=== PATIENT | female | born 1980 | race Caucasian/White ===

== ENCOUNTER 2016-07-30 12:21 | Day surgery (SDC) | payer OTHER ==
[~2016-07-30] VITALS: Ht 175.3 cm; Wt 104.4 kg
[~2016-07-30 12:21] MED LIST: ALPR0.25 PO; AMX500CIP PO; BUSP15TA60 PO; CEPH500C PO; HYDR-3454 PO; LORC10TA PO; OXYC1TAB87 PO; PEDI1TAB36 PO; VENL75CA PO
[2016-07-30] MEDS ORDERED: NS IV 1000 ML 1,000 ML ONE (12:41)
[2016-07-30] MEDS ORDERED: NS IV 1000 ML 1,000 ML IV SCH (12:45)
[2016-07-30] MEDS ORDERED: LEVOFLOXACIN 500 MG/D5W 100 ML (PRE-MIX) IV ONE (12:45)
[2016-07-30] MEDS ORDERED: PANTOPRAZOLE 40 MG/10 ML (PROTONIX) VIAL IV ONE (12:45)
[2016-07-30] MEDS ORDERED: ONDANSETRON 4 MG/2 ML (SDV) Z0FRAN IVP PRN (12:45)
[2016-07-30] MEDS ORDERED: NS IV 1000 ML 1,000 ML IV STA (12:47)
[2016-07-30] MEDS ORDERED: ONDANSETRON 4 MG/2 ML (SDV) Z0FRAN ONE (12:53)
--- NOTE | 2016-07-30 12:53 | Conscious Sedation/ASA ---
Conscious Sedation Pre-Proced Time Reviewed: 12:50 ASA Class: 2 Airway Mallampati Classification: ([place] appropriate class) I. II. III, IV Lungs Heart ASA score ASA 1: a normal healthy patient ASA 2: a patient with a mild systemic disease (mid diabetes, controlled hypertension, obesity ASA 3: a patient with a severe systemic disease that limits activity (angina , COPD, prior Myocardial infarction) ASA 4: a patient with an incapacitating disease that is a constant threat to life (CHF, renal failure) ASA 5: a moribund patient not expected to survive 24 hrs. (ruptured aneurysm) ASA 6: a declared brain patient whose organs are being harvested. For emergent operations, add the letter E after the classification Grade 2 Sedation Plan: Analgesia, Amnesia, Plan communicated to team members, Discussed options with patient/fam, Discussed risks with patient/fam Note The patient is an appropriate candidate to undergo the planned procedure, sedation, and anesthesia. The patient immediately re-assessed prior to indication. NEVILLE MONSALVE MD July 30, 2016 12:53 pm
--- NOTE | 2016-07-30 12:54 | Progress Note-Pre Operative ---
Pre-Operative Progress Note H&P Reviewed The H&P was reviewed, patient examined and no changes noted. Date H&P Reviewed: July 30, 2016 Time H&P Reviewed: 12:50 Pre-Operative Diagnosis: persistent nausea/vomiting s/p gastric sleeve NEVILLE MONSALVE MD July 30, 2016 12:54 pm
[2016-07-30] MEDS ORDERED: HYDROcodone/APAP 5 MG/325 MG (LORTAB) TAB PO PRN (13:00)
[2016-07-30] MEDS ORDERED: FLUMAZENIL (ROMAZICON) 0.1 MG/ML 5 ML VIAL INJ PRN (13:00)
[2016-07-30] MEDS ORDERED: HURRICAINE EXT TUBE (BENZOCAINE) XX PRN (13:00)
[2016-07-30] MEDS ORDERED: morphine INJ 10 MG/ML 1ML (SYR OR VIAL) IV PRN (13:00)
[2016-07-30] MEDS ORDERED: ONDANSETRON 4 MG/2 ML (SDV) Z0FRAN IV PRN (13:00)
[2016-07-30] MEDS ORDERED: ACETAMINOPHEN 325 MG TABLET/CAPLET (TYLENOL) PO PRN (13:00)
[2016-07-30] MEDS ORDERED: LIDOCAINE JELLY 2% (XYLOCAINE) 5 ML TUBE MM PRN (13:00)
[2016-07-30] MEDS ORDERED: NALOXONE 0.4 MG/ML 1 ML (NARCAN) VIAL IVP PRN (13:00)
[2016-07-30 13:07] VITALS: BP 113/72
[2016-07-30] MEDS ORDERED: LIDOCAINE JELLY 2% (XYLOCAINE) 5 ML TUBE ONE (13:49)
[2016-07-30] MEDS ORDERED: MIDAZOLAM 2 MG/2 ML (VERSED) VIAL ONE ×4 (13:50→13:51)
[2016-07-30] MEDS ORDERED: HURRICAINE EXT TUBE (BENZOCAINE) ONE (13:51)
[2016-07-30] MEDS ORDERED: fentaNYL INJECTION 100 MCG/2 ML AMP ONE ×2 (13:53→14:20)
[2016-07-30] MEDS ORDERED: NS IV 500 ML 1,000 ML ONE (14:10)
[2016-07-30] MEDS: MIDAZOLAM 2 MG/2 ML (VERSED) VIAL IVP PRN ×4 (14:13→14:22)
[2016-07-30] MEDS: fentaNYL INJECTION 100 MCG/2 ML AMP IVP PRN ×4 (14:14→14:23)
--- NOTE | 2016-07-30 14:52 | Progress Note-Post Operative ---
Post-Operative Progess Note Surgeon (s)/Stained Glass Window Designer (s) Surgeon NEVILLE MONSALVE MD Stained Glass Window Designer: none Pre-Operative Diagnosis persistent nausea/vomiting s/p gastric sleeve Post-Operative Diagnosis mid-gastric stricture Procedure & Operative Findings Date of Procedure 07/30/16 Procedure Preformed/Findings EGD with dilatation. Anesthesia Type GET Estimated Blood Loss Estimated blood loss (mL): minimal Specimens/Packing Specimens Removed none Packing: none NEVILLE MONSALVE MD July 30, 2016 2:52 pm
[2016-07-30] MEDS ORDERED: METO5TAB75 PO (14:54)
[2016-07-30] MEDS ORDERED: PROC-1 PO (14:54)
[2016-07-30] MEDS ORDERED: SUCR1TAB36 PO (14:54)
--- NOTE | 2016-07-30 14:56 | Discharge Inst-Surgical ---
D/C Lap Instructions-GRICEL New, Converted, or Re-Newed RX: RX on Chart Follow Up Appt in 2 weeks Activity as tolerated liquid diet with protein supplement 1 week then advance as tolerated. Symptoms to Report: Fever over 101 degree F, Nausea/Vomiting Infection Signs and Symptoms to report: Increased redness, Foul odor of wound, Increased drainage Bathing instructions: May shower Operative Area Clean/Dry; Keep incision clean/dry If any problems/questions: Contact your physician or go to Emergency Room NEVILLE MONSALVE MD July 30, 2016 2:56 pm
[2016-07-30 15:00] VITALS: BP 114/72
[2016-07-30 15:27] VITALS: BP 113/65
[2016-07-30 15:40] VITALS: BP 113/65
--- NOTE | 2016-07-31 14:37 | OPERATIVE REPORT ---
DATE OF SERVICE: 07/30/2016 ATTENDING LAST DIPPER: Danna Torre APRN PREOPERATIVE DIAGNOSIS: Persistent nausea and vomiting. POSTOPERATIVE DIAGNOSIS: Mid gastric stricture, status post laparoscopic gastric sleeve resection. PROCEDURE: EGD with dilatation. SURGEON: Neville Monsalve MD ANESTHESIA: Conscious sedation. ESTIMATED BLOOD LOSS: Minimal. FINDINGS: Mid gastric stricture of the stomach secondary to either acid hypersecretion or the angle of the staple line. There were no marginal ulcerations identified. The endoscope was able to go through this stricture; however, we did dilate to approximately 14 mm. DISPOSITION: The patient tolerated the procedure well. INDICATIONS: The patient is a 35-year-old female with persistent nausea, vomiting and dysphagia. She reports that she is only able to take in approximately 24 fluid ounces of water daily and, after taking in either liquid or food bolus, will feel nausea and then vomiting. She does not report any hematemesis, no coffee-ground emesis. She is status post a laparoscopic gastric sleeve resection on 07/05/2016. She is otherwise having normal bowel movements. DESCRIPTION OF PROCEDURE: The patient was brought to the endoscopy suite and laid in the left lateral decubitus position. After adequate IV pain and sedative medications and conscious sedation anesthesia, the mouthpiece was applied. The endoscope was placed in the mouth, visualizing the pharynx and hypopharyngeal region. The vocal cords, epiglottis and vallecula identified, appeared to be normal. The endoscope was then gently intubated in the esophageal opening, and esophagus insufflated. The endoscope was then advanced to the 1st, 2nd and 3rd portions of the esophagus. At the level of the GE junction, a reflux esophagitis class B identified. The endoscope was then easily advanced in the stomach. A mid gastric stricture was identified. This was mild to moderate in severity. There were no marginal ulcerations. The endoscope was able to pass through this without any resistance. The distal antrum, as well as the pylorus and the 1st and 2nd portions of the duodenum, appeared normal. No distal obstructions identified. We then proceeded with dilatation of the gastric stricture. A CRE fixed guidewire balloon was placed under direct visualization into the antrum and pulled back to the area of the stricture. We then first proceeded with 3 atmospheres of pressure for approximately 12 mm with no resistance. We then proceeded to 4.5 atmospheres of pressure for approximately 13 and 14 mm in diameter with mild resistance. We then proceeded with 6 atmospheres of pressure with moderate resistance and left this into place for approximately 60 seconds. The patient did show discomfort, indicating a successful dilatation. The balloon was then desufflated and removed. The endoscope was passed through this area again with no mucosal tears, as well as no bleeding, identified. The endoscope was then slowly withdrawn, taking a second look and suctioning residual air with no additional findings. The patient tolerated the procedure well. We will continue with medical management with a clear liquid diet as tolerated and to focus on a liquid form of some protein for now. We will also have her continue with Protonix daily and, if her symptoms persist, we will have her come back in approximately 2 weeks for further dilatation of the stricture. Job ID: [id number] DocumentID: [id number] Dictated Date: 07/30/2016 14:39:46 Simplex Operator Date: 07/31/2016 14:37:10 Dictated By: NEVILLE MONSALVE MD MTDD
== END 2016-07-30 15:40 | disposition home or self-care (01) ==
LOC: ENDO 12:21
PROVIDERS: ATTEND Surgery Pediatric Surgery
DX: K31.89 Other diseases of stomach and duodenum (principal); K21.0 Gastro-esophageal reflux disease with esophagitis; Z98.84 Bariatric surgery status
CPT/HCPCS: 84703

== ENCOUNTER 2016-08-02 16:38 | Inpatient (IN) | payer OTHER ==
[~2016-08-02] VITALS: Ht 175.3 cm; Wt 121.3 kg
[~2016-08-02 16:38] MED LIST changes: +METO5TAB75 PO; +PROC-1 PO; +SUCR1TAB36 PO
[2016-08-02 16:50] VITALS: BP 134/70
[2016-08-02] MEDS ORDERED: CATHETER FLUSH 10 ML SYR IV PRN (17:45)
[2016-08-02] MEDS ORDERED: LORazepam INJ 2 MG/ML (ATIVAN) VIAL IV PRN (17:45)
[2016-08-02 17:49] LABS: BASOPHILS % (AUTO) 0 % (0-10); EOSINOPHILS # (AUTO) 0.1 10^3/uL (0.0-0.3); EOSINOPHILS % (AUTO) 2 % (0-10); LYMPHOCYTES # (AUTO) 0.8 X 10^3 (1.0-4.0); LYMPHOCYTES % (AUTO) 24 % (12-44); MEAN CORPUSCULAR HEMOGLOBIN 30 PG (25-34); MEAN CORPUSCULAR HGB CONC 35 G/DL (32-36); MEAN CORPUSCULAR VOLUME 87 FL (80-99); MEAN PLATELET VOLUME 11.8 FL (7.4-10.4); MONOCYTES # (AUTO) 0.3 X 10^3 (0.0-1.0); MONOCYTES % (AUTO) 8 % (0-12); NEUTROPHILS # (AUTO) 2.2 X 10^3 (1.8-7.8); NEUTROPHILS % (AUTO) 67 % (42-75); PLATELET COUNT 153 10^3/uL (130-400); RED BLOOD COUNT 4.63 10^6/uL (4.35-5.85); RED CELL DISTRIBUTION WIDTH 12.9 % (10.0-14.5); WHITE BLOOD COUNT 3.3 10^3/uL (4.3-11.0)
[2016-08-02] MEDS: ONDANSETRON 4 MG/2 ML (SDV) Z0FRAN IV PRN (17:56)
[2016-08-02] MEDS: LACTATED RINGERS 1,000 ML IV SCH (17:56)
[2016-08-02 18:14] LABS: ANION GAP 16 MMOL/L (5-14); BLOOD UREA NITROGEN 2 MG/DL (7-18); BUN/CREATININE RATIO 3; CALCIUM 8.4 MG/DL (8.5-10.1); CARBON DIOXIDE 19 MMOL/L (21-32); CHLORIDE 105 MMOL/L (98-107); CREATININE SERUM 0.79 MG/DL (0.60-1.30); GFR ESTIMATED > 60; GLUCOSE 73 MG/DL (70-105); POTASSIUM 3.1 MMOL/L (3.6-5.0); SODIUM 140 MMOL/L (135-145)
[2016-08-02] MEDS: PROMETHAZINE INJ 25 MG/ML (PHENERGAN) AMP IV PRN ×2 (18:20→23:45)
[2016-08-02 20:00] VITALS: BP 121/69
[2016-08-02] MEDS: PANTOPRAZOLE 40 MG/10 ML (PROTONIX) VIAL IV SCH (20:25)
[2016-08-02] MEDS: METOCLOPRAMIDE INJ 10 MG/2 ML (REGLAN) IV PRN (20:25)
[2016-08-02 23:45] VITALS: BP 129/73
[2016-08-03] MEDS: LACTATED RINGERS 1,000 ML IV SCH ×3 (00:51→07:34)
[2016-08-03 03:35] VITALS: BP 124/67
[2016-08-03] MEDS: PROMETHAZINE INJ 25 MG/ML (PHENERGAN) AMP IV PRN ×5 (06:22→23:18)
--- NOTE | 2016-08-03 06:37 | HISTORY AND PHYSICAL ---
DATE OF SERVICE: 08/02/2016 ATTENDING PRIMARY CARE PROVIDER: Danna Torre APRN HISTORY OF PRESENT ILLNESS: The patient is a 35-year-old female with persistent nausea and vomiting as well as dysphagia. She had reported only being able to take in approximately 24 fluid ounces of liquids daily and this would occur after taking liquids as well as soft foods. She did not report any hematemesis or any coffee ground emesis. She is status post laparoscopic gastric sleeve resection on 07/06/2011. On 07/30/2016 she underwent an EGD and was found to have a mid-gastric stricture. This was not severe and the endoscope was able to go through this without any difficulty and there were no distal obstructions. The stricture was dilated to approximately 14 mm in diameter. She was then discharged home however. She states that she initially did well. However the following two days she again felt significant symptoms of nausea, vomiting and was unable to take in medications as well as adequate amounts of liquids. PAST MEDICAL HISTORY: Obstructive sleep apnea, anxiety, morbid obesity. PAST SURGICAL HISTORY: Neuroma excision in 1993, laparoscopic gastric sleeve resection on 07/05/2016. ALLERGIES: No known drug allergies. MEDICATIONS: Ativan p.r.n. SOCIAL HISTORY: Negative smoker. Rare alcohol. FAMILY HISTORY: Mother with type 2 diabetes and hypertension. Father stroke in his 50s and hypertension. Maternal grandmother: Insulin dependent diabetes. Maternal grandfather: Brain tumor. Maternal aunt: Lung cancer and renal cancer. REVIEW OF SYSTEMS: This is a slightly lethargic female with no acute pain issues. She is not experiencing any shortness of breath or difficulty breathing. No chest pain, palpitations or diaphoresis. Persistent nausea and vomiting with liquids and solids and is only able to take in very small amount of liquids on a daily basis. No hematemesis, no coffee ground emesis. No diarrhea or constipation. No red blood per rectum, no dark tarry stools. No fever or chills with weight loss in the past 4 weeks. PHYSICAL EXAMINATION: VITAL SIGNS: Stable. Blood pressure 100/76. Preoperative weight 300.4 pounds. Last weight 264 pounds. Today's weight is 261.5 pounds with a body mass index of 38.7. CHEST: Good breath sounds bilaterally. HEART: Regular. EXTREMITIES: No lower extremity edema. Negative Homans sign. HEENT: No scleral icterus. NECK: No cervical lymphadenopathy. ABDOMEN: Soft. Nondistended. There is mild discomfort in the epigastric region upon deep palpation. There are no peritoneal signs. ASSESSMENT AND PLAN: The patient is a 35-year-old female with persistent nausea, vomiting and gastric stricture. We will admit her and start IV fluids, as well as IV proton pump inhibitor, acid sales assistants and salespersons on a b.i.d. as well as add Carafate. We will also proceed with IV Zofran and Phenergan p.r.n. When she is feeling better we will slowly advance her diet. Job ID: [id number] DocumentID: [id number] Dictated Date: 08/02/2016 17:45:33 Dipper And Drier Date: 08/02/2016 21:01:04 Dictated By: NEVILLE MONSALVE MD
[2016-08-03] MEDS: ONDANSETRON 4 MG/2 ML (SDV) Z0FRAN IV PRN (07:34)
[2016-08-03] MEDS: fentaNYL INJECTION 100 MCG/2 ML AMP IV PRN ×2 (07:42→23:30)
[2016-08-03 08:02] VITALS: BP 97/59
[2016-08-03] MEDS: PANTOPRAZOLE 40 MG/10 ML (PROTONIX) VIAL IV SCH ×2 (08:21→21:18)
--- NOTE | 2016-08-03 09:34 | Consultation-Hospitalist ---
HPI History of Present Illness: HPI/Chief Complaint Mrs. Correa is a 35-year-old white female who underwent gastric sleeve resection per Dr. AGARWAL on 05 July. She reports over the past several weeks she 's had increased problems with nausea and vomiting. It is gotten to the point that she cannot even swallow without gagging before food or fluid bolus even gets into the esophagus. She underwent EGD evaluation on the that did reveal some mild stricturing of the distal sleeve for which she underwent pneumatic dilatation. There was some initial mild improvement in symptoms. For the past several days she has had minimal by mouth intake and was admitted for malnutrition and she has lost 50 pounds and dehydration. She was also noted to be hypokalemic with a potassium of 3.1. She does have a previous history of anxiety for which she would take intermittent Ativan, but denied any past bouts of hyperemesis. 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 She still has an intact gallbladder. She reports no significant abdominal pain and reports no bowel movement in the past 2 weeks but is had minimal if any solids and virtually no fiber in her diet. She has no previous problems with constipation. She also denies back pain. Date Seen 08/03/16 Attending Physician Angel Agarwal MD PCP Homar Jesus MD Referring Physician Date of Admission August 02, 2016 at 17:14 Home Medications & Allergies Home Medications Reviewed patient Home Medication Reconciliation Form Allergies Allergies Coded Allergies No Known Drug Allergies (Verified06/30/07) Past Nrxrmlr-Dtvqhk-Novizb Hx Patient Social History Alcohol Use: Denies Use Recreational Drug Use: No Smoking Status: Never a Smoker Physical Abuse Screen: No Sexual Abuse: No Recent Foreign Travel: No Contact w/other who traveled: No Recent Hopitalizations: No Recent Infectious Disease Expo: No Immunizations Up To Date Tetanus Booster (TDap): Unknown Date of Influenza Vaccine: Dec 19, 2012 Seasonal Allergies Seasonal Allergies: No Surgeries HX Surgeries: Yes (GASTRIC SLEEVE) Respiratory Hx Respiratory Disorders: No Cardiovascular Hx Cardiovascular Disorders: No Reproductive System Hx Reproductive Disorders: No Genitourinary Hx Genitourinary Disorders: Yes (frequent UTI) Gastrointestinal Hx Gastrointestinal Disorders: No Musculoskeletal Hx Musculoskeletal Disorders: No Endocrine Hx Endocrine Disorders: No HEENT HX ENT Disorders: No Cancer Hx Cancer: No Blood Transfusions Hx Blood Disorders: No Family Medical History Significant Family History: No Pertinent Family Hx Family Hx: Patient reports no known family medical history. Review of Systems Constitutional: weakness Respiratory: no symptoms reported, No cough, No dyspnea on exertion, No hemoptysis, No orthopnea, No phlegm, No short of breath Cardiovascular: no symptoms reported, No chest pain, No edema, No Hx of Intervention, No palpitations, No syncope, No vascular heart diseas, No other Gastrointestinal: see HPI Physical Exam Physical Exam Vital Signs Vital Sign - Last 12Hours 08/02/16 16:50 Temp 97.4 Pulse 80 Resp 20 B/P (MAP) 134/70 Pulse Ox 96 Capillary Refill : General Appearance: Anxious, Obese HEENT: Pharynx Normal Respiratory: Chest Non Tender, Lungs Clear, Normal Breath Sounds, No Accessory Muscle Use, No Respiratory Distress Cardiovascular: Regular Rate, Rhythm, No Edema, No Gallop, No JVD, No Murmur, Normal Peripheral Pulses Gastrointestinal: Normal Bowel Sounds, No Organomegaly, No Pulsatile Mass, Soft , Other (Mild epigastric and right upper quadrant abdominal discomfort palpation without rebound or guarding) Extremity: Normal Capillary Refill, Normal Inspection, Normal Range of Motion, Non Tender, No Calf Tenderness, No Pedal Edema Results Results/Procedures Lab Laboratory Tests 08/02/16 17:33 Assessment/Plan Admission Diagnosis 1. Hyperemesis with recent history of gastric sleeve resulting in malnutrition and dehydration. Low BUN and is likely due to underlying malnutrition. The patient is likely develop some anticipatory anxiety for which we will initiate scheduled Ativan. For now IV and then switched to by mouth when she is able to swallow pills. Patient scheduled for a PICC line later today with hyperalimentation to follow which should help hyperemesis. 2. Hypokalemia secondary to number 1 we'll check a magnesium level as well and replace IV. 3. May need to consider further evaluation for cholecystitis considering recent rapid weight loss. 4. Patient has been told she will likely undergo EGD again to evaluate for recurrent gastric stricturing. Clinical Quality Measures DVT/VTE Risk/Contraindication: Risk Factor Score Per Nursin RFS Level Per Nursing on Admit: 1=Low/No VTE PPX MACO NASCIMENTO MD August 03, 2016 09:34
[2016-08-03] MEDS ORDERED: METO5TAB2 PO (09:38)
[2016-08-03] MEDS ORDERED: SCOP1PAT TD (09:38)
[2016-08-03] MEDS ORDERED: PANT40TA3 PO (09:38)
[2016-08-03] MEDS ORDERED: SUCR1TAB PO (09:38)
[2016-08-03] MEDS ORDERED: LEVO500T80 PO (09:38)
[2016-08-03] MEDS ORDERED: PROC10TA PO (09:38)
[2016-08-03] MEDS: POTASSIUM CHLORIDE INJ 20 MEQ in LACTATED RINGERS 1,000 ML IV SCH ×3 (11:16→18:45)
[2016-08-03 11:55] VITALS: BP 135/77
--- NOTE | 2016-08-03 12:29 | Diagnostic Imaging Report ---
INDICATION: PICC line placement. Frontal chest obtained at 1153 a.m. and compared with 11/17/2014. FINDINGS: Heart and mediastinal silhouette are normal in appearance. The lungs are clear. There is no pneumothorax or pleural fluid. There is a new right-sided PICC line, tip is going up the right internal jugular vein into the right side of the neck, above the imaged level. IMPRESSION: Right-sided PICC line is seen going up the right side of the neck, tip is not visualized. There is no acute infiltrate or acute process in the chest otherwise seen. Dictated by: Dictated on workstation # [id number]
--- NOTE | 2016-08-03 12:40 | Progress Note (SOAP) ---
Subjective Subjective/Events-last exam doing slightly better. able to take in some clear liquids. no epidodes vomiting today. Objective Exam Vital Signs Date Time Temp Pulse Resp B/P (MAP) Pulse Ox O2 Delivery O2 Flow Rate FiO2 08/03/16 11:55 98.3 55 20 135/77 92 08/03/16 08:02 97.7 59 16 97/59 97 08/03/16 03:35 98.8 62 20 124/67 94 08/02/16 23:45 97.1 74 18 129/73 96 08/02/16 20:00 98.5 63 20 121/69 97 08/02/16 16:50 97.4 80 20 134/70 96 I & O 08/03/16 07:00 Intake Total 1000 ml Output Total 1100 ml Balance -100 ml Capillary Refill : General Appearance: No Apparent Distress HEENT: PERRL/EOMI Neck: Full Range of Motion Respiratory: Chest Non Tender, Lungs Clear, Normal Breath Sounds Cardiovascular: Regular Rate, Rhythm Gastrointestinal: normal bowel sounds, soft Extremity: Normal Capillary Refill Neurologic/Psychiatric: Alert, Oriented x3 Skin: Normal Color Lymphatic: No Adenopathy Results Lab Laboratory Tests 08/02/16 17:33: White Blood Count 3.3L, Red Blood Count 4.63, Hemoglobin 13.9, Hematocrit 40, Mean Corpuscular Volume 87, Mean Corpuscular Hemoglobin 30, Mean Corpuscular Hemoglobin Concent 35, Red Cell Distribution Width 12.9, Platelet Count 153, Mean Platelet Volume 11.8H, Neutrophils (%) (Auto) 67, Lymphocytes (%) (Auto) 24 , Monocytes (%) (Auto) 8, Eosinophils (%) (Auto) 2, Basophils (%) (Auto) 0, Neutrophils # (Auto) 2.2, Lymphocytes # (Auto) 0.8L, Monocytes # (Auto) 0.3, Eosinophils # (Auto) 0.1, Basophils # (Auto) 0.0, Sodium Level 140, Potassium Level 3.1L, Chloride Level 105, Carbon Dioxide Level 19L, Anion Gap 16H, Blood Urea Nitrogen 2L, Creatinine 0.79, Estimat Glomerular Filtration Rate > 60, BUN/ Creatinine Ratio 3, Glucose Level 73, Calcium Level 8.4L Assessment/Plan Assessment/Plan Assess & Plan/Chief Complaint persistent nausea and vomiting s/p lap gastric sleeve resection. upper GI today. add trial decadron. continue IV fluids for now. Clinical Quality Measures DVT/VTE Risk/Contraindication: Risk Factor Score Per Nursin RFS Level Per Nursing on Admit: 1=Low/No VTE PPX NEVILLE MONSALVE MD August 03, 2016 12:40 pm
--- NOTE | 2016-08-03 12:42 | Diagnostic Imaging Report ---
INDICATION: PICC line readjustment. Comparison study: Chest from 11:53 AM. FINDINGS: Portable view of the chest demonstrates interval readjustment of the right arm PICC line. The tip is no longer in the jugular vein but is now in the contralateral innominate vein. Lungs are clear. The heart size and vascularity are normal. There are no pleural effusions. IMPRESSION: The PICC line tip is in the contralateral innominate vein. Dictated by: Dictated on workstation # [id number]
[2016-08-03] MEDS: LORazepam INJ 2 MG/ML (ATIVAN) VIAL IVP SCH ×2 (12:44→21:19)
--- NOTE | 2016-08-03 12:48 | Diagnostic Imaging Report ---
EXAMINATION: Portable upright radiograph of the chest. INDICATION: PICC line placement. Comparison same day radiograph is reviewed which demonstrated good position of the PICC line in the left brachycephalic vein. FINDINGS: The PICC line tip now is in the distal SVC level. The lungs are clear. Heart size is normal. No effusion or pneumothorax. Mediastinum and ildefonso appear unremarkable. IMPRESSION: The right PICC line tip now is at the distal SVC level. Dictated by: Dictated on workstation # [id number]
[2016-08-03] MEDS ORDERED: TPN IV SCH (13:30)
[2016-08-03] MEDS ORDERED: ONDANSETRON 4 MG/2 ML (SDV) Z0FRAN IV PRN (13:45)
[2016-08-03] MEDS: DEXAMETHASONE 4 MG/ML SDV (DECADRON) IV SCH ×2 (14:06→21:18)
[2016-08-03 14:13] LABS: MEAN PLATELET VOLUME 11.6 FL (7.4-10.4); RED BLOOD COUNT 4.25 10^6/uL (4.35-5.85); WHITE BLOOD COUNT 3.3 10^3/uL (4.3-11.0)
[2016-08-03 14:23] LABS: INR 1.2 (0.8-1.4); PROTHROMBIN TIME PATIENT 14.6 SEC (12.2-14.7)
[2016-08-03 14:36] LABS: ALANINE AMINOTRANSFERASE 19 U/L (0-55); ALBUMIN 3.4 G/DL (3.2-4.5); ANION GAP 13 MMOL/L (5-14); ASPARTATE AMINO TRANSFERASE 19 U/L (5-34); BILIRUBIN,TOTAL 1.1 MG/DL (0.1-1.0); BLOOD UREA NITROGEN < 2 MG/DL (7-18); BUN/CREATININE RATIO 3; CARBON DIOXIDE 22 MMOL/L (21-32); CHLORIDE 106 MMOL/L (98-107); CREATININE SERUM 0.71 MG/DL (0.60-1.30); GFR ESTIMATED > 60; GLUCOSE 73 MG/DL (70-105); MAGNESIUM 1.7 MG/DL (1.8-2.4); PHOSPHORUS 3.3 MG/DL (2.3-4.7); POTASSIUM 3.1 MMOL/L (3.6-5.0); SODIUM 141 MMOL/L (135-145); TOTAL PROTEIN 5.5 G/DL (6.4-8.2); TRIGLYCERIDES 91 MG/DL (<150)
[2016-08-03] MEDS ORDERED: DIATRIZOATE MEGLUM/SODIUM 37% 120 ML (GASTROGRAFIN) PO ONE (15:00)
[2016-08-03] MEDS: MAGNESIUM 1 GM/100 ML IVPB 100 ML IV SCH ×3 (15:30→18:20)
[2016-08-03] MEDS: POTASSIUM CL 10MEQ/50ML IVPB 50 ML IV SCH ×5 (15:31→23:15)
[2016-08-03 16:08] VITALS: BP 113/74
--- NOTE | 2016-08-03 16:22 | Diagnostic Imaging Report ---
EXAM: Upper GI series. INDICATION: Rapid weight loss after gastric sleeve surgery. TECHNIQUE: A total of 20 cc of Gastrografin was diluted in 2 cups of water and was administered orally. A total of 3 minutes and 15 seconds of fluoroscopy time was utilized with images taken in standing and supine positions (while the patient was swallowing the barium) of the chest and abdomen. FINDINGS: Outpatient Clerk images demonstrate the surgical clips and sutures in the upper left abdomen. There is an intrauterine contraceptive device seen in the pelvis. The esophagus demonstrates normal caliber and contour. There is mild esophageal spasms and gastroesophageal reflux seen during this exam. Postsurgical changes are seen in the stomach with no evidence of obstruction, suspicious filling defect, or contrast extravasation. There is passage of contrast seen into the duodenum which appears unremarkable. There is no hiatal hernia. IMPRESSION: Mild distal esophageal spasm and gastroesophageal reflux is noted during this exam. Dictated by: Dictated on workstation # [id number]
[2016-08-03] MEDS: METOCLOPRAMIDE INJ 10 MG/2 ML (REGLAN) IV PRN (19:37)
[2016-08-03 20:00] VITALS: BP 147/75
[2016-08-04] VITALS: BP 119/78
[2016-08-04] MEDS: POTASSIUM CHLORIDE INJ 20 MEQ in LACTATED RINGERS 1,000 ML IV SCH ×2 (02:07→11:09)
[2016-08-04 03:20] VITALS: BP 123/68
[2016-08-04] MEDS: DEXAMETHASONE 4 MG/ML SDV (DECADRON) IV SCH ×3 (05:01→21:44)
[2016-08-04] MEDS: fentaNYL INJECTION 100 MCG/2 ML AMP IV PRN ×2 (06:30→20:29)
[2016-08-04 06:53] LABS: ANION GAP 11 MMOL/L (5-14); BLOOD UREA NITROGEN < 2 MG/DL (7-18); BUN/CREATININE RATIO 3; CALCIUM 8.1 MG/DL (8.5-10.1); CARBON DIOXIDE 19 MMOL/L (21-32); CHLORIDE 107 MMOL/L (98-107); CREATININE SERUM 0.73 MG/DL (0.60-1.30); GFR ESTIMATED > 60; GLUCOSE 159 MG/DL (70-105); POTASSIUM 4.2 MMOL/L (3.6-5.0); SODIUM 137 MMOL/L (135-145)
[2016-08-04] MEDS: PROMETHAZINE INJ 25 MG/ML (PHENERGAN) AMP IV PRN ×2 (07:49→13:55)
[2016-08-04 08:00] VITALS: BP 114/78
--- NOTE | 2016-08-04 08:07 | Progress Note-Hospitalist ---
Subjective HPI/CC On Admission Mrs. Correa is a 35-year-old white female who underwent gastric sleeve resection per Dr. MONSALVE on 05 July. She reports over the past several weeks she 's had increased problems with nausea and vomiting. It is gotten to the point that she cannot even swallow without gagging before food or fluid bolus even gets into the esophagus. She underwent EGD evaluation on the that did reveal some mild stricturing of the distal sleeve for which she underwent pneumatic dilatation. There was some initial mild improvement in symptoms. For the past several days she has had minimal by mouth intake and was admitted for malnutrition and she has lost 50 pounds and dehydration. She was also noted to be hypokalemic with a potassium of 3.1. She does have a previous history of anxiety for which she would take intermittent Ativan, but denied any past bouts of hyperemesis. 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 She still has an intact gallbladder. She reports no significant abdominal pain and reports no bowel movement in the past 2 weeks but is had minimal if any solids and virtually no fiber in her diet. She has no previous problems with constipation. She also denies back pain. Date Seen 08/04/16 Subjective/Events-last exam Mrs. Correa was eating a Popsicle on my arrival without difficulty. She tolerated liquids last night's without nausea or dysphasia. She reports feeling significantly better, although still weak. With by mouth intake she's had 2 loose stools over the last 12 hours without abdominal cramping, pain or evidence for melena or bright red blood per rectum. Objective Exam Vital Signs Vital Sign - Last 12Hours 08/02/16 16:50 Temp 97.4 Pulse 80 Resp 20 B/P (MAP) 134/70 Pulse Ox 96 Capillary Refill : General Appearance: No Apparent Distress Respiratory: Chest Non Tender, Lungs Clear, Normal Breath Sounds, No Accessory Muscle Use, No Respiratory Distress Cardiovascular: Regular Rate, Rhythm, No Edema, No Gallop, No JVD, No Murmur Gastrointestinal: Normal Bowel Sounds, No Organomegaly, No Pulsatile Mass, Non Tender, Soft Neurologic/Psychiatric: Alert, Oriented x3 Skin: Pallor Results/Procedures Lab Laboratory Tests 08/03/16 14:02 08/04/16 06:25 Assessment/Plan Assessment and Plan Assess & Plan/Chief Complaint 1. Hyperemesis status post gastric sleeve resection with secondary malnutrition improving especially after the initiation of Decadron will continued scheduled lorazepam and Phenergan. Upper GI did reveal some esophageal spasm during swallowing but no evidence for obstruction. I suspect that this is major culprit in her difficulty with by mouth intake. Continue proton pump inhibitor therapy. Dietary progression per Dr. MONSALVE. Patient was encouraged to get alcohol and ambulate as she reports no difficulty getting to the bathroom and back. 2. Patient was concerned about loose stools. She was reassured at this point that it is likely just a prominent gastrocolic reflex with the reinitiation of by mouth intake. She's on no other medications that should contribute to diarrhea when scaling back on medications would consider stopping Reglan first in this regard. 3. Hypokalemia and hypomagnesemia resolved status post IV replacement. MACO NASCIMENTO MD August 04, 2016 08:07
[2016-08-04] MEDS: LORazepam INJ 2 MG/ML (ATIVAN) VIAL IVP SCH ×3 (10:19→20:32)
[2016-08-04] MEDS: PANTOPRAZOLE 40 MG/10 ML (PROTONIX) VIAL IV SCH ×2 (10:19→20:35)
--- NOTE | 2016-08-04 11:32 | Progress Note (SOAP) ---
Subjective Subjective/Events-last exam doing slightly better. tolerating some clears. pain controlled. good urine output. Objective Exam Vital Signs Date Time Temp Pulse Resp B/P (MAP) Pulse Ox O2 Delivery O2 Flow Rate FiO2 08/04/16 08:00 98.4 93 20 114/78 97 08/04/16 03:20 98.5 66 16 123/68 94 08/04/16 00:00 98.6 59 16 119/78 94 08/03/16 20:00 97.3 50 20 147/75 98 08/03/16 16:08 97.7 76 20 113/74 96 08/03/16 11:55 98.3 55 20 135/77 92 I & O 08/04/16 07:00 Intake Total 2380 ml Output Total 3000 ml Balance -620 ml Capillary Refill : General Appearance: No Apparent Distress HEENT: PERRL/EOMI Neck: Full Range of Motion Respiratory: Chest Non Tender, Lungs Clear, Normal Breath Sounds Cardiovascular: Regular Rate, Rhythm Gastrointestinal: normal bowel sounds, non tender, soft Extremity: Normal Capillary Refill Neurologic/Psychiatric: Alert, Oriented x3 Skin: Normal Color Lymphatic: No Adenopathy Results Lab Laboratory Tests 08/03/16 13:46: Glucometer 70 08/03/16 14:02: White Blood Count 3.3L, Red Blood Count 4.25L, Hemoglobin 12.8, Hematocrit 37, Mean Corpuscular Volume 88, Mean Corpuscular Hemoglobin 30, Mean Corpuscular Hemoglobin Concent 34, Red Cell Distribution Width 13.0, Platelet Count 140, Mean Platelet Volume 11.6H, Prothrombin Time 14.6, INR Comment 1.2, Sodium Level 141, Potassium Level 3.1L, Chloride Level 106, Carbon Dioxide Level 22, Anion Gap 13, Blood Urea Nitrogen < 2L, Creatinine 0.71, Estimat Glomerular Filtration Rate > 60, BUN/Creatinine Ratio 3, Glucose Level 73, Calcium Level 8.0L, Phosphorus Level 3.3, Magnesium Level 1.7L, Total Bilirubin 1.1H, Aspartate Amino Transf (AST/SGOT) 19, Alanine Aminotransferase (ALT/SGPT) 19, Alkaline Phosphatase 47, Total Protein 5.5L, Albumin 3.4, Prealbumin 14.6L, Triglycerides Level 91 08/04/16 06:25: Sodium Level 137, Potassium Level 4.2, Chloride Level 107, Carbon Dioxide Level 19L, Anion Gap 11, Blood Urea Nitrogen < 2L, Creatinine 0.73, Estimat Glomerular Filtration Rate > 60, BUN/Creatinine Ratio 3, Glucose Level 159H, Calcium Level 8.1L, Magnesium Level 2.0 Assessment/Plan Assessment/Plan Assess & Plan/Chief Complaint persistent nausea and vomiting s/p lap gastric sleeve resection. add trial decadron. continue IV fluids for now. TPN with supplemental thiamine to prevent dry beri beri. Clinical Quality Measures DVT/VTE Risk/Contraindication: Risk Factor Score Per Nursin RFS Level Per Nursing on Admit: 1=Low/No VTE PPX NEVILLE MONSALVE MD August 04, 2016 11:32 am
[2016-08-04 12:00] VITALS: BP 118/70
[2016-08-04 16:00] VITALS: BP 120/62
[2016-08-04] MEDS: LACTATED RINGERS 1,000 ML IV SCH (16:40)
[2016-08-04] MEDS ORDERED: SODIUM CHLORIDE IV SCH ×11 (17:00)
[2016-08-04] MEDS ORDERED: [UNRECOGNIZED DRUG - OTHER] IV SCH ×11 (17:00)
[2016-08-04] MEDS ORDERED: SODIUM ACETATE IV SCH ×11 (17:00)
[2016-08-04 20:00] VITALS: BP 118/55
[2016-08-04] MEDS: METOCLOPRAMIDE INJ 10 MG/2 ML (REGLAN) IV PRN (20:28)
[2016-08-05] VITALS: BP 99/53
[2016-08-05] MEDS: PROMETHAZINE INJ 25 MG/ML (PHENERGAN) AMP IV PRN ×3 (01:43→15:23)
[2016-08-05 03:35] VITALS: BP 114/58
[2016-08-05] MEDS: DEXAMETHASONE 4 MG/ML SDV (DECADRON) IV SCH ×2 (05:03→13:33)
[2016-08-05] MEDS: METOCLOPRAMIDE INJ 10 MG/2 ML (REGLAN) IV PRN ×2 (06:29→12:30)
[2016-08-05 07:48] VITALS: BP 112/60
[2016-08-05] MEDS: PANTOPRAZOLE 40 MG/10 ML (PROTONIX) VIAL IV SCH (08:04)
[2016-08-05] MEDS: LACTATED RINGERS 1,000 ML IV SCH (08:05)
[2016-08-05] MEDS: LORazepam INJ 2 MG/ML (ATIVAN) VIAL IVP SCH ×2 (08:05→12:30)
[2016-08-05] MEDS: fentaNYL INJECTION 100 MCG/2 ML AMP IV PRN (08:05)
--- NOTE | 2016-08-05 11:23 | Progress Note-Hospitalist ---
Progress Note HPI/CC on Admission Mrs. Correa is a 35-year-old white female who underwent gastric sleeve resection per Dr. MONSALVE on 05 July. She reports over the past several weeks she 's had increased problems with nausea and vomiting. It is gotten to the point that she cannot even swallow without gagging before food or fluid bolus even gets into the esophagus. She underwent EGD evaluation on the that did reveal some mild stricturing of the distal sleeve for which she underwent pneumatic dilatation. There was some initial mild improvement in symptoms. For the past several days she has had minimal by mouth intake and was admitted for malnutrition and she has lost 50 pounds and dehydration. She was also noted to be hypokalemic with a potassium of 3.1. She does have a previous history of anxiety for which she would take intermittent Ativan, but denied any past bouts of hyperemesis. 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 She still has an intact gallbladder. She reports no significant abdominal pain and reports no bowel movement in the past 2 weeks but is had minimal if any solids and virtually no fiber in her diet. She has no previous problems with constipation. She also denies back pain. Progress Notes/Assess & Plan Date Seen 08/05/16 Diagonsis/Assessment & Plan Patient feels much better and is able to take oral intake and nutrition well Bowels are moving No pain Has a mild headache It appears she has poor motivation but we will encourage her and support her in order to get on the mend and be able to be discharged No fever, vital signs stable, pleasant, improved, flat affect Regular rate and rhythm, clear to all sedation bilaterally Nontender abdomen Assessment: Hyperemesis following gastric sleeve procedure Hypokalemia Hyperglycemia Leukocytosis Plan: Discharge home when Dr. Monsalve approves OLEGARIO URIBE DO August 05, 2016 11:23
[2016-08-05 12:42] VITALS: BP 106/59
[2016-08-05] MEDS ORDERED: THIA100T12 PO (16:15)
[2016-08-05] MEDS ORDERED: PROM25TA14 PO (16:15)
[2016-08-05] MEDS ORDERED: DEXA4TAB PO (16:15)
--- NOTE | 2016-08-05 16:56 | Progress Note (SOAP) ---
Subjective Subjective/Events-last exam doing better today. tolerating fluids well and feels hungry. no nausea/vomiting. Objective Exam Vital Signs Date Time Temp Pulse Resp B/P (MAP) Pulse Ox O2 Delivery O2 Flow Rate FiO2 08/05/16 16:38 08/05/16 12:42 96.6 66 20 106/59 95 08/05/16 07:48 97.1 54 16 112/60 96 08/05/16 03:35 97.9 54 16 114/58 95 08/05/16 00:00 96.4 82 18 99/53 92 08/04/16 20:00 97.3 69 20 118/55 93 I & O 08/05/16 07:00 Intake Total 2229 ml Output Total 2650 ml Balance -421 ml Capillary Refill : General Appearance: No Apparent Distress HEENT: PERRL/EOMI Neck: Full Range of Motion Respiratory: Chest Non Tender, Lungs Clear, Normal Breath Sounds Cardiovascular: Regular Rate, Rhythm Gastrointestinal: normal bowel sounds, non tender, soft Extremity: Normal Capillary Refill Neurologic/Psychiatric: Alert, Oriented x3 Skin: Normal Color Lymphatic: No Adenopathy Results Lab Laboratory Tests 08/04/16 17:58: Glucometer 198H 08/04/16 23:49: Glucometer 167H 08/05/16 05:16: Glucometer 156H 08/05/16 11:37: Glucometer 128H Assessment/Plan Assessment/Plan Assess & Plan/Chief Complaint persistent nausea and vomiting s/p lap gastric sleeve resection. doing better now and tolerating adequate fluids. home with tapering decadron, phenergan and thiamine. keep PICC for now. f/u 1 week. Clinical Quality Measures DVT/VTE Risk/Contraindication: Risk Factor Score Per Nursin RFS Level Per Nursing on Admit: 1=Low/No VTE PPX NEVILLE MONSALVE MD August 05, 2016 4:56 pm
--- NOTE | 2016-08-06 12:31 | DISCHARGE SUMMARY ---
DATE OF SERVICE: 08/05/2016 ATTENDING PRIMARY CARE PHYSICIAN: Delmis Torre APRN ADMISSION DIAGNOSIS: Persistent nausea and vomiting. DISCHARGE DIAGNOSIS: Persistent nausea and vomiting. ADDITIONAL DIAGNOSES: Obstructive sleep apnea, anxiety, morbid obesity. PROCEDURES: No procedures. COMPLICATIONS: No complications. DISPOSITION: Home in stable condition. HISTORY OF PRESENT ILLNESS: The patient is a 35-year-old female with persistent nausea and vomiting as well as dysphagia. She had reported only being able to take in approximately 24 full ounces of liquids daily and this would occur after taking in liquids as well as soft foods. She did not report any episodes of hematemesis, no coffee ground emesis. She is status post laparoscopic gastric sleeve resection on 07/05/2016. She underwent an EGD on 07/30/2016 was found to have a mild mid gastric stricture, which the endoscope was able to go through and there were also no distal obstructions. The stricture was dilated to 14 mm in diameter and she was discharged to home; however, she felt recurrent symptoms of nausea and vomiting and unable to take in adequate amounts of liquids and was dehydrated. PAST MEDICAL HISTORY: Obstructive sleep apnea, anxiety, morbid obesity. PAST SURGERIES: Neuroma excision foot in 1993, laparoscopic gastric sleeve resection 06/2016. ALLERGIES: No known drug allergies. MEDICATIONS: Ativan p.r.n., Protonix 40 mg daily. SOCIAL HISTORY: Negative smoke, rare alcohol. FAMILY HISTORY: Mother had diabetes, hypertension. Father had stroke in his 50s, hypertension. Maternal grandmother, insulin-dependent diabetes. Maternal grandfather, brain tumor. Maternal aunt, lung cancer and renal cancer. The patient was admitted to the general surgical floor. She was started on IV fluids as well as IV antinausea medication with Zofran, Phenergan as well as Reglan. On hospital day #1, she continued to have some mild nausea; however, was able to take in small amounts of liquids. She was then started on Decadron 4 mg daily and states that this helped the most. Over the next 2 days, she was able to take in adequate amounts of fluid and she was able to take in approximately 2500 mL of fluid in the past 24 hours. She also stated that she felt slightly hungrier as well. She also was placed on TPN on this admission. Due to improving status, we will discharge her home; however, have her continue to take in adequate amounts of liquids and that should be her focus for right now and she should have at least 64 fluid ounces of water daily. She also needs to take Protonix 40 mg daily as well as thiamine supplement. We will also keep the PICC line in for now; however, we will have her follow up in the office in approximately 1 week and if she continues to improve, we will remove the catheter. Job ID: [id number] DocumentID: [id number] Dictated Date: 08/05/2016 17:00:12 Ad Writer Date: 08/06/2016 11:01:54 Dictated By: NEVILLE MONSALVE MD
== END 2016-08-05 16:35 | disposition home or self-care (01) | DRG 641 ==
LOC: 4TH 17:14
PROVIDERS: ADMIT Surgery Pediatric Surgery; ATTEND Surgery Pediatric Surgery
DX: E86.0 Dehydration (principal); E46 Unspecified protein-calorie malnutrition; K91.0 Vomiting following gastrointestinal surgery; K22.4 Dyskinesia of esophagus; E87.6 Hypokalemia; E83.42 Hypomagnesemia; F41.9 Anxiety disorder, unspecified; G47.33 Obstructive sleep apnea (adult) (pediatric); E66.01 Morbid (severe) obesity due to excess calories; Z68.39 Body mass index [BMI] 39.0-39.9, adult
CPT/HCPCS: 36415; 36569; 71010; 74241; 76937; 80048; 80053; 82962; 83735; 84100; 84134; 84478; 85025; 85027; 85610

== ENCOUNTER 2016-12-23 12:21 | Emergency (ER) | payer OTHER ==
[~2016-12-23] VITALS: Ht 175.3 cm; Wt 92.1 kg
[~2016-12-23 12:21] MED LIST changes: +DEXA4TAB PO; +LEVO500T80 PO; +METO5TAB2 PO; +PANT40TA3 PO; +PROC10TA PO; +PROM25TA14 PO; +SCOP1PAT TD; +SUCR1TAB PO; +THIA100T12 PO
--- NOTE | 2016-12-23 12:27 | ED General ---
General Stated Complaint: POSSIBLE BLOOD CLOT IN ARM/NUMB AND SWOLLEN/PURPLI Source of Information: Patient Exam Limitations: No Limitations History of Present Illness Time Seen by Provider: 12:26 Initial Comments Patient is a 36-year-old female who presents with concerns about a possible blood clot in her arm. Timing/Duration: 4-6 Hours Severity: Mild, Moderate Associated Systoms: Weakness (numbness and tingling) Allergies and Home Medications Allergies Coded Allergies: No Known Drug Allergies (Verified , 06/30/07) Home Medications Apixaban 5 Mg Tablet, 5 MG PO BID, #75 Prescribed by: JOSIE HOGUE on 12/23/16 1529 Dexamethasone 4 Mg Tablet, 4 MG PO UD, #49 1 tab three times a day for 7 days 1 tab twice a day for 7 days 1 tab daily for 7 days 1/2 tab daily for 7 days Prescribed by: EUGENIA GUALLPA on 08/05/16 1615 Levofloxacin 500 Mg Tablet, 500 MG PO DAILY, (Reported) 5 DAY SUPPLY FILLED 07-30-16 Metoclopramide HCl 5 Mg Tablet, 5 MG PO QID, (Reported) Pantoprazole Sodium 40 Mg Tablet.dr, 40 MG PO DAILY, (Reported) Prochlorperazine Maleate 10 Mg Tablet, 10 MG PO TID PRN for NAUSEA/VOMITING-4TH LINE, (Reported) Promethazine HCl 25 Mg Tablet, 12.5 MG PO QID PRN for NAUSEA/VOMITING-3RD LINE, #120 Ref 2 Prescribed by: EUGENIA GUALLPA on 08/05/16 1615 Scopolamine 1 Each Patch.td72, 1 PATCH TD Q72H, (Reported) Sucralfate 1 Gm Tablet, 1 GM PO BID, (Reported) Thiamine HCl 100 Mg Tablet, 100 MG PO DAILY, #90 Ref 3 Prescribed by: EUGENIA GUALLPA on 08/05/16 1615 Constitutional: see HPI EENTM: no symptoms reported Respiratory: no symptoms reported Cardiovascular: no symptoms reported Gastrointestinal: no symptoms reported Genitourinary: no symptoms reported Musculoskeletal: see HPI Skin: no symptoms reported Psychiatric/Neurological: No Symptoms Reported Past Qzakbsb-Btztpv-Olrxvs Hx Patient Social History Recent Foreign Travel: No Contact w/Someone Who Travel: No Recent Hopitalizations: No Immunizations Up To Date Tetanus Booster (TDap): Unknown Date of Influenza Vaccine: Dec 19, 2012 Seasonal Allergies Seasonal Allergies: No Surgeries History of Surgeries: Yes (GASTRIC SLEEVE) Respiratory History of Respiratory Disorde: No Cardiovascular History of Cardiac Disorders: No Reproductive System Hx Reproductive Disorders: No Gastrointestinal History of Gastrointestinal Di: No Musculoskeletal History of Musculoskeletal Dis: No Endocrine History of Endocrine Disorders: No Cancer History of Cancer: No Blood Transfusions History of Blood Disorders: No Family Medical History Significant Family History: No Pertinent Family Hx Family Medial History: Patient reports no known family medical history. Physical Exam Vital Signs Vital Sign - Last 12Hours 12/23/16 12:39 Temp 97.4 Pulse 103 Resp 16 B/P (MAP) 135/89 Pulse Ox 98 O2 Delivery Room Air Capillary Refill : General Appearance: No Apparent Distress, WD/WN Eyes: Bilateral Eye Normal Inspection HEENT: Normal ENT Inspection Neck: Full Range of Motion, Normal Inspection, Non Tender, Supple, Carotid Bruit Respiratory: Chest Non Tender, Lungs Clear, Normal Breath Sounds, No Accessory Muscle Use, No Respiratory Distress Comments The right arm is firm and swollen as compared to the left. She is to TANNED but it appears to be somewhat redder than the left. [employer] Sales[employer] is one plus on the right and 2+ on the left. Triceps and biceps appear to be normal and equal bilaterally. There is a palpable radial pulse. The area between the trapezius and the clavicle appears to be 4 on the right than on the left. There are no palpable masses or nodes in that area or in the right axilla. Progress/Results/Core Measures Results/Orders Lab Results Laboratory Tests Test 12/23/16 12:44 Range/Units White Blood Count 6.8 4.3-11.0 10^3/uL Red Blood Count 4.93 4.35-5.85 10^6/uL Hemoglobin 14.8 11.5-16.0 G/DL Hematocrit 42 35-52 % Mean Corpuscular Volume 85 80-99 FL Mean Corpuscular Hemoglobin 30 25-34 PG Mean Corpuscular Hemoglobin Concent 35 32-36 G/DL Red Cell Distribution Width 12.4 10.0-14.5 % Platelet Count 237 130-400 10^3/uL Mean Platelet Volume 10.8 H 7.4-10.4 FL Neutrophils (%) (Auto) 70 42-75 % Lymphocytes (%) (Auto) 22 12-44 % Monocytes (%) (Auto) 6 0-12 % Eosinophils (%) (Auto) 2 0-10 % Basophils (%) (Auto) 0 0-10 % Neutrophils # (Auto) 4.8 1.8-7.8 X 10^3 Lymphocytes # (Auto) 1.5 1.0-4.0 X 10^3 Monocytes # (Auto) 0.4 0.0-1.0 X 10^3 Eosinophils # (Auto) 0.1 0.0-0.3 10^3/uL Basophils # (Auto) 0.0 0.0-0.1 10^3/uL D-Dimer 0.75 H 0.00-0.49 UG/ML Sodium Level 140 135-145 MMOL/L Potassium Level 2.7 L 3.6-5.0 MMOL/L Chloride Level 102 98-107 MMOL/L Carbon Dioxide Level 28 21-32 MMOL/L Anion Gap 10 5-14 MMOL/L Blood Urea Nitrogen 7 7-18 MG/DL Creatinine 0.71 0.60-1.30 MG/DL Estimat Glomerular Filtration Rate > 60 BUN/Creatinine Ratio 10 Glucose Level 112 H 70-105 MG/DL Calcium Level 9.4 8.5-10.1 MG/DL Total Bilirubin 0.8 0.1-1.0 MG/DL Aspartate Amino Transf (AST/SGOT) 22 5-34 U/L Alanine Aminotransferase (ALT/SGPT) 19 0-55 U/L Alkaline Phosphatase 65 40-136 U/L Total Protein 7.7 6.4-8.2 GM/DL Albumin 4.4 3.2-4.5 GM/DL My Orders Orders - JOSIE HOGUE MD Cbc With Automated Diff (12/23/16 12:25) Comprehensive Metabolic Panel (12/23/16 12:25) Fibrin Degradation Products (12/23/16 12:25) Us Venous Upper Ext Rt (12/23/16 13:00) Ct Angio Chest W (12/23/16 13:52) Apixaban Tablet (Eliquis Tablet) (12/23/16 14:30) Iohexol Injection (Omnipaque 350 Mg/Ml 1 (12/23/16 14:30) Ns (Ivpb) (Sodium Chloride 0.9% Ivpb Bag (12/23/16 14:30) Pharmacy Communication (Pharmacy Communi (12/23/16 14:22) Medications Given in ED Current Medications Medications Dose Ordered Sig/Elvin Route Start Time Stop Time Status Last Admin Dose Admin Apixaban 10 mg ONCE ONCE PO 12/23/16 14:30 12/23/16 14:31 DC 12/23/16 14:52 10 MG Iohexol 150 ml ONCE ONCE IV 12/23/16 14:30 12/23/16 14:31 DC 12/23/16 14:28 125 ML Sodium Chloride 100 ml ONCE ONCE IV 12/23/16 14:30 12/23/16 14:31 DC 12/23/16 14:28 80 ML Vital Signs/I&O Vital Sign - Last 12Hours 12/23/16 12:39 Temp 97.4 Pulse 103 Resp 16 B/P (MAP) 135/89 Pulse Ox 98 O2 Delivery Room Air Departure Communication (Admissions) Progress Notes Ultrasound of the right upper extremity showed venous thrombosis in the right upper arm to the shoulder. This was then discussed with Dr. Maguire in radiology and the patient will have a CT angiogram with a late phase to help to define the extent of clot if any in the right subclavian vein. The patient when informed of this reported that she was interested if there could be any relationship in etiology to a PICC line that she had in her right upper arm in July following difficulties with a bariatric surgery with gastric banding. The PICC line was removed about August 19 as she recalls that. [address] Maguire. He reports one small apparent embolus in the right lower lobe distribution. Impression Impression: Primary Impression: venous thrombosis right upper extremity Disposition: 01 HOME, SELF-CARE Condition: Stable/Unchanged Departure-Patient Inst. Decision time for Depature: 15:15 Referrals: LEESA GARIBAY MD (PCP) Primary Care Physician HELEN CARRENO APRN (Family) Primary Care Physician Add. Discharge Instructions: Take 2 Eliquis twice daily for 1 week then one Eliquis twice daily. You will need to see your provider in 7-14 days to plan the course of therapy. Scripts Apixaban (Eliquis) 5 Mg Tablet 5 MG PO BID, #75 TAB Prov: JOSIE HOGUE MD 12/23/16 JOSIE HOGUE MD Dec 23, 2016 12:27
[2016-12-23 12:54] LABS: BASOPHILS % (AUTO) 0 % (0-10); EOSINOPHILS # (AUTO) 0.1 10^3/uL (0.0-0.3); EOSINOPHILS % (AUTO) 2 % (0-10); LYMPHOCYTES # (AUTO) 1.5 X 10^3 (1.0-4.0); LYMPHOCYTES % (AUTO) 22 % (12-44); MEAN CORPUSCULAR HEMOGLOBIN 30 PG (25-34); MEAN CORPUSCULAR HGB CONC 35 G/DL (32-36); MEAN CORPUSCULAR VOLUME 85 FL (80-99); MEAN PLATELET VOLUME 10.8 FL (7.4-10.4); MONOCYTES # (AUTO) 0.4 X 10^3 (0.0-1.0); MONOCYTES % (AUTO) 6 % (0-12); NEUTROPHILS # (AUTO) 4.8 X 10^3 (1.8-7.8); NEUTROPHILS % (AUTO) 70 % (42-75); PLATELET COUNT 237 10^3/uL (130-400); RED BLOOD COUNT 4.93 10^6/uL (4.35-5.85); RED CELL DISTRIBUTION WIDTH 12.4 % (10.0-14.5); WHITE BLOOD COUNT 6.8 10^3/uL (4.3-11.0)
[2016-12-23 13:11] LABS: ALANINE AMINOTRANSFERASE 19 U/L (0-55); ALBUMIN 4.4 GM/DL (3.2-4.5); ANION GAP 10 MMOL/L (5-14); ASPARTATE AMINO TRANSFERASE 22 U/L (5-34); BILIRUBIN,TOTAL 0.8 MG/DL (0.1-1.0); BLOOD UREA NITROGEN 7 MG/DL (7-18); BUN/CREATININE RATIO 10; CALCIUM 9.4 MG/DL (8.5-10.1); CARBON DIOXIDE 28 MMOL/L (21-32); CHLORIDE 102 MMOL/L (98-107); CREATININE SERUM 0.71 MG/DL (0.60-1.30); GFR ESTIMATED > 60; GLUCOSE 112 MG/DL (70-105); POTASSIUM 2.7 MMOL/L (3.6-5.0); SODIUM 140 MMOL/L (135-145); TOTAL PROTEIN 7.7 GM/DL (6.4-8.2)
--- NOTE | 2016-12-23 14:02 | Diagnostic Imaging Report ---
Right upper extremity venous duplex ultrasound. INDICATION: Right arm pain, tightness, swelling. FINDINGS: There is deep venous thrombosis occlusive within the right subclavian vein and extending into the axillary vein involving about 10 cm segment with noncompressibility and lack of color flow demonstrated. There is patency of the right internal jugular vein and the medial aspect of the subclavian vein. The brachial, basilic, radial, ulnar, and cephalic veins are patent. IMPRESSION: There is occlusive DVT segment of about 10 cm in length around the junction of the right subclavian and axillary veins. The findings were discussed with Dr. Gill at time of dictation. Dictated by: Dictated on workstation # [id number]
[2016-12-23] MEDS ORDERED: NS 100 ML (IVPB) BAG IV ONE (14:30)
[2016-12-23] MEDS ORDERED: IOHEXOL 350 MG/ML 150 ML (OMNIPAQUE 350) VIAL IV ONE (14:30)
[2016-12-23] MEDS ORDERED: APIXABAN 5 MG (ELIQUIS) TABLET PO ONE (14:30)
[2016-12-23] MEDS ORDERED: APIX5TAB PO (15:29)
--- NOTE | 2016-12-23 15:46 | Diagnostic Imaging Report ---
PROCEDURE: CT angiography of the chest with contrast. TECHNIQUE: Multiple contiguous axial images were obtained through the chest after uneventful bolus administration of intravenous contrast. Reconstructed CTA MIP acquisitions were also performed. INDICATION: Numbness and swelling. 125 mL of Omnipaque-350 is administered intravenously. FINDINGS: There is satisfactory opacification of the pulmonary arteries with a filling defect seen at a branch point within the posterior segmental branch of the right lower lobe pulmonary artery compatible with pulmonary embolism. This is relatively low burden of pulmonary embolism as no other definite PE is identified. Questionable filling defect in a branch of the right upper lobe pulmonary artery is adjacent to artifacts from the dense contrast within the SVC and is not definitive. There is otherwise no significant pulmonary embolism in the central pulmonary arteries and within the left pulmonary arteries. The DVT within the right subclavian vein is not well demonstrated on this exam. The SVC is patent. The visualized portions of the right IJ and the azygos vein are patent. Thoracic aorta is normal in caliber. The heart size is normal. The lungs demonstrate no significant consolidation, mass or suspicious nodule. No pericardial or pleural effusion. Sections in the upper abdomen demonstrate surgical clips in the upper abdomen and a suture line along the stomach suggestive of prior partial gastrectomy. The osseous structures appear grossly unremarkable. IMPRESSION: There is a small burden of pulmonary embolism involving the posterior segment branch of the right lower pulmonary artery and questionable filling defect in subsegmental branch of the right upper pulmonary artery. The findings were called to Dr. Gill at time of dictation. Dictated by: Dictated on workstation # [id number]
[2016-12-23 16:00] VITALS: BP 132/84
== END 2016-12-23 16:00 | disposition home or self-care (01) ==
LOC: EDUNIT# 12:21 → ER 12:24
DX: I82.601 Acute embolism and thrombosis of unspecified veins of right upper extremity (principal); Z79.01 Long term (current) use of anticoagulants; Z98.84 Bariatric surgery status
CPT/HCPCS: 36415; 71275; 80053; 85025; 85379; 99283

== ENCOUNTER → 2017-01-03 | Outpatient (CLI) | payer OTHER ==
[~2017-01-03] MED LIST changes: +APIX5TAB PO
== END ==
LOC: RAD 07:47
PROVIDERS: ATTEND Nurse Practitioner Family
DX: M79.661 Pain in right lower leg (principal); Z79.01 Long term (current) use of anticoagulants

== ENCOUNTER 2017-01-16 18:43 | Emergency (ER) | payer OTHER ==
[~2017-01-16] VITALS: Ht 175.3 cm; Wt 86.2 kg
[2017-01-16] MEDS ORDERED: NS IV 1000 ML 1,000 ML IV ONE (19:17)
--- NOTE | 2017-01-16 19:33 | ED Neurological Problem ---
General Chief Complaint: Neurological Problems Stated Complaint: BLURRY VISION SINCE LAST NIGHT Nursing Triage Note: PT TO ED 6 W/ S.O. FOR C/O BLURRED VISION ONSET LAST NOC. PT REPORTS RECENT DX OF BLOOD CLOT TO RT ARM ET HAS BEEN ON BLOOD THINNERS SINCE. DENIES C/O TY OR CP. DOES REPORT DIZZINESS ET NAUSEA Nursing Sepsis Screen: No Definite Risk Source: patient, spouse Exam Limitations: no limitations History of Present Illness Time seen by provider: 19:13 Initial Comments Patient present to ER with spouse with a chief complaint that last night began to experience blurring vision one I worse than the other but she's not sure if it was left or right. In May of this year she had a sleeve gastrectomy by Dr. Agarwal and since that time has experienced a lot of nausea and dizziness which she describes as near syncope. About 3 weeks ago she was hospitalized for malnourishment and dehydration given some fluids and has been started on vitamins parenterally. At that time she had a PICC line placed for fluids and developed a clot in her right arm where the PICC line was placed. She was put on L acquits and when she started the L acquits she says she started noticing a lot worsening of her nausea. She has a scopolamine patch on. Her nausea is under okay control this time. The blurry vision is constant and she says she also experiences waves of nausea that are described as spots in her vision that take up both her visual uriarte and cause her to have to stop and leaning against a wall to catch her balance. She does not feel pulled to one direction or the other. She has not had any imaging of her head. She did however see her doctor and have lab work done a few weeks ago and was told that her B12 was high so they backed off on half frequently her getting her parenteral B12. She does not think she is on any kind of a folate tablet however she does take thiamine orally. She says the rest of her blood work done at that time was normal. She does not have any dysuria, chest pain, shortness of breath, diarrhea , fever, rash, recent travel or drinking from unsafe water sources. Allergies and Home Medications Allergies Coded Allergies: No Known Drug Allergies (Verified , 06/30/07) Home Medications Apixaban 5 Mg Tablet, 5 MG PO BID, #75 Prescribed by: JOSIE HOGUE on 12/23/16 1529 Dexamethasone 4 Mg Tablet, 4 MG PO UD, #49 1 tab three times a day for 7 days 1 tab twice a day for 7 days 1 tab daily for 7 days 1/2 tab daily for 7 days Prescribed by: EUGENIA GUALLPA on 08/05/16 161 Metoclopramide HCl 5 Mg Tablet, 5 MG PO QID, (Reported) Pantoprazole Sodium 40 Mg Tablet.dr, 40 MG PO DAILY, (Reported) Prochlorperazine Maleate 10 Mg Tablet, 10 MG PO TID PRN for NAUSEA/VOMITING-4TH LINE, (Reported) Promethazine HCl 25 Mg Tablet, 12.5 MG PO QID PRN for NAUSEA/VOMITING-3RD LINE, #120 Ref 2 Prescribed by: EUGENIA GUALLPA on 08/05/161614 Scopolamine 1 Each Patch.td72, 1 PATCH TD Q72H, (Reported) Sucralfate 1 Gm Tablet, 1 GM PO BID, (Reported) Thiamine HCl 100 Mg Tablet, 100 MG PO DAILY, #90 Ref 3 Prescribed by: EUGENIA GUALLPA on 08/05/161614 Constitutional: No chills, dizziness, No fever, No malaise, weight loss Eyes: See HPI, Denies Blindness, Blurred Vision, Denies Drainage, Denies Foreign Body Sensation, Denies Inflammation, Denies Pain, Glasses (occasional use) Ears, Nose, Mouth, Throat: denies ear pain, denies ear discharge Respiratory: No cough, No short of breath Cardiovascular: No chest pain, No palpitations Gastrointestinal: No abdominal pain, No constipation, No diarrhea, nausea, No vomiting Genitourinary: No discharge, No dysuria : No (Mirena) Skin: No pruritus, No rash Psychiatric/Neurological: Denies Headache, Denies Numbness, Denies Pet[place] Seizures, Denies Tingling Past Bacwjef-Irwqsg-Yappgx Hx Patient Social History Alcohol Use: Denies Use Recreational Drug Use: No Smoking Status: Never a Smoker Recent Foreign Travel: No Contact w/Someone Who Travel: No Recent Infectious Disease Expo: No Recent Hopitalizations: No Physical Abuse: No Sexual Abuse: No Mistreated: No Fear: No Immunizations Up To Date Tetanus Booster (TDap): Unknown Date of Influenza Vaccine: Dec 19, 2012 Seasonal Allergies Seasonal Allergies: No Surgeries History of Surgeries: Yes (GASTRIC SLEEVE) Respiratory History of Respiratory Disorde: No Cardiovascular History of Cardiac Disorders: No Reproductive System Hx Reproductive Disorders: No Gastrointestinal History of Gastrointestinal Di: No Musculoskeletal History of Musculoskeletal Dis: No Endocrine History of Endocrine Disorders: No Cancer History of Cancer: No Psychosocial Suicide Risk Score: 0 Blood Transfusions History of Blood Disorders: No Family Medical History Significant Family History: No Pertinent Family Hx Family Medial History: Patient reports no known family medical history. Physical Exam Vital Signs Vital Sign - Last 12Hours 01/16/17 19:01 Temp 98.1 Pulse 92 Resp 20 B/P (MAP) 118/82 Pulse Ox 99 O2 Delivery Room Air Capillary Refill : Less Than 3 Seconds General Appearance: WD/WN, no apparent distress HEENT: PERRL/EOMI, normal ENT inspection, TMs normal, pharynx normal (mildly dry mucosa), other (funduscopic exam within normal limits without nicking, constant patches or other pathology acutely noted.) Neck: non-tender, supple Respiratory: chest non-tender, lungs clear, normal breath sounds Cardiovascular: normal peripheral pulses, regular rate, rhythm, no edema Peripheral Pulses: 2+ Dorsalis Pedis (R), 2+ Left Dors-Pedis (L) Gastrointestinal: non tender, soft Extremities: no pedal edema, no calf tenderness, normal capillary refill Neurologic/Psychiatric: alert, oriented x 3 Crainal Nerves: normal hearing, normal speech, PERRL Coordination/Gait: normal gait Motor/Sensory: no motor deficit, no sensory deficit Skin: normal color, warm/dry Progress/Results/Core Measures Results/Orders Lab Results Laboratory Tests Test 01/16/17 19:37 01/16/17 19:44 Range/Units Urine Color LUCINDA H Urine Clarity VERY CLOUDY H Urine pH 5 5-9 Urine Specific [place] 1.025 H 1.016-1.022 Urine Protein 2+ H NEGATIVE Urine Glucose (UA) NEGATIVE NEGATIVE Urine Ketones 1+ H NEGATIVE Urine Nitrite NEGATIVE NEGATIVE Urine Bilirubin 1+ H NEGATIVE Urine Urobilinogen 1 NORMAL MG/DL Urine Leukocyte Esterase 3+ H NEGATIVE Urine RBC (Auto) 1+ H NEGATIVE Urine RBC 0-2 /HPF Urine WBC 5-10 H /HPF Urine Squamous Epithelial Cells 2-5 /HPF Urine Crystals NONE /LPF Urine Bacteria MODERATE H /HPF Urine Casts NONE /LPF Urine Mucus SMALL H /LPF Urine Culture Indicated YES Urine Opiates Screen NEGATIVE NEGATIVE Urine Oxycodone Screen NEGATIVE NEGATIVE Urine Methadone Screen NEGATIVE NEGATIVE Urine Propoxyphene Screen NEGATIVE NEGATIVE Urine Barbiturates Screen NEGATIVE NEGATIVE Ur Tricyclic Antidepressants Screen NEGATIVE NEGATIVE Urine Phencyclidine Screen NEGATIVE NEGATIVE Urine Amphetamines Screen NEGATIVE NEGATIVE Urine Methamphetamines Screen NEGATIVE NEGATIVE Urine Benzodiazepines Screen POSITIVE H NEGATIVE Urine Cocaine Screen NEGATIVE NEGATIVE Urine Cannabinoids Screen NEGATIVE NEGATIVE White Blood Count 5.2 4.3-11.0 10^3/uL Red Blood Count 4.69 4.35-5.85 10^6/uL Hemoglobin 13.9 11.5-16.0 G/DL Hematocrit 40 35-52 % Mean Corpuscular Volume 85 80-99 FL Mean Corpuscular Hemoglobin 30 25-34 PG Mean Corpuscular Hemoglobin Concent 35 32-36 G/DL Red Cell Distribution Width 12.8 10.0-14.5 % Platelet Count 248 130-400 10^3/uL Mean Platelet Volume 10.8 H 7.4-10.4 FL Neutrophils (%) (Auto) 58 42-75 % Lymphocytes (%) (Auto) 31 12-44 % Monocytes (%) (Auto) 7 0-12 % Eosinophils (%) (Auto) 4 0-10 % Basophils (%) (Auto) 0 0-10 % Neutrophils # (Auto) 3.0 1.8-7.8 X 10^3 Lymphocytes # (Auto) 1.6 1.0-4.0 X 10^3 Monocytes # (Auto) 0.4 0.0-1.0 X 10^3 Eosinophils # (Auto) 0.2 0.0-0.3 10^3/uL Basophils # (Auto) 0.0 0.0-0.1 10^3/uL Prothrombin Time 15.4 H 12.2-14.7 SEC INR Comment 1.2 0.8-1.4 Activated Partial Thromboplast Time 36 H 24-35 SEC Sodium Level 138 135-145 MMOL/L Potassium Level 2.8 L 3.6-5.0 MMOL/L Chloride Level 100 98-107 MMOL/L Carbon Dioxide Level 26 21-32 MMOL/L Anion Gap 12 5-14 MMOL/L Blood Urea Nitrogen 6 L 7-18 MG/DL Creatinine 0.79 0.60-1.30 MG/DL Estimat Glomerular Filtration Rate > 60 BUN/Creatinine Ratio 8 Glucose Level 114 H 70-105 MG/DL Calcium Level 9.0 8.5-10.1 MG/DL Magnesium Level 2.0 1.8-2.4 MG/DL Total Bilirubin 1.0 0.1-1.0 MG/DL Aspartate Amino Transf (AST/SGOT) 24 5-34 U/L Alanine Aminotransferase (ALT/SGPT) 20 0-55 U/L Alkaline Phosphatase 60 40-136 U/L Total Protein 7.1 6.4-8.2 GM/DL Albumin 4.2 3.2-4.5 GM/DL My Orders Orders - AMRIK BELLA Saline Lock/Iv-Start (01/16/17 19:17) Cbc With Automated Diff (01/16/17 19:17) Comprehensive Metabolic Panel (01/16/17 19:17) Drug Screen Stat (Urine) (01/16/17 19:17) Magnesium (01/16/17 19:17) Protime With Inr (01/16/17 19:17) Partial Thromboplastin Time (01/16/17 19:17) Ua Culture If Indicated (01/16/17 19:17) Ns Iv 1000 Ml (Sodium Chloride 0.9%) (01/16/17 19:17) Orthostatic Vital Signs (01/16/17 19:17) Ct Head W Wo (01/16/17 19:17) Iohexol Injection (Omnipaque 350 Mg/Ml 1 (01/16/17 19:45) Ns (Ivpb) (Sodium Chloride 0.9% Ivpb Bag (01/16/17 19:45) Urine Culture (01/16/17 19:37) Potassium Chloride (Tablet) (K Dur Table (01/16/17 20:45) Ekg Tracing (01/16/17 20:38) Potassium Chloride Powder (Klor Con 20 M (01/16/17 20:45) Ceftriaxone Injection (Rocephin Injectio (01/16/17 21:00) Medications Given in ED Current Medications Medications Dose Ordered Sig/Elvin Route Start Time Stop Time Status Last Admin Dose Admin Ceftriaxone Sodium 1000 mg/ Sodium Chloride 50 ml @ 100 mls/hr ONCE ONCE IV 01/16/17 21:00 01/16/17 21:29 DC 01/16/17 21:00 100 MLS/HR Iohexol 100 ml ONCE ONCE IV 01/16/17 19:45 01/16/17 20:28 DC 01/16/17 20:17 80 ML Potassium Chloride 20 meq ONCE ONCE PO 01/16/17 20:45 01/16/17 20:47 DC 01/16/17 21:00 20 MEQ Sodium Chloride 100 ml ONCE ONCE IV 01/16/17 19:45 01/16/17 20:28 DC 01/16/17 20:17 80 ML Sodium Chloride 1,000 ml @ 0 mls/hr Q0M ONCE IV 01/16/17 19:17 01/16/17 19:23 DC 01/16/17 19:45 1,000 MLS/HR Vital Signs/I&O Vital Sign - Last 12Hours 01/16/17 19:01 Temp 98.1 Pulse 92 Resp 20 B/P (MAP) 118/82 Pulse Ox 99 O2 Delivery Room Air Intake and Output 01/17/17 00:00 Intake Total 50 ml Balance 50 ml Blood Pressure Mean: 94 Progress Note #1: Time: 19:36 Progress Note We'll repeat some blood work looking for anemia has as well as urine and get a CT of the head with and without contrast with thin slices through the orbits. This will help rule out any kind of tumor or mass effect. Progress Note #2: Time: 20:46 Progress Note Patient has low potassium 2.8 as well as what looks to be a UTI. She has a history of long-standing nausea so we will attempt the potassium powder by mouth and if she can tolerate this and has no significant EKG changes then we' ll let her go home and follow up in the clinic and 24-48 hours with her PCP. However she is unable tolerate the pills then we will plan to put her in observation status and give it parenterally. We will start with IV Rocephin and then try Keflex if she can go outpatient. Progress Note #3: Time: 21:40 Progress Note Patient feels marginally better is no longer nauseated and her stomach as tolerated the potassium for over 15-20 minutes. She is ready to go home and attempt outpatient congregational of her potassium as well as Keflex for her UTI. She will follow up in 1-2 days with her primary care physician to have a potassium rechecked. ECG Initial ECG Impression Date: Jan 16, 2017 Initial ECG Impression Time: 20:43 Initial ECG Rate: 71 Initial ECG Rhythm: Normal Sinus Initial ECG Intervals: QT (496) Initial ECG Impression: Normal, Nonspecific Changes Initial ECG Comparisson: Unchanged Comment Modest QTC prolongation. May be due to her use of Zofran. No T-wave elevation or depression. No tented T waves. T waves are not blunted. Compared to a 2015 EKG they are 1 block high and similar in appearance to 2 years ago. Diagnostic Imaging Diagonstic Imaging: CT Plain Films/CT/US/NM/MRI: head Comments [facility] [place], [place] NAME: MAI PAREDES [facility] REC#: [id number] PT STATUS: REG ER : 1980 PHYSICIAN: AMRIK BELLA MD ADMIT DATE: 01/16/17/ER Draft Date of Exam:01/16/17 CT HEAD W WO PROCEDURE: CT head with and without contrast. TECHNIQUE: Multiple contiguous axial images were obtained through the brain before and after the administration of intravenous contrast. INDICATION: Blurred vision and nausea. FINDINGS: Noncontrasted images show no evidence of intracranial hemorrhage. The ventricles and cortical gyral pattern are normal. Basal cisterns are normal. No evidence of pituitary mass. Orbital contents are symmetrical and appear normal. Optic nerves are symmetrical in size. Following IV contrast enhancement, there is normal enhancement of the intracranial arteries. No evidence of occlusive disease. No findings to indicate an aneurysm. There are no enhancing masses. There is no shift of the midline. Mastoid air cells and paranasal sinuses are well aerated and clear. IMPRESSION: Normal CT scan of the head with and without contrast. No intracranial masses are demonstrated. The orbital contents appear symmetrical and normal. Dictated on workstation # [id number] Dict: 01/16/172025 Trans: 01/16/172031 [facility] [id number] Interpreted by: SURAJ SOSA MD Electronically signed by: Reviewed: Reviewed by Me Departure Impression Impression: Primary Impression: Hypokalemia, gastrointestinal losses Additional Impressions: Urinary tract infection Qualified Codes: N30.00 - Acute cystitis without hematuria Blurry vision Pre-syncope Disposition: 01 HOME, SELF-CARE Condition: Improved Departure-Patient Inst. Decision time for Depature: 21:42 Referrals: LEESA GARIBAY MD (PCP) Primary Care Physician HELEN CARRENO APRN (Family) Primary Care Physician Patient Instructions: Urinary Tract Infection, Adult (DC) Add. Discharge Instructions: Eat multiple small meals especially when taking the potassium or Keflex twice a day. Plan on following up with your primary care physician in the next 24-48 hours to have your potassium rechecked. Please return to the ER if you're having intractable nausea and vomiting, chest pain, shortness of breath or fever. All discharge instructions reviewed with patient and/or family. Voiced understanding. Scripts Potassium Chloride (Potassium Chloride) 20 Meq Packet 20 MEQ PO BID for 7 Days, #14 PACKET 0 Refills Prov: AMRIK BELLA 01/16/17 Cephalexin (Keflex) 500 Mg Capsule 500 MG PO BID for 5 Days, #10 CAP 0 Refills Prov: AMRIK BELLA 01/16/17 Copy Copies To 1: LEESA GARIBAY MD, TITUS J Jan 16, 2017 19:33
[2017-01-16] MEDS ORDERED: IOHEXOL 350 MG/ML 100 ML (OMNIPAQUE 350) VIAL IV ONE (19:45)
[2017-01-16] MEDS ORDERED: NS 100 ML (IVPB) BAG IV ONE (19:45)
[2017-01-16 19:47] LABS: KETONES,URINE 1+ (NEGATIVE); LEUKOCYTE ESTERASE ,URINE 3+ (NEGATIVE); NITRITE,URINE NEGATIVE (NEGATIVE); PH,URINE 5 (5-9); PROTEIN,URINE 2+ (NEGATIVE); UROBILINOGEN,URINE 1 MG/DL (NORMAL)
[2017-01-16 19:51] LABS: BASOPHILS % (AUTO) 0 % (0-10); EOSINOPHILS # (AUTO) 0.2 10^3/uL (0.0-0.3); EOSINOPHILS % (AUTO) 4 % (0-10); LYMPHOCYTES # (AUTO) 1.6 X 10^3 (1.0-4.0); LYMPHOCYTES % (AUTO) 31 % (12-44); MEAN CORPUSCULAR HEMOGLOBIN 30 PG (25-34); MEAN CORPUSCULAR HGB CONC 35 G/DL (32-36); MEAN CORPUSCULAR VOLUME 85 FL (80-99); MEAN PLATELET VOLUME 10.8 FL (7.4-10.4); MONOCYTES # (AUTO) 0.4 X 10^3 (0.0-1.0); MONOCYTES % (AUTO) 7 % (0-12); NEUTROPHILS % (AUTO) 58 % (42-75); PLATELET COUNT 248 10^3/uL (130-400); RED BLOOD COUNT 4.69 10^6/uL (4.35-5.85); RED CELL DISTRIBUTION WIDTH 12.8 % (10.0-14.5); WHITE BLOOD COUNT 5.2 10^3/uL (4.3-11.0)
[2017-01-16 20:02] LABS: INR 1.2 (0.8-1.4); PROTHROMBIN TIME PATIENT 15.4 SEC (12.2-14.7)
[2017-01-16 20:09] LABS: BILIRUBIN,URINE 1+ (NEGATIVE)
[2017-01-16 20:13] LABS: ALANINE AMINOTRANSFERASE 20 U/L (0-55); ALBUMIN 4.2 GM/DL (3.2-4.5); ANION GAP 12 MMOL/L (5-14); ASPARTATE AMINO TRANSFERASE 24 U/L (5-34); BLOOD UREA NITROGEN 6 MG/DL (7-18); BUN/CREATININE RATIO 8; CARBON DIOXIDE 26 MMOL/L (21-32); CHLORIDE 100 MMOL/L (98-107); CREATININE SERUM 0.79 MG/DL (0.60-1.30); GFR ESTIMATED > 60; GLUCOSE 114 MG/DL (70-105); POTASSIUM 2.8 MMOL/L (3.6-5.0); SODIUM 138 MMOL/L (135-145); TOTAL PROTEIN 7.1 GM/DL (6.4-8.2)
--- NOTE | 2017-01-16 20:32 | Diagnostic Imaging Report ---
PROCEDURE: CT head with and without contrast. TECHNIQUE: Multiple contiguous axial images were obtained through the brain before and after the administration of intravenous contrast. INDICATION: Blurred vision and nausea. FINDINGS: Noncontrasted images show no evidence of intracranial hemorrhage. The ventricles and cortical gyral pattern are normal. Basal cisterns are normal. No evidence of pituitary mass. Orbital contents are symmetrical and appear normal. Optic nerves are symmetrical in size. Following IV contrast enhancement, there is normal enhancement of the intracranial arteries. No evidence of occlusive disease. No findings to indicate an aneurysm. There are no enhancing masses. There is no shift of the midline. Mastoid air cells and paranasal sinuses are well aerated and clear. IMPRESSION: Normal CT scan of the head with and without contrast. No intracranial masses are demonstrated. The orbital contents appear symmetrical and normal. Dictated by: Dictated on workstation # [id number]
[2017-01-16] MEDS ORDERED: KCL 20 MEQ TAB (K-DUR) PO ONE (20:45)
[2017-01-16] MEDS ORDERED: KCL 20 MEQ POWDER FOR ORAL SOLUTION PO ONE (20:45)
[2017-01-16] MEDS ORDERED: cefTRIAXone INJECTION 1,000 MG in NS (IVPB) 50 ML IV ONE (21:00)
[2017-01-16] MEDS ORDERED: POTA20PA28 PO (21:45)
[2017-01-16] MEDS ORDERED: CEPH-507 PO (21:45)
[2017-01-16 21:56] VITALS: BP 102/65
== END 2017-01-16 21:56 | disposition home or self-care (01) ==
LOC: EDUNIT# 18:43 → ER 18:44
DX: H53.8 Other visual disturbances (principal); N39.0 Urinary tract infection, site not specified; E87.6 Hypokalemia; Z79.01 Long term (current) use of anticoagulants; Z98.84 Bariatric surgery status
CPT/HCPCS: 36415; 70470; 80053; 80306; 81000; 83735; 85025; 85610; 85730; 87088; 93005

== ENCOUNTER → 2017-10-04 | Outpatient (CLI) | payer OTHER ==
[~2017-10-04] MED LIST changes: +CEPH-507 PO; +POTA20PA28 PO; -PROC10TA PO; +PROC10TA10 PO; -SCOP1PAT TD; +SCOP1PAT11 TD
--- NOTE | 2017-10-04 13:00 | Diagnostic Imaging Report ---
INDICATION: Shortness of breath and chest pain. TIME OF EXAM: 12:21 PM Correlation is made with prior study 08/03/2016. FINDINGS: The heart size is normal. The pulmonary vascularity is unremarkable. The lungs are clear. No infiltrate, effusion or pneumothorax is detected. IMPRESSION: No acute cardiopulmonary process is detected. Dictated by: Dictated on workstation # [id number]
--- NOTE | 2017-10-04 14:56 | Diagnostic Imaging Report ---
INDICATION: Right upper extremity DVT. Please give technique for upper opportunity venous Doppler. The right internal jugular vein as well as right subclavian and axillary veins are patent. No thrombus is seen. The brachial, basilic and cephalic veins are patent. Radial and ulnar veins are patent. No thrombus is identified. No fluid collection or mass is seen. IMPRESSION: No evidence of right upper extremity DVT. Dictated by: Dictated on workstation # [id number]
== END ==
LOC: CARD 11:45
PROVIDERS: ATTEND Physician Assistant
DX: I82.621 Acute embolism and thrombosis of deep veins of right upper extremity (principal); R00.0 Tachycardia, unspecified; R55 Syncope and collapse
CPT/HCPCS: 71046; 93005; 93306

== ENCOUNTER 2017-11-03 08:17 | Outpatient (RCR) | payer OTHER ==
[2017-12-04] MEDS ORDERED: METO-387 PO (13:43)
[2017-12-04] MEDS ORDERED: ESCI10TA PO (13:44)
[2017-12-04] MEDS ORDERED: POTA-51 PO (13:45)
[2017-12-04] MEDS ORDERED: ONDA4TAB11 PO ×2 (13:46)
[2017-12-04] MEDS ORDERED: ZOLP10TA PO ×2 (13:47)
[2017-12-04] MEDS ORDERED: PROC10TA10 PO ×2 (13:53)
[2017-12-05] MEDS ORDERED: CLON1TAB13 PO ×2 (08:54)
[2017-12-09] MEDS ORDERED: SUCR1TAB PO (12:00)
[2017-12-09] MEDS ORDERED: ACHD5005 PO (12:00)
[2017-12-09] MEDS ORDERED: CHOL4PAC3 PO ×2 (12:00)
[2017-12-09] MEDS ORDERED: CEPH-507 PO (12:00)
[2018-01-04] MEDS ORDERED: APIX5TAB PO ×2 (12:46)
[2018-01-04] MEDS ORDERED: HYDR-3816 PO ×2 (12:46)
[2018-01-04] MEDS ORDERED: POTA-51 PO ×2 (12:46)
[2018-01-04] MEDS ORDERED: BUSP15TA60 PO ×2 (12:46)
[2018-01-04] MEDS ORDERED: ESCI20TA45 PO ×2 (12:46)
[2018-01-05] MEDS ORDERED: HYDR-3816 PO ×2 (09:22)
== END 2018-01-08 | disposition home or self-care (01) ==
LOC: CARD 08:17
PROVIDERS: ATTEND Internal Medicine Interventional Cardiology
DX: R06.02 Shortness of breath (principal); R53.83 Other fatigue; R55 Syncope and collapse; R00.2 Palpitations; R00.0 Tachycardia, unspecified
CPT/HCPCS: 93270

== ENCOUNTER → 2017-11-18 | Outpatient (CLI) | payer OTHER ==
[~2017-11-18] MED LIST changes: +ACHD5005 PO; +CHOL4PAC3 PO; +CLON1TAB13 PO; +ESCI10TA PO; +METO-387 PO; +ONDA4TAB11 PO; +POTA-51 PO; +ZOLP10TA PO
[2017-11-18 10:57] LABS: BASOPHILS % (AUTO) 0 % (0-10); EOSINOPHILS # (AUTO) 0.1 10^3/uL (0.0-0.3); EOSINOPHILS % (AUTO) 2 % (0-10); HEMATOCRIT 43 % (35-52); LYMPHOCYTES # (AUTO) 1.3 X 10^3 (1.0-4.0); LYMPHOCYTES % (AUTO) 23 % (12-44); MEAN CORPUSCULAR HEMOGLOBIN 30 PG (25-34); MEAN CORPUSCULAR HGB CONC 35 G/DL (32-36); MEAN CORPUSCULAR VOLUME 85 FL (80-99); MEAN PLATELET VOLUME 9.3 FL (7.4-10.4); MONOCYTES # (AUTO) 0.2 X 10^3 (0.0-1.0); MONOCYTES % (AUTO) 4 % (0-12); NEUTROPHILS # (AUTO) 4.1 X 10^3 (1.8-7.8); NEUTROPHILS % (AUTO) 71 % (42-75); PLATELET COUNT 312 10^3/uL (130-400); RED BLOOD COUNT 5.01 10^6/uL (4.35-5.85); RED CELL DISTRIBUTION WIDTH 12.8 % (10.0-14.5); WHITE BLOOD COUNT 5.7 10^3/uL (4.3-11.0)
[2017-11-18 11:15] LABS: ALANINE AMINOTRANSFERASE 36 U/L (0-55); ALBUMIN 4.7 GM/DL (3.2-4.5); ALKALINE PHOSPHATASE 61 U/L (40-136); BILIRUBIN,TOTAL 0.8 MG/DL (0.1-1.0); BUN/CREATININE RATIO 14; CALCIUM 9.5 MG/DL (8.5-10.1); CARBON DIOXIDE 25 MMOL/L (21-32); CHLORIDE 102 MMOL/L (98-107); CREATININE SERUM 0.98 MG/DL (0.60-1.30); GFR ESTIMATED > 60; GLUCOSE 108 MG/DL (70-105); POTASSIUM 3.2 MMOL/L (3.6-5.0); SODIUM 136 MMOL/L (135-145)
== END ==
LOC: LAB 10:47
PROVIDERS: ATTEND Internal Medicine Interventional Cardiology
DX: I47.1 Supraventricular tachycardia (principal); I49.3 Ventricular premature depolarization; R00.2 Palpitations; R00.0 Tachycardia, unspecified; I82.B11 Acute embolism and thrombosis of right subclavian vein
CPT/HCPCS: 36415; 80053; 84443; 85025

== ENCOUNTER 2017-12-02 22:11 | Inpatient (IN) | payer OTHER ==
[~2017-12-02] VITALS: Ht 177.8 cm; Wt 83.0 kg
[~2017-12-02 22:11] MED LIST changes: -ACHD5005 PO; -CHOL4PAC3 PO; -CLON1TAB13 PO; -ESCI10TA PO; -METO-387 PO; -ONDA4TAB11 PO; -POTA-51 PO; -ZOLP10TA PO
[2017-12-02 22:15] VITALS: BP 107/65
[2017-12-02] MEDS ORDERED: LACTATED RINGERS 1,000 ML IV ONE (22:30)
[2017-12-02] MEDS ORDERED: ONDANSETRON 4 MG/2 ML (SDV) Z0FRAN IV PRN (22:30)
[2017-12-02] MEDS ORDERED: PIPERACILLIN SODIUM/TAZOBACTAM 4.5 GM in NS (IVPB) 100 ML IV ONE (22:30)
--- NOTE | 2017-12-02 22:39 | ED General ---
General Chief Complaint: General Problems/Pain Stated Complaint: FEVER Source of Information: Patient Exam Limitations: No Limitations History of Present Illness Date Seen by Provider: Dec 02, 2017 Time Seen by Provider: 22:23 Initial Comments Patient presents to the ER by private conveyance with chief complaint she's had a fever today not feeling well for the past 5 days. She's been eating and drinking less. She has a history of [address] Agarwal did a sleeve gastrectomy and since that time she's lost from over 300 pounds down to 140 pounds. She's not felt well and had tachycardia dysrhythmia such as SVT. She was checked out by Dr. Leos and released. She says she's had her vitamins checked routinely and labs checked routinely and most recently she was told her potassium was a little low like 3.1 and a increased her potassium supplement. She's felt some ear pain and pressure and a headache. She's not had problems with headaches from 2 years. She took Tylenol an hour prior to coming to ER. Earlier today she said she had a fever of 101F then she laid down covered up and when she woke up from her nap it was 105 Fahrenheit. This was approximately one hour prior to arrival to the ER. Today she been having some tenderness to light touch all over her abdomen. No dysuria or discharge. She's had loose stools but she thinks it might be because she is only been eating protein shakes and this tend to go to her rather fast. Normally she eats more vegetables and fruit and avoids protein but she hasn't felt like any much of anything the last couple days Allergies and Home Medications Allergies Coded Allergies: No Known Drug Allergies (Verified , 06/30/07) Home Medications Apixaban 5 Mg Tablet, 5 MG PO BID Prescribed by: JOSIE HOGUE on 12/23/16 1529 Cephalexin 500 Mg Capsule, 500 MG PO BID Prescribed by: AMRIK BELLA on 01/16/17 2145 Dexamethasone 4 Mg Tablet, 4 MG PO UD 1 tab three times a day for 7 days 1 tab twice a day for 7 days 1 tab daily for 7 days 1/2 tab daily for 7 days Prescribed by: EUGENIA GUALLPA on 08/05/16 1615 Metoclopramide HCl 5 Mg Tablet, 5 MG PO QID, (Reported) Pantoprazole Sodium 40 Mg Tablet.dr, 40 MG PO DAILY, (Reported) Potassium Chloride 20 Meq Packet, 20 MEQ PO BID Prescribed by: AMRIK BELLA on 01/16/172144 Prochlorperazine Maleate 10 Mg Tablet, 10 MG PO TID PRN for NAUSEA/VOMITING-4TH LINE, (Reported) Promethazine HCl 25 Mg Tablet, 12.5 MG PO QID PRN for NAUSEA/VOMITING-3RD LINE Prescribed by: EUGENIA GUALLPA on 08/05/161614 Scopolamine 1 Each Patch.td72, 1 PATCH TD Q72H, (Reported) Sucralfate 1 Gm Tablet, 1 GM PO BID, (Reported) Thiamine HCl 100 Mg Tablet, 100 MG PO DAILY Prescribed by: EUGENIA GUALLPA on 08/05/161614 Patient Home Medication List Home Medication List Reviewed: Yes Review of Systems Review of Systems Constitutional: No chills, No diaphoresis EENTM: No hearing loss, No ear pain Respiratory: No cough, No short of breath Cardiovascular: No chest pain, No edema; palpitations; No syncope, No vascular heart diseas Gastrointestinal: abdominal pain; No constipation; diarrhea, nausea; No vomiting Genitourinary: No discharge, No dysuria : No Musculoskeletal: No back pain, No joint pain Psychiatric/Neurological: Headache; Denies Numbness, Denies Paresthesia Past Jmlbubf-[id number]-Yblrot Hx Patient Social History Alcohol Use: Denies Use Recreational Drug Use: No Smoking Status: Never a Smoker Recent Foreign Travel: No Contact w/Someone Who Travel: No Recent Hopitalizations: No Physical Abuse: No Sexual Abuse: No Immunizations Up To Date Tetanus Booster (TDap): Unknown Date of Influenza Vaccine: Dec 19, 2012 Seasonal Allergies Seasonal Allergies: No Past Medical History Surgeries: Yes (GASTRIC SLEEVE) Respiratory: No Cardiac: No Reproductive Disorders: No Gastrointestinal: No Musculoskeletal: No Endocrine: No Cancer: No Blood Disorders: No Family Medical History Patient reports no known family medical history. No Pertinent Family Hx Physical Exam-Suspected Sepsis Physical Exam Vital Signs Vital Signs - First Documented 12/02/17 22:15 Temp 100.1 Pulse 103 Resp 12 B/P (MAP) 107/65 (79) Pulse Ox 98 Capillary Refill : Height, Weight, BMI Height: 5'9.00" Weight: 190lbs. 7.0oz. 86.999870qw; 35.0 BMI Method:Stated General Appearance: Mild Distress, Thin Eyes: Bilateral Eye Normal Inspection, Bilateral Eye PERRL, Bilateral Eye EOMI HEENT: PERRL/EOMI, TMs Normal, Normal ENT Inspection; No Pharynx Normal, No Moist Mucous Membranes, No Pharyngeal Erythema, No Tonsillar Exudate, No Tonsillar Enlargement Neck: Full Range of Motion, Normal Inspection, Non Tender Respiratory: Lungs Clear, Normal Breath Sounds, No Accessory Muscle Use, No Respiratory Distress Cardiovascular: Regular Rate, Rhythm, No Edema, Normal Peripheral Pulses Gastrointestinal: Normal Bowel Sounds, Soft, Tenderness Extremity: Normal Capillary Refill, Normal Inspection, No Pedal Edema Neurologic/Psychiatric: Alert, Oriented x3 Skin: normal color, warm/dry Focused Exam Lactate Level 12/02/17 22:40: Lactic Acid Level 2.21*H Lactic Acid Level Laboratory Tests Test 12/02/17 22:40 Lactic Acid Level 2.21 MMOL/L (0.50-2.00) *H Progress/Results/Core Measures Suspected Sepsis SIRS Temperature: Pulse: Respiratory Rate: Laboratory Tests 12/02/17 22:40: White Blood Count 12.5H Blood Pressure / Mean: 12/02/17 22:40: Lactic Acid Level 2.21*H Laboratory Tests 12/02/17 22:40: Creatinine 1.03, INR Comment 1.1, Platelet Count 231, Total Bilirubin 1.6H Results/Orders Lab Results Laboratory Tests Test 12/02/17 22:32 12/02/17 22:40 Range/Units Urine Color LUCINDA H Urine Clarity SLIGHTLY CLOUDY Urine pH 5 5-9 Urine Specific [place] 1.020 1.016-1.022 Urine Protein 2+ H NEGATIVE Urine Glucose (UA) NEGATIVE NEGATIVE Urine Ketones 2+ H NEGATIVE Urine Nitrite POSITIVE H NEGATIVE Urine Bilirubin 1+ H NEGATIVE Urine Urobilinogen NORMAL NORMAL MG/DL Urine Leukocyte Esterase 2+ H NEGATIVE Urine RBC (Auto) 1+ H NEGATIVE Urine RBC RARE /HPF Urine WBC 10-25 H /HPF Urine Crystals NONE /LPF Urine Bacteria MODERATE H /HPF Urine Casts PRESENT /LPF Urine Hyaline Casts RARE /LPF Urine Granular Casts 10-25 H /LPF Urine Coarse Granular Casts 2-5 H /LPF Urine White Blood Cell Casts RARE H /LPF Urine Mucus LARGE H /LPF Urine Culture Indicated NO White Blood Count 12.5 H 4.3-11.0 10^3/uL Red Blood Count 4.57 4.35-5.85 10^6/uL Hemoglobin 14.2 11.5-16.0 G/DL Hematocrit 39 35-52 % Mean Corpuscular Volume 85 80-99 FL Mean Corpuscular Hemoglobin 31 25-34 PG Mean Corpuscular Hemoglobin Concent 37 H 32-36 G/DL Red Cell Distribution Width 12.3 10.0-14.5 % Platelet Count 231 130-400 10^3/uL Mean Platelet Volume 10.1 7.4-10.4 FL Neutrophils (%) (Auto) 92 H 42-75 % Lymphocytes (%) (Auto) 3 L 12-44 % Monocytes (%) (Auto) 4 0-12 % Eosinophils (%) (Auto) 0 0-10 % Basophils (%) (Auto) 0 0-10 % Neutrophils # (Auto) 11.5 H 1.8-7.8 X 10^3 Lymphocytes # (Auto) 0.4 L 1.0-4.0 X 10^3 Monocytes # (Auto) 0.5 0.0-1.0 X 10^3 Eosinophils # (Auto) 0.0 0.0-0.3 10^3/uL Basophils # (Auto) 0.0 0.0-0.1 10^3/uL Neutrophils % (Manual) 85 % Lymphocytes % (Manual) 5 % Monocytes % (Manual) 2 % Eosinophils % (Manual) 0 % Basophils % (Manual) 0 % Band Neutrophils 8 % Blood Morphology Comment NORMAL Prothrombin Time 14.1 12.2-14.7 SEC INR Comment 1.1 0.8-1.4 Activated Partial Thromboplast Time 30 24-35 SEC Sodium Level 131 L 135-145 MMOL/L Potassium Level 3.7 3.6-5.0 MMOL/L Chloride Level 101 98-107 MMOL/L Carbon Dioxide Level 17 L 21-32 MMOL/L Anion Gap 13 5-14 MMOL/L Blood Urea Nitrogen 14 7-18 MG/DL Creatinine 1.03 0.60-1.30 MG/DL Estimat Glomerular Filtration Rate > 60 BUN/Creatinine Ratio 14 Glucose Level 113 H 70-105 MG/DL Lactic Acid Level 2.21 *H 0.50-2.00 MMOL/L Calcium Level 9.0 8.5-10.1 MG/DL Corrected Calcium 8.8 8.5-10.1 MG/DL Phosphorus Level 3.9 2.3-4.7 MG/DL Magnesium Level 2.1 1.8-2.4 MG/DL Total Bilirubin 1.6 H 0.1-1.0 MG/DL Aspartate Amino Transf (AST/SGOT) 19 5-34 U/L Alanine Aminotransferase (ALT/SGPT) 26 0-55 U/L Alkaline Phosphatase 60 40-136 U/L Troponin I < 0.30 <0.30 NG/ML Total Protein 6.7 6.4-8.2 GM/DL Albumin 4.2 3.2-4.5 GM/DL My Orders Orders - AMRIK BELLA Cbc With Automated Diff (12/02/17 22:30) Comprehensive Metabolic Panel (12/02/17 22:30) Blood Culture (12/02/17 22:30) Sputum Culture (12/02/17:30) Urinalysis (12/02/17:) Urine Culture (12/02/17:30) Protime With Inr (12/02/17:30) Partial Thromboplastin Time (12/02/17:30) Chest 1 View, Ap/Pa Only (12/02/17:30) Saline Lock/Iv-Start (12/02/17 22:30) Saline Lock/Iv-Start (12/02/17 22:30) Ekg Tracing (12/02/17:30) Troponin I (12/02/17 22:30) Vital Signs Adult Sepsis Patie Q15M (12/02/17 22:30) Ondansetron Injection (Zofran Injectio (12/02/17 22:30) O2 (12/02/17 22:30) Remove Rings In Anticipation O (12/02/17:30) Lactic Acid Analyzer (12/02/17:30) Lactated Ringers (Lr 1000 Ml Iv Solution (12/02/17 22:30) Piperacillin Sodium/Tazobactam (Zosyn Vi (12/02/17 22:30) Magnesium (12/02/17 22:30) Phosphorus (12/02/17 22:30) Ct Abdomen/Pelvis W (12/02/17 22:32) Manual Differential (12/02/17 22:40) Iohexol Injection (Omnipaque 350 Mg/Ml 1 (12/02/17 23:15) Ns (Ivpb) (Sodium Chloride 0.9%) (12/02/17 23:15) Ketorolac Injection (Toradol Injection) (12/02/17 23:45) Medications Given in ED Current Medications Medications Dose Ordered Sig/Elvin Route Start Time Stop Time Status Last Admin Dose Admin Iohexol 100 ml ONCE ONCE IV 12/02/17 23:15 12/02/17 23:17 DC 12/02/17 23:20 100 ML Ketorolac Tromethamine 10 mg ONCE ONCE IVP 12/02/17 23:45 12/02/17 23:46 DC 12/02/17 23:38 10 MG Lactated Ringer's 1,000 ml @ 0 mls/hr Q0M ONCE IV 12/02/17 22:30 12/02/17 22:33 DC 12/02/17 22:53 1,000 MLS/HR Ondansetron HCl 4 mg PRN PRN IV 12/02/17 22:30 12/02/17 22:53 DC 12/02/17 22:52 4 MG Piperacillin Sod/ Tazobactam Sod 4.5 gm/Sodium Chloride 100 ml @ 200 mls/hr ONCE ONCE IV 12/02/17 22:30 12/02/17 22:59 DC 12/02/17 22:53 200 MLS/HR Sodium Chloride 250 ml ONCE ONCE IV 12/02/17 23:15 12/02/17 23:17 DC 12/02/17 23:20 80 ML Vital Signs/I&O 12/02/17 12/02/17 12/02/17 22:15 23:04 23:31 Temp 100.1 100.1 100.2 Pulse 103 103 89 Resp 12 12 15 B/P (MAP) 107/65 (79) 107/65 (79) 108/56 Pulse Ox 98 98 99 12/03/17 00:00 Intake Total 100 ml Balance 100 ml Capillary Refill : Progress Note : Time: 22:39 Progress Note GE vs Colitis versus other intraabd process. Sepsis workup. UA, Lab, CT abd/ pelvis with and a liter and a half of fluids to start. 1300 would be 20 ml/kg. we'll start Zosyn for coverage. She is a little tachycardic so we'll get an EKG. Zofran for nausea and Toradol for headache and fever. Her blood pressures on the low side around 98-100 systolic on presentation. ECG Initial ECG Impression Date: Dec 02, 2017 Initial ECG Impression Time: 22:33 Initial ECG Rate: 96 Initial ECG Rhythm: Normal Sinus Initial ECG Intervals: QT (476) Initial ECG Impression: Normal, Nonspecific Changes Comment No ST elevation or depression. Diagnostic Imaging Diagonstic Imaging: Xray Plain Films/CT/US/NM/MRI: chest (1v) Comments No acute cardiopulmonary processes noted. Reviewed: Reviewed by Me Diagonstic Imaging: CT (With contrast) Plain Films/CT/US/NM/MRI: abdomen, pelvis Comments No evidence of bowel obstruction or focal intra-abdominal inflammatory process. Post-gastric surgery. IUD placement. Appendix is normal and no diverticulitis. IUD in the lower uterine segment. No free fluid or evidence of infection or inflammation. Reviewed: Reviewed by Me Departure Communication (Admissions) Time/Spoke to Admitting Phy: 00:13 Discussed case lab imaging findings and dehydration intractable nausea with Dr. Gan and she agrees to observe the patient, Rocephin and IV fluids. Impression Primary Impression: Sepsis Qualified Codes: A41.9 - Sepsis, unspecified organism Additional Impressions: UTI (urinary tract infection) Qualified Codes: N30.01 - Acute cystitis with hematuria Intractable nausea and vomiting Qualified Codes: R11.2 - Nausea with vomiting, unspecified Acute dehydration Headache Qualified Codes: G44.201 - Tension-type headache, unspecified, intractable History of sleeve gastrectomy Disposition: ADMITTED INPATIENT Condition: Stable Admissions Decision to Admit Reason: Admit from ER (General) Decision to Admit/Date: Dec 03, 2017 Time/Decision to Admit Time: 00:13 Departure-Patient Inst. Referrals: KEIKO HOLLIS MD (PCP/Family) Primary Care Physician Copy Copies To 1: NEVILLE AGARWAL MD; KEIKO HOLLIS MD, TITUS J Dec 02, 2017 22:39
[2017-12-02 22:53] LABS: BASOPHILS % (AUTO) 0 % (0-10); EOSINOPHILS % (AUTO) 0 % (0-10); HEMATOCRIT 39 % (35-52); HEMOGLOBIN 14.2 G/DL (11.5-16.0); LYMPHOCYTES # (AUTO) 0.4 X 10^3 (1.0-4.0); LYMPHOCYTES % (AUTO) 3 % (12-44); MEAN CORPUSCULAR HEMOGLOBIN 31 PG (25-34); MEAN CORPUSCULAR HGB CONC 37 G/DL (32-36); MEAN CORPUSCULAR VOLUME 85 FL (80-99); MEAN PLATELET VOLUME 10.1 FL (7.4-10.4); MONOCYTES # (AUTO) 0.5 X 10^3 (0.0-1.0); MONOCYTES % (AUTO) 4 % (0-12); NEUTROPHILS # (AUTO) 11.5 X 10^3 (1.8-7.8); NEUTROPHILS % (AUTO) 92 % (42-75); PLATELET COUNT 231 10^3/uL (130-400); RED BLOOD COUNT 4.57 10^6/uL (4.35-5.85); RED CELL DISTRIBUTION WIDTH 12.3 % (10.0-14.5); WHITE BLOOD COUNT 12.5 10^3/uL (4.3-11.0)
[2017-12-02 22:57] LABS: CLARITY,URINE SLIGHTLY CLOUDY; COLOR,URINE AMBER; GLUCOSE, URINE (UA) NEGATIVE (NEGATIVE); KETONES,URINE 2+ (NEGATIVE); LEUKOCYTE ESTERASE ,URINE 2+ (NEGATIVE); NITRITE,URINE POSITIVE (NEGATIVE); PH,URINE 5 (5-9); PROTEIN,URINE 2+ (NEGATIVE); UROBILINOGEN,URINE NORMAL (NORMAL)
[2017-12-02 23:11] LABS: INR 1.1 (0.8-1.4); PROTHROMBIN TIME PATIENT 14.1 SEC (12.2-14.7)
[2017-12-02] MEDS ORDERED: NS 250 ML (IVPB) BAG IV ONE (23:15)
[2017-12-02] MEDS ORDERED: IOHEXOL 350 MG/ML 100 ML (OMNIPAQUE 350) VIAL IV ONE (23:15)
[2017-12-02 23:18] LABS: ALANINE AMINOTRANSFERASE 26 U/L (0-55); ALBUMIN 4.2 GM/DL (3.2-4.5); ALKALINE PHOSPHATASE 60 U/L (40-136); BILIRUBIN,TOTAL 1.6 MG/DL (0.1-1.0); BUN/CREATININE RATIO 14; CARBON DIOXIDE 17 MMOL/L (21-32); CHLORIDE 101 MMOL/L (98-107); CREATININE SERUM 1.03 MG/DL (0.60-1.30); GFR ESTIMATED > 60; GLUCOSE 113 MG/DL (70-105); MAGNESIUM 2.1 MG/DL (1.8-2.4); PHOSPHORUS 3.9 MG/DL (2.3-4.7); POTASSIUM 3.7 MMOL/L (3.6-5.0); SODIUM 131 MMOL/L (135-145); TOTAL PROTEIN 6.7 GM/DL (6.4-8.2)
[2017-12-02 23:18] LABS: BACTERIA,URINE MODERATE /HPF; BILIRUBIN,URINE 1+ (NEGATIVE); RBC,URINE RARE /HPF
[2017-12-02 23:19] LABS: HYALINE CASTS, URINE RARE /LPF; WHITE BLOOD CELL CASTS, URINE RARE /LPF
[2017-12-02 23:25] LABS: BAND NEUTROPHILS 8 %; BASOPHILS % (MANUAL) 0 %; EOSINOPHILS % (MANUAL) 0 %; LYMPHOCYTES % (MANUAL) 5 %; MONOCYTES % (MANUAL) 2 %; NEUTROPHILS % (MANUAL) 85 %; RBC MORPH NORMAL
[2017-12-02] MEDS ORDERED: KETOROLAC 30 MG/ML VIAL IVP ONE (23:45)
[2017-12-03] VITALS (25 sets, daily range): BP systolic 74–112; BP diastolic 46–75
[2017-12-03] MEDS ORDERED: fentaNYL INJECTION 100 MCG/2 ML AMP ONE (01:03)
[2017-12-03] MEDS ORDERED: fentaNYL INJECTION 100 MCG/2 ML AMP IVP ONE (01:15)
[2017-12-03] MEDS ORDERED: cefTRIAXone 1 GM/NS 50 ML IVPB IV SCH ×2 (01:45)
[2017-12-03] MEDS ORDERED: CATHETER FLUSH 10 ML SYR IV PRN (01:45)
[2017-12-03] MEDS ORDERED: PROMETHAZINE INJ 25 MG/ML (PHENERGAN) AMP IV PRN (01:45)
[2017-12-03] MEDS: NS W/KCL 20 MEQ/L 1,000 ML IV SCH ×2 (02:00→09:22)
[2017-12-03] MEDS ORDERED: NS IV 1000 ML 1,000 ML ONE (02:42)
[2017-12-03] MEDS ORDERED: NS IV 1000 ML 1,000 ML IV SCH ×3 (02:45→05:45)
[2017-12-03] MEDS: ONDANSETRON 4 MG/2 ML (SDV) Z0FRAN IV PRN ×3 (04:36→20:39)
[2017-12-03] MEDS: ACETAMINOPHEN 500 MG TAB (TYLENOL) PO PRN (04:38)
[2017-12-03] MEDS ORDERED: NS (IVPB) 250 ML ONE (04:45)
[2017-12-03] MEDS ORDERED: NOREPINEPHRINE 4 MG/4 ML (LEVOPHED) AMP IV ONE (04:45)
[2017-12-03] MEDS: NOREPINEPHRINE 4 MG in NS (IVPB) 250 ML IV SCH (04:50)
--- NOTE | 2017-12-03 05:20 | Pulmonary Consultation ---
History of Present Illness History of Present Illness Date of Consultation 12/03/17 05:15 Time Seen by Provider: 05:15 Date of Admission History of Present Illness 37yo with hx of recent gastric sleeve by Dr. Agarwal presented secondary to persistent fever, decreased appetite over the last 5days. She has lost over 300lbs since surgery and is down to 140lbs. SHe has also recently seen Dr. Leos for SVT. She does complain of abdominal pain worse with palpation. PT does have IUD placed. No tampons currently in. Allergies and Home Medications Allergies Coded Allergies: No Known Drug Allergies (Verified , 06/30/07) Home Medications Apixaban 5 Mg Tablet, 5 MG PO BID Prescribed by: JOSIE HOGUE on 12/23/16 1529 Cephalexin 500 Mg Capsule, 500 MG PO BID Prescribed by: AMRIK BELLA on 01/16/172144 Dexamethasone 4 Mg Tablet, 4 MG PO UD 1 tab three times a day for 7 days 1 tab twice a day for 7 days 1 tab daily for 7 days 1/2 tab daily for 7 days Prescribed by: EUGENIA GUALLPA on 08/05/161614 Metoclopramide HCl 5 Mg Tablet, 5 MG PO QID, (Reported) Pantoprazole Sodium 40 Mg Tablet.dr, 40 MG PO DAILY, (Reported) Potassium Chloride 20 Meq Packet, 20 MEQ PO BID Prescribed by: AMRIK BELLA on 01/16/172144 Prochlorperazine Maleate 10 Mg Tablet, 10 MG PO TID PRN for NAUSEA/VOMITING-4TH LINE, (Reported) Promethazine HCl 25 Mg Tablet, 12.5 MG PO QID PRN for NAUSEA/VOMITING-3RD LINE Prescribed by: EUGENIA GUALLPA on 08/05/161614 Scopolamine 1 Each Patch.td72, 1 PATCH TD Q72H, (Reported) Sucralfate 1 Gm Tablet, 1 GM PO BID, (Reported) Thiamine HCl 100 Mg Tablet, 100 MG PO DAILY Prescribed by: EUGENIA GUALLPA on 08/05/161614 Past Lwrfdsn-Fxuusr-Zlmnyn Hx Patient Social History Alcohol Use: Denies Use Recreational Drug Use: No Smoking Status: Never a Smoker Recent Foreign Travel: No Contact w/Someone Who Travel: No Recent Infectious Disease Expo: No Recent Hopitalizations: No Physical Abuse: No Sexual Abuse: No Immunizations Up To Date Tetanus Booster (TDap): Unknown PED Vaccines UTD: Yes Date of Influenza Vaccine: Dec 19, 2012 Seasonal Allergies Seasonal Allergies: No Past Medical History Surgeries: Yes (GASTRIC SLEEVE, CYST REMOVED FROM FOOT) Respiratory: No Currently Using CPAP: No Currently Using BIPAP: No Cardiac: Yes (SVT, PVC'S) Irregular Heartbeat Neurological: Yes Reproductive Disorders: No Female Reproductive Disorders: Denies Sexually Transmitted Disease: No HIV/AIDS: No Genitourinary: No Gastrointestinal: No Musculoskeletal: Yes Arthritis Endocrine: No HEENT: No (PT WEARS GLASSES) Loss of Vision: Bilateral Hearing Impairment: Denies Cancer: No Psychosocial: No Anxiety, Depression Integumentary: No Blood Disorders: No Adverse Reaction/Blood Tranf: No Family Medical History Cardiovascular disease 19 MOTHER G8 SISTER Completed stroke 19 FATHER Diabetes mellitus 19 MOTHER Hypertension 19 MOTHER No Pertinent Family Hx Review of Systems Time Seen by Provider: 06:01 Constitutional: Fever, Weakness Eyes: No: Pain, Vision change, Conjunctivae inflammation, Eyelid inflammation, Other, Redness ENT: No: Ear pain, Ear discharge, Nose pain, Nose discharge, Nose congestion, Mouth pain, Mouth swelling, Throat pain, Throat swelling, Other Respiratory: No: Cough, Dry, Shortness of breath, SOB with excertion, Wheezing , Hemoptysis, Pleuritic Pain, Sputum, Wheezing, Other Cardiovascular: No: Chest Pain, Palpitations, Orthopnea, Paroxysmal Noc. Dyspnea, Edema, Lt Headedness, Other Gastrointestinal: Nausea, Diarrhea; No: Vomiting, Hematochezia Genitourinary: No Dysuria, No Frequency, No Incontinence Neurological: Weakness Sepsis Event Evaluation Height, Weight, BMI Height: 5'10.00" Weight: 145lbs. 0.0oz. 65.127627yw; 20.8 BMI Method:Stated Exam Exam Vital Signs Date Time Temp Pulse Resp B/P (MAP) Pulse Ox O2 Delivery O2 Flow Rate FiO2 12/03/17 01:25 99.1 83 20 90/58 (69) 98 Room Air 12/03/17 01:25 98 Room Air 12/03/17 01:04 100.2 88 12 108/56 98 12/02/17 23:31 100.2 89 15 108/56 99 12/02/17 23:04 100.1 103 12 107/65 (79) 98 12/02/17 22:15 100.1 103 12 107/65 (79) 98 I & O 12/03/17 07:00 Intake Total 1100 ml Balance 1100 ml Height & Weight Height: 5'10.00" Weight: 145lbs. 0.0oz. 65.948404xg; 20.8 BMI Method:Stated General Appearance: Mild Distress, Thin HEENT: PERRL/EOMI, TMs Normal, Normal ENT Inspection; No Pharynx Normal, No Moist Mucous Membranes, No Pharyngeal Erythema, No Tonsillar Exudate, No Tonsillar Enlargement Neck: Full Range of Motion, Normal Inspection, Non Tender Respiratory: Lungs Clear, Normal Breath Sounds, No Accessory Muscle Use, No Respiratory Distress Cardiovascular: Regular Rate, Rhythm, No Edema, Normal Peripheral Pulses Capillary Refill: Less Than 3 Seconds Extremity: Normal Capillary Refill, Normal Inspection, No Pedal Edema Neurologic/Psychiatric: Alert, Oriented x3 Skin: Normal Color, Warm/Dry Lymphatic: No Adenopathy Results Lab Laboratory Tests 12/02/17 22:40 Assessment/Plan Assessment/Plan Severe Sepsis with septic shock -[facility] [place] urine -Solucortef after checking random serum cortisol level -Check CVP monitoring -Labs for this AM pending -Continue Rocephin, add flagyl UTI -Continue Abx Abdominal pain - generalized with elevated bili -CT results pending -Check amylase, lipase -Check RUQ US Diarrhea -Check CDiff toxin Malnutrition -Ensure TID with meals -Consult dietary Hx of gastric sleeve by Dr. Agarwal -Consult Dr. Agarwal Hx of SVT -Follows with Dr. Leos HYponatremia -Monitor metabolic lactic acidosis -IVF -Monitor , repeat TEODORA ESTRELLA DO Dec 03, 2017 05:20
--- NOTE | 2017-12-03 05:33 | ED Addendum ---
Addendum Physician Addendum Progress 05:27 General Chief Complaint: General Problems/Pain Stated Complaint: UTI,SEPSIS,INTRACTABLE N/V,DEHYDRATION Nursing Triage Note: NOT EATING AND NAUSEA X5 DAYS. TODAY FEVER AND STOMACH PAIN WITH HEADACHE Nursing Sepsis Screen: No Definite Risk History of Present Illness Date Seen by Provider: Dec 03, 2017 Time Seen by Provider: 04:30 Initial Comments Called the room for central line placement in the ICU room #6. Physical Exam Vital Signs Vital Signs - First Documented 12/02/17 22:15 Temp 100.1 Pulse 103 Resp 12 B/P (MAP) 107/65 (79) Pulse Ox 98 Capillary Refill : Less Than 3 Seconds Height, Weight, BMI Height: 5'10.00" Weight: 145lbs. 0.0oz. 65.940322ha; 20.8 BMI Method:Stated General Appearance: WD/WN, Mild Distress Eyes: Bilateral Eye Normal Inspection, Bilateral Eye PERRL, Bilateral Eye EOMI Neck: Full Range of Motion, Normal Inspection, Non Tender, Supple Respiratory: No Accessory Muscle Use, No Respiratory Distress Gastrointestinal: Non Tender, Soft Neurologic/Psychiatric: Alert, Oriented x3 Review of Systems Constitutional: No chills, No diaphoresis EENTM: No ear pain, No eye pain Respiratory: No cough, No short of breath Cardiovascular: No chest pain, No edema Gastrointestinal: abdominal pain; No constipation, No diarrhea Progress/Results/Core Measures Results/Orders Lab Results Laboratory Tests Test 12/02/17 01:00 12/02/17 22:32 12/02/17 22:40 Range/Units Lactic Acid Level 1.18 2.21 *H 0.50-2.00 MMOL/L Urine Color LUCINDA H Urine Clarity SLIGHTLY CLOUDY Urine pH 5 5-9 Urine Specific Delta 1.020 1.016-1.022 Urine Protein 2+ H NEGATIVE Urine Glucose (UA) NEGATIVE NEGATIVE Urine Ketones 2+ H NEGATIVE Urine Nitrite POSITIVE H NEGATIVE Urine Bilirubin 1+ H NEGATIVE Urine Urobilinogen NORMAL NORMAL MG/DL Urine Leukocyte Esterase 2+ H NEGATIVE Urine RBC (Auto) 1+ H NEGATIVE Urine RBC RARE /HPF Urine WBC 10-25 H /HPF Urine Crystals NONE /LPF Urine Bacteria MODERATE H /HPF Urine Casts PRESENT /LPF Urine Hyaline Casts RARE /LPF Urine Granular Casts 10-25 H /LPF Urine Coarse Granular Casts 2-5 H /LPF Urine White Blood Cell Casts RARE H /LPF Urine Mucus LARGE H /LPF Urine Culture Indicated NO White Blood Count 12.5 H 4.3-11.0 10^3/uL Red Blood Count 4.57 4.35-5.85 10^6/uL Hemoglobin 14.2 11.5-16.0 G/DL Hematocrit 39 35-52 % Mean Corpuscular Volume 85 80-99 FL Mean Corpuscular Hemoglobin 31 25-34 PG Mean Corpuscular Hemoglobin Concent 37 H 32-36 G/DL Red Cell Distribution Width 12.3 10.0-14.5 % Platelet Count 231 130-400 10^3/uL Mean Platelet Volume 10.1 7.4-10.4 FL Neutrophils (%) (Auto) 92 H 42-75 % Lymphocytes (%) (Auto) 3 L 12-44 % Monocytes (%) (Auto) 4 0-12 % Eosinophils (%) (Auto) 0 0-10 % Basophils (%) (Auto) 0 0-10 % Neutrophils # (Auto) 11.5 H 1.8-7.8 X 10^3 Lymphocytes # (Auto) 0.4 L 1.0-4.0 X 10^3 Monocytes # (Auto) 0.5 0.0-1.0 X 10^3 Eosinophils # (Auto) 0.0 0.0-0.3 10^3/uL Basophils # (Auto) 0.0 0.0-0.1 10^3/uL Neutrophils % (Manual) 85 % Lymphocytes % (Manual) 5 % Monocytes % (Manual) 2 % Eosinophils % (Manual) 0 % Basophils % (Manual) 0 % Band Neutrophils 8 % Blood Morphology Comment NORMAL Prothrombin Time 14.1 12.2-14.7 SEC INR Comment 1.1 0.8-1.4 Activated Partial Thromboplast Time 30 24-35 SEC Sodium Level 131 L 135-145 MMOL/L Potassium Level 3.7 3.6-5.0 MMOL/L Chloride Level 101 98-107 MMOL/L Carbon Dioxide Level 17 L 21-32 MMOL/L Anion Gap 13 5-14 MMOL/L Blood Urea Nitrogen 14 7-18 MG/DL Creatinine 1.03 0.60-1.30 MG/DL Estimat Glomerular Filtration Rate > 60 BUN/Creatinine Ratio 14 Glucose Level 113 H 70-105 MG/DL Calcium Level 9.0 8.5-10.1 MG/DL Corrected Calcium 8.8 8.5-10.1 MG/DL Phosphorus Level 3.9 2.3-4.7 MG/DL Magnesium Level 2.1 1.8-2.4 MG/DL Total Bilirubin 1.6 H 0.1-1.0 MG/DL Aspartate Amino Transf (AST/SGOT) 19 5-34 U/L Alanine Aminotransferase (ALT/SGPT) 26 0-55 U/L Alkaline Phosphatase 60 40-136 U/L Troponin I < 0.30 <0.30 NG/ML Total Protein 6.7 6.4-8.2 GM/DL Albumin 4.2 3.2-4.5 GM/DL My Orders Orders - AMRIK BELLA Cbc With Automated Diff (12/02/17 22:30) Comprehensive Metabolic Panel (12/02/17 22:30) Blood Culture (12/02/17 22:30) Sputum Culture (12/02/17 22:30) Urinalysis (12/02/17:30) Urine Culture (12/02/17 22:30) Protime With Inr (12/02/17:30) Partial Thromboplastin Time (12/02/17:30) Chest 1 View, Ap/Pa Only (12/02/17:30) Saline Lock/Iv-Start (12/02/17 22:30) Saline Lock/Iv-Start (12/02/17 22:30) Ekg Tracing (12/02/17:30) Troponin I (12/02/17 22:30) Vital Signs Adult Sepsis Patie Q15M (12/02/17 22:30) Ondansetron Injection (Zofran Injectio (12/02/17 22:30) O2 (12/02/17 22:30) Remove Rings In Anticipation O (12/02/17:30) Lactic Acid Analyzer (12/02/17:30) Lactated Ringers (Lr 1000 Ml Iv Solution (12/02/17 22:30) Piperacillin Sodium/Tazobactam (Zosyn Vi (12/02/17 22:30) Magnesium (12/02/17 22:30) Phosphorus (12/02/17 22:30) Ct Abdomen/Pelvis W (12/02/17 22:32) Manual Differential (12/02/17 22:40) Iohexol Injection (Omnipaque 350 Mg/Ml 1 (12/02/17 23:15) Ns (Ivpb) (Sodium Chloride 0.9%) (12/02/17 23:15) Ketorolac Injection (Toradol Injection) (12/02/17 23:45) Medications Given in ED Current Medications Medications Dose Ordered Sig/Elvin Route Start Time Stop Time Status Last Admin Dose Admin Iohexol 100 ml ONCE ONCE IV 12/02/17 23:15 12/02/17 23:17 DC 12/02/17 23:20 100 ML Ketorolac Tromethamine 10 mg ONCE ONCE IVP 12/02/17 23:45 12/02/17 23:46 DC 12/02/17 23:38 10 MG Lactated Ringer's 1,000 ml @ 0 mls/hr Q0M ONCE IV 12/02/17 22:30 12/02/17 22:33 DC 12/02/17 22:53 1,000 MLS/HR Ondansetron HCl 4 mg PRN PRN IV 12/02/17 22:30 12/02/17 22:53 DC 12/02/17 22:52 4 MG Piperacillin Sod/ Tazobactam Sod 4.5 gm/Sodium Chloride 100 ml @ 200 mls/hr ONCE ONCE IV 12/02/17 22:30 12/02/17 22:59 DC 12/02/17 22:53 200 MLS/HR Sodium Chloride 250 ml ONCE ONCE IV 12/02/17 23:15 12/02/17 23:17 DC 12/02/17 23:20 80 ML Vital Signs/I&O 12/02/17 12/02/17 12/02/17 22:15 23:04 23:31 Temp 100.1 100.1 100.2 Pulse 103 103 89 Resp 12 12 15 B/P (MAP) 107/65 (79) 107/65 (79) 108/56 Pulse Ox 98 98 99 12/03/17 00:00 Intake Total 100 ml Balance 100 ml Blood Pressure Mean: 69 Progress Progress Note : Time: 04:30 Progress Note Received a call from health ovens supervisor that the patient's blood pressure was dropping and she received a second liter fluid putting her above 30 mL/kg and her map was still around 60-65 and they were requesting a central line. Arrived at the floor 0430 patient's map was 55 so we initiated Levophed by peripheral. We discussed risks, benefits, alternatives to doing a central line and the patient consented. Consent was signed. We put the ultrasound on her right neck and demonstrated good anatomy with a good lateral internal jugular vein easily compressible but plump and consistent with being fluid up. Patient was positioned appropriately and we dawned sterile gown, gloves, mask. Everyone in the room also wore a mask. Using sterile technique when the cleaned her neck using chlorhexidine prep. We draped her out in the usual fashion and flushed triple lumen 20 cm 16 [place] catheter with sterile saline. We infiltrated 2 cc of 1% lidocaine without epinephrine above the site of the right IJ. We then used ultrasound-guided sterile technique to put the introducer needle into the right IJ and got good blood return. A guidewire was introduced and easily passed without any ectopy. A small ayden was made in the skin using an 11 blade scalpel. The needle was withdrawn from the skin. A dilator was passed over the guidewire and into the neck. It was removed and then the triple lumen was passed over the guidewire and held in position around 14. The guidewire was removed without incident and the tip is still intact. The central line was then tacked in place at 4 different points using the provided silk suture. Patient was then dressed using sterile technique and a sterile dressing after placing a Biopatch on. Patient tolerated the procedure well. Chest x-ray was obtained. The tip of the catheter rests just above the right atria in the superior vena cava in good position. Diagnostic Imaging Diagonstic Imaging: Xray Plain Films/CT/US/NM/MRI: chest Comments Distal tip of the catheter is on the right side of the chest in good position in the superior vena cava just above the right atrium. The lung parenchyma is fully inflated with no pneumothorax. No other soft tissue injury signs noted. Reviewed: Reviewed by Me Critical Care Note Critical Care Start Time: 04:30 Stop Time: 05:10 Total Time (minutes) 40 Departure Impression Impression: Primary Impression: Sepsis Qualified Codes: A41.9 - Sepsis, unspecified organism Additional Impressions: Acute dehydration Intractable nausea and vomiting Qualified Codes: R11.2 - Nausea with vomiting, unspecified Headache Qualified Codes: G44.201 - Tension-type headache, unspecified, intractable History of sleeve gastrectomy UTI (urinary tract infection) Qualified Codes: N30.01 - Acute cystitis with hematuria Decision to Admit/Discharge Decision to Admit/Dismiss Date: Dec 03, 2017 Disposition/Decision to Admit: 05:38 Departure Disposition: 09 ADMITTED INPATIENT Condition: Stable Referrals: KEIKO HOLLIS MD (PCP/Family) Primary Care Physician AMRIK BELLA Dec 03, 2017 05:33
--- NOTE | 2017-12-03 05:52 | Diagnostic Imaging Report ---
INDICATION: Central line placement. COMPARISON: 12/02/2017. FINDINGS: Right IJ central venous catheter has tip in the upper SVC. No pneumothorax. No pleural effusion. The heart is normal in size. Lungs are clear. IMPRESSION: 1. No pneumothorax status post central venous line placement. Dictated by: Dictated on workstation # [id number]
[2017-12-03 06:36] LABS: BASOPHILS % (AUTO) 0 % (0-10); EOSINOPHILS % (AUTO) 0 % (0-10); HEMATOCRIT 32 % (35-52); HEMOGLOBIN 11.4 G/DL (11.5-16.0); LYMPHOCYTES # (AUTO) 0.9 X 10^3 (1.0-4.0); LYMPHOCYTES % (AUTO) 8 % (12-44); MEAN CORPUSCULAR HEMOGLOBIN 30 PG (25-34); MEAN CORPUSCULAR HGB CONC 35 G/DL (32-36); MEAN CORPUSCULAR VOLUME 86 FL (80-99); MEAN PLATELET VOLUME 10.1 FL (7.4-10.4); MONOCYTES # (AUTO) 0.5 X 10^3 (0.0-1.0); MONOCYTES % (AUTO) 5 % (0-12); NEUTROPHILS # (AUTO) 9.2 X 10^3 (1.8-7.8); NEUTROPHILS % (AUTO) 87 % (42-75); PLATELET COUNT 236 10^3/uL (130-400); RED BLOOD COUNT 3.76 10^6/uL (4.35-5.85); RED CELL DISTRIBUTION WIDTH 12.4 % (10.0-14.5); WHITE BLOOD COUNT 10.6 10^3/uL (4.3-11.0)
[2017-12-03 06:56] LABS: ALANINE AMINOTRANSFERASE 20 U/L (0-55); ALBUMIN 3.2 GM/DL (3.2-4.5); ALKALINE PHOSPHATASE 47 U/L (40-136); AMYLASE 45 U/L (25-125); BILIRUBIN,TOTAL 1.4 MG/DL (0.1-1.0); BUN/CREATININE RATIO 13; CALCIUM 7.6 MG/DL (8.5-10.1); CARBON DIOXIDE 14 MMOL/L (21-32); CHLORIDE 107 MMOL/L (98-107); CREATININE SERUM 0.83 MG/DL (0.60-1.30); GFR ESTIMATED > 60; GLUCOSE 123 MG/DL (70-105); LIPASE 17 U/L (8-78); MAGNESIUM 1.6 MG/DL (1.8-2.4); PHOSPHORUS 3.4 MG/DL (2.3-4.7); POTASSIUM 3.6 MMOL/L (3.6-5.0); SODIUM 132 MMOL/L (135-145); TOTAL PROTEIN 5.2 GM/DL (6.4-8.2)
[2017-12-03] MEDS: HYDROcodone/APAP 5 MG/325 MG (LORTAB) TAB PO PRN ×2 (07:02→15:07)
[2017-12-03] MEDS: HYDROCORTISONE 100 MG/2 ML (Solu-CORTEF) VIAL IV SCH ×3 (07:03→22:13)
[2017-12-03] MEDS: ENOXAPARIN 40 MG/0.4 ML (LOVENOX) SYR SC SCH (07:04)
[2017-12-03] MEDS: CATHETER FLUSH 10 ML SYR IV SCH ×3 (07:05→20:40)
[2017-12-03] MEDS: metroNIDAZOLE 500MG/100ML IVPB 100 ML IV SCH ×3 (07:05→22:13)
[2017-12-03] MEDS ORDERED: APIXABAN 5 MG (ELIQUIS) TABLET PO SCH (09:00)
--- NOTE | 2017-12-03 09:06 | Diagnostic Imaging Report ---
CHEST 1 VIEW, AP/PA ONLY INDICATION: Fever. COMPARISON: 10/04/2017. FINDINGS: No focal airspace disease in the visualized lungs. Please note that the posterior lower lobes are poorly evaluated by portable radiography. No pleural effusion or pneumothorax. Normal cardiomediastinal silhouette. Bilateral nipple piercings. Surgical changes in the upper abdomen are secondary to patient's gastric bypass. IMPRESSION: No acute cardiopulmonary process by portable radiography. Dictated by: Dictated on workstation # [id number]
[2017-12-03] MEDS: cefTRIAXone 1 GM/NS 50 ML IVPB IV SCH ×2 (09:21)
[2017-12-03] MEDS: PANTOPRAZOLE 40 MG (PROTONIX) VIAL IV SCH ×2 (09:22→20:39)
[2017-12-03] MEDS ORDERED: MAGNESIUM 1 GM/100 ML IVPB 200 ML IV ONE (09:27)
[2017-12-03] MEDS: MAGNESIUM 1 GM/100 ML IVPB 100 ML IV SCH (09:41)
--- NOTE | 2017-12-03 09:41 | Diagnostic Imaging Report ---
PROCEDURE: CT abdomen and pelvis with contrast. TECHNIQUE: Multiple contiguous axial images were obtained through the abdomen and pelvis after administration of intravenous contrast. INDICATION: Nausea and vomiting. COMPARISON: None available. FINDINGS: Lower chest: The lung bases are clear. No pericardial or pleural effusion. Peritoneum: No free intraperitoneal air or fluid. Liver and biliary system: The liver is normal. The gallbladder is normal. No biliary duct dilation. Spleen and Pancreas: Spleen is normal. The pancreas enhances normally without mass lesion or peripancreatic inflammatory changes. Adrenals: Normal. tract: The kidneys enhance normally without suspicious mass or obstruction. Urinary bladder is distended without wall thickening. An IUD is positioned within the uterus. However, the IUD is at the level of the cervix and does not have the limbs within the expected position of the cornua. GI tract: Status post gastric reduction with surgical stapling. No bowel obstruction. No pericolonic inflammatory changes. The appendix is not dilated. Vasculature and Lymph nodes: Normal caliber aorta. No abdominal or pelvic lymphadenopathy. Musculoskeletal: No concerning osseous lesion. IMPRESSION: 1. No acute inflammatory or obstructive process. Status post gastric reduction surgery without bowel obstruction. 2. IUD is in place but appears low lying within the cervix and lower uterine body. Replacement and/or repositioning may be warranted. 3. Findings are in agreement with the preliminary report. Dictated by: Dictated on workstation # [id number]
--- NOTE | 2017-12-03 10:01 | History & Physical-Hospitalist ---
History of Present Illness HPI/Chief Complaint This is a 37-year-old white female with a history of a sleeve gastrectomy approximately a year and a half ago. The patient has lost about 180 pounds since that procedure.'s been complicated by persistent nausea vomiting and inability to eat much. She started feeling worse about the last 5 days. Yesterday she was at a restaurant began to have a severe headache then chills and a fever and presented to the emergency room with similar complaints. Chest x-ray and CT abdomen pelvis were unrevealing. Blood cultures are pending. The patient has received 30 mL's per kilogram of aggressive fluid hydration. Her MA P has been low necessitating transfer to the ICU overnight with institution of Levophed. Patient notes that her normal systolic pressure is in the 100s however. Patient complains of diffuse abdominal pain right right side both in the upper and the lower quadrant. She has good bowel sounds. Source: patient Exam Limitations: no limitations Date Seen 12/03/17 Time Seen by Provider: 09:30 Attending Physician Rosa Gan MD PCP Keiko Hollis MD Referring Physician Date of Admission Dec 03, 2017 at 00:20 Home Medications & Allergies Home Medications Reviewed patient Home Medication Reconciliation performed by pharmacy medication reconciliations electrostatic powder coating technician and/or nursing. Patients Allergies have been reviewed. Allergies Allergies Coded Allergies No Known Drug Allergies (Verified06/30/07) Past Hiwovim-Oreiuf-Veppmd Hx Past Med/Social Hx: Reviewed Nursing Past Med/Soc Hx Patient Social History Marrital Status: Employed/Student: unemployed Alcohol Use: Denies Use Recreational Drug Use: No Smoking Status: Never a Smoker Physical Abuse Screen: No Sexual Abuse: No Recent Foreign Travel: No Contact w/other who traveled: No Recent Hopitalizations: No Recent Infectious Disease Expo: No Immunizations Up To Date Tetanus Booster (TDap): Unknown Pediatric: Yes Date of Influenza Vaccine: Dec 19, 2012 Seasonal Allergies Seasonal Allergies: No Past Medical History Surgeries: Abdominal (Sleeve gastrectomy June 2016) Currently Using CPAP: No Currently Using BIPAP: No Cardiac: Irregular Heartbeat Reproductive: No Sexually Transmitted Disease: No HIV/AIDS: No Female Reproductive Disorders: Denies IUD Musculoskeletal: Arthritis Loss of Vision: Bilateral Hearing Impairment: Denies Psychosocial: Anxiety, Depression History of Blood Disorders: No Adverse Reaction to Blood Simon: No Family History Cardiovascular disease 19 MOTHER G8 SISTER Completed stroke 19 FATHER Diabetes mellitus 19 MOTHER Hypertension 19 MOTHER No Pertinent Family Hx Review of Systems Constitutional: see HPI EENTM: no symptoms reported Respiratory: no symptoms reported Cardiovascular: other (History of SVT) Gastrointestinal: abdominal pain, loss of appetite, nausea, vomiting Genitourinary: dysuria Musculoskeletal: no symptoms reported Skin: no symptoms reported Psychiatric/Neurological: No Symptoms Reported Physical Exam Physical Exam Vital Signs Vital Signs - First Documented 12/02/17 22:15 Temp 100.1 Pulse 103 Resp 12 B/P (MAP) 107/65 (79) Pulse Ox 98 Capillary Refill : Less Than 3 Seconds Height, Weight, BMI Height: 5'10.00" Weight: 145lbs. 0.0oz. 65.564465ns; 20.8 BMI Method:Stated General Appearance: No Apparent Distress, WD/WN Eyes: Bilateral Eye Normal Inspection HEENT: Normal ENT Inspection, Pharynx Normal Neck: Normal Inspection, Limited Range of Motion (Secondary to EJ line) Respiratory: Chest Non Tender, Lungs Clear, Normal Breath Sounds, No Accessory Muscle Use, No Respiratory Distress Cardiovascular: Regular Rate, Rhythm, No Edema, No Gallop, No JVD, No Murmur, Normal Peripheral Pulses Gastrointestinal: Normal Bowel Sounds, No Organomegaly, Soft, Tenderness ( Diffusely) Rectal: Deferred Back: Normal Inspection, No CVA Tenderness, No Vertebral Tenderness Extremity: Normal Capillary Refill, Normal Inspection, Normal Range of Motion, Non Tender, No Calf Tenderness Neurologic/Psychiatric: Alert, Oriented x3, No Motor/Sensory Deficits, Normal Mood/Affect Skin: Normal Color, Warm/Dry Lymphatic: No Adenopathy Results Results/Procedures Labs Laboratory Tests 12/02/17 22:40 12/03/17 06:22 Patient resulted labs reviewed. Imaging: Reviewed Imaging Films, Reviewed Imaging Report Assessment/Plan Admission Diagnosis Severe sepsis with hypotension-day number 2 Rocephin and Flagyl Urinary tract infection Abdominal pain-at risk for gallbladder disease will get a abdominal sonogram History of SVT followed by Status post sleeve gastrectomy consult Dr. Agarwal Malpositioning of the IUD as evidenced on CT Metabolic acidosis History of subclavian vein thrombosis and pulmonary emboli; off Eliquis Hypomagnesemia Admission Status: Inpatient Order (span 2 midnights) Reason for Inpatient Admission: Severe sepsis with hypotension necessitating pressor support in a patient with abdominal pain etiology to be determined Critical Care Critically Ill Patient Critical Care Start Date: Dec 03, 2017 Critical Care Start Time: 09:30 Stop date: Dec 03, 2017 Stop Time: 10:30 Diagnosis/Problems Diagnosis/Problems (1) UTI, SEPSIS, INTRACTABLE N/V, DEHYDRATION Status: Acute (2) History of sleeve gastrectomy Status: Chronic Clinical Quality Measures DVT/VTE Risk/Contraindication: Risk Factor Score Per Nursin RFS Level Per Nursing on Admit: 3=High Copy Copies To 1: KEIKO HOLLIS MD, KATHLEEN M MD Dec 03, 2017 10:01
[2017-12-03] MEDS: NS IV 1000 ML 1,000 ML IV SCH ×4 (10:07→23:56)
--- NOTE | 2017-12-03 13:12 | Consultation-Cardiology ---
HPI-Cardiology Cardiology Consultation: Date of Consultation 12/03/17 Date of Admission Attending Physician Rosa Gan MD Admitting Physician Allan Severino MD Consulting Physician Martita LEOS MD HPI: Time Seen by Provider: 12:15 Chief Complaint: UTI sepsis This is a 37-year-old lady who presents with UTI sepsis. Previous history of right subclavian DVT. she has history of obesity and underwent gastric sleeve surgery in May 2016. Postoperatively she had a complicated course with significant malnutrition and other complications in June. PICC line was placed in June. Eventually she was discharged home. Between June and December of this year she had occasional right arm discomfort but no swelling or shortness of breath. On 12/22/2016 she complained of right upper extremity tingling and numbness. However there was no swelling. On 2016 she had significantly swollen right upper extremity and occasional back pain. She had no chest pain or shortness of breath. Her right upper extremity was also discolored with purplish hue. She presented to our ER and venous ultrasound done on 12/23/2016 showed an occlusive DVT segment of about 10 cm in length around the junction of the right subclavian and axillary vein. CT angiography of the chest was also performed which showed small burden of pulmonary embolism involving the posterior segment branch of the right lower pulmonary artery and questionable filling defect in the subsegmental branch of the right upper pulmonary artery. She was started on Eliquis therapy. The patient denies any history of clotting abnormality in the family including pulmonary embolism and DVT. She also denies any other medical issues. She is a nonsmoker. She took Eliquis for 6 months and discontinued in May 2017. Repeat upper extremity ultrasound showed no evidence of DVT in the right upper extremity. She was lost to follow-up because she lost her health insurance. She really presents with complain of shortness of breath, significant fatigue, syncopal episodes and palpitations. A Holter monitor was done on 08/29/2017 in [place]. An echocardiogram was also done recently. Echocardiogram done 09/2017 showed normal LV and RV size and function. No significant valvular heart disease. Brief run of PSVT was noted on a Holter monitor. Review of Systems-Cardiology Review of Systems Constitutional: As described under HPI; No As described under HPI, No no symptoms reported, No chills, No fever, No lightheadedness Eyes: No As described under HPI, No no symptoms reported, No blindness, No blurred vision, No contact lenses, No drainage, No decreased acuity, No foreign body sensation, No pain, No vision change Ears/Nose/Throat: No As described under HPI, No no symptoms reported, No chronic hearing loss, No ear discharge, No ear pain, No nasal drainage, No ulcerations Respiratory: No no symptoms reported; As described under HPI; No As described under HPI, No cough, No orthopnea, No shortness of breath, No SOB with excertion Cardiovascular: No no symptoms reported; As described under HPI; No As described under HPI, No chest pain, No edema, No irregular heart rate, No lightheadedness, No palpitations Gastrointestinal: No no symptoms reported, No As described under HPI, No abdomen distended, No abdominal pain, No blood streaked bowels, No constipation , No diarrhea, No nausea, No vomiting; nausea/vomiting/diarrhea; No stool coloration changes Genitourinary: As described under HPI; No burning, No dysuria, No discharge, No frequency, No flank pain, No hematuria, No urgency : No Skin: No rash, No skin related problems, No ulcerations Psychiatric/Neurological: No anxiety, No depression, No seizure, No focal weakness, No syncope Hematologic: No bleeding abnormalities [id number] Hx Patient Social History Marrital Status: Employed/Student: unemployed Alcohol Use: Denies Use Recreational Drug Use: No Smoking Status: Never a Smoker Recent Foreign Travel: No Recent Infectious Disease Expo: No Physical Abuse Screen: No Sexual Abuse: No Immunizations Up To Date Tetanus Booster (TDap): Unknown Date of Influenza Vaccine: Dec 19, 2012 Past Medical History PMH As described under Assessment. Family Medical History Family History: Cardiovascular disease 19 MOTHER G8 SISTER Completed stroke 19 FATHER Diabetes mellitus 19 MOTHER Hypertension 19 MOTHER Allergies and Home Medications Allergies Coded Allergies: No Known Drug Allergies (Verified , 06/30/07) Home Medications Apixaban 5 Mg Tablet, 5 MG PO BID Prescribed by: JOSIE HOGUE on 12/23/16 1529 Cephalexin 500 Mg Capsule, 500 MG PO BID Prescribed by: AMRIK BELLA on 01/16/17 Dexamethasone 4 Mg Tablet, 4 MG PO UD 1 tab three times a day for 7 days 1 tab twice a day for 7 days 1 tab daily for 7 days 03/22 tab daily for 7 days Prescribed by: EUGENIA GUALLPA on 08/05/16 1615 Metoclopramide HCl 5 Mg Tablet, 5 MG PO QID, (Reported) Pantoprazole Sodium 40 Mg Tablet.dr, 40 MG PO DAILY, (Reported) Potassium Chloride 20 Meq Packet, 20 MEQ PO BID Prescribed by: AMRIK BELLA on 01/16/17 2148 Prochlorperazine Maleate 10 Mg Tablet, 10 MG PO TID PRN for NAUSEA/VOMITING-4TH LINE, (Reported) Promethazine HCl 25 Mg Tablet, 12.5 MG PO QID PRN for NAUSEA/VOMITING-3RD LINE Prescribed by: EUGENIA GUALLPA on 08/05/16 1615 Scopolamine 1 Each Patch.td72, 1 PATCH TD Q72H, (Reported) Sucralfate 1 Gm Tablet, 1 GM PO BID, (Reported) Thiamine HCl 100 Mg Tablet, 100 MG PO DAILY Prescribed by: EUGENIA GUALLPA on 08/05/161614 Patient Home Medication List Home Medication List Reviewed: Yes Physical Exam-Cardiology Physical Exam Vital Signs/I&O 12/03/17 12/03/17 12/03/17 12/03/17 04:20 04:26 04:30 04:40 Temp 98.3 Pulse 81 86 77 Resp 16 11 B/P (MAP) 80/52 (61) 79/52 (61) Pulse Ox 99 100 O2 Delivery Room Air Room Air Room Air 12/03/17 12/03/17 12/03/17 12/03/17 05:00 05:15 05:30 05:45 Pulse 81 81 70 75 Resp 9 11 8 8 B/P (MAP) 79/50 (60) 83/46 (58) 100/69 (79) 90/65 (73) Pulse Ox 95 99 99 97 O2 Delivery Room Air Room Air Room Air Room Air 12/03/17 12/03/17 12/03/17 12/03/17 06:00 07:00 07:00 07:00 Temp 97.2 Pulse 59 80 80 Resp 7 8 B/P (MAP) 99/72 (81) 95/59 (71) Pulse Ox 97 99 O2 Delivery Room Air Room Air 12/03/17 12/03/17 12/03/17 12/03/17 08:00 08:00 08:15 09:00 Pulse 61 82 59 Resp 19 8 20 B/P (MAP) 91/57 (68) 97/61 (73) 104/68 (80) Pulse Ox 97 99 96 97 O2 Delivery Room Air Room Air Room Air Room Air 12/03/17 12/03/17 12/03/17 12/03/17 10:00 11:00 12:00 12:00 Temp 98.1 Pulse 63 74 47 Resp 17 10 24 B/P (MAP) 101/65 (77) 100/57 (71) 101/69 (80) Pulse Ox 96 98 O2 Delivery Room Air Room Air Room Air 12/03/17 12/03/17 12/03/17 12/03/17 12:00 13:00 13:00 14:00 Pulse 50 50 59 Resp 12 17 B/P (MAP) 95/60 (72) Pulse Ox 98 98 97 O2 Delivery Room Air Room Air Room Air 12/03/17 00:00 Intake Total 100 ml Balance 100 ml Capillary Refill : Less Than 3 Seconds Constitutional: appears stated age; No apparent distress; well-developed, well- nourished HEENT: PERRL; No normal ENT inspection, No TMs normal, No pharynx normal, No scleral icterus (R), No scleral icterus (L), No pale conjunctivae (R), No pale conjunctivae (L), No photophobia, No TM abnormal (R), No TM abnormal (L), No pharyngeal erythema, No tonsillar exudate, No other, No discharge, No EOMI; hearing is well preserved; No hard of hearing; oral hygience is good; No ulceration, No xanthelasmas are seen Neck: No non-tender, No full range of motion, No supple, No normal inspection, No carotid bruit, No limited range of motion, No lymphadenopathy (R), No lymphadenopathy (L), No tender lateral, No tender midline, No thyromegaly, No other; carotid pulses are 2 + bilaterally; No with good upstrokes Respiratory: No accessory muscle use, No respiratory distress, No chest tender , No chest expansion is symmetric; chest is bilaterally symmetric; No lungs clear to percussion; lungs clear to auscultation; No crackles, No rhonchi, No rales, No stridor, No wheezing, No pleural rub, No other Cardiovascular: regular rate-rhythm; No irregularly irregular, No extra beats, No parasternal heave is noted, No JVD, No edema, No bradycardia, No tachycardia , No point of maximal impulse, No cardiac thrills are palpable; S1 and S2; No gallop/S3, No gallop/S4, No diastolic murmur, No systolic murmur, No friction rub, No click, No other Gastrointestinal: No tender, No soft, No round, No distended, No pulsatile mass , No organomegaly, No guarding, No rebound, No tenderness, No hernia, No mass, No audible bowel sounds, No abnormal bowel sounds, No abdominal bruits, No spleenomegaly, No other Rectal: deferred Extremities: No normal range of motion, No non-tender, No normal inspection, No pedal edema, No calf tenderness, No normal capillary refill, No pelvis stable , No calf tenderness, No inflammation, No pedal edema, No slow capillary refill , No swelling, No other, No abrasion, No clubbing, No cyanosis, No ecchymosis, No laceration, No no lower extremity edema bilateral, No significant edema, No tenderness, No wound Neurologic/Psychiatric: no motor/sensory deficits, alert, normal mood/affect, oriented x 3, power is 5/5 both on sides Skin: normal color, warm/dry Data Review Labs Laboratory Tests 12/02/17 22:32: Urine Color AMBERH, Urine Clarity SLIGHTLY CLOUDY, Urine pH 5, Urine Specific [place] 1.020, Urine Protein 2+H, Urine Glucose (UA) NEGATIVE, Urine Ketones 2+H , Urine Nitrite POSITIVEH, Urine Bilirubin 1+H, Urine Urobilinogen NORMAL, Urine Leukocyte Esterase 2+H, Urine RBC (Auto) 1+H, Urine RBC RARE, Urine WBC 10 -25H, Urine Crystals NONE, Urine Bacteria MODERATEH, Urine Casts PRESENT, Urine Hyaline Casts RARE, Urine Granular Casts 10-25H, Urine Coarse Granular Casts 2- 5H, Urine White Blood Cell Casts RAREH, Urine Mucus LARGEH, Urine Culture Indicated NO 12/02/17 22:40: White Blood Count 12.5H, Red Blood Count 4.57, Hemoglobin 14.2, Hematocrit 39, Mean Corpuscular Volume 85, Mean Corpuscular Hemoglobin 31, Mean Corpuscular Hemoglobin Concent 37H, Red Cell Distribution Width 12.3, Platelet Count 231, Mean Platelet Volume 10.1, Neutrophils (%) (Auto) 92H, Lymphocytes (%) (Auto) 3L , Monocytes (%) (Auto) 4, Eosinophils (%) (Auto) 0, Basophils (%) (Auto) 0, Neutrophils # (Auto) 11.5H, Lymphocytes # (Auto) 0.4L, Monocytes # (Auto) 0.5, Eosinophils # (Auto) 0.0, Basophils # (Auto) 0.0, Neutrophils % (Manual) 85, Lymphocytes % (Manual) 5, Monocytes % (Manual) 2, Eosinophils % (Manual) 0, Basophils % (Manual) 0, Band Neutrophils 8, Blood Morphology Comment NORMAL, Prothrombin Time 14.1, INR Comment 1.1, Activated Partial Thromboplast Time 30, Sodium Level 131L, Potassium Level 3.7, Chloride Level 101, Carbon Dioxide Level 17L, Anion Gap 13, Blood Urea Nitrogen 14, Creatinine 1.03, Estimat Glomerular Filtration Rate > 60, BUN/Creatinine Ratio 14, Glucose Level 113H, Lactic Acid Level 2.21*H, Calcium Level 9.0, Corrected Calcium 8.8, Phosphorus Level 3.9, Magnesium Level 2.1, Total Bilirubin 1.6H, Aspartate Amino Transf ( AST/SGOT) 19, Alanine Aminotransferase (ALT/SGPT) 26, Alkaline Phosphatase 60, Troponin I < 0.30, Total Protein 6.7, Albumin 4.2 12/03/17 06:22: White Blood Count 10.6, Red Blood Count 3.76L, Hemoglobin 11.4L, Hematocrit 32L , Mean Corpuscular Volume 86, Mean Corpuscular Hemoglobin 30, Mean Corpuscular Hemoglobin Concent 35, Red Cell Distribution Width 12.4, Platelet Count 236, Mean Platelet Volume 10.1, Neutrophils (%) (Auto) 87H, Lymphocytes (%) (Auto) 8L , Monocytes (%) (Auto) 5, Eosinophils (%) (Auto) 0, Basophils (%) (Auto) 0, Neutrophils # (Auto) 9.2H, Lymphocytes # (Auto) 0.9L, Monocytes # (Auto) 0.5, Eosinophils # (Auto) 0.0, Basophils # (Auto) 0.0, Sodium Level 132L, Potassium Level 3.6, Chloride Level 107, Carbon Dioxide Level 14L, Anion Gap 11, Blood Urea Nitrogen 11, Creatinine 0.83, Estimat Glomerular Filtration Rate > 60, BUN/ Creatinine Ratio 13, Glucose Level 123H, Lactic Acid Level 1.22, Calcium Level 7.6L, Corrected Calcium 8.2L, Phosphorus Level 3.4, Magnesium Level 1.6L, Total Bilirubin 1.4H, Aspartate Amino Transf (AST/SGOT) 15, Alanine Aminotransferase ( ALT/SGPT) 20, Alkaline Phosphatase 47, Total Protein 5.2L, Albumin 3.2, Amylase Level 45, Lipase 17 12/03/17 06:40: Urine Test NEGATIVE ECG Impression ECG Initial ECG Rhythm: Normal Sinus A/P-Cardiology Assessment/Admission Diagnosis UTI, sepsis. History of right subclavian DVT, History of pulmonary embolism, PVCs, brief episode of PSVT, normal LV function. Plan UTI, sepsis. On IV antibiotics and fluid resuscitation. History of right subclavian DVT, completed 6 months of Eliquis. History of pulmonary embolism, PVCs, brief episode of PSVT, on beta blockers. normal LV function on echocardiogram done 09/2017. Previous right subclavian DVT. she has history of obesity and underwent gastric sleeve surgery in May 2016. Postoperatively she had a complicated course with significant malnutrition and other complications in June. PICC line was placed in June. Eventually she was discharged home. Between June and December of this year she had occasional right arm discomfort but no swelling or shortness of breath. On 12/22/2016 she complained of right upper extremity tingling and numbness. However there was no swelling. On 12/23/2016 she had significantly swollen right upper extremity and occasional back pain. She had no chest pain or shortness of breath. Her right upper extremity was also discolored with purplish hue. She presented to our ER and venous ultrasound done on 12/23/2016 showed an occlusive DVT segment of about 10 cm in length around the junction of the right subclavian and axillary vein. CT angiography of the chest was also performed which showed small burden of pulmonary embolism involving the posterior segment branch of the right lower pulmonary artery and questionable filling defect in the subsegmental branch of the right upper pulmonary artery. She was started on Eliquis therapy. The patient denies any history of clotting abnormality in the family including pulmonary embolism and DVT. She also denies any other medical issues. She is a nonsmoker. She took Eliquis for 6 months and discontinued in May 2017. Repeat upper extremity ultrasound on 10/04/2017 showed no evidence of DVT in the right upper extremity. She was lost to follow-up because she lost her health insurance. She presents with complain of shortness of breath, significant fatigue, syncopal episodes and palpitations. A Holter monitor was done on 2017 in [place]. An echocardiogram was also done recently. Holter monitor done on 08/29/2017 showed normal sinus rhythm with rare isolated PACs with 2 atrial couplets and one 3 beat run of PSVT. There were rare isolated PVCs with 26 bigeminy noted. There were total of 99 PVCs. There was no sustained SVT or VT noted. The patient's symptoms correlated with sinus tachycardia with rates ranging from [id number] bpm. Highest heart rate for sinus tachycardia was 136 bpm. Echocardiogram done 09/2017 shows normal LV function and normal RV function with borderline elevated PA pressure. No significant valvular heart disease. I spoken at length to the patient and it seems that the patient's symptoms are correlated with sinus tachycardia. We need to rule out appropriate physiological causes of sinus tachycardia which includes hyperthyroidism, anemia , electrolyte imbalance. She denies any pain, anxiety or fever which are other causes of appropriate sinus tachycardia. If all of the above are ruled out then she will be labeled with inappropriate sinus tachycardia and treatment is usually with beta blockers. The other differential diagnosis could be orthostatic hypotension. I have recommended good hydration and not to be in a situation where she can hurt herself. A very brief run of PSVT was noted on Holter monitor for 3 beats. The patient has a fitness watch and according to her, her heart rate can go to 200 bpm. event monitor was done on 10/10/2017 which shows sinus rhythm with episodes of sinus tachycardia. Frequent PVCs. Occasionally in bigeminy pattern. Monomorphic PVCs. Once she had 44 PVCs in a minute. No other arrhythmias. She had episodes of dizziness and near-syncope during the event monitor. She was started on Toprol-XL 25 mg 4 PVCs and sinus tachycardia. Thank you for your consultation. Please call me if you have any questions. Suhas Leos MD, FACP, FACC, FSCAI, FHRS, CCDS Interventional Cardiology Cardiac Electrophysiology Vascular Medicine and Endovascular Interventions Clinical Quality Measures DVT/VTE Risk/Contraindication: Risk Factor Score Per Nursin RFS Level Per Nursing on Admit: 1=Low/No VTE PPX Martita LEOS MD Dec 03, 2017 13:12
--- NOTE | 2017-12-03 14:13 | Diagnostic Imaging Report ---
PROCEDURE: US Abdomen, limited. TECHNIQUE: Multiple realtime grayscale images were obtained over the abdomen in various projections. INDICATION: Abdominal pain. Elevated bilirubin. COMPARISON: CT abdomen and pelvis with IV contrast 12/02/2017. FINDINGS: Normal echogenicity of liver with no focal mass or fluid collection. No intrahepatic biliary ductal dilatation. Normal hepatopetal flow in the main portal vein. Normal gallbladder wall thickness. No cholelithiasis. No pericholecystic fluid. The pancreas and common bile duct are not well seen. Negative sonographic Ortiz sign. The right kidney measures 11.1 cm. No right renal mass, cyst, shadowing stone or hydronephrosis. No free fluid in the visualized abdomen. IMPRESSION: The common bile duct and pancreas is not well seen due to overlying bowel gas. Remainder unremarkable. Dictated by: Dictated on workstation # [id number]
--- NOTE | 2017-12-03 15:36 | Consultation ---
History of Present Illness History of Present Illness Patient Consulted On(rebecca/time) 12/03/17 15:35 Date Seen by Provider: Dec 03, 2017 Time Seen by Provider: 14:34 History of Present Illness Consult requested by Dr. Gan for nausea and vomiting history of sleep gastrectomy. Patient is a 37-year-old female who approximately a year and a half ago underwent a sleeve gastrectomy. Patient has lost about 180 pounds since having surgical intervention. Patient since it ever since she's had the surgery though she's having a lot of issues with nausea and vomiting. Patient states that certain foods are worse than others. But she's had continued symptoms of nausea and vomiting. Patient states that she over the last 5 days is felt worse in terms of overall health. Patient has had fevers and chills nausea and vomiting and diarrhea. Patient has CT scan that was unremarkable. She has abdominal pain that she states is more on the right side but is having it all over. Nothing really makes him better. Nothing making it worse that she knows of. Patient diagnosed with urinary tract infection. Allergies and Home Medications Allergies Coded Allergies: No Known Drug Allergies (Verified , 06/30/07) Home Medications Cephalexin 500 Mg Capsule, 500 MG PO TID Prescribed by: SUNNY GO on 12/09/17 1200 Cholestyramine/Aspartame 4 Gm Powd.pack, 4 GM PO ACHS Prescribed by: SUNNY GO on 12/09/17 1200 Clonazepam 1 Mg Tablet, 1 MG PO TID, (Reported) Escitalopram Oxalate 10 Mg Tablet, 10 MG PO DAILY, (Reported) Hydrocodone Bit/Acetaminophen 1 Tab Tab, 1 TAB PO Q8H PRN for PAIN-MODERATE 8-10 /10 Prescribed by: SUNNY GO on 12/09/17 1200 Ondansetron 4 Mg Tab.rapdis, 4 MG PO Q4H PRN for NAUSEA/VOMITING-1ST LINE, ( Reported) Pantoprazole Sodium 40 Mg Tablet.dr, 40 MG PO DAILY, (Reported) Prochlorperazine Maleate 10 Mg Tablet, 10 MG PO TID PRN for NAUSEA/VOMITING-2ND LINE, (Reported) Scopolamine 1 Each Patch.td72, 1 PATCH TD Q72H, (Reported) Sucralfate 1 Gm Tablet, 1 GM PO BID Prescribed by: SUNNY GO on 12/09/17 1200 Zolpidem Tartrate 10 Mg Tablet, 10 MG PO HS PRN for SLEEP, (Reported) Patient Home Medication List Home Medication List Reviewed: Yes Past Hslouix-Ttsfyv-Jtgtcy Hx Patient Social History Alcohol Use: Denies Use Recreational Drug Use: No Smoking Status: Never a Smoker Recent Foreign Travel: No Contact w/Someone Who Travel: No Recent Infectious Disease Expo: No Recent Hopitalizations: No Physical Abuse Screen: No Sexual Abuse: No Immunizations Up To Date Tetanus Booster (TDap): Unknown PED Vaccines UTD: Yes Date of Influenza Vaccine: Dec 19, 2012 Seasonal Allergies Seasonal Allergies: No Surgeries History of Surgeries: Yes (GASTRIC SLEEVE, CYST REMOVED FROM FOOT) Surgeries: Abdominal (Sleeve gastrectomy June 2016) Respiratory History of Respiratory Disorde: No Cardiovascular History of Cardiac Disorders: Yes (SVT, PVC'S) Cardiac Disorders: Irregular Heartbeat Neurological History of Neurological Disord: Yes Reproductive System Hx Reproductive Disorders: No Sexually Transmitted Disease: No HIV/AIDS: No Female 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 Genitourinary History of Genitourinary Disor: No Gastrointestinal History of Gastrointestinal Di: No Musculoskeletal History of Musculoskeletal Dis: Yes Musculoskeletal Disorders: Arthritis Endocrine History of Endocrine Disorders: No HEENT History of HEENT Disorders: No (PT WEARS GLASSES) Loss of Vision: Bilateral Hearing Impairment: Denies Cancer History of Cancer: No Psychosocial History of Psychiatric Problem: No Behavioral Health Disorders: Anxiety, Depression Integumentary History of Skin or Integumenta: No Blood Transfusions History of Blood Disorders: No Adverse Reaction to a Blood Tr: No Family Medical History Significant Family History: No Pertinent Family Hx Family Medial History: Cardiovascular disease 19 MOTHER G8 SISTER Completed stroke 19 FATHER Diabetes mellitus 19 MOTHER Hypertension 19 MOTHER Review of Systems-General Constitutional: see HPI EENTM: no symptoms reported Respiratory: no symptoms reported Gastrointestinal: see HPI Genitourinary: no symptoms reported Musculoskeletal: no symptoms reported Skin: no symptoms reported Psychiatric/Neurological: No Symptoms Reported Physical Exam-General Problems Physical Exam Vital Signs Vital Signs - First Documented 12/02/17 22:15 Temp 100.1 Pulse 103 Resp 12 B/P (MAP) 107/65 (79) Pulse Ox 98 Capillary Refill : Less Than 3 Seconds General Appearance: no apparent distress (Laying in bed) HEENT: PERRL/EOMI, normal ENT inspection Neck: supple Respiratory: no respiratory distress, no accessory muscle use Cardiovascular: regular rate, rhythm Gastrointestinal: soft (Tenderness diffusely. 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, no motor/sensory deficits, alert, normal mood/affect, oriented x 3 Skin: normal color Lymphatic: no adenopathy Data Review Labs Laboratory Tests 12/02/17 22:32: Urine Color AMBERH, Urine Clarity SLIGHTLY CLOUDY, Urine pH 5, Urine Specific [place] 1.020, Urine Protein 2+H, Urine Glucose (UA) NEGATIVE, Urine Ketones 2+H , Urine Nitrite POSITIVEH, Urine Bilirubin 1+H, Urine Urobilinogen NORMAL, Urine Leukocyte Esterase 2+H, Urine RBC (Auto) 1+H, Urine RBC RARE, Urine WBC 10 -25H, Urine Crystals NONE, Urine Bacteria MODERATEH, Urine Casts PRESENT, Urine Hyaline Casts RARE, Urine Granular Casts 10-25H, Urine Coarse Granular Casts 2- 5H, Urine White Blood Cell Casts RAREH, Urine Mucus LARGEH, Urine Culture Indicated NO 12/02/17 22:40: White Blood Count 12.5H, Red Blood Count 4.57, Hemoglobin 14.2, Hematocrit 39, Mean Corpuscular Volume 85, Mean Corpuscular Hemoglobin 31, Mean Corpuscular Hemoglobin Concent 37H, Red Cell Distribution Width 12.3, Platelet Count 231, Mean Platelet Volume 10.1, Neutrophils (%) (Auto) 92H, Lymphocytes (%) (Auto) 3L , Monocytes (%) (Auto) 4, Eosinophils (%) (Auto) 0, Basophils (%) (Auto) 0, Neutrophils # (Auto) 11.5H, Lymphocytes # (Auto) 0.4L, Monocytes # (Auto) 0.5, Eosinophils # (Auto) 0.0, Basophils # (Auto) 0.0, Neutrophils % (Manual) 85, Lymphocytes % (Manual) 5, Monocytes % (Manual) 2, Eosinophils % (Manual) 0, Basophils % (Manual) 0, Band Neutrophils 8, Blood Morphology Comment NORMAL, Prothrombin Time 14.1, INR Comment 1.1, Activated Partial Thromboplast Time 30, Sodium Level 131L, Potassium Level 3.7, Chloride Level 101, Carbon Dioxide Level 17L, Anion Gap 13, Blood Urea Nitrogen 14, Creatinine 1.03, Estimat Glomerular Filtration Rate > 60, BUN/Creatinine Ratio 14, Glucose Level 113H, Lactic Acid Level 2.21*H, Calcium Level 9.0, Corrected Calcium 8.8, Phosphorus Level 3.9, Magnesium Level 2.1, Total Bilirubin 1.6H, Aspartate Amino Transf ( AST/SGOT) 19, Alanine Aminotransferase (ALT/SGPT) 26, Alkaline Phosphatase 60, Troponin I < 0.30, Total Protein 6.7, Albumin 4.2 12/03/17 06:22: White Blood Count 10.6, Red Blood Count 3.76L, Hemoglobin 11.4L, Hematocrit 32L , Mean Corpuscular Volume 86, Mean Corpuscular Hemoglobin 30, Mean Corpuscular Hemoglobin Concent 35, Red Cell Distribution Width 12.4, Platelet Count 236, Mean Platelet Volume 10.1, Neutrophils (%) (Auto) 87H, Lymphocytes (%) (Auto) 8L , Monocytes (%) (Auto) 5, Eosinophils (%) (Auto) 0, Basophils (%) (Auto) 0, Neutrophils # (Auto) 9.2H, Lymphocytes # (Auto) 0.9L, Monocytes # (Auto) 0.5, Eosinophils # (Auto) 0.0, Basophils # (Auto) 0.0, Sodium Level 132L, Potassium Level 3.6, Chloride Level 107, Carbon Dioxide Level 14L, Anion Gap 11, Blood Urea Nitrogen 11, Creatinine 0.83, Estimat Glomerular Filtration Rate > 60, BUN/ Creatinine Ratio 13, Glucose Level 123H, Lactic Acid Level 1.22, Calcium Level 7.6L, Corrected Calcium 8.2L, Phosphorus Level 3.4, Magnesium Level 1.6L, Total Bilirubin 1.4H, Aspartate Amino Transf (AST/SGOT) 15, Alanine Aminotransferase ( ALT/SGPT) 20, Alkaline Phosphatase 47, Total Protein 5.2L, Albumin 3.2, Amylase Level 45, Lipase 17 12/03/17 06:40: Urine Test NEGATIVE Assessment/Plan Assessment/Plan Assessment/Plan abdominal pain - diffuse nausea UTI Sepsis has central line already continue abx ct and /s reviewed and no acute process will follow no surgical intervention at this time. Clinical Quality Measures DVT/VTE Risk/Contraindication: Risk Factor Score Per Nursin RFS Level Per Nursing on Admit: 1=Low/No VTE PPX SPIKE GLEZ DO Dec 03, 2017 15:35
[2017-12-03] MEDS: KETOROLAC 30 MG/ML VIAL IM PRN (17:42)
[2017-12-03] MEDS: SUCRALFATE 1 GM (CARAFATE) TAB PO SCH (20:39)
[2017-12-04] VITALS (51 sets, daily range): BP systolic 88–115; BP diastolic 43–83
[2017-12-04] MEDS: ONDANSETRON 4 MG/2 ML (SDV) Z0FRAN IV PRN ×2 (00:33→19:52)
[2017-12-04] MEDS: HYDROcodone/APAP 5 MG/325 MG (LORTAB) TAB PO PRN ×3 (00:34→21:03)
[2017-12-04 03:27] LABS: BASOPHILS % (AUTO) 0 % (0-10); EOSINOPHILS % (AUTO) 0 % (0-10); HEMATOCRIT 29 % (35-52); HEMOGLOBIN 10.4 G/DL (11.5-16.0); LYMPHOCYTES # (AUTO) 0.5 X 10^3 (1.0-4.0); LYMPHOCYTES % (AUTO) 8 % (12-44); MEAN CORPUSCULAR HEMOGLOBIN 31 PG (25-34); MEAN CORPUSCULAR HGB CONC 37 G/DL (32-36); MEAN CORPUSCULAR VOLUME 86 FL (80-99); MEAN PLATELET VOLUME 10.3 FL (7.4-10.4); MONOCYTES # (AUTO) 0.1 X 10^3 (0.0-1.0); MONOCYTES % (AUTO) 1 % (0-12); NEUTROPHILS # (AUTO) 6.1 X 10^3 (1.8-7.8); NEUTROPHILS % (AUTO) 91 % (42-75); PLATELET COUNT 193 10^3/uL (130-400); RED BLOOD COUNT 3.31 10^6/uL (4.35-5.85); RED CELL DISTRIBUTION WIDTH 12.3 % (10.0-14.5); WHITE BLOOD COUNT 6.6 10^3/uL (4.3-11.0)
--- NOTE | 2017-12-04 03:39 | Progress Note ---
Subjective Date Seen by Provider: Dec 04, 2017 Time Seen by Provider: 03:33 Subjective/Events-last exam Abdomen feeling a little better, not having as much pain. Still with nausea. Still requiring Levophed. Denies emesis, fever sweats, chills shortness of breath or chest pain at this time. Focused Exam Lactate Level 12/02/17 01:00: Lactic Acid Level 1.18 12/02/17 22:40: Lactic Acid Level 2.21*H 12/03/17 06:22: Lactic Acid Level 1.22 Objective Exam Vital Signs Date Time Temp Pulse Resp B/P (MAP) Pulse Ox O2 Delivery O2 Flow Rate FiO2 12/04/17 03:25 97.0 12/04/17 03:00 44 15 94/61 (72) 96 Room Air 12/04/17 02:00 73 17 99/62 (74) 97 Room Air 12/04/17 01:00 42 17 99/63 (75) 98 Room Air 12/04/17 01:00 42 12/04/17 00:00 45 11 103/68 (80) 97 Room Air 12/03/17 23:41 97.4 12/03/17 23:00 42 19 112/75 (87) 98 Room Air 12/03/17 22:00 43 30 94/65 (75) 99 Room Air 12/03/17 21:00 56 10 97/63 (74) 98 Room Air 12/03/17 20:00 97.6 56 14 99/61 (74) 99 Room Air 12/03/17 19:00 45 93/62 (72) 98 Room Air 12/03/17 19:00 45 12/03/17 18:00 41 11 93/66 (75) 99 Room Air 12/03/17 17:00 48 34 97/58 (71) 96 Room Air 12/03/17 16:00 98 Room Air 12/03/17 16:00 52 7 92/56 (68) 98 Room Air 12/03/17 15:00 52 9 98/64 (75) 96 Room Air 12/03/17 14:00 59 17 95/60 (72) 97 Room Air 12/03/17 13:00 50 12 98 Room Air 12/03/17 13:00 50 12/03/17 12:00 98 Room Air 12/03/17 12:00 47 24 101/69 (80) 98 Room Air 12/03/17 12:00 98.1 12/03/17 11:00 74 10 100/57 (71) Room Air 12/03/17 10:00 63 17 101/65 (77) 96 Room Air 12/03/17 09:00 59 20 104/68 (80) 97 Room Air 12/03/17 08:15 82 8 97/61 (73) 96 Room Air 12/03/17 08:00 99 Room Air 12/03/17 08:00 61 19 91/57 (68) 97 Room Air 12/03/17 07:00 97.2 12/03/17 07:00 80 12/03/17 07:00 80 8 95/59 (71) 99 Room Air 12/03/17 06:00 59 7 99/72 (81) 97 Room Air 12/03/17 05:45 75 8 90/65 (73) 97 Room Air 12/03/17 05:30 70 8 100/69 (79) 99 Room Air 12/03/17 05:15 81 11 83/46 (58) 99 Room Air 12/03/17 05:00 81 9 79/50 (60) 95 Room Air 12/03/17 04:40 77 11 79/52 (61) Room Air 12/03/17 04:30 98.3 86 16 80/52 (61) 100 Room Air 12/03/17 04:26 81 12/03/17 04:20 99 Room Air I & O 12/04/17 07:00 Intake Total 4800 ml Output Total 950 ml Balance 3850 ml Capillary Refill : Less Than 3 Seconds General Appearance: No Apparent Distress, WD/WN HEENT: Normal ENT Inspection, Pharynx Normal Neck: Normal Inspection (right IJ central line) Respiratory: No Accessory Muscle Use, No Respiratory Distress Cardiovascular: Regular Rate, Rhythm, Normal Peripheral Pulses Gastrointestinal: soft (minimal discomfort on palpation diffusely) Extremity: Normal Inspection, Non Tender Neurologic/Psychiatric: Alert, Oriented x3, No Motor/Sensory Deficits, Normal Mood/Affect Skin: Normal Color, Warm/Dry Lymphatic: No Adenopathy Results Lab Laboratory Tests 12/03/17 06:22: White Blood Count 10.6, Red Blood Count 3.76L, Hemoglobin 11.4L, Hematocrit 32L , Mean Corpuscular Volume 86, Mean Corpuscular Hemoglobin 30, Mean Corpuscular Hemoglobin Concent 35, Red Cell Distribution Width 12.4, Platelet Count 236, Mean Platelet Volume 10.1, Neutrophils (%) (Auto) 87H, Lymphocytes (%) (Auto) 8L , Monocytes (%) (Auto) 5, Eosinophils (%) (Auto) 0, Basophils (%) (Auto) 0, Neutrophils # (Auto) 9.2H, Lymphocytes # (Auto) 0.9L, Monocytes # (Auto) 0.5, Eosinophils # (Auto) 0.0, Basophils # (Auto) 0.0, Sodium Level 132L, Potassium Level 3.6, Chloride Level 107, Carbon Dioxide Level 14L, Anion Gap 11, Blood Urea Nitrogen 11, Creatinine 0.83, Estimat Glomerular Filtration Rate > 60, BUN/ Creatinine Ratio 13, Glucose Level 123H, Lactic Acid Level 1.22, Calcium Level 7.6L, Corrected Calcium 8.2L, Phosphorus Level 3.4, Magnesium Level 1.6L, Total Bilirubin 1.4H, Aspartate Amino Transf (AST/SGOT) 15, Alanine Aminotransferase ( ALT/SGPT) 20, Alkaline Phosphatase 47, Total Protein 5.2L, Albumin 3.2, Amylase Level 45, Lipase 17 12/03/17 06:40: Urine Test NEGATIVE 12/04/17 03:12: White Blood Count 6.6, Red Blood Count 3.31L, Hemoglobin 10.4L, Hematocrit 29L, Mean Corpuscular Volume 86, Mean Corpuscular Hemoglobin 31, Mean Corpuscular Hemoglobin Concent 37H, Red Cell Distribution Width 12.3, Platelet Count 193, Mean Platelet Volume 10.3, Neutrophils (%) (Auto) 91H, Lymphocytes (%) (Auto) 8L , Monocytes (%) (Auto) 1, Eosinophils (%) (Auto) 0, Basophils (%) (Auto) 0, Neutrophils # (Auto) 6.1, Lymphocytes # (Auto) 0.5L, Monocytes # (Auto) 0.1, Eosinophils # (Auto) 0.0, Basophils # (Auto) 0.0 Microbiology 12/02/17 Blood Culture - Preliminary, Resulted No growth 12/02/17 Urine Culture - Preliminary, Resulted Culture In Progress Assessment/Plan Assessment/Plan Assessment/Plan abdominal pain - diffuse- improving nausea UTI Sepsis Levophed continue abx has central line already ct and u/s reviewed and no acute process labs pending for today Clinical Quality Measures DVT/VTE Risk/Contraindication: Risk Factor Score Per Nursin RFS Level Per Nursing on Admit: 1=Low/No VTE PPX SPIKE GLEZ DO Dec 04, 2017 03:39
[2017-12-04 03:40] LABS: BUN/CREATININE RATIO 9; CALCIUM 7.7 MG/DL (8.5-10.1); CARBON DIOXIDE 16 MMOL/L (21-32); CHLORIDE 113 MMOL/L (98-107); CREATININE SERUM 0.68 MG/DL (0.60-1.30); GFR ESTIMATED > 60; GLUCOSE 165 MG/DL (70-105); PHOSPHORUS 2.4 MG/DL (2.3-4.7); POTASSIUM 3.8 MMOL/L (3.6-5.0); SODIUM 135 MMOL/L (135-145)
[2017-12-04] MEDS: NS IV 1000 ML 1,000 ML IV SCH (04:06)
--- NOTE | 2017-12-04 05:09 | Pulmonary Progress Note ---
Subjective Time Seen by Provider: 05:09 Subjective/Events-last exam PT is still on levophed gtt. Sepsis Event Evaluation Height, Weight, BMI Height: 5'10.00" Weight: 145lbs. 0.0oz. 65.688813gb; 20.8 BMI Method:Stated Focused Exam Lactate Level 12/02/17 01:00: Lactic Acid Level 1.18 12/02/17 22:40: Lactic Acid Level 2.21*H 12/03/17 06:22: Lactic Acid Level 1.22 Exam Exam Vital Signs Date Time Temp Pulse Resp B/P (MAP) Pulse Ox O2 Delivery O2 Flow Rate FiO2 12/04/17 04:00 98 Room Air 12/04/17 04:00 46 15 93/60 (71) 96 Room Air 12/04/17 03:25 97.0 12/04/17 03:00 44 15 94/61 (72) 96 Room Air 12/04/17 02:00 73 17 99/62 (74) 97 Room Air 12/04/17 01:00 42 17 99/63 (75) 98 Room Air 12/04/17 01:00 42 12/04/17 00:00 98 Room Air 12/04/17 00:00 45 11 103/68 (80) 97 Room Air 12/03/17 23:41 97.4 12/03/17 23:00 42 19 112/75 (87) 98 Room Air 12/03/17 22:00 43 30 94/65 (75) 99 Room Air 12/03/17 21:00 56 10 97/63 (74) 98 Room Air 12/03/17 20:00 98 Room Air 12/03/17 20:00 97.6 56 14 99/61 (74) 99 Room Air 12/03/17 19:00 45 93/62 (72) 98 Room Air 12/03/17 19:00 45 12/03/17 18:00 41 11 93/66 (75) 99 Room Air 12/03/17 17:00 48 34 97/58 (71) 96 Room Air 12/03/17 16:00 98 Room Air 12/03/17 16:00 52 7 92/56 (68) 98 Room Air 12/03/17 15:00 52 9 98/64 (75) 96 Room Air 12/03/17 14:00 59 17 95/60 (72) 97 Room Air 12/03/17 13:00 50 12 98 Room Air 12/03/17 13:00 50 12/03/17 12:00 98 Room Air 12/03/17 12:00 47 24 101/69 (80) 98 Room Air 12/03/17 12:00 98.1 12/03/17 11:00 74 10 100/57 (71) Room Air 12/03/17 10:00 63 17 101/65 (77) 96 Room Air 12/03/17 09:00 59 20 104/68 (80) 97 Room Air 12/03/17 08:15 82 8 97/61 (73) 96 Room Air 12/03/17 08:00 99 Room Air 12/03/17 08:00 61 19 91/57 (68) 97 Room Air 12/03/17 07:00 97.2 12/03/17 07:00 80 12/03/17 07:00 80 8 95/59 (71) 99 Room Air 12/03/17 06:00 59 7 99/72 (81) 97 Room Air 12/03/17 05:45 75 8 90/65 (73) 97 Room Air 12/03/17 05:30 70 8 100/69 (79) 99 Room Air 12/03/17 05:15 81 11 83/46 (58) 99 Room Air I & O 12/04/17 07:00 Intake Total 5400 ml Output Total 1500 ml Balance 3900 ml Height & Weight Height: 5'10.00" Weight: 145lbs. 0.0oz. 65.815982ho; 20.8 BMI Method:Stated General Appearance: No Apparent Distress, WD/WN HEENT: Normal ENT Inspection, Pharynx Normal Neck: Normal Inspection (right IJ central line) Respiratory: No Accessory Muscle Use, No Respiratory Distress Cardiovascular: Regular Rate, Rhythm, Normal Peripheral Pulses Capillary Refill: Less Than 3 Seconds Gastrointestinal: soft (minimal discomfort on palpation diffusely) Extremity: Normal Inspection, Non Tender Neurologic/Psychiatric: Alert, Oriented x3, No Motor/Sensory Deficits, Normal Mood/Affect Skin: Normal Color, Warm/Dry Lymphatic: No Adenopathy Results Lab Laboratory Tests 12/02/17 22:40 12/03/17 06:22 12/04/17 03:12 Assessment/Plan Assessment/Plan Severe Sepsis with septic shock -Levophed is currently going at 1mcg -Repeat Liter bolus of LR -Solucortef -CVP monitoring - Rocephin, add flagyl UTI -Continue Abx Abdominal pain - generalized with elevated bili -improved Diarrhea - CDiff toxin pending - Malnutrition -Ensure TID with meals -Consult dietary Hx of gastric sleeve by Dr. Agarwal -Consult Dr. Agarwal Hx of SVT -Follows with Dr. Leos HYponatremia -Monitor metabolic lactic acidosis -IVF -- change IVF to LR at 150 -1 amp of bicarb -Monitor TEODORA GAONA DO Dec 04, 2017 05:09
[2017-12-04] MEDS ORDERED: SODIUM BICARB 8.4% 50 MEQ/50 ML (ABBOTT) SYR IV ONE (05:15)
[2017-12-04] MEDS: KCL 20 MEQ TAB (K-DUR) PO SCH (06:03)
[2017-12-04] MEDS: POTASSIUM CL 10MEQ/50ML IVPB 50 ML IV SCH (06:03)
[2017-12-04] MEDS: MAGNESIUM 1 GM/100 ML IVPB 100 ML IV SCH (06:03)
[2017-12-04] MEDS: CATHETER FLUSH 10 ML SYR IV SCH ×3 (06:03→21:59)
[2017-12-04] MEDS: metroNIDAZOLE 500MG/100ML IVPB 100 ML IV SCH ×3 (06:17→21:59)
[2017-12-04] MEDS: ENOXAPARIN 40 MG/0.4 ML (LOVENOX) SYR SC SCH (06:18)
[2017-12-04] MEDS: HYDROCORTISONE 100 MG/2 ML (Solu-CORTEF) VIAL IV SCH ×3 (06:18→21:59)
[2017-12-04] MEDS: KETOROLAC 30 MG/ML VIAL IM PRN ×2 (06:25→19:52)
[2017-12-04] MEDS: LACTATED RINGERS 1,000 ML IV SCH ×3 (07:57→19:53)
[2017-12-04] MEDS: PANTOPRAZOLE 40 MG (PROTONIX) VIAL IV SCH ×2 (07:57→21:03)
[2017-12-04] MEDS: cefTRIAXone 1 GM/NS 50 ML IVPB IV SCH ×2 (07:58)
[2017-12-04] MEDS: PANTOPRAZOLE 40 MG (PROTONIX) TAB PO SCH (07:59)
[2017-12-04] MEDS: SUCRALFATE 1 GM (CARAFATE) TAB PO SCH ×2 (07:59→21:03)
--- NOTE | 2017-12-04 09:00 | Diagnostic Imaging Report ---
EXAM: Portable erect AP chest at 2:05 p.m. INDICATION: Sepsis FINDINGS: The heart size is within normal limits and stable when compared to 12/03/2017. The lungs remain generally clear. There is still no sign of failure, pneumonia or of pleural effusion. The mediastinum is not widened. The osseous structures are intact. The central venous catheter on the right seen previously is unchanged in position. IMPRESSION: Stable chest. There has been no adverse change since the prior exam. Dictated by: Dictated on workstation # [id number]
--- NOTE | 2017-12-04 09:48 | Progress Note-Hospitalist ---
Subjective HPI/CC On Admission Date Seen by Provider: Dec 04, 2017 Time Seen by Provider: 08:15 This is a 37-year-old white female with a history of a sleeve gastrectomy approximately a year and a half ago. The patient has lost about 180 pounds since that procedure.'s been complicated by persistent nausea vomiting and inability to eat much. She started feeling worse about the last 5 days. Yesterday she was at a restaurant began to have a severe headache then chills and a fever and presented to the emergency room with similar complaints. Chest x-ray and CT abdomen pelvis were unrevealing. Blood cultures are pending. The patient has received 30 mL's per kilogram of aggressive fluid hydration. Her MA P has been low necessitating transfer to the ICU overnight with institution of Levophed. Patient notes that her normal systolic pressure is in the 100s however. Patient complains of diffuse abdominal pain right right side both in the upper and the lower quadrant. She has good bowel sounds. Subjective/Events-last exam Patient continues to complain of the worst headache ever. Blood pressure and pulse remained labile with her pulse ranging from the 7080s down to the 40s. She now relates a history of getting sick and nauseous and unable to get out of bed when her apple watch reflects a pulse in the 40s. She has not had migraines since she had her gastric sleeve and now in the last 4 days she's had the worst headache ever and actually that is her reason for presentation to the emergency room. CT head as not been done yet. Urine culture shows lactobacillus. Abdominal sonograms unrevealing. She remains on Levophed gtt. Review of Systems HEENT: Head Aches Gastrointestinal: Nausea, Diarrhea Musculoskeletal: neck pain (From the EJ) Neurological: Weakness Focused Exam Lactate Level 12/02/17 01:00: Lactic Acid Level 1.18 12/02/17 22:40: Lactic Acid Level 2.21*H 12/03/17 06:22: Lactic Acid Level 1.22 Objective Exam Vital Signs Vital Signs Date Time Temp Pulse Resp B/P (MAP) Pulse Ox O2 Delivery O2 Flow Rate FiO2 12/04/17 09:30 52 10 88/51 (63) 98 Room Air 12/04/17 03:25 97.0 Capillary Refill : Less Than 3 Seconds General Appearance: Mild Distress HEENT: Normal ENT Inspection Neck: Normal Inspection, Supple, Limited Range of Motion Respiratory: Chest Non Tender, Lungs Clear, Normal Breath Sounds, No Accessory Muscle Use, No Respiratory Distress Cardiovascular: Regular Rate, Rhythm, No Edema, No Gallop, No JVD, No Murmur, Normal Peripheral Pulses Gastrointestinal: Normal Bowel Sounds, No Organomegaly, No Pulsatile Mass, Non Tender, Soft Rectal: Deferred Back: Normal Inspection, No CVA Tenderness, No Vertebral Tenderness Extremity: Normal Capillary Refill, Normal Inspection, Normal Range of Motion, Non Tender, No Pedal Edema Neurologic/Psychiatric: Alert, Oriented x3, No Motor/Sensory Deficits, Normal 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 Imaging: Reviewed Imaging Films, Reviewed Imaging Report Assessment/Plan Assessment and Plan Assess & Plan/Chief Complaint Severe sepsis with hypotension-day number 3 Rocephin and Flagyl Urinary tract infection-with lactobacillus most likely contaminant Abdominal pain-CT and abdominal sonogram unrevealing History of SVT followed by -now with bradycardia sinus in nature down in the 40s-may require pacemaker, will check echocardiogram Status post sleeve gastrectomy consult Dr. Agarwal Malpositioning of the IUD as evidenced on CT Metabolic acidosis-given an amp of bicarbonate by Dr. Hester History of subclavian vein thrombosis and pulmonary emboli; off Eliquis-on Lovenox for DVT prophylaxis Hypomagnesemia-replace Worst headache ever we'll obtain a CT head Persistent hypotension with a replenished CVP and metabolic acidosis concerning for Isaac's-cortisol level is pending patient is on Solu-Medrol Diarrhea with negative C. difficile we'll obtain cultures as this could also be contributing to her volume status and metabolic acidosis Admission Status: Inpatient Order (span 2 midnights) Reason for Inpatient Admission: Severe sepsis with hypotension necessitating pressor support in a patient with abdominal pain etiology to be determined Critical Care Critical Care Critical Care: Critically Ill Patient Diagnosis/Problems Diagnosis/Problems (1) UTI, SEPSIS, INTRACTABLE N/V, DEHYDRATION Status: Acute (2) History of sleeve gastrectomy Status: Chronic Clinical Quality Measures DVT/VTE Risk/Contraindication: Risk Factor Score Per Nursin RFS Level Per Nursing on Admit: 1=Low/No VTE PPX SANDNESS,YASMANI M MD Dec 04, 2017 09:48
[2017-12-04] MEDS ORDERED: NS 250 ML (IVPB) BAG IV ONE (10:15)
[2017-12-04] MEDS ORDERED: CATHETER FLUSH 10 ML SYR IV PRN (10:15)
[2017-12-04] MEDS ORDERED: IOHEXOL 350 MG/ML 100 ML (OMNIPAQUE 350) VIAL IV ONE (10:15)
[2017-12-04] MEDS ORDERED: RECEIVED CONTRAST (Hold Metformin) IV SCH (10:30)
--- NOTE | 2017-12-04 10:30 | Cardiology Progress Note ---
Cardiology SOAP Progress Note Subjective: Events of overnight noted. Objective: I&O/Vital Signs 12/03/17 12/03/17 12/04/17 12/04/17 23:00 23:41 00:00 00:00 Temp 97.4 Pulse 42 45 Resp 19 11 B/P (MAP) 112/75 (87) 103/68 (80) Pulse Ox 98 97 98 O2 Delivery Room Air Room Air Room Air 12/04/17 12/04/17 12/04/17 12/04/17 01:00 01:00 02:00 03:00 Pulse 42 42 73 44 Resp 17 17 15 B/P (MAP) 99/63 (75) 99/62 (74) 94/61 (72) Pulse Ox 98 97 96 O2 Delivery Room Air Room Air Room Air 12/04/17 12/04/17 12/04/17 12/04/17 03:25 04:00 04:00 05:00 Temp 97.0 Pulse 46 40 Resp 15 15 B/P (MAP) 93/60 (71) 94/62 (73) Pulse Ox 96 98 97 O2 Delivery Room Air Room Air Room Air 12/04/17 12/04/17 12/04/17 12/04/17 06:00 07:00 07:00 08:00 Pulse 41 44 44 41 Resp 16 16 11 B/P (MAP) 90/65 (73) 91/60 (70) 98/64 (75) Pulse Ox 97 99 97 O2 Delivery Room Air Room Air Room Air 12/04/17 12/04/17 12/04/17 12/04/17 08:00 09:00 09:30 10:00 Pulse 66 52 49 Resp 20 10 21 B/P (MAP) 90/61 (71) 88/51 (63) 98/63 (75) Pulse Ox 98 100 98 98 O2 Delivery Room Air Room Air Room Air Room Air 12/04/17 00:00 Intake Total 3000 ml Output Total 1400 ml Balance 1600 ml Weight (Pounds): 160 Weight (Ounces): 6.0 Weight (Calculated Kilograms): 72.134284 Constitutional: appears stated age; No apparent distress; well-developed, well- nourished Respiratory: No accessory muscle use, No respiratory distress, No chest tender , No chest expansion is symmetric; chest is bilaterally symmetric; No lungs clear to percussion; lungs clear to auscultation; No crackles, No rhonchi, No rales, No stridor, No wheezing, No pleural rub, No other Cardiovascular: regular rate-rhythm; No irregularly irregular, No extra beats, No parasternal heave is noted, No JVD, No edema; bradycardia; No tachycardia, No point of maximal impulse, No cardiac thrills are palpable; S1 and S2; No gallop/S3, No gallop/S4, No diastolic murmur, No systolic murmur, No friction rub, No click, No other Gastrointestional: No tender, No soft, No round, No distended, No pulsatile mass, No organomegaly, No guarding, No rebound, No tenderness, No hernia, No mass, No audible bowel sounds, No abnormal bowel sounds, No abdominal bruits, No spleenomegaly, No other Extremities: No normal range of motion, No non-tender, No normal inspection, No pedal edema, No calf tenderness, No normal capillary refill, No pelvis stable , No calf tenderness, No inflammation, No pedal edema, No slow capillary refill , No swelling, No other, No abrasion, No clubbing, No cyanosis, No ecchymosis, No laceration, No no lower extremity edema bilateral, No significant edema, No tenderness, No wound Neurologic/Psychiatric: no motor/sensory deficits, alert, normal mood/affect, oriented x 3, power is 5/5 both on sides Skin: normal color, warm/dry Results/Procedures: Labs Laboratory Tests 12/04/17 03:12: White Blood Count 6.6, Red Blood Count 3.31L, Hemoglobin 10.4L, Hematocrit 29L, Mean Corpuscular Volume 86, Mean Corpuscular Hemoglobin 31, Mean Corpuscular Hemoglobin Concent 37H, Red Cell Distribution Width 12.3, Platelet Count 193, Mean Platelet Volume 10.3, Neutrophils (%) (Auto) 91H, Lymphocytes (%) (Auto) 8L , Monocytes (%) (Auto) 1, Eosinophils (%) (Auto) 0, Basophils (%) (Auto) 0, Neutrophils # (Auto) 6.1, Lymphocytes # (Auto) 0.5L, Monocytes # (Auto) 0.1, Eosinophils # (Auto) 0.0, Basophils # (Auto) 0.0, Sodium Level 135, Potassium Level 3.8, Chloride Level 113H, Carbon Dioxide Level 16L, Anion Gap 6, Blood Urea Nitrogen 6L, Creatinine 0.68, Estimat Glomerular Filtration Rate > 60, BUN/ Creatinine Ratio 9, Glucose Level 165H, Calcium Level 7.7L, Phosphorus Level 2.4 , Magnesium Level 2.0 Microbiology 12/02/17 Blood Culture - Preliminary, Resulted No growth 12/02/17 Urine Culture - Final, Complete Lactobacillus species See Comments A/P: Assessment/Dx: UTI, sepsis. Sinus bradycardia, History of right subclavian DVT, History of pulmonary embolism, PVCs, brief episode of PSVT, normal LV function. Plan: UTI, sepsis, borderline blood pressure. On IV antibiotics, levophed and fluid resuscitation. Sinus bradycardia, lowest heart rate in the upper 30s. When I saw her she was sinus bradycardic at 43 BPM. She has been lying supine without any symptoms. We will continue to monitor. Likely sinus node dysfunction. She is not on any beta blockers. The visceral beta blockers were given because of inappropriate sinus tachycardia. History of right subclavian DVT, completed 6 months of Eliquis. History of pulmonary embolism, PVCs, brief episode of PSVT, on beta blockers which were held. normal LV function on echocardiogram done 09/2017. Previous right subclavian DVT. she has history of obesity and underwent gastric sleeve surgery in May 2016. Postoperatively she had a complicated course with significant malnutrition and other complications in June. PICC line was placed in June. Eventually she was discharged home. Between June and December of this year she had occasional right arm discomfort but no swelling or shortness of breath. On 12/22/2016 she complained of right upper extremity tingling and numbness. However there was no swelling. On 12/23/2016 she had significantly swollen right upper extremity and occasional back pain. She had no chest pain or shortness of breath. Her right upper extremity was also discolored with purplish hue. She presented to our ER and venous ultrasound done on 12/23/2016 showed an occlusive DVT segment of about 10 cm in length around the junction of the right subclavian and axillary vein. CT angiography of the chest was also performed which showed small burden of pulmonary embolism involving the posterior segment branch of the right lower pulmonary artery and questionable filling defect in the subsegmental branch of the right upper pulmonary artery. She was started on Eliquis therapy. The patient denies any history of clotting abnormality in the family including pulmonary embolism and DVT. She also denies any other medical issues. She is a nonsmoker. She took Eliquis for 6 months and discontinued in May 2017. Repeat upper extremity ultrasound on 10/04/2017 showed no evidence of DVT in the right upper extremity. She was lost to follow-up because she lost her health insurance. She presents with complain of shortness of breath, significant fatigue, syncopal episodes and palpitations. A Holter monitor was done on 2017 in [place]. An echocardiogram was also done recently. Holter monitor done on 08/29/2017 showed normal sinus rhythm with rare isolated PACs with 2 atrial couplets and one 3 beat run of PSVT. There were rare isolated PVCs with 26 bigeminy noted. There were total of 99 PVCs. There was no sustained SVT or VT noted. The patient's symptoms correlated with sinus tachycardia with rates ranging from 891019 bpm. Highest heart rate for sinus tachycardia was 136 bpm. Echocardiogram done 09/2017 shows normal LV function and normal RV function with borderline elevated PA pressure. No significant valvular heart disease. I spoken at length to the patient and it seems that the patient's symptoms are correlated with sinus tachycardia. We need to rule out appropriate physiological causes of sinus tachycardia which includes hyperthyroidism, anemia , electrolyte imbalance. She denies any pain, anxiety or fever which are other causes of appropriate sinus tachycardia. If all of the above are ruled out then she will be labeled with inappropriate sinus tachycardia and treatment is usually with beta blockers. The other differential diagnosis could be orthostatic hypotension. I have recommended good hydration and not to be in a situation where she can hurt herself. A very brief run of PSVT was noted on Holter monitor for 3 beats. The patient has a fitness watch and according to her, her heart rate can go to 200 bpm. event monitor was done on 10/10/2017 which shows sinus rhythm with episodes of sinus tachycardia. Frequent PVCs. Occasionally in bigeminy pattern. Monomorphic PVCs. Once she had 44 PVCs in a minute. No other arrhythmias. She had episodes of dizziness and near-syncope during the event monitor. She was started on Toprol-XL 25 mg 4 PVCs and sinus tachycardia. Thank you for your consultation. Please call me if you have any questions. Suhas Leos MD, FACP, FACC, FSCAI, FHRS, CCDS Interventional Cardiology Cardiac Electrophysiology Vascular Medicine and Endovascular Interventions Focused Exam Lactate Level 12/02/17 01:00: Lactic Acid Level 1.18 12/02/17 22:40: Lactic Acid Level 2.21*H 12/03/17 06:22: Lactic Acid Level 1.22 Martita LEOS MD Dec 04, 2017 10:29 am
[2017-12-04] MEDS: CHOLESTYRAMINE 4 GM (QUESTRAN LITE, PREVALITE) PKT PO SCH ×2 (12:26→21:58)
[2017-12-04] MEDS ORDERED: METO-387 PO (13:43)
[2017-12-04] MEDS ORDERED: ESCI10TA PO (13:44)
[2017-12-04] MEDS ORDERED: POTA-51 PO (13:45)
[2017-12-04] MEDS ORDERED: ONDA4TAB11 PO (13:46)
[2017-12-04] MEDS ORDERED: ZOLP10TA PO (13:47)
[2017-12-04] MEDS ORDERED: PROC10TA10 PO (13:53)
[2017-12-04] MEDS ORDERED: PROPOFOL DRIP (ICU) 0 ML IV ONE (14:13)
[2017-12-04] MEDS: NOREPINEPHRINE 4 MG in NS (IVPB) 250 ML IV SCH (18:12)
[2017-12-05] VITALS (25 sets, daily range): BP systolic 86–111; BP diastolic 53–88
[2017-12-05] MEDS: ACETAMINOPHEN 500 MG TAB (TYLENOL) PO PRN (01:34)
[2017-12-05 03:37] LABS: BASOPHILS % (AUTO) 0 % (0-10); EOSINOPHILS % (AUTO) 0 % (0-10); HEMATOCRIT 31 % (35-52); HEMOGLOBIN 10.6 G/DL (11.5-16.0); LYMPHOCYTES # (AUTO) 0.9 X 10^3 (1.0-4.0); LYMPHOCYTES % (AUTO) 9 % (12-44); MEAN CORPUSCULAR HEMOGLOBIN 30 PG (25-34); MEAN CORPUSCULAR HGB CONC 35 G/DL (32-36); MEAN CORPUSCULAR VOLUME 88 FL (80-99); MEAN PLATELET VOLUME 10.8 FL (7.4-10.4); MONOCYTES # (AUTO) 0.2 X 10^3 (0.0-1.0); MONOCYTES % (AUTO) 2 % (0-12); NEUTROPHILS # (AUTO) 8.5 X 10^3 (1.8-7.8); NEUTROPHILS % (AUTO) 89 % (42-75); PLATELET COUNT 227 10^3/uL (130-400); RED CELL DISTRIBUTION WIDTH 13.3 % (10.0-14.5); WHITE BLOOD COUNT 9.6 10^3/uL (4.3-11.0)
[2017-12-05] MEDS: LACTATED RINGERS 1,000 ML IV SCH ×4 (03:38→19:32)
[2017-12-05] MEDS: KETOROLAC 30 MG/ML VIAL IM PRN ×2 (03:39→17:14)
[2017-12-05 03:55] LABS: BUN/CREATININE RATIO 9; CALCIUM 8.3 MG/DL (8.5-10.1); CARBON DIOXIDE 18 MMOL/L (21-32); CHLORIDE 113 MMOL/L (98-107); CREATININE SERUM 0.75 MG/DL (0.60-1.30); GFR ESTIMATED > 60; GLUCOSE 132 MG/DL (70-105); PHOSPHORUS 2.8 MG/DL (2.3-4.7); POTASSIUM 4.1 MMOL/L (3.6-5.0); SODIUM 138 MMOL/L (135-145)
[2017-12-05] MEDS: POTASSIUM CL 10MEQ/50ML IVPB 50 ML IV SCH (04:22)
[2017-12-05] MEDS: KCL 20 MEQ TAB (K-DUR) PO SCH (04:22)
[2017-12-05] MEDS: MAGNESIUM 1 GM/100 ML IVPB 100 ML IV SCH (04:22)
[2017-12-05] MEDS: ENOXAPARIN 40 MG/0.4 ML (LOVENOX) SYR SC SCH (05:19)
[2017-12-05] MEDS: metroNIDAZOLE 500MG/100ML IVPB 100 ML IV SCH ×3 (05:19→21:12)
[2017-12-05] MEDS: HYDROCORTISONE 100 MG/2 ML (Solu-CORTEF) VIAL IV SCH ×3 (05:19→21:12)
[2017-12-05] MEDS: CATHETER FLUSH 10 ML SYR IV SCH ×3 (05:21→21:12)
[2017-12-05] MEDS: HYDROcodone/APAP 5 MG/325 MG (LORTAB) TAB PO PRN ×3 (05:25→23:49)
--- NOTE | 2017-12-05 06:42 | Pulmonary Progress Note ---
Subjective Time Seen by Provider: 06:39 Subjective/Events-last exam Pt is still requiring 2 mcg of LEvophed. Pressure decreases into 70's when titrated off. Sepsis Event Evaluation Height, Weight, BMI Height: 5'10.00" Weight: 168lbs. 2.0oz. 76.960327eq; 20.8 BMI Method:Stated Focused Exam Lactate Level 12/02/17 22:40: Lactic Acid Level 2.21*H 12/03/17 06:22: Lactic Acid Level 1.22 Exam Exam Vital Signs Date Time Temp Pulse Resp B/P (MAP) Pulse Ox O2 Delivery O2 Flow Rate FiO2 12/05/17 06:00 43 12 104/61 (75) 98 Room Air 12/05/17 05:00 35 13 105/75 (85) 98 Room Air 12/05/17 04:00 36 17 111/69 (83) 98 Room Air 12/05/17 03:20 96 Room Air 12/05/17 03:15 97.4 12/05/17 03:00 34 17 108/71 (83) 98 Room Air 12/05/17 02:00 35 18 102/66 (78) 97 Room Air 12/05/17 01:00 43 12/05/17 01:00 43 12 108/77 (87) 98 Room Air 12/05/17 00:12 39 18 97/65 (76) 97 Room Air 12/05/17 00:05 97.8 12/05/17 00:00 97 Room Air 12/04/17 23:00 39 25 90/57 (68) 96 Room Air 12/04/17 22:00 39 6 92/64 (73) 100 Room Air 12/04/17 21:09 12/04/17 21:00 41 29 115/78 (90) 98 Room Air 12/04/17 20:00 40 17 108/65 (79) 100 Room Air 12/04/17 19:53 40 12/04/17 19:52 97.4 12/04/17 19:45 99 Room Air 12/04/17 19:45 97.4 Room Air 12/04/17 19:00 46 17 107/47 (67) 100 Room Air 12/04/17 18:45 38 10 95/65 (75) 99 Room Air 12/04/17 18:30 46 19 100/68 (79) 100 Room Air 12/04/17 18:15 48 12 98/61 (73) 98 Room Air 12/04/17 18:00 58 26 100/43 (62) 99 Room Air 12/04/17 17:45 48 14 98/56 (70) 100 Room Air 18 17:30 39 19 107/72 (84) 98 Room Air 12/04/17 17:15 39 13 107/83 (91) 99 Room Air 12/04/17 17:00 42 13 94/70 (78) 99 Room Air 12/04/17 16:45 40 13 98/69 (79) 99 Room Air 12/04/17 16:30 44 19 96/70 (79) 99 Room Air 12/04/17 16:15 56 10 101/70 (80) 99 Room Air 12/04/17 16:00 98 Room Air 12/04/17 16:00 58 9 97/60 (72) 99 Room Air 12/04/17 15:45 51 9 96/58 (71) 99 Room Air 12/04/17 15:30 44 9 108/56 (73) 99 Room Air 12/04/17 15:15 40 13 101/71 (81) 100 Room Air 12/04/17 15:00 39 19 96/69 (78) 100 Room Air 12/04/17 14:45 46 12 99/71 (80) 100 Room Air 12/04/17 14:30 51 19 95/66 (76) 99 Room Air 12/04/17 14:15 40 21 102/74 (83) 100 Room Air 12/04/17 14:00 39 14 106/74 (85) 99 Room Air 12/04/17 13:45 40 9 95/72 (80) 98 Room Air 12/04/17 13:30 39 15 102/73 (83) 100 Room Air 12/04/17 13:15 44 13 104/71 (82) 100 Room Air 12/04/17 13:00 40 12/04/17 13:00 40 13 95/78 (84) 99 Room Air 12/04/17 12:45 44 14 100/72 (81) 100 Room Air 12/04/17 12:15 53 10 105/73 (84) 100 Room Air 12/04/17 12:00 98.2 12/04/17 12:00 98 Room Air 12/04/17 10:45 51 8 97/60 (72) 98 Room Air 12/04/17 10:30 42 7 98/73 (81) 93 Room Air 12/04/17 10:15 43 15 103/64 (77) 99 Room Air 12/04/17 10:00 49 21 98/63 (75) 98 Room Air 12/04/17 09:45 42 18 90/58 (69) 98 Room Air 12/04/17 09:30 52 10 88/51 (63) 98 Room Air 12/04/17 09:15 64 32 93/61 (72) 99 Room Air 12/04/17 09:00 66 20 90/61 (71) 100 Room Air 12/04/17 08:45 83 19 91/54 (66) 100 Room Air 12/04/17 08:30 73 22 91/60 (70) 100 Room Air 12/04/17 08:15 67 22 91/59 (70) 100 Room Air 12/04/17 08:00 98 Room Air 12/04/17 08:00 41 11 98/64 (75) 97 Room Air 12/04/17 07:30 99.1 12/04/17 07:00 44 16 91/60 (70) 99 Room Air 12/04/17 07:00 44 12/04/17 07:00 44 I & O 12/05/17 07:00 Intake Total 3100 ml Output Total 1100 ml Balance 2000 ml Height & Weight Height: 5'10.00" Weight: 168lbs. 2.0oz. 76.449266du; 20.8 BMI Method:Stated General Appearance: Mild Distress HEENT: Normal ENT Inspection Neck: Normal Inspection, Supple, Limited Range of Motion Respiratory: Chest Non Tender, Lungs Clear, Normal Breath Sounds, No Accessory Muscle Use, No Respiratory Distress Cardiovascular: Regular Rate, Rhythm, No Edema, No Gallop, No JVD, No Murmur, Normal Peripheral Pulses Capillary Refill: Less Than 3 Seconds Gastrointestinal: soft (minimal discomfort on palpation diffusely) Extremity: Normal Capillary Refill, Normal Inspection, Normal Range of Motion, Non Tender, No Pedal Edema Neurologic/Psychiatric: Alert, Oriented x3, No Motor/Sensory Deficits, Normal Mood/Affect, legal word processor II-XII Norm as Tested Skin: Warm/Dry, Other (Mcintyre) Lymphatic: No Adenopathy Results Lab Laboratory Tests 12/04/17 03:12 12/05/17 03:20 Assessment/Plan Assessment/Plan Severe Sepsis with septic shock -Levophed is currently going at 2mcg -Repeat Liter bolus of LR -Solucortef -CVP monitoring - is 2-3. -repeat NS bolus 1 liter - Rocephin, add flagyl -CHeck TSH, free T4 -PT is requesting cardiac opinion regarding pacemaker. I've talked with Dr. Leos, and Dr. Barfield. Dr. Barfield will see pt today for second opinion. Anxiety/Depression -Start Xanax 0.5mg PO TID PRN -Restart Lexapro home dose UTI -Continue Abx Abdominal pain - generalized with elevated bili -improved Diarrhea - CDiff toxin pending - Malnutrition -Ensure TID with meals -Consult dietary Hx of gastric sleeve by Dr. Agarwal -Consult Dr. Agarwal Hx of SVT -Follows with Dr. Leos HYponatremia -Monitor metabolic lactic acidosis -IVF -- change IVF to LR at 150 -2 amp of bicarb -Monitor 30min spent with patient medical team and discussing with inweaver. Critical Care: Critically Ill Patient Time spent with patient (mins): 60 TEODORA GAONA DO Dec 05, 2017 06:42
[2017-12-05] MEDS ORDERED: SODIUM BICARB 8.4% 50 MEQ/50 ML (ABBOTT) SYR IV ONE (06:45)
[2017-12-05] MEDS ORDERED: LACTATED RINGERS 1,000 ML IV SCH (07:00)
[2017-12-05 07:17] LABS: FREE T4 (FREE THYROXINE) 0.85 NG/DL (0.70-1.48)
[2017-12-05] MEDS: ALPRAZolam 0.5 MG (XANAX) TAB PO PRN ×2 (07:51→17:12)
[2017-12-05] MEDS ORDERED: CLON1TAB13 PO (08:54)
--- NOTE | 2017-12-05 08:54 | Consultation-Cardiology ---
HPI-Cardiology Cardiology Consultation Date of Consultation 12/05/17 Date of Admission Time Seen by Provider: 08:49 Indication: Bradycardia HPI Mrs Correa is 37 years old lady with history of gastric sleeve surgery, had multiple complications postoperatively. Was complaining of nausea and vomiting. Had history of DVT in her right upper extremity. Recently she has been having increasing fatigue and loss of energy. Had an event recorder placed which showed episode of inappropriate sinus tachycardia, few episodes of bradycardia, frequent premature ventricular contractions. Ventricular bigeminy. She was started on low-dose beta blockers and felt slightly worse. Admitted to the hospital with increasing nausea and vomiting and severe headache. She was diagnosed with urinary tract infection and sepsis. Received IV fluid and Levaquin for that which has improved her blood pressure slightly to the baseline around 100 systolic. She denied any syncope but she has been having episode of fatigue and loss of energy. Reporting that occasionally her heart rate goes down to the 40s and she feels much worse. During the hospital stay her heart rate was ranging between the upper 30s and the lower 40s while she is laying down in bed with some improvement to the 50s. She reported occasional episodes of atypical chest pain which is right upper side, Not radiating. She has been seen and followed by Dr. Leos, I was called for a second opinion Home Medications & Allergies Allergies: Coded Allergies: No Known Drug Allergies (Verified , 06/30/07) Home Medication List Reviewed: Yes NGC-Llghyi-[id number] Hx Patient Social History Marital Status: Employed/Student: unemployed Alcohol Use: Denies Use Recreational Drug Use: No Smoking Status: Never a Smoker Recent Foreign Travel: No Recent Infectious Disease Expo: No Recent Hopitalizations: No Physical Abuse Screen: No Sexual Abuse: No Immunizations Up To Date Tetanus Booster (TDap): Unknown Date of Influenza Vaccine: Dec 19, 2012 Family Medical History Significant Family History: No Pertinent Family Hx Family History: Cardiovascular disease 19 MOTHER G8 SISTER Completed stroke 19 FATHER Diabetes mellitus 19 MOTHER Hypertension 19 MOTHER Review of Systems Constitutional: see HPI, dizziness, malaise, weakness EENTM: see HPI Respiratory: see HPI, dyspnea on exertion, short of breath Cardiovascular: see HPI, chest pain Gastrointestinal: see HPI, nausea, vomiting Genitourinary: no symptoms reported, see HPI Musculoskeletal: no symptoms reported, see HPI Skin: no symptoms reported, see HPI Psychiatric/Neurological: No Symptoms Reported, See HPI Reviewed Test Results Reviewed Test Results Lab Laboratory Tests Test 12/04/17 18:05 12/05/17 03:20 12/05/17 07:05 Range/Units White Blood Count 9.6 4.3-11.0 10^3/uL Red Blood Count 3.50 L 4.35-5.85 10^6/uL Hemoglobin 10.6 L 11.5-16.0 G/DL Hematocrit 31 L 35-52 % Mean Corpuscular Volume 88 80-99 FL Mean Corpuscular Hemoglobin 30 25-34 PG Mean Corpuscular Hemoglobin Concent 35 32-36 G/DL Red Cell Distribution Width 13.3 10.0-14.5 % Platelet Count 227 130-400 10^3/uL Mean Platelet Volume 10.8 H 7.4-10.4 FL Neutrophils (%) (Auto) 89 H 42-75 % Lymphocytes (%) (Auto) 9 L 12-44 % Monocytes (%) (Auto) 2 0-12 % Eosinophils (%) (Auto) 0 0-10 % Basophils (%) (Auto) 0 0-10 % Neutrophils # (Auto) 8.5 H 1.8-7.8 X 10^3 Lymphocytes # (Auto) 0.9 L 1.0-4.0 X 10^3 Monocytes # (Auto) 0.2 0.0-1.0 X 10^3 Eosinophils # (Auto) 0.0 0.0-0.3 10^3/uL Basophils # (Auto) 0.0 0.0-0.1 10^3/uL Sodium Level 138 135-145 MMOL/L Potassium Level 4.1 3.6-5.0 MMOL/L Chloride Level 113 H 98-107 MMOL/L Carbon Dioxide Level 18 L 21-32 MMOL/L Anion Gap 7 5-14 MMOL/L Blood Urea Nitrogen 7 7-18 MG/DL Creatinine 0.75 0.60-1.30 MG/DL Estimat Glomerular Filtration Rate > 60 BUN/Creatinine Ratio 9 Glucose Level 132 H 70-105 MG/DL Calcium Level 8.3 L 8.5-10.1 MG/DL Phosphorus Level 2.8 2.3-4.7 MG/DL Magnesium Level 2.0 1.8-2.4 MG/DL Thyroid Stimulating Hormone (TSH) 0.16 L 0.35-4.94 UIU/ML Free Thyroxine 0.85 0.70-1.48 NG/DL Physical Exam Vital Signs Vital Signs - First Documented 12/02/17 22:15 Temp 100.1 Pulse 103 Resp 12 B/P (MAP) 107/65 (79) Pulse Ox 98 Capillary Refill : Less Than 3 Seconds Height, Weight, BMI Height: 5'10.00" Weight: 168lbs. 2.0oz. 76.560628zw; 20.8 BMI Method:Stated General Appearance: WD/WN, Mild Distress Eyes: Bilateral Eye Normal Inspection, Bilateral Eye PERRL, Bilateral Eye EOMI HEENT: PERRL/EOMI, TMs Normal, Normal ENT Inspection, Pharynx Normal Neck: Full Range of Motion, Normal Inspection, Non Tender, Supple Respiratory: Chest Non Tender, Lungs Clear, Normal Breath Sounds, No Accessory Muscle Use, No Respiratory Distress Cardiovascular: No Edema, No Gallop, No JVD, No Murmur, Normal Peripheral Pulses, Bradycardia Gastrointestinal: Normal Bowel Sounds, No Organomegaly, No Pulsatile Mass, Non Tender, Soft Back: Normal Inspection, No CVA Tenderness, No Vertebral Tenderness Extremity: Normal Capillary Refill, Normal Inspection, Normal Range of Motion, Non Tender, No Calf Tenderness, No Pedal Edema Neurologic/Psychiatric: Alert, Oriented x3, No Motor/Sensory Deficits, Normal Mood/Affect Skin: Normal Color, Warm/Dry Lymphatic: No Adenopathy A/P-Cardiology Admission Diagnosis Sinus node dysfunction Inappropriate sinus tachycardia Nausea and vomiting Hypotension Assessment/Plan Sinus bradycardia, sinus node dysfunction exacerbated by her underlying condition with sepsis, still having mild metabolic acidosis. Has been complaining of episodes of bradycardia in the past 4-5 months, had an event recorder which showed inappropriate sinus tachycardia with frequent PVCs and ventricular bigeminy. She was started previously on low-dose beta blockers and was unable to tolerate it well. We discussed the management plan and I agree with Dr. Leos on monitoring her at this time. Considering a stress test when clinically stable and evaluate her heart rate response to exercise. At this point permanent pacemaker is not indicated, discussed treatment option in length with the patient and I visited with Dr. Leos about the management plan. Frequent premature ventricular contractions, ventricular bigeminy, probably related to electrolyte disturbance. Better at this time, continue to monitor UTI, sepsis, improving, receiving IV fluid, off pressors at this time. Continue to monitor Status post gastric sleeve surgery complicated by severe weight loss and nausea and vomiting. History of deep venous thrombosis after a PICC line, PE, treated with 6 months with Eliquis, currently off anticoagulation. Electrolyte imbalance, improving. Clinical Quality Measures DVT/VTE Risk/Contraindication: Risk Factor Score Per Nursin RFS Level Per Nursing on Admit: 1=Low/No VTE PPX CAREY FRAUSTO MD Dec 05, 2017 08:54
--- NOTE | 2017-12-05 08:55 | Diagnostic Imaging Report ---
INDICATION: Sepsis and dehydration. TIME OF EXAM: 3:10 AM Correlation is made with prior study from one day earlier. FINDINGS: Right IJ line has tip overlying the SVC. Lungs are clear. Pulmonary vascularity is normal. No effusion or pneumothorax is identified. IMPRESSION: Stable chest. No acute feature is detected. Dictated by: Dictated on workstation # [id number]
--- NOTE | 2017-12-05 09:22 | Progress Note-Hospitalist ---
Subjective HPI/CC On Admission Date Seen by Provider: Dec 05, 2017 Time Seen by Provider: 09:17 This is a 37-year-old white female with a history of a sleeve gastrectomy approximately a year and a half ago. The patient has lost about 180 pounds since that procedure.'s been complicated by persistent nausea vomiting and inability to eat much. She started feeling worse about the last 5 days. Yesterday she was at a restaurant began to have a severe headache then chills and a fever and presented to the emergency room with similar complaints. Chest x-ray and CT abdomen pelvis were unrevealing. Blood cultures are pending. The patient has received 30 mL's per kilogram of aggressive fluid hydration. Her MA P has been low necessitating transfer to the ICU overnight with institution of Levophed. Patient notes that her normal systolic pressure is in the 100s however. Patient complains of diffuse abdominal pain right right side both in the upper and the lower quadrant. She has good bowel sounds. Subjective/Events-last exam Pt reports feeling better today but still very weak and unable to get out of bed (baseline for her due to fatigue). She has no other complaints or concerns at this time for me. Dr Barfield in room discussing potential pacemaker evaluation as well. Focused Exam Lactate Level Objective Exam Vital Signs Vital Signs Date Time Temp Pulse Resp B/P (MAP) Pulse Ox O2 Delivery O2 Flow Rate FiO2 12/07/17 13:44 40 12/07/17 12:16 98.2 12/07/17 12:00 100 Room Air 12/07/17 12:00 12 98/69 (79) 12/07/17 04:00 0.00 Capillary Refill : Less Than 3 Seconds General Appearance: No Apparent Distress, WD/WN Respiratory: Lungs Clear, No Respiratory Distress Cardiovascular: Regular Rate, Rhythm, No Murmur Gastrointestinal: Normal Bowel Sounds, Soft Neurologic/Psychiatric: Alert, Oriented x3 Results/Procedures Lab Laboratory Tests 12/07/17 03:50 Patient resulted labs reviewed. Imaging: Reviewed Imaging Films, Reviewed Imaging Report Assessment/Plan Assessment and Plan Assess & Plan/Chief Complaint Septic shock- off pressors, continue on Rocephin and Flagyl Urinary tract infection-with lactobacillus most likely contaminant History of SVT followed by -now with bradycardia sinus in nature down in the 30s-may require pacemaker, Dr Barfield consulted for second opinion Status post sleeve gastrectomy per Dr. Agarwal Malpositioning of the IUD as evidenced on CT History of subclavian vein thrombosis and pulmonary emboli; off Eliquis after completing 6 months duration-on Lovenox for DVT prophylaxis Hypomagnesemia-replace Diarrhea with negative C. difficile, stool cultures pending Critical Care Critical Care: Critically Ill Patient Clinical Quality Measures DVT/VTE Risk/Contraindication: Risk Factor Score Per Nursin RFS Level Per Nursing on Admit: 1=Low/No VTE PPX SUNNY GO MD Dec 05, 2017 09:22
[2017-12-05] MEDS: cefTRIAXone 1 GM/NS 50 ML IVPB IV SCH ×2 (09:44)
[2017-12-05] MEDS: CHOLESTYRAMINE 4 GM (QUESTRAN LITE, PREVALITE) PKT PO SCH ×2 (09:45→21:12)
[2017-12-05] MEDS: SUCRALFATE 1 GM (CARAFATE) TAB PO SCH ×2 (09:45→21:12)
[2017-12-05] MEDS: PANTOPRAZOLE 40 MG (PROTONIX) TAB PO SCH (09:45)
[2017-12-05] MEDS: PANTOPRAZOLE 40 MG (PROTONIX) VIAL IV SCH ×2 (09:47→21:12)
[2017-12-05] MEDS ORDERED: NON-FORMULARY MEDICATION 1 EA EA (Clonazepam 1 MG) PO SCH (13:00)
--- NOTE | 2017-12-05 13:05 | Diagnostic Imaging Report ---
PROCEDURE: CT head with and without contrast. TECHNIQUE: Multiple contiguous axial images were obtained through the brain before and after the administration of intravenous contrast. INDICATION: Headache. COMPARISON: 01/16/2017. FINDINGS: There is no parenchymal hemorrhage, midline shift, or mass effect. Arizmendi-white matter differentiation is preserved, without evidence of acute infarct. The ventricles, cisterns, and sulci are normal. No epidural or subdural collections. No enhancing lesion demonstrated on postcontrast images. No calvarial lesion or fracture is identified. The extracranial soft tissues are unremarkable. The visualized orbits, globes, paranasal sinuses, and mastoid air cells are clear. IMPRESSION: No acute intracranial pathology. No significant change from prior. Dictated by: Dictated on workstation # [id number]
--- NOTE | 2017-12-05 13:47 | Conscious Sedation/ASA ---
Conscious Sedation Pre-Proced Time Reviewed: 13:00 ASA Class: 2 Airway Mallampati Classification: (buckland appropriate class) I. II. III, IV Lungs Heart ASA score ASA 1: a normal healthy patient ASA 2: a patient with a mild systemic disease (mid diabetes, controlled hypertension, obesity ASA 3: a patient with a severe systemic disease that limits activity (angina , COPD, prior Myocardial infarction) ASA 4: a patient with an incapacitating disease that is a constant threat to life (CHF, renal failure) ASA 5: a moribund patient not expected to survive 24 hrs. (ruptured aneurysm) ASA 6: a declared brain patient whose organs are being harvested. For emergent operations, add the letter E after the classification Grade 2 Sedation Plan: Analgesia, Amnesia, Plan communicated to team members, Discussed options with patient/fam, Discussed risks with patient/fam Note The patient is an appropriate candidate to undergo the planned procedure, sedation, and anesthesia. The patient immediately re-assessed prior to indication. NEVILLE MONSALVE MD Dec 05, 2017 13:46
--- NOTE | 2017-12-05 13:47 | Progress Note-Pre Operative ---
Pre-Operative Progress Note H&P Reviewed The H&P was reviewed, patient examined and no changes noted. Date Seen by Provider: Dec 05, 2017 Time Seen by Provider: 13:00 Date H&P Reviewed: Dec 05, 2017 Time H&P Reviewed: 13:00 Pre-Operative Diagnosis: dysphagia, nausea, vomiting NEVILLE MONSALVE MD Dec 05, 2017 13:47
--- NOTE | 2017-12-05 14:24 | CONSULTATION REPORT ---
DATE OF SERVICE: 12/05/2017 ADMITTING PHYSICIAN: Rosa Gan MD PRIMARY CARE PHYSICIAN: Dr. Severino. HISTORY OF PRESENT ILLNESS: The patient is a 37-year-old female known to us. She is status post laparoscopic gastric sleeve resection in 05/2016. Her initial weight was about 300 and she states that she has lost about 180 pounds and has done well. She reports that in the past week, she has developed persistent nausea and vomiting and this has progressed to dysphagia as well. She reports that her dysphagia has been around slightly longer and states that some foods would stick and either come up or eventually go down. She does not report any hematemesis or coffee ground emesis. She also states that during the same timeframe, she had developed diarrhea. She reports that for the past 5 to 7 days she has had diarrhea. She does not report any red blood per rectum nor any dark tarry stools. She does not report any recent travel, drinking unfiltered water as well as eating different foods from different locations. She does report that before admission, she did feel fevers and chills as well as body aches, which may indicate some possibility of a gastrointestinal influenza virus. Stool was negative for Clostridium difficile. She also had an ultrasound performed, which did not visualize the biliary tree or gallbladder well; however, no significant abnormalities detected. PAST MEDICAL HISTORY: SVT, degenerative joint disease, history of morbid obesity. PAST SURGICAL HISTORY: Laparoscopic gastric sleeve resection. ALLERGIES: No known drug allergies. MEDICATIONS: Clonazepam 1 mg t.i.d., escitalopram 10 mg daily, metoprolol 25 mg daily, Zofran 4 mg p.r.n., Protonix 40 mg daily, potassium 20 mEq b.i.d., Compazine 10 mg p.r.n. scopolamine patch p.r.n. and zolpidem 10 mg at bedtime. SOCIAL HISTORY: Negative smoke, negative alcohol. FAMILY HISTORY: Father stroke. Mother diabetes, hypertension and heart disease. VITAL SIGNS: Temperature 97.6, blood pressure 96/71, pulse 40, respirations 14, pulse ox 96% on room air. REVIEW OF SYSTEMS: Well-nourished female currently in no acute distress. She is not experiencing any shortness of breath or difficulty breathing. No chest pain, palpitations, diaphoresis. Intermittent episodes of nausea and vomiting with crampy lower abdominal pain as well as diarrhea. No red blood per rectum, no dark tarry stools. Fever and chills upon admission are none since being admitted and placed on fluids and IV antibiotics. No recent inadvertent weight loss. All other review of systems negative. PHYSICAL EXAMINATION: CHEST: Clear. Good breath sounds bilaterally. HEART: Regular, no murmurs. Bradycardic. EXTREMITIES: No lower extremity edema, negative Homans sign. HEENT: No scleral icterus. NECK: No cervical lymphadenopathy. ABDOMEN: Soft, nondistended. There is mild pain in the right upper abdominal quadrant as well as the lower abdominal quadrants upon deep palpation. There are no peritoneal signs. No palpable masses or hernias. SKIN: Warm, dry. ASSESSMENT AND PLAN: A 37-year-old female with nausea, vomiting, dysphagia and persistent diarrhea. Her upper gastrointestinal symptoms are most likely related to gastritis as well as a possible reflux esophagitis. We can also not rule out the possibility of stricture along the previous gastric sleeve staple line. There is also a possibility of severe gastritis and H. pylori infection. We will proceed with an EGD as well as biopsies and possible balloon dilatation. She also does have diarrhea which may be multifactorial and may include bacterial overgrowth versus an influenza mediated. She may also have biliary dyskinesia causing alkaline enteritis and diarrhea. We will proceed with a HIDA scan on this admission as well. For now, we will also continue with medical management with a PPI acid shipping and receiving associate IV fluids and bowel rest. Job ID: [id number] DocumentID: [id number] Dictated Date: 12/05/2017 13:58:15 Technical Programs Manager Date: 12/05/2017 14:23:42 Dictated By: NEVILLE MONSALVE MD
--- NOTE | 2017-12-05 14:29 | Cardiology Progress Note ---
Cardiology SOAP Progress Note Subjective: No cardiac complaints. Objective: I&O/Vital Signs 12/05/17 12/05/17 12/05/17 12/05/17 03:00 03:15 03:20 04:00 Temp 97.4 Pulse 34 36 Resp 17 17 B/P (MAP) 108/71 (83) 111/69 (83) Pulse Ox 98 96 98 O2 Delivery Room Air Room Air Room Air 12/05/17 12/05/17 12/05/17 12/05/17 05:00 06:00 07:00 07:00 Pulse 35 43 40 42 Resp 13 12 6 B/P (MAP) 105/75 (85) 104/61 (75) 107/73 (84) Pulse Ox 98 98 98 O2 Delivery Room Air Room Air Room Air 12/05/17 12/05/17 12/05/17 12/05/17 08:00 08:00 08:00 09:00 Temp 97.0 Pulse 35 40 Resp 7 21 B/P (MAP) 90/63 (72) 89/57 (68) Pulse Ox 96 99 95 O2 Delivery Room Air Room Air Room Air 12/05/17 12/05/17 12/05/17 12/05/17 10:00 11:00 12:00 12:00 Temp 97.6 Pulse 38 36 Resp 13 14 B/P (MAP) 100/71 (81) 96/71 (79) Pulse Ox 98 99 96 O2 Delivery Room Air Room Air Room Air 12/05/17 13:00 Pulse 38 12/05/17 00:00 Intake Total 1650 ml Output Total 600 ml Balance 1050 ml Weight (Pounds): 168 Weight (Ounces): 2.0 Weight (Calculated Kilograms): 76.150231 Constitutional: appears stated age, well-developed, well-nourished Respiratory: chest is bilaterally symmetric, lungs clear to auscultation Cardiovascular: regular rate-rhythm, bradycardia, S1 and S2 Gastrointestional: No tender, No soft, No round, No distended, No pulsatile mass, No organomegaly, No guarding, No rebound, No tenderness, No hernia, No mass, No audible bowel sounds, No abnormal bowel sounds, No abdominal bruits, No spleenomegaly, No other Extremities: No normal range of motion, No non-tender, No normal inspection, No pedal edema, No calf tenderness, No normal capillary refill, No pelvis stable , No calf tenderness, No inflammation, No pedal edema, No slow capillary refill , No swelling, No other, No abrasion, No clubbing, No cyanosis, No ecchymosis, No laceration, No no lower extremity edema bilateral, No significant edema, No tenderness, No wound Neurologic/Psychiatric: no motor/sensory deficits, alert, normal mood/affect, oriented x 3, power is 5/5 both on sides Skin: normal color, warm/dry Results/Procedures: Labs Laboratory Tests 12/04/17 18:05: 12/05/17 03:20: White Blood Count 9.6, Red Blood Count 3.50L, Hemoglobin 10.6L, Hematocrit 31L, Mean Corpuscular Volume 88, Mean Corpuscular Hemoglobin 30, Mean Corpuscular Hemoglobin Concent 35, Red Cell Distribution Width 13.3, Platelet Count 227, Mean Platelet Volume 10.8H, Neutrophils (%) (Auto) 89H, Lymphocytes (%) (Auto) 9L, Monocytes (%) (Auto) 2, Eosinophils (%) (Auto) 0, Basophils (%) (Auto) 0, Neutrophils # (Auto) 8.5H, Lymphocytes # (Auto) 0.9L, Monocytes # (Auto) 0.2, Eosinophils # (Auto) 0.0, Basophils # (Auto) 0.0, Sodium Level 138, Potassium Level 4.1, Chloride Level 113H, Carbon Dioxide Level 18L, Anion Gap 7, Blood Urea Nitrogen 7, Creatinine 0.75, Estimat Glomerular Filtration Rate > 60, BUN/ Creatinine Ratio 9, Glucose Level 132H, Calcium Level 8.3L, Phosphorus Level 2.8 , Magnesium Level 2.0, Thyroid Stimulating Hormone (TSH) 0.16L, Free Thyroxine 0.85 12/05/17 07:05: Microbiology 12/02/17 Blood Culture - Preliminary, Resulted No growth 12/02/17 Urine Culture - Final, Complete Lactobacillus species See Comments A/P: Assessment/Dx: UTI, sepsis. Sinus bradycardia, History of right subclavian DVT, History of pulmonary embolism, PVCs, brief episode of PSVT, normal LV function. Plan: UTI, sepsis, borderline blood pressure. On IV antibiotics, levophed and fluid resuscitation. Sinus bradycardia, lowest heart rate in the upper 30s. When I saw her she was sinus bradycardic at 43 BPM. She has been lying supine without any symptoms. We will continue to monitor. Likely sinus node dysfunction. She is not on any beta blockers. The beta blockers were given because of inappropriate sinus tachycardia. If she has symptomatic sinus node dysfunction she could be a candidate for dual-chamber permanent pacemaker implantation. However permanent pacemaker is contraindicated at this point in time due to UTI sepsis. Chronotropic incompetence can't be ruled out with a stress test. History of orthostatic hypotension: May benefit from Florinef or midodrine. History of right subclavian DVT, completed 6 months of Eliquis. History of pulmonary embolism, PVCs, brief episode of PSVT, on beta blockers which were held. normal LV function on echocardiogram done 09/2017. I discussed with Dr. Barfield. An if the patient request I will transfer her cardiology care to Dr. Barfield. Previous right subclavian DVT. she has history of obesity and underwent gastric sleeve surgery in May 2016. Postoperatively she had a complicated course with significant malnutrition and other complications in June. PICC line was placed in June. Eventually she was discharged home. Between June and December of this year she had occasional right arm discomfort but no swelling or shortness of breath. On 12/22/2016 she complained of right upper extremity tingling and numbness. However there was no swelling. On 12/23/2016 she had significantly swollen right upper extremity and occasional back pain. She had no chest pain or shortness of breath. Her right upper extremity was also discolored with purplish hue. She presented to our ER and venous ultrasound done on 12/23/2016 showed an occlusive DVT segment of about 10 cm in length around the junction of the right subclavian and axillary vein. CT angiography of the chest was also performed which showed small burden of pulmonary embolism involving the posterior segment branch of the right lower pulmonary artery and questionable filling defect in the subsegmental branch of the right upper pulmonary artery. She was started on Eliquis therapy. The patient denies any history of clotting abnormality in the family including pulmonary embolism and DVT. She also denies any other medical issues. She is a nonsmoker. She took Eliquis for 6 months and discontinued in May 2017. Repeat upper extremity ultrasound on 10/04/2017 showed no evidence of DVT in the right upper extremity. She was lost to follow-up because she lost her health insurance. She presents with complain of shortness of breath, significant fatigue, syncopal episodes and palpitations. A Holter monitor was done on 2017 in [place]. An echocardiogram was also done recently. Holter monitor done on 08/29/2017 showed normal sinus rhythm with rare isolated PACs with 2 atrial couplets and one 3 beat run of PSVT. There were rare isolated PVCs with 26 bigeminy noted. There were total of 99 PVCs. There was no sustained SVT or VT noted. The patient's symptoms correlated with sinus tachycardia with rates ranging from [id number] bpm. Highest heart rate for sinus tachycardia was 136 bpm. Echocardiogram done 09/2017 shows normal LV function and normal RV function with borderline elevated PA pressure. No significant valvular heart disease. I spoken at length to the patient and it seems that the patient's symptoms are correlated with sinus tachycardia. We need to rule out appropriate physiological causes of sinus tachycardia which includes hyperthyroidism, anemia , electrolyte imbalance. She denies any pain, anxiety or fever which are other causes of appropriate sinus tachycardia. If all of the above are ruled out then she will be labeled with inappropriate sinus tachycardia and treatment is usually with beta blockers. The other differential diagnosis could be orthostatic hypotension. I have recommended good hydration and not to be in a situation where she can hurt herself. A very brief run of PSVT was noted on Holter monitor for 3 beats. The patient has a fitness watch and according to her, her heart rate can go to 200 bpm. event monitor was done on 10/10/2017 which shows sinus rhythm with episodes of sinus tachycardia. Frequent PVCs. Occasionally in bigeminy pattern. Monomorphic PVCs. Once she had 44 PVCs in a minute. No other arrhythmias. She had episodes of dizziness and near-syncope during the event monitor. She was started on Toprol-XL 25 mg 4 PVCs and sinus tachycardia. Thank you for your consultation. Please call me if you have any questions. Suhas Leos MD, FACP, FACC, FSCAI, FHRS, CCDS Interventional Cardiology Cardiac Electrophysiology Vascular Medicine and Endovascular Interventions Focused Exam Lactate Level 12/02/17 22:40: Lactic Acid Level 2.21*H 12/03/17 01:00: Lactic Acid Level 1.18 12/03/17 06:22: Lactic Acid Level 1.22 Martita LEOS MD Dec 05, 2017 2:29 pm
[2017-12-05] MEDS: MIDAZOLAM 2 MG/2 ML (VERSED) VIAL ONE ×2 (18:04→18:12)
[2017-12-05] MEDS ORDERED: MIDAZOLAM 2 MG/2 ML (VERSED) VIAL ONE (18:05)
[2017-12-05] MEDS ORDERED: MIDAZOLAM 5 MG/5 ML (VERSED) VIAL IVP ONE (18:15)
--- NOTE | 2017-12-05 22:22 | OPERATIVE REPORT ---
DATE OF SERVICE: 12/05/2017 ATTENDING PRIMARY CARE PHYSICIAN: Dr. Severino. ADMITTING PHYSICIAN: Dr. Gan. PREOPERATIVE DIAGNOSES: Nausea, vomiting, dysphagia, diarrhea. POSTOPERATIVE DIAGNOSES: Reflux esophagitis stage II with no ulcers or strictures. There was a moderate severity gastritis with a mild stricture at the level of the antrum over the beginning of the staple line from her gastric sleeve resection. No distal obstructions. PROCEDURE: EGD with biopsy and balloon dilatation. SURGEON: Neville Monsalve MD ANESTHESIA: Conscious sedation. ESTIMATED BLOOD LOSS: Minimal. FINDINGS: Reflux esophagitis stage II. There was a moderate severity gastritis, which was diffuse throughout the stomach. There was a mild stricture identified at the antrum at the beginning of the gastric staple line. Pylorus and duodenum appeared normal with no distal obstructions. DISPOSITION: The patient tolerated the procedure well. INDICATIONS: The patient is a 37-year-old female known to us. She is status post laparoscopic gastric sleeve resection . Her initial weight was about 300 pounds and she states that she has lost 180 pounds and has done well. She reports that in the past several months that she did develop fatigue and was found to have a cardiac arrhythmia consistent with SVT. She also reports in the past week she did develop nausea and vomiting and would also have substernal pressure sensation after food bolus that would rather come up or eventually go down. She does not report any hematemesis, no coffee ground emesis. During this timeframe, she also has had diarrhea. She does not report any recent travel, drinking unfiltered water or eating any different fruits from different locations. She also does not report taking antibiotics for any other reason. Before admission that she did feel fevers and chills as well as body aches, which may also indicate a potential gastrointestinal influenza virus. Stool was negative for Clostridium difficile and she does not report taking antibiotics recently for any other reason. DESCRIPTION OF PROCEDURE: The patient remained in the ICU under monitor. After adequate IV pain and sedating medications and conscious sedation anesthesia, the mouthpiece was applied. The endoscope was placed in the mouth, visualizing the pharynx and hypopharyngeal region. Vocal cords, epiglottis and vallecula identified and appeared to be normal. The endoscope was then gently intubated at the esophageal opening and esophagus was insufflated. The endoscope was then advanced through the first, second and third portions of the esophagus to the level of the GE junction, a reflux esophagitis stage II was identified. There were no ulcers or strictures identified in this region. A biopsy was taken with forceps with visualization of good hemostasis. The endoscope was then easily advanced in the stomach visualizing the stomach. The gastric sleeve resection was intact. There was a moderate severity gastritis, which was diffuse throughout the stomach. There were no marginal ulcerations as well as no foreign bodies as well as no active bleeding. At the beginning of the staple line at the level of the antrum, there was a mild stricture identified. The endoscope was easily passed through this region. Biopsy was taken of the stomach antrum with forceps for H. pylori with visualization of good hemostasis. The endoscope was then advanced to the pylorus and the first and second portion of the duodenum, which appeared normal with no distal obstructions. We then decided to proceed with dilatation of the mild distal gastric stricture. A dilatation balloon was placed into the antrum and pulled back to the area of the stricture. The balloon was then dilated to 2 atmospheres of pressure or 18 mm with no resistance. We then proceeded to 4 atmospheres of pressure or 19 mm with no resistance. We then proceeded to 6 atmospheres of pressure or 20 mm in luminal diameter with a mild to moderate resistance and left this in place for approximately 60 seconds. The balloon was then desufflated and removed with no mucosal tears or any active bleeding identified. Endoscope was then withdrawn while taking a second look and suctioning of residual air with no additional findings. The patient tolerated the procedure well. We will have her continue with medical management with continued antibiotics as well as IV hydration. We will also await her vitamin B1 levels. We will advance her diet to DYS3 diet to see how she does with the diet. We will also continue with Protonix and Carafate for now as well. On this admission, we will also proceed with a HIDA scan due to the potential for biliary dyskinesia with her symptoms as well as with her symptomatology as well as the recent significant weight loss. Job ID: [id number] DocumentID: [id number] Dictated Date: 12/05/2017 18:57:03 Clinical Writer Date: 12/05/2017 22:21:35 Dictated By: NEVILLE MONSALVE MD [facility]
[2017-12-06] VITALS (17 sets, daily range): BP systolic 81–110; BP diastolic 53–82
[2017-12-06] MEDS: KETOROLAC 30 MG/ML VIAL IM PRN ×2 (00:36→18:12)
[2017-12-06] MEDS: LACTATED RINGERS 1,000 ML IV SCH ×2 (03:11→11:10)
[2017-12-06 03:41] LABS: BASOPHILS % (AUTO) 0 % (0-10); EOSINOPHILS % (AUTO) 0 % (0-10); HEMATOCRIT 30 % (35-52); HEMOGLOBIN 10.5 G/DL (11.5-16.0); LYMPHOCYTES # (AUTO) 1.1 X 10^3 (1.0-4.0); LYMPHOCYTES % (AUTO) 15 % (12-44); MEAN CORPUSCULAR HEMOGLOBIN 31 PG (25-34); MEAN CORPUSCULAR HGB CONC 35 G/DL (32-36); MEAN CORPUSCULAR VOLUME 89 FL (80-99); MEAN PLATELET VOLUME 10.8 FL (7.4-10.4); MONOCYTES # (AUTO) 0.2 X 10^3 (0.0-1.0); MONOCYTES % (AUTO) 3 % (0-12); NEUTROPHILS # (AUTO) 5.8 X 10^3 (1.8-7.8); NEUTROPHILS % (AUTO) 82 % (42-75); PLATELET COUNT 206 10^3/uL (130-400); RED BLOOD COUNT 3.39 10^6/uL (4.35-5.85); RED CELL DISTRIBUTION WIDTH 13.5 % (10.0-14.5); WHITE BLOOD COUNT 7.1 10^3/uL (4.3-11.0)
[2017-12-06 03:58] LABS: BUN/CREATININE RATIO 15; CALCIUM 8.1 MG/DL (8.5-10.1); CARBON DIOXIDE 21 MMOL/L (21-32); CHLORIDE 113 MMOL/L (98-107); CREATININE SERUM 0.84 MG/DL (0.60-1.30); GFR ESTIMATED > 60; GLUCOSE 109 MG/DL (70-105); MAGNESIUM 2.2 MG/DL (1.8-2.4); PHOSPHORUS 3.7 MG/DL (2.3-4.7); POTASSIUM 4.4 MMOL/L (3.6-5.0); SODIUM 140 MMOL/L (135-145)
[2017-12-06] MEDS: POTASSIUM CL 10MEQ/50ML IVPB 50 ML IV SCH (05:25)
[2017-12-06] MEDS: KCL 20 MEQ TAB (K-DUR) PO SCH (05:26)
[2017-12-06] MEDS: MAGNESIUM 1 GM/100 ML IVPB 100 ML IV SCH (05:26)
--- NOTE | 2017-12-06 06:30 | Pulmonary Progress Note ---
Subjective Time Seen by Provider: 06:28 Subjective/Events-last exam Pt is now off Levophed gtt. Sepsis Event Evaluation Height, Weight, BMI Height: 5'10.00" Weight: 168lbs. 2.0oz. 76.408670od; 20.8 BMI Method:Stated Exam Exam Vital Signs Date Time Temp Pulse Resp B/P (MAP) Pulse Ox O2 Delivery O2 Flow Rate FiO2 12/06/17 05:00 35 15 90/62 (71) 97 Room Air 12/06/17 04:00 34 15 104/70 (81) 96 Room Air 12/06/17 04:00 97 Room Air 12/06/17 04:00 97.2 12/06/17 03:00 35 15 99/67 (78) 96 Room Air 12/06/17 02:00 37 17 102/65 (77) 93 Room Air 12/06/17 01:00 37 12/06/17 01:00 37 19 102/68 (79) 94 Room Air 12/06/17 00:00 98 Room Air 12/06/17 00:00 97.5 38 18 106/75 (85) 98 Room Air 12/05/17 23:05 37 18 101/70 (80) 96 Room Air 12/05/17 23:00 40 19 86/53 (64) 94 Room Air 12/05/17 22:00 39 15 87/53 (64) 96 Room Air 12/05/17 21:00 38 12 92/56 (68) 98 Room Air 12/05/17 20:00 53 20 90/54 (66) 100 Room Air 12/05/17 20:00 97.7 12/05/17 20:00 98 Room Air 12/05/17 19:00 40 12 101/68 (79) 100 Room Air 12/05/17 19:00 40 12/05/17 18:00 47 21 109/78 (88) 99 Room Air 12/05/17 17:00 34 11 97/66 (76) 99 Room Air 12/05/17 16:00 97.5 12/05/17 16:00 60 14 101/88 (92) 99 Room Air 12/05/17 16:00 98 Room Air 12/05/17 15:00 37 11 100/71 (81) 99 Room Air 12/05/17 14:00 41 31 103/64 (77) 99 Room Air 12/05/17 13:00 38 12/05/17 13:00 36 13 100/67 (78) 99 Room Air 12/05/17 12:00 96 Room Air 12/05/17 12:00 97.6 12/05/17 12:00 36 22 100/74 (83) 99 Room Air 12/05/17 11:00 36 14 96/71 (79) 99 Room Air 12/05/17 10:00 38 13 100/71 (81) 98 Room Air 12/05/17 09:00 40 21 89/57 (68) 95 Room Air 12/05/17 08:00 35 7 90/63 (72) 99 Room Air 12/05/17 08:00 96 Room Air 12/05/17 08:00 97.0 12/05/17 07:00 42 12/05/17 07:00 40 6 107/73 (84) 98 Room Air I & O 12/06/17 07:00 Intake Total 2330 ml Balance 2330 ml Height & Weight Height: 5'10.00" Weight: 168lbs. 2.0oz. 76.303133nn; 20.8 BMI Method:Stated General Appearance: No Apparent Distress, WD/WN HEENT: PERRL/EOMI, TMs Normal, Normal ENT Inspection, Pharynx Normal Neck: Full Range of Motion, Normal Inspection, Non Tender, Supple Respiratory: Lungs Clear, No Respiratory Distress Cardiovascular: Regular Rate, Rhythm, No Murmur Capillary Refill: Less Than 3 Seconds Gastrointestinal: soft (minimal discomfort on palpation diffusely) Extremity: Normal Capillary Refill, Normal Inspection, Normal Range of Motion, Non Tender, No Calf Tenderness, No Pedal Edema Neurologic/Psychiatric: Alert, Oriented x3 Skin: Normal Color, Warm/Dry Lymphatic: No Adenopathy Results Lab Laboratory Tests 12/05/17 03:20 12/06/17 03:30 Assessment/Plan Assessment/Plan Severe Sepsis with septic shock -Levophed is off -Solucortef -LR currently at 150 - decrease 75cc/hr - Rocephin, add flagyl Bradycardia -Dr. Leos/Carolyne following -Plan is to continue to monitor for now. No pacemaker at this time per cardiology. -Telemetry Anxiety/Depression -Start Xanax 0.5mg PO TID PRN -Restart Lexapro home dose UTI -Continue Abx Abdominal pain - generalized with elevated bili -improved Diarrhea - CDiff toxin pending - Malnutrition -Ensure TID with meals -Consult dietary Hx of gastric sleeve by Dr. Agarwal -Consult Dr. Agarwal Hx of SVT -Follows with Dr. Leos Will transfer to 4th floor with TELE if Ok with cardiology. TEODORA GAONA DO Dec 06, 2017 06:29
[2017-12-06] MEDS: HYDROCORTISONE 100 MG/2 ML (Solu-CORTEF) VIAL IV SCH (06:44)
[2017-12-06] MEDS: metroNIDAZOLE 500MG/100ML IVPB 100 ML IV SCH ×3 (06:44→22:28)
[2017-12-06] MEDS: ENOXAPARIN 40 MG/0.4 ML (LOVENOX) SYR SC SCH (06:45)
[2017-12-06] MEDS: CATHETER FLUSH 10 ML SYR IV SCH ×3 (06:48→22:28)
--- NOTE | 2017-12-06 07:40 | Progress Note-Hospitalist ---
Subjective HPI/CC On Admission Date Seen by Provider: Dec 06, 2017 Time Seen by Provider: 07:33 This is a 37-year-old white female with a history of a sleeve gastrectomy approximately a year and a half ago. The patient has lost about 180 pounds since that procedure.'s been complicated by persistent nausea vomiting and inability to eat much. She started feeling worse about the last 5 days. Yesterday she was at a restaurant began to have a severe headache then chills and a fever and presented to the emergency room with similar complaints. Chest x-ray and CT abdomen pelvis were unrevealing. Blood cultures are pending. The patient has received 30 mL's per kilogram of aggressive fluid hydration. Her MA P has been low necessitating transfer to the ICU overnight with institution of Levophed. Patient notes that her normal systolic pressure is in the 100s however. Patient complains of diffuse abdominal pain right right side both in the upper and the lower quadrant. She has good bowel sounds. Subjective/Events-last exam Pt reports feeling better today. Underwent EGD yesterday with balloon dilatation of stricture and felt she ate better last night. Other complaint is anxiety today regarding her HIDA scan. Objective Exam Vital Signs Vital Signs Date Time Temp Pulse Resp B/P (MAP) Pulse Ox O2 Delivery O2 Flow Rate FiO2 12/06/17 06:00 34 18 95/73 (80) 96 Room Air 12/06/17 04:00 97.2 Capillary Refill : Less Than 3 Seconds General Appearance: No Apparent Distress, WD/WN Respiratory: Lungs Clear, No Respiratory Distress Cardiovascular: No Murmur, Normal Peripheral Pulses, Bradycardia Gastrointestinal: Normal Bowel Sounds, Non Tender, Soft Extremity: Pedal Edema (trace) Neurologic/Psychiatric: Alert, Oriented x3, Normal Mood/Affect Results/Procedures Lab Laboratory Tests 12/06/17 03:30 Patient resulted labs reviewed. Imaging: Reviewed Imaging Films, Reviewed Imaging Report Assessment/Plan Assessment and Plan Assess & Plan/Chief Complaint Septic Shock Critical Care Critical Care: Critically Ill Patient Diagnosis/Problems Diagnosis/Problems (1) Septic shock Status: Acute Assessment & Plan: Now off pressors BP normal Urine only growing lactobacillus Blood cultures are negative Continue Rocephin and Flagyl (2) UTI (urinary tract infection) Status: Acute Assessment & Plan: UA consistent with UTI Culture only growing lactobacillus Continue current antibiotics Qualifiers: Urinary tract infection type: acute cystitis Hematuria presence: with hematuria Qualified Codes: N30.01 - Acute cystitis with hematuria (3) Bradycardia Assessment & Plan: Bracycardia in the 30s Symptomatic with activity Cardiology consulted, appreciate recs May ultimately need pacemaker (4) Gastritis Assessment & Plan: Underwent EGD yesterday Continue PPI and carafate Surgery consulted, appreciate recs Qualifiers: Gastritis type: unspecified gastritis Chronicity: chronic Gastritis bleeding: without bleeding Qualified Codes: K29.50 - Unspecified chronic gastritis without bleeding (5) Anxiety Assessment & Plan: Continue Lexapro and Xanax Clinical Quality Measures DVT/VTE Risk/Contraindication: Risk Factor Score Per Nursin RFS Level Per Nursing on Admit: 4+=Very High SUNNY GO MD Dec 06, 2017 7:40 am
--- NOTE | 2017-12-06 07:52 | Cardiology Progress Note ---
Subjective Date Seen by Provider: Dec 06, 2017 Time Seen by Provider: 07:50 Subjective/Events-last exam Patient is laying down in bed, still complaining of fatigue and loss of energy, still bradycardic. Review of Systems General: No Chills, No Night Sweats; Fatigue, Malaise; No Appetite, No Other HEENT: No Head Aches, No Visual Changes, No Eye Pain, No Ear Pain, No Dysphasia , No Sinus Congestion, No Post Nasal Drip, No Sore Throat, No Other Pulmonary: No Dyspnea, No Cough, No Pleuritic Chest Pain, No Other Cardiovascular: No: Chest Pain, Palpitations, Orthopnea, Paroxysmal Noc. Dyspnea, Edema, Lt Headedness, Other Objective-Cardiology Exam Last Set of Vital Signs Vital Signs 12/06/17 12/06/17 04:00 06:00 Temp 97.2 Pulse 34 Resp 18 B/P (MAP) 95/73 (80) Pulse Ox 96 O2 Delivery Room Air Capillary Refill : Less Than 3 Seconds I&O Intake and Output 12/06/17 00:00 Intake Total 3600 ml Output Total 400 ml Balance 3200 ml Intake Oral 500 ml IV Total 3100 ml Output Urine Total 400 ml # Voids 1 # Bowel Movements 2 General: Alert, Oriented X3, Cooperative HEENT: Atraumatic, PERRLA Neck: Supple, No JVD, No Thyromegaly Lungs: Clear to Auscultation, Normal Air Movement Heart: Normal S1, Normal S2, No Murmurs, Other (Bradycardia) Abdomen: Normal Bowel Sounds, Soft, No Tenderness, No Hepatosplenomegaly, No Masses Extremities: No Clubbing, No Cyanosis, No Edema, Normal Pulses, No Tenderness/ Swelling Skin: No Rashes, No Breakdown, No Significant Lesion Neuro: Normal Gait, Normal Speech, Strength at 5/5 X4 Ext, Normal Tone, Sensation Intact Psych/Mental Status: Mental Status NL, Mood NL Results Lab Laboratory Tests 12/06/17 03:30 A/P-Cardiology Admission Diagnosis Sinus node dysfunction Inappropriate sinus tachycardia Nausea and vomiting Hypotension Assessment/Plan Sinus bradycardia, sinus node dysfunction, symptomatic with fatigue and loss of energy, her UTI has improved, I recommend repeating urinalysis and considering a pacemaker implantation if her underlying infection has resolved. Hypotension, associated with bradycardia, received IV fluid. Malnutrition. Continue on IV fluid for now Frequent premature ventricular contractions, ventricular bigeminy, currently no PVCs were noted. Continue to monitor UTI, sepsis, improving, repeat urine analysis and evaluate response Status post EGD showing gastritis and stricture. Followed by Dr. Agarwal Status post gastric sleeve surgery complicated by severe weight loss and nausea and vomiting. History of deep venous thrombosis after a PICC line, PE, treated with 6 months with Eliquis, currently off anticoagulation. I visited with the patient and Dr. Hester and Dr. Leos. Agree with the current plan. I will signoff, reconsult if needed Clinical Quality Measures DVT/VTE Risk/Contraindication: Risk Factor Score Per Nursin RFS Level Per Nursing on Admit: 4+=Very High CAREY FRAUSTO MD Dec 06, 2017 07:52
--- NOTE | 2017-12-06 08:10 | Diagnostic Imaging Report ---
PATIENT HISTORY: Sepsis, UTI, nausea and vomiting, dehydration. TECHNIQUE: Single frontal view of the chest COMPARISON: 12/05/2017 FINDINGS: The tip of the right central line projects over the upper SVC. There are mild bibasilar opacities, left greater than right. The cardiac silhouette is normal in size. No pleural effusion or pneumothorax is seen. IMPRESSION: Mild bibasilar opacities, left greater than right, most likely atelectasis. Dictated by: Dictated on workstation # [id number]
[2017-12-06] MEDS ORDERED: NON-FORMULARY MEDICATION 1 EA EA (Escitalopram Oxalate (Lexapro) 10 MG) PO SCH (09:00)
--- NOTE | 2017-12-06 10:17 | Cardiology Progress Note ---
Cardiology SOAP Progress Note Subjective: Continues to feel weak. Objective: I&O/Vital Signs 12/06/17 12/06/17 12/06/17 12/07/17 21:00 22:00 23:00 00:00 Pulse 42 38 34 Resp 17 17 14 B/P (MAP) 90/65 (73) 89/65 (73) 81/53 (62) Pulse Ox 98 95 97 100 O2 Delivery Room Air Room Air Room Air Room Air O2 Flow Rate 0.00 12/07/17 12/07/17 12/07/17 12/07/17 00:00 00:00 01:00 01:00 Temp 98.2 Pulse 35 37 37 Resp 17 15 B/P (MAP) 85/56 (66) 93/64 (74) Pulse Ox 97 96 O2 Delivery Room Air Room Air 12/07/17 12/07/17 12/07/17 12/07/17 02:00 03:00 04:00 04:00 Temp 97.9 Pulse 39 37 Resp 17 18 B/P (MAP) 86/59 (68) 84/53 (63) Pulse Ox 95 95 100 O2 Delivery Room Air Room Air Room Air O2 Flow Rate 0.00 12/07/17 12/07/17 12/07/17 12/07/17 04:00 05:00 06:00 07:26 Pulse 37 36 37 40 Resp 14 21 17 B/P (MAP) 89/69 (76) 96/71 (79) 91/64 (73) Pulse Ox 93 97 95 O2 Delivery Room Air Room Air Room Air 12/07/17 00:00 Intake Total 800 ml Output Total 0 ml Balance 800 ml Weight (Pounds): 180 Weight (Ounces): 2.0 Weight (Calculated Kilograms): 81.097822 Constitutional: appears stated age, well-developed, well-nourished Respiratory: chest is bilaterally symmetric, lungs clear to auscultation Cardiovascular: regular rate-rhythm, bradycardia, S1 and S2 Gastrointestional: No tender, No soft, No round, No distended, No pulsatile mass, No organomegaly, No guarding, No rebound, No tenderness, No hernia, No mass, No audible bowel sounds, No abnormal bowel sounds, No abdominal bruits, No spleenomegaly, No other Extremities: No normal range of motion, No non-tender, No normal inspection, No pedal edema, No calf tenderness, No normal capillary refill, No pelvis stable , No calf tenderness, No inflammation, No pedal edema, No slow capillary refill , No swelling, No other, No abrasion, No clubbing, No cyanosis, No ecchymosis, No laceration, No no lower extremity edema bilateral, No significant edema, No tenderness, No wound Neurologic/Psychiatric: no motor/sensory deficits, alert, normal mood/affect, oriented x 3, power is 5/5 both on sides Skin: normal color, warm/dry Results/Procedures: Labs Laboratory Tests 12/06/17 11:15: Urine Color BROWNH, Urine Clarity SLIGHTLY CLOUDY, Urine pH 6, Urine Specific [place] 1.020, Urine Protein 3+H, Urine Glucose (UA) NEGATIVE, Urine Ketones 1+H , Urine Nitrite POSITIVEH, Urine Bilirubin 1+H, Urine Urobilinogen 4H, Urine Leukocyte Esterase 3+H, Urine RBC (Auto) 5+H, Urine RBC 10-25H, Urine WBC 5-10H , Urine Squamous Epithelial Cells 10-25H, Urine Crystals NONE, Urine Bacteria FEWH, Urine Casts NONE, Urine Mucus MODERATEH, Urine Culture Indicated YES 12/06/17 12:50: Erythrocyte Sedimentation Rate 3, C-Reactive Protein High Sensitivity 1.63H 12/07/17 03:50: White Blood Count 5.0, Red Blood Count 3.28L, Hemoglobin 10.0L, Hematocrit 30L, Mean Corpuscular Volume 91, Mean Corpuscular Hemoglobin 30, Mean Corpuscular Hemoglobin Concent 34, Red Cell Distribution Width 13.4, Platelet Count 203, Mean Platelet Volume 11.1H, Neutrophils (%) (Auto) 50, Lymphocytes (%) (Auto) 42 , Monocytes (%) (Auto) 8, Eosinophils (%) (Auto) 0, Basophils (%) (Auto) 0, Neutrophils # (Auto) 2.5, Lymphocytes # (Auto) 2.1, Monocytes # (Auto) 0.4, Eosinophils # (Auto) 0.0, Basophils # (Auto) 0.0, Sodium Level 137, Potassium Level 4.0, Chloride Level 112H, Carbon Dioxide Level 22, Anion Gap 3L, Blood Urea Nitrogen 18, Creatinine 0.79, Estimat Glomerular Filtration Rate > 60, BUN/ Creatinine Ratio 23, Glucose Level 73, Calcium Level 7.7L, Phosphorus Level 2.3 , Magnesium Level 2.1 Microbiology 12/02/17 Blood Culture - Preliminary, Resulted No growth 12/05/17 Stool Culture - Preliminary, Resulted See Report 12/06/17 Urine Culture - Preliminary, Resulted Sent To [facility] A/P: Assessment/Dx: UTI, sepsis. Sinus bradycardia, Symptomatic severe sinus node dysfunction History of right subclavian DVT, History of pulmonary embolism, PVCs, PSVT , normal LV function. Plan: UTI, sepsis, borderline blood pressure. On IV antibiotics, Rocephin and Flagyl. Sinus bradycardia, lowest heart rate in the upper 30s. When I saw her she was sinus bradycardic at 43 BPM. Continues to have severe symptomatic sinus node dysfunction. Dual-chamber permanent pacemaker is recommended when UTI/sepsis is resolved. I spoke at length with the patient and with Dr. Godinez and Dr. Barfield. The emphasis was on the fact that we have to make sure that there is no active infection before we consider dual-chamber permanent pacemaker. History of orthostatic hypotension: May benefit from Florinef or midodrine. History of right subclavian DVT, completed 6 months of Eliquis. History of pulmonary embolism, PVCs, brief episode of PSVT, on beta blockers which were held. normal LV function on echocardiogram done 09/2017. Previous right subclavian DVT. she has history of obesity and underwent gastric sleeve surgery in May 2016. Postoperatively she had a complicated course with significant malnutrition and other complications in June. PICC line was placed in June. Eventually she was discharged home. Between June and December of this year she had occasional right arm discomfort but no swelling or shortness of breath. On 12/22/2016 she complained of right upper extremity tingling and numbness. However there was no swelling. On 12/23/2016 she had significantly swollen right upper extremity and occasional back pain. She had no chest pain or shortness of breath. Her right upper extremity was also discolored with purplish hue. She presented to our ER and venous ultrasound done on 12/23/2016 showed an occlusive DVT segment of about 10 cm in length around the junction of the right subclavian and axillary vein. CT angiography of the chest was also performed which showed small burden of pulmonary embolism involving the posterior segment branch of the right lower pulmonary artery and questionable filling defect in the subsegmental branch of the right upper pulmonary artery. She was started on Eliquis therapy. The patient denies any history of clotting abnormality in the family including pulmonary embolism and DVT. She also denies any other medical issues. She is a nonsmoker. She took Eliquis for 6 months and discontinued in May 2017. Repeat upper extremity ultrasound on 10/04/2017 showed no evidence of DVT in the right upper extremity. She was lost to follow-up because she lost her health insurance. She presents with complain of shortness of breath, significant fatigue, syncopal episodes and palpitations. A Holter monitor was done on 2017 in [place]. An echocardiogram was also done recently. Holter monitor done on 08/29/2017 showed normal sinus rhythm with rare isolated PACs with 2 atrial couplets and one 3 beat run of PSVT. There were rare isolated PVCs with 26 bigeminy noted. There were total of 99 PVCs. There was no sustained SVT or VT noted. The patient's symptoms correlated with sinus tachycardia with rates ranging from [id number] bpm. Highest heart rate for sinus tachycardia was 136 bpm. Echocardiogram done 09/2017 shows normal LV function and normal RV function with borderline elevated PA pressure. No significant valvular heart disease. I spoken at length to the patient and it seems that the patient's symptoms are correlated with sinus tachycardia. We need to rule out appropriate physiological causes of sinus tachycardia which includes hyperthyroidism, anemia , electrolyte imbalance. She denies any pain, anxiety or fever which are other causes of appropriate sinus tachycardia. If all of the above are ruled out then she will be labeled with inappropriate sinus tachycardia and treatment is usually with beta blockers. The other differential diagnosis could be orthostatic hypotension. I have recommended good hydration and not to be in a situation where she can hurt herself. A very brief run of PSVT was noted on Holter monitor for 3 beats. The patient has a fitness watch and according to her, her heart rate can go to 200 bpm. event monitor was done on 10/10/2017 which shows sinus rhythm with episodes of sinus tachycardia. Frequent PVCs. Occasionally in bigeminy pattern. Monomorphic PVCs. Once she had 44 PVCs in a minute. No other arrhythmias. She had episodes of dizziness and near-syncope during the event monitor. She was started on Toprol-XL 25 mg 4 PVCs and sinus tachycardia. Thank you for your consultation. Please call me if you have any questions. Suhas Leos MD, FACP, FACC, FSCAI, FHRS, CCDS Interventional Cardiology Cardiac Electrophysiology Vascular Medicine and Endovascular Interventions Martita LEOS MD Dec 06, 2017 10:17 am
[2017-12-06] MEDS: PANTOPRAZOLE 40 MG (PROTONIX) VIAL IV SCH ×2 (10:52→21:35)
[2017-12-06] MEDS: PANTOPRAZOLE 40 MG (PROTONIX) TAB PO SCH (10:53)
[2017-12-06] MEDS: cefTRIAXone 1 GM/NS 50 ML IVPB IV SCH ×2 (10:53)
[2017-12-06] MEDS: SUCRALFATE 1 GM (CARAFATE) TAB PO SCH ×2 (10:53→20:36)
[2017-12-06] MEDS: CHOLESTYRAMINE 4 GM (QUESTRAN LITE, PREVALITE) PKT PO SCH ×3 (10:54→20:36)
[2017-12-06] MEDS: ALPRAZolam 0.5 MG (XANAX) TAB PO PRN ×2 (11:04→20:38)
[2017-12-06 11:28] LABS: CLARITY,URINE SLIGHTLY CLOUDY; COLOR,URINE BROWN; GLUCOSE, URINE (UA) NEGATIVE (NEGATIVE); KETONES,URINE 1+ (NEGATIVE); LEUKOCYTE ESTERASE ,URINE 3+ (NEGATIVE); NITRITE,URINE POSITIVE (NEGATIVE); PH,URINE 6 (5-9); PROTEIN,URINE 3+ (NEGATIVE); UROBILINOGEN,URINE 4 MG/DL (NORMAL)
--- NOTE | 2017-12-06 11:41 | Diagnostic Imaging Report ---
INDICATION: Abdominal pain. TECHNIQUE: The patient was administered 4.9 mCi technetium 99m Choletec intravenously and imaging over the abdomen was performed. At 60 minutes, patient ingested one can of Ensure and a gallbladder ejection fraction was calculated. FINDINGS: There is homogeneous uptake of activity by the liver with prompt excretion of activity into the common duct and gallbladder. Normal passage of activity into the small bowel is seen. The gallbladder ejection fraction is 89%. IMPRESSION: 1. No evidence of cystic duct or common bile duct obstruction. 2. Gallbladder ejection fraction of 89%, which may indicate a hyperfunctioning gallbladder. Dictated by: Dictated on workstation # [id number]
[2017-12-06 11:52] LABS: BACTERIA,URINE FEW /HPF; BILIRUBIN,URINE 1+ (NEGATIVE)
[2017-12-06] MEDS ORDERED: NS IV 500 ML 500 ML ONE (12:14)
[2017-12-06] MEDS: HYDROcodone/APAP 5 MG/325 MG (LORTAB) TAB PO PRN ×2 (13:01→18:11)
[2017-12-06] MEDS: ONDANSETRON 4 MG/2 ML (SDV) Z0FRAN IV PRN (14:18)
--- NOTE | 2017-12-06 18:39 | Progress Note (SOAP) ---
Subjective Date Seen by a Provider: Dec 06, 2017 Time Seen by a Provider: 12:00 Subjective/Events-last exam doing better today. tolerating soft diet. less loose BM's. no abdominal pain. Objective Exam Vital Signs Date Time Temp Pulse Resp B/P (MAP) Pulse Ox O2 Delivery O2 Flow Rate FiO2 12/06/17 17:48 98.4 48 12 101/82 (88) 99 Room Air 12/06/17 17:00 35 12 101/77 (85) 100 Room Air 12/06/17 16:00 37 17 97 Room Air 12/06/17 15:52 100 Room Air 0.00 12/06/17 15:00 37 12 103/75 (84) 98 Room Air 12/06/17 14:00 36 15 99 Room Air 12/06/17 13:00 37 14 98 Room Air 12/06/17 13:00 40 12/06/17 12:00 42 15 103/75 (84) 98 Room Air 12/06/17 12:00 98.2 12/06/17 11:16 100 Room Air 0.00 12/06/17 11:13 56 12 108/74 (85) Room Air 12/06/17 08:22 100 Room Air 0.00 12/06/17 07:00 33 12/06/17 06:00 34 18 95/73 (80) 96 Room Air 12/06/17 05:00 35 15 90/62 (71) 97 Room Air 12/06/17 04:00 34 15 104/70 (81) 96 Room Air 12/06/17 04:00 97 Room Air 12/06/17 04:00 97.2 12/06/17 03:00 35 15 99/67 (78) 96 Room Air 12/06/17 02:00 37 17 102/65 (77) 93 Room Air 12/06/17 01:00 37 12/06/17 01:00 37 19 102/68 (79) 94 Room Air 12/06/17 00:00 98 Room Air 12/06/17 00:00 97.5 38 18 106/75 (85) 98 Room Air 12/05/17 23:05 37 18 101/70 (80) 96 Room Air 12/05/17 23:00 40 19 86/53 (64) 94 Room Air 12/05/17 22:00 39 15 87/53 (64) 96 Room Air 12/05/17 21:00 38 12 92/56 (68) 98 Room Air 12/05/17 20:00 53 20 90/54 (66) 100 Room Air 12/05/17 20:00 97.7 12/05/17 20:00 98 Room Air 12/05/17 19:00 40 12 101/68 (79) 100 Room Air 12/05/17 19:00 40 I & O 12/06/17 07:00 Intake Total 5580 ml Output Total 350 ml Balance 5230 ml Capillary Refill : Less Than 3 SecondsLess Than 3 Seconds General Appearance: No Apparent Distress HEENT: PERRL/EOMI Neck: Full Range of Motion Respiratory: Chest Non Tender, Lungs Clear, Normal Breath Sounds Cardiovascular: Regular Rate, Rhythm Gastrointestinal: normal bowel sounds, non tender, soft Extremity: Normal Capillary Refill Neurologic/Psychiatric: Alert, Oriented x3 Skin: Normal Color Lymphatic: No Adenopathy Results Lab Laboratory Tests 12/06/17 03:30: White Blood Count 7.1, Red Blood Count 3.39L, Hemoglobin 10.5L, Hematocrit 30L, Mean Corpuscular Volume 89, Mean Corpuscular Hemoglobin 31, Mean Corpuscular Hemoglobin Concent 35, Red Cell Distribution Width 13.5, Platelet Count 206, Mean Platelet Volume 10.8H, Neutrophils (%) (Auto) 82H, Lymphocytes (%) (Auto) 15, Monocytes (%) (Auto) 3, Eosinophils (%) (Auto) 0, Basophils (%) (Auto) 0, Neutrophils # (Auto) 5.8, Lymphocytes # (Auto) 1.1, Monocytes # (Auto) 0.2, Eosinophils # (Auto) 0.0, Basophils # (Auto) 0.0, Sodium Level 140, Potassium Level 4.4, Chloride Level 113H, Carbon Dioxide Level 21, Anion Gap 6, Blood Urea Nitrogen 13, Creatinine 0.84, Estimat Glomerular Filtration Rate > 60, BUN/ Creatinine Ratio 15, Glucose Level 109H, Calcium Level 8.1L, Phosphorus Level 3.7, Magnesium Level 2.2 12/06/17 11:15: Urine Color BROWNH, Urine Clarity SLIGHTLY CLOUDY, Urine pH 6, Urine Specific [place] 1.020, Urine Protein 3+H, Urine Glucose (UA) NEGATIVE, Urine Ketones 1+H , Urine Nitrite POSITIVEH, Urine Bilirubin 1+H, Urine Urobilinogen 4H, Urine Leukocyte Esterase 3+H, Urine RBC (Auto) 5+H, Urine RBC 10-25H, Urine WBC 5-10H , Urine Squamous Epithelial Cells 10-25H, Urine Crystals NONE, Urine Bacteria FEWH, Urine Casts NONE, Urine Mucus MODERATEH, Urine Culture Indicated YES 12/06/17 12:50: Erythrocyte Sedimentation Rate 3, C-Reactive Protein High Sensitivity 1.63H Microbiology 12/02/17 Blood Culture - Preliminary, Resulted No growth 12/05/17 Stool Culture - Preliminary, Resulted See Report 12/06/17 Urine Culture - Preliminary, Resulted Sent To [facility] Assessment/Plan Assessment/Plan Assess & Plan/Chief Complaint nausea and intermittent abdominal pain with associated diarrhea. symptomatic SVT and bradycardia. scheduled for pacemaker implantation per cardiology. low fat diet as tolerated. abx for UTI/sepsis from lactobacillus overgrowth however improving. 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 if she continues to be symptomatic despite medical therapy with cholestyramine as an outpatient, she may benefit from a cholecystectomy. Clinical Quality Measures DVT/VTE Risk/Contraindication: Risk Factor Score Per Nursin RFS Level Per Nursing on Admit: 4+=Very High NEVILLE MONSALVE MD Dec 06, 2017 18:39
[2017-12-07] VITALS (24 sets, daily range): BP systolic 84–109; BP diastolic 53–78
[2017-12-07] MEDS: LACTATED RINGERS 1,000 ML IV SCH ×2 (00:46→16:22)
[2017-12-07 03:57] LABS: BASOPHILS % (AUTO) 0 % (0-10); EOSINOPHILS % (AUTO) 0 % (0-10); HEMATOCRIT 30 % (35-52); LYMPHOCYTES # (AUTO) 2.1 X 10^3 (1.0-4.0); LYMPHOCYTES % (AUTO) 42 % (12-44); MEAN CORPUSCULAR HGB CONC 34 G/DL (32-36); MEAN CORPUSCULAR VOLUME 91 FL (80-99); MEAN PLATELET VOLUME 11.1 FL (7.4-10.4); MONOCYTES # (AUTO) 0.4 X 10^3 (0.0-1.0); MONOCYTES % (AUTO) 8 % (0-12); NEUTROPHILS # (AUTO) 2.5 X 10^3 (1.8-7.8); NEUTROPHILS % (AUTO) 50 % (42-75); PLATELET COUNT 203 10^3/uL (130-400); RED BLOOD COUNT 3.28 10^6/uL (4.35-5.85); RED CELL DISTRIBUTION WIDTH 13.4 % (10.0-14.5)
[2017-12-07 04:02] LABS: MEAN CORPUSCULAR HEMOGLOBIN 30 PG (25-34)
[2017-12-07 04:34] LABS: BUN/CREATININE RATIO 23; CALCIUM 7.7 MG/DL (8.5-10.1); CARBON DIOXIDE 22 MMOL/L (21-32); CHLORIDE 112 MMOL/L (98-107); CREATININE SERUM 0.79 MG/DL (0.60-1.30); GFR ESTIMATED > 60; GLUCOSE 73 MG/DL (70-105); MAGNESIUM 2.1 MG/DL (1.8-2.4); PHOSPHORUS 2.3 MG/DL (2.3-4.7); SODIUM 137 MMOL/L (135-145)
--- NOTE | 2017-12-07 05:48 | Pulmonary Progress Note ---
Subjective Time Seen by a Provider: 05:52 Subjective/Events-last exam Possible pacemaker today. Sepsis Event Evaluation Height, Weight, BMI Height: 5'10.00" Weight: 180lbs. 2.0oz. 81.962580jw; 20.8 BMI Method:Stated Exam Exam Vital Signs Date Time Temp Pulse Resp B/P (MAP) Pulse Ox O2 Delivery O2 Flow Rate FiO2 12/07/17 02:00 39 17 86/59 (68) 95 Room Air 12/07/17 01:00 37 12/07/17 01:00 37 15 93/64 (74) 96 Room Air 12/07/17 00:00 35 17 85/56 (66) 97 Room Air 12/07/17 00:00 98.2 12/07/17 00:00 100 Room Air 0.00 12/06/17 23:00 34 14 81/53 (62) 97 Room Air 12/06/17 22:00 38 17 89/65 (73) 95 Room Air 12/06/17 21:00 42 17 90/65 (73) 98 Room Air 12/06/17 20:00 97.8 12/06/17 20:00 100 Room Air 0.00 12/06/17 20:00 38 15 110/78 (89) 97 Room Air 12/06/17 19:00 38 12/06/17 19:00 38 10 96/71 (79) 99 Room Air 12/06/17 17:48 98.4 48 12 101/82 (88) 99 Room Air 12/06/17 17:00 35 12 101/77 (85) 100 Room Air 12/06/17 16:00 37 17 97 Room Air 12/06/17 15:52 100 Room Air 0.00 12/06/17 15:00 37 12 103/75 (84) 98 Room Air 12/06/17 14:00 36 15 99 Room Air 12/06/17 13:00 37 14 98 Room Air 12/06/17 13:00 40 12/06/17 12:00 42 15 103/75 (84) 98 Room Air 12/06/17 12:00 98.2 12/06/17 11:16 100 Room Air 0.00 12/06/17 11:13 56 12 108/74 (85) Room Air 12/06/17 08:22 100 Room Air 0.00 12/06/17 07:00 33 12/06/17 06:00 34 18 95/73 (80) 96 Room Air I & O 12/07/17 07:00 Intake Total 1850 ml Output Total 75 ml Balance 1775 ml Height & Weight Height: 5'10.00" Weight: 180lbs. 2.0oz. 81.164339wo; 20.8 BMI Method:Stated General Appearance: No Apparent Distress HEENT: PERRL/EOMI Neck: Full Range of Motion Respiratory: Chest Non Tender, Lungs Clear, Normal Breath Sounds Cardiovascular: Regular Rate, Rhythm Capillary Refill: Less Than 3 Seconds Gastrointestinal: normal bowel sounds, non tender, soft Extremity: Normal Capillary Refill Neurologic/Psychiatric: Alert, Oriented x3 Skin: Normal Color Lymphatic: No Adenopathy Results Lab Laboratory Tests 12/06/17 03:30 12/07/17 03:50 Assessment/Plan Assessment/Plan Severe Sepsis -- now resolved -No fever or leukocytosis currently - Rocephin, add flagyl Hypotension - improved -Pt has been in the 80's through the night while asleep. -Solucortef D/C'd yesterday. IVF also decreased yesterday to 75cc/hr. Will Give patient a 1 liter bolus of LR and she if her BP improves with activity Bradycardia -Dr. Leos/Carolyne following -Plan for possible pacemaker. -Telemetry Anxiety/Depression -Xanax 0.5mg PO TID PRN -Lexapro UTI -Continue Abx Abdominal pain - generalized with elevated bili -improved Diarrhea - CDiff toxin pending - Malnutrition -Ensure TID with meals -Consult dietary Hx of gastric sleeve by Dr. Agarwal -Dr. Agarwal Hx of SVT -Follows with TEODORA Mason DO Dec 07, 2017 05:48
[2017-12-07] MEDS: ENOXAPARIN 40 MG/0.4 ML (LOVENOX) SYR SC SCH (06:05)
[2017-12-07] MEDS: CATHETER FLUSH 10 ML SYR IV SCH ×3 (06:05→22:00)
[2017-12-07] MEDS: metroNIDAZOLE 500MG/100ML IVPB 100 ML IV SCH ×3 (06:05→22:00)
[2017-12-07] MEDS: CHOLESTYRAMINE 4 GM (QUESTRAN LITE, PREVALITE) PKT PO SCH ×4 (06:05→21:00)
--- NOTE | 2017-12-07 07:47 | Progress Note-Hospitalist ---
Subjective HPI/CC On Admission Date Seen by Provider: Dec 07, 2017 Time Seen by Provider: 07:42 This is a 37-year-old white female with a history of a sleeve gastrectomy approximately a year and a half ago. The patient has lost about 180 pounds since that procedure.'s been complicated by persistent nausea vomiting and inability to eat much. She started feeling worse about the last 5 days. Yesterday she was at a restaurant began to have a severe headache then chills and a fever and presented to the emergency room with similar complaints. Chest x-ray and CT abdomen pelvis were unrevealing. Blood cultures are pending. The patient has received 30 mL's per kilogram of aggressive fluid hydration. Her MA P has been low necessitating transfer to the ICU overnight with institution of Levophed. Patient notes that her normal systolic pressure is in the 100s however. Patient complains of diffuse abdominal pain right right side both in the upper and the lower quadrant. She has good bowel sounds. Subjective/Events-last exam Pt reports feeling bloated and swollen. Heart rate remains in 30s. Objective Exam Vital Signs Vital Signs Date Time Temp Pulse Resp B/P (MAP) Pulse Ox O2 Delivery O2 Flow Rate FiO2 12/07/17 06:00 37 17 91/64 (73) 95 Room Air 12/07/17 04:00 97.9 12/07/17 04:00 0.00 Capillary Refill : Less Than 3 SecondsLess Than 3 Seconds General Appearance: No Apparent Distress, WD/WN Respiratory: Lungs Clear, No Accessory Muscle Use, No Respiratory Distress Cardiovascular: No Murmur, Bradycardia Gastrointestinal: Normal Bowel Sounds, Non Tender, Soft Neurologic/Psychiatric: Alert, Oriented x3 Results/Procedures Lab Laboratory Tests 12/07/17 03:50 Patient resulted labs reviewed. Imaging: Reviewed Imaging Films, Reviewed Imaging Report Assessment/Plan Assessment and Plan Assess & Plan/Chief Complaint Septic Shock Critical Care Critical Care: Critically Ill Patient Diagnosis/Problems Diagnosis/Problems (1) Septic shock Status: Acute Assessment & Plan: Now off pressors BP low side of normal Urine only growing lactobacillus Repeat UA looks contaminated, culture pending (discussed with micro and hsould be back today, they will call RML if not received) Consider straight cathing to obtain more accurate specimen prior to pacemaker implantation Blood cultures are negative Stool cultures negative Continue Rocephin and Flagyl (2) UTI (urinary tract infection) Status: Acute Assessment & Plan: UA consistent with UTI Original culture only growing lactobacillus Continue current antibiotics Qualifiers: Urinary tract infection type: acute cystitis Hematuria presence: with hematuria Qualified Codes: N30.01 - Acute cystitis with hematuria (3) Bradycardia Assessment & Plan: Bracycardia in the 30s Symptomatic with activity Cardiology consulted, appreciate recs Plan for pacemaker for persistent bradycardia when infection cleared (4) Gastritis Assessment & Plan: Underwent EGD yesterday Continue PPI and carafate Surgery consulted, appreciate recs Qualifiers: Gastritis type: unspecified gastritis Chronicity: chronic Gastritis bleeding: without bleeding Qualified Codes: K29.50 - Unspecified chronic gastritis without bleeding (5) Anxiety Assessment & Plan: Continue Lexapro and Xanax Clinical Quality Measures DVT/VTE Risk/Contraindication: Risk Factor Score Per Nursin RFS Level Per Nursing on Admit: 4+=Very High SUNNY GO MD Dec 07, 2017 7:47 am
--- NOTE | 2017-12-07 08:35 | Cardiology Progress Note ---
Cardiology SOAP Progress Note Subjective: Tiredness and fatigue. Objective: I&O/Vital Signs 12/06/17 12/07/17 12/07/17 12/07/17 23:00 00:00 00:00 00:00 Temp 98.2 Pulse 34 35 Resp 14 17 B/P (MAP) 81/53 (62) 85/56 (66) Pulse Ox 97 100 97 O2 Delivery Room Air Room Air Room Air O2 Flow Rate 0.00 12/07/17 12/07/17 12/07/17 12/07/17 01:00 01:00 02:00 03:00 Pulse 37 37 39 37 Resp 15 17 18 B/P (MAP) 93/64 (74) 86/59 (68) 84/53 (63) Pulse Ox 96 95 95 O2 Delivery Room Air Room Air Room Air 12/07/17 12/07/17 12/07/17 12/07/17 04:00 04:00 04:00 05:00 Temp 97.9 Pulse 37 36 Resp 14 21 B/P (MAP) 89/69 (76) 96/71 (79) Pulse Ox 100 93 97 O2 Delivery Room Air Room Air Room Air O2 Flow Rate 0.00 12/07/17 12/07/17 12/07/17 12/07/17 06:00 07:00 07:26 08:00 Pulse 37 39 40 35 Resp 17 17 9 B/P (MAP) 91/64 (73) 104/70 (81) 97/72 (80) Pulse Ox 95 99 97 O2 Delivery Room Air Room Air Room Air 12/07/17 12/07/17 12/07/17 08:00 08:30 09:00 Temp 98.4 Pulse 40 Resp 19 B/P (MAP) 90/60 (70) Pulse Ox 100 95 O2 Delivery Room Air Room Air 12/07/17 00:00 Intake Total 800 ml Output Total 0 ml Balance 800 ml Weight (Pounds): 182 Weight (Ounces): 2.0 Weight (Calculated Kilograms): 82.099736 Constitutional: appears stated age, well-developed, well-nourished Respiratory: chest is bilaterally symmetric, lungs clear to auscultation Cardiovascular: regular rate-rhythm, bradycardia, S1 and S2 Gastrointestional: No tender, No soft, No round, No distended, No pulsatile mass, No organomegaly, No guarding, No rebound, No tenderness, No hernia, No mass, No audible bowel sounds, No abnormal bowel sounds, No abdominal bruits, No spleenomegaly, No other Extremities: No normal range of motion, No non-tender, No normal inspection, No pedal edema, No calf tenderness, No normal capillary refill, No pelvis stable , No calf tenderness, No inflammation, No pedal edema, No slow capillary refill , No swelling, No other, No abrasion, No clubbing, No cyanosis, No ecchymosis, No laceration, No no lower extremity edema bilateral, No significant edema, No tenderness, No wound Neurologic/Psychiatric: no motor/sensory deficits, alert, normal mood/affect, oriented x 3, power is 5/5 both on sides Skin: normal color, warm/dry Results/Procedures: Labs Laboratory Tests 12/06/17 11:15: Urine Color BROWNH, Urine Clarity SLIGHTLY CLOUDY, Urine pH 6, Urine Specific [place] 1.020, Urine Protein 3+H, Urine Glucose (UA) NEGATIVE, Urine Ketones 1+H , Urine Nitrite POSITIVEH, Urine Bilirubin 1+H, Urine Urobilinogen 4H, Urine Leukocyte Esterase 3+H, Urine RBC (Auto) 5+H, Urine RBC 10-25H, Urine WBC 5-10H , Urine Squamous Epithelial Cells 10-25H, Urine Crystals NONE, Urine Bacteria FEWH, Urine Casts NONE, Urine Mucus MODERATEH, Urine Culture Indicated YES 12/06/17 12:50: Erythrocyte Sedimentation Rate 3, C-Reactive Protein High Sensitivity 1.63H 12/07/17 03:50: White Blood Count 5.0, Red Blood Count 3.28L, Hemoglobin 10.0L, Hematocrit 30L, Mean Corpuscular Volume 91, Mean Corpuscular Hemoglobin 30, Mean Corpuscular Hemoglobin Concent 34, Red Cell Distribution Width 13.4, Platelet Count 203, Mean Platelet Volume 11.1H, Neutrophils (%) (Auto) 50, Lymphocytes (%) (Auto) 42 , Monocytes (%) (Auto) 8, Eosinophils (%) (Auto) 0, Basophils (%) (Auto) 0, Neutrophils # (Auto) 2.5, Lymphocytes # (Auto) 2.1, Monocytes # (Auto) 0.4, Eosinophils # (Auto) 0.0, Basophils # (Auto) 0.0, Sodium Level 137, Potassium Level 4.0, Chloride Level 112H, Carbon Dioxide Level 22, Anion Gap 3L, Blood Urea Nitrogen 18, Creatinine 0.79, Estimat Glomerular Filtration Rate > 60, BUN/ Creatinine Ratio 23, Glucose Level 73, Calcium Level 7.7L, Phosphorus Level 2.3 , Magnesium Level 2.1 Microbiology 12/02/17 Blood Culture - Preliminary, Resulted No growth 12/05/17 Stool Culture - Preliminary, Resulted Yeast species See Report 12/06/17 Urine Culture - Final, Complete Yeast species A/P: Assessment/Dx: UTI, sepsis. Sinus bradycardia, Symptomatic severe sinus node dysfunction History of right subclavian DVT, History of pulmonary embolism, PVCs, PSVT , normal LV function. Plan: UTI, sepsis, borderline blood pressure. On IV antibiotics, Rocephin and Flagyl. Sinus bradycardia, lowest heart rate in the upper 30s. When I saw her she was sinus bradycardic at 39 BPM. Continues to have severe symptomatic sinus node dysfunction with. Dual-chamber permanent pacemaker is recommended when UTI/ sepsis is resolved. I spoke at length with the patient and with Dr. Godinez and Dr. Barfield. The emphasis was on the fact that we have to make sure that there is no active infection before we consider dual-chamber permanent pacemaker. I will recommend repeat blood cultures x2 today. If we have two blood cultures 24 hours apart that are negative, we can safely rule out active bacteremia. I will discuss more with Dr Godinez. Tentatively I we'll plan for a dual-chamber permanent pacemaker tomorrow. History of orthostatic hypotension: May benefit from Florinef or midodrine. History of right subclavian DVT, completed 6 months of Eliquis. History of pulmonary embolism, PVCs, brief episode of PSVT, on beta blockers which were held. normal LV function on echocardiogram done 09/2017. Previous right subclavian DVT. she has history of obesity and underwent gastric sleeve surgery in May 2016. Postoperatively she had a complicated course with significant malnutrition and other complications in June. PICC line was placed in June. Eventually she was discharged home. Between June and December of this year she had occasional right arm discomfort but no swelling or shortness of breath. On 12/22/2016 she complained of right upper extremity tingling and numbness. However there was no swelling. On 12/23/2016 she had significantly swollen right upper extremity and occasional back pain. She had no chest pain or shortness of breath. Her right upper extremity was also discolored with purplish hue. She presented to our ER and venous ultrasound done on 12/23/2016 showed an occlusive DVT segment of about 10 cm in length around the junction of the right subclavian and axillary vein. CT angiography of the chest was also performed which showed small burden of pulmonary embolism involving the posterior segment branch of the right lower pulmonary artery and questionable filling defect in the subsegmental branch of the right upper pulmonary artery. She was started on Eliquis therapy. The patient denies any history of clotting abnormality in the family including pulmonary embolism and DVT. She also denies any other medical issues. She is a nonsmoker. She took Eliquis for 6 months and discontinued in May 2017. Repeat upper extremity ultrasound on 10/04/2017 showed no evidence of DVT in the right upper extremity. She was lost to follow-up because she lost her health insurance. She presents with complain of shortness of breath, significant fatigue, syncopal episodes and palpitations. A Holter monitor was done on 2017 in [place]. An echocardiogram was also done recently. Holter monitor done on 08/29/2017 showed normal sinus rhythm with rare isolated PACs with 2 atrial couplets and one 3 beat run of PSVT. There were rare isolated PVCs with 26 bigeminy noted. There were total of 99 PVCs. There was no sustained SVT or VT noted. The patient's symptoms correlated with sinus tachycardia with rates ranging from [id number] bpm. Highest heart rate for sinus tachycardia was 136 bpm. Echocardiogram done 09/2017 shows normal LV function and normal RV function with borderline elevated PA pressure. No significant valvular heart disease. I spoken at length to the patient and it seems that the patient's symptoms are correlated with sinus tachycardia. We need to rule out appropriate physiological causes of sinus tachycardia which includes hyperthyroidism, anemia , electrolyte imbalance. She denies any pain, anxiety or fever which are other causes of appropriate sinus tachycardia. If all of the above are ruled out then she will be labeled with inappropriate sinus tachycardia and treatment is usually with beta blockers. The other differential diagnosis could be orthostatic hypotension. I have recommended good hydration and not to be in a situation where she can hurt herself. A very brief run of PSVT was noted on Holter monitor for 3 beats. The patient has a fitness watch and according to her, her heart rate can go to 200 bpm. event monitor was done on 10/10/2017 which shows sinus rhythm with episodes of sinus tachycardia. Frequent PVCs. Occasionally in bigeminy pattern. Monomorphic PVCs. Once she had 44 PVCs in a minute. No other arrhythmias. She had episodes of dizziness and near-syncope during the event monitor. She was started on Toprol-XL 25 mg 4 PVCs and sinus tachycardia. Thank you for your consultation. Please call me if you have any questions. Suhas Leos MD, FACP, FACC, FSCAI, FHRS, CCDS Interventional Cardiology Cardiac Electrophysiology Vascular Medicine and Endovascular Interventions Martita LEOS MD Dec 07, 2017 8:35 am
[2017-12-07] MEDS: PANTOPRAZOLE 40 MG (PROTONIX) VIAL IV SCH (09:19)
[2017-12-07] MEDS: PANTOPRAZOLE 40 MG (PROTONIX) TAB PO SCH (09:19)
[2017-12-07] MEDS: SUCRALFATE 1 GM (CARAFATE) TAB PO SCH ×2 (09:19→20:10)
[2017-12-07] MEDS: cefTRIAXone 1 GM/NS 50 ML IVPB IV SCH ×2 (09:19)
[2017-12-07] MEDS: ALPRAZolam 0.5 MG (XANAX) TAB PO PRN ×2 (09:26→16:55)
[2017-12-07 14:56] LABS: BILIRUBIN,URINE NEGATIVE (NEGATIVE); CLARITY,URINE CLEAR; COLOR,URINE YELLOW; GLUCOSE, URINE (UA) NEGATIVE (NEGATIVE); KETONES,URINE NEGATIVE (NEGATIVE); LEUKOCYTE ESTERASE ,URINE 2+ (NEGATIVE); NITRITE,URINE NEGATIVE (NEGATIVE); PH,URINE 5 (5-9); PROTEIN,URINE 1+ (NEGATIVE); UROBILINOGEN,URINE NORMAL (NORMAL)
[2017-12-07 15:12] LABS: BACTERIA,URINE TRACE /HPF; HYALINE CASTS, URINE 25-50 /LPF; SQUAMOUS EPITHELIAL CELL,UR RARE /HPF
[2017-12-07] MEDS ORDERED: FLUCONAZOLE 200 MG/100 ML 100 ML IV NR (15:15)
--- NOTE | 2017-12-07 15:26 | Progress Note (SOAP) ---
Subjective Date Seen by a Provider: Dec 07, 2017 Time Seen by a Provider: 15:00 Subjective/Events-last exam doing well. able to eat but now NPO for possible pacemaker implantation today. diarrhea improving. Objective Exam Vital Signs Date Time Temp Pulse Resp B/P (MAP) Pulse Ox O2 Delivery O2 Flow Rate FiO2 12/07/17 13:44 40 12/07/17 12:16 98.2 12/07/17 12:00 100 Room Air 12/07/17 12:00 39 12 98/69 (79) 98 Room Air 12/07/17 11:00 35 9 103/78 (86) 97 Room Air 12/07/17 10:00 38 21 93/70 (78) 95 Room Air 12/07/17 09:00 40 19 90/60 (70) 95 Room Air 12/07/17 08:30 98.4 12/07/17 08:00 100 Room Air 12/07/17 08:00 35 9 97/72 (80) 97 Room Air 12/07/17 07:26 40 12/07/17 07:00 39 17 104/70 (81) 99 Room Air 12/07/17 06:00 37 17 91/64 (73) 95 Room Air 12/07/17 05:00 36 21 96/71 (79) 97 Room Air 12/07/17 04:00 37 14 89/69 (76) 93 Room Air 12/07/17 04:00 97.9 12/07/17 04:00 100 Room Air 0.00 12/07/17 03:00 37 18 84/53 (63) 95 Room Air 12/07/17 02:00 39 17 86/59 (68) 95 Room Air 12/07/17 01:00 37 12/07/17 01:00 37 15 93/64 (74) 96 Room Air 12/07/17 00:00 35 17 85/56 (66) 97 Room Air 12/07/17 00:00 98.2 12/07/17 00:00 100 Room Air 0.00 12/06/17 23:00 34 14 81/53 (62) 97 Room Air 12/06/17 22:00 38 17 89/65 (73) 95 Room Air 12/06/17 21:00 42 17 90/65 (73) 98 Room Air 12/06/17 20:00 97.8 12/06/17 20:00 100 Room Air 0.00 12/06/17 20:00 38 15 110/78 (89) 97 Room Air 12/06/17 19:00 38 12/06/17 19:00 38 10 96/71 (79) 99 Room Air 12/06/17 17:48 98.4 48 12 101/82 (88) 99 Room Air 12/06/17 17:00 35 12 101/77 (85) 100 Room Air 12/06/17 16:00 37 17 97 Room Air 12/06/17 15:52 100 Room Air 0.00 I & O 12/07/17 07:00 Intake Total 1850 ml Output Total 75 ml Balance 1775 ml Capillary Refill : Less Than 3 SecondsLess Than 3 Seconds General Appearance: No Apparent Distress HEENT: PERRL/EOMI Neck: Full Range of Motion Respiratory: Chest Non Tender, Lungs Clear, Normal Breath Sounds Cardiovascular: Regular Rate, Rhythm Gastrointestinal: normal bowel sounds, non tender, soft Extremity: Normal Capillary Refill Neurologic/Psychiatric: Alert, Oriented x3 Skin: Normal Color Lymphatic: No Adenopathy Results Lab Laboratory Tests 12/07/17 03:50: White Blood Count 5.0, Red Blood Count 3.28L, Hemoglobin 10.0L, Hematocrit 30L, Mean Corpuscular Volume 91, Mean Corpuscular Hemoglobin 30, Mean Corpuscular Hemoglobin Concent 34, Red Cell Distribution Width 13.4, Platelet Count 203, Mean Platelet Volume 11.1H, Neutrophils (%) (Auto) 50, Lymphocytes (%) (Auto) 42 , Monocytes (%) (Auto) 8, Eosinophils (%) (Auto) 0, Basophils (%) (Auto) 0, Neutrophils # (Auto) 2.5, Lymphocytes # (Auto) 2.1, Monocytes # (Auto) 0.4, Eosinophils # (Auto) 0.0, Basophils # (Auto) 0.0, Sodium Level 137, Potassium Level 4.0, Chloride Level 112H, Carbon Dioxide Level 22, Anion Gap 3L, Blood Urea Nitrogen 18, Creatinine 0.79, Estimat Glomerular Filtration Rate > 60, BUN/ Creatinine Ratio 23, Glucose Level 73, Calcium Level 7.7L, Phosphorus Level 2.3 , Magnesium Level 2.1 12/07/17 14:45: Urine Color YELLOW, Urine Clarity CLEAR, Urine pH 5, Urine Specific [place] 1.025H, Urine Protein 1+H, Urine Glucose (UA) NEGATIVE, Urine Ketones NEGATIVE, Urine Nitrite NEGATIVE, Urine Bilirubin NEGATIVE, Urine Urobilinogen NORMAL, Urine Leukocyte Esterase 2+H, Urine RBC (Auto) NEGATIVE, Urine RBC NONE, Urine WBC 2-5, Urine Squamous Epithelial Cells RARE, Urine Crystals NONE, Urine Bacteria TRACE, Urine Casts PRESENT, Urine Hyaline Casts 25-50H, Urine Mucus NEGATIVE, Urine Culture Indicated NO Microbiology 12/02/17 Blood Culture - Preliminary, Resulted No growth 12/05/17 Stool Culture - Preliminary, Resulted Yeast species See Report 12/06/17 Urine Culture - Final, Complete Yeast species Assessment/Plan Assessment/Plan Assess & Plan/Chief Complaint nausea and intermittent abdominal pain with associated diarrhea. symptomatic SVT and bradycardia. scheduled for pacemaker implantation per cardiology. low fat diet as tolerated. abx for UTI/sepsis from lactobacillus and fungal overgrowth however improving. 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 if she continues to be symptomatic despite medical therapy with cholestyramine as an outpatient, she may benefit from a cholecystectomy. diet as tolerated after pacemaker placed. Clinical Quality Measures DVT/VTE Risk/Contraindication: Risk Factor Score Per Nursin RFS Level Per Nursing on Admit: 4+=Very High NEVILLE MONSALVE MD Dec 07, 2017 3:26 pm
[2017-12-07] MEDS: KETOROLAC 30 MG/ML VIAL IM PRN (20:10)
[2017-12-07] MEDS: HYDROcodone/APAP 5 MG/325 MG (LORTAB) TAB PO PRN (20:10)
[2017-12-08] VITALS (22 sets, daily range): BP systolic 57–116; BP diastolic 35–92
[2017-12-08] MEDS: ALPRAZolam 0.5 MG (XANAX) TAB PO PRN (01:09)
[2017-12-08 04:25] LABS: BASOPHILS % (AUTO) 0 % (0-10); EOSINOPHILS # (AUTO) 0.1 10^3/uL (0.0-0.3); EOSINOPHILS % (AUTO) 1 % (0-10); HEMATOCRIT 30 % (35-52); HEMOGLOBIN 10.5 G/DL (11.5-16.0); LYMPHOCYTES # (AUTO) 2.8 X 10^3 (1.0-4.0); LYMPHOCYTES % (AUTO) 46 % (12-44); MEAN CORPUSCULAR HEMOGLOBIN 31 PG (25-34); MEAN CORPUSCULAR HGB CONC 35 G/DL (32-36); MEAN CORPUSCULAR VOLUME 90 FL (80-99); MEAN PLATELET VOLUME 11.2 FL (7.4-10.4); MONOCYTES # (AUTO) 0.3 X 10^3 (0.0-1.0); MONOCYTES % (AUTO) 5 % (0-12); NEUTROPHILS % (AUTO) 48 % (42-75); PLATELET COUNT 180 10^3/uL (130-400); RED BLOOD COUNT 3.34 10^6/uL (4.35-5.85); RED CELL DISTRIBUTION WIDTH 12.8 % (10.0-14.5); WHITE BLOOD COUNT 6.2 10^3/uL (4.3-11.0)
[2017-12-08 04:48] LABS: BUN/CREATININE RATIO 18; CALCIUM 7.5 MG/DL (8.5-10.1); CARBON DIOXIDE 22 MMOL/L (21-32); CHLORIDE 112 MMOL/L (98-107); CREATININE SERUM 0.74 MG/DL (0.60-1.30); GFR ESTIMATED > 60; GLUCOSE 65 MG/DL (70-105); MAGNESIUM 1.9 MG/DL (1.8-2.4); PHOSPHORUS 2.6 MG/DL (2.3-4.7); POTASSIUM 3.9 MMOL/L (3.6-5.0); SODIUM 139 MMOL/L (135-145)
--- NOTE | 2017-12-08 06:11 | Pulmonary Progress Note ---
Sepsis Event Evaluation Height, Weight, BMI Height: 5'10.00" Weight: 182lbs. 2.0oz. 82.572636jj; 20.8 BMI Method:Stated Exam Exam Vital Signs Date Time Temp Pulse Resp B/P (MAP) Pulse Ox O2 Delivery O2 Flow Rate FiO2 12/08/17 05:00 40 16 94/64 (74) 95 Room Air 12/08/17 04:00 45 19 103/75 (84) 96 Room Air 12/08/17 04:00 97 Room Air 12/08/17 03:00 39 12 90/71 (77) 95 Room Air 12/08/17 02:00 43 19 92/58 (69) 94 Room Air 12/08/17 01:00 40 17 94/67 (76) 95 Room Air 12/08/17 01:00 40 12/08/17 00:00 99 Room Air 12/08/17 00:00 44 16 92/70 (77) 96 Room Air 12/07/17 23:00 46 10 102/70 (81) 94 Room Air 12/07/17 22:00 78 14 90/60 (70) 96 Room Air 12/07/17 21:00 44 10 106/75 (85) 97 Room Air 12/07/17 20:00 42 13 109/76 (87) 97 Room Air 12/07/17 20:00 99 Room Air 12/07/17 19:00 42 12/07/17 19:00 40 19 90/62 (71) 94 Room Air 12/07/17 18:00 41 19 95/64 (74) 95 Room Air 12/07/17 17:00 45 16 103/76 (85) 100 Room Air 12/07/17 16:24 98.3 12/07/17 16:00 39 17 91/64 (73) 97 Room Air 12/07/17 16:00 100 Room Air 12/07/17 15:00 40 12 105/74 (84) 98 Room Air 12/07/17 14:00 41 17 88/66 (73) 94 Room Air 12/07/17 13:44 40 12/07/17 13:00 39 18 93/62 (72) 96 Room Air 12/07/17 12:16 98.2 12/07/17 12:00 100 Room Air 12/07/17 12:00 39 12 98/69 (79) 98 Room Air 12/07/17 11:00 35 9 103/78 (86) 97 Room Air 12/07/17 10:00 38 21 93/70 (78) 95 Room Air 12/07/17 09:00 40 19 90/60 (70) 95 Room Air 12/07/17 08:30 98.4 12/07/17 08:00 100 Room Air 12/07/17 08:00 35 9 97/72 (80) 97 Room Air 12/07/17 07:26 40 12/07/17 07:00 39 17 104/70 (81) 99 Room Air I & O 12/08/17 07:00 Intake Total 1380 ml Output Total 550 ml Balance 830 ml Height & Weight Height: 5'10.00" Weight: 182lbs. 2.0oz. 82.410985ke; 20.8 BMI Method:Stated General Appearance: No Apparent Distress, WD/WN HEENT: PERRL/EOMI Neck: Full Range of Motion Respiratory: Lungs Clear, No Respiratory Distress Cardiovascular: Regular Rate, Rhythm, No Murmur Capillary Refill: Less Than 3 Seconds Gastrointestinal: normal bowel sounds, non tender, soft Extremity: Normal Capillary Refill Neurologic/Psychiatric: Alert, Oriented x3 Skin: Normal Color Lymphatic: No Adenopathy Results Lab Laboratory Tests 12/07/17 03:50 12/08/17 03:55 Assessment/Plan Assessment/Plan Severe Sepsis -- now resolved -No fever or leukocytosis currently - Rocephin, add flagyl Hypotension - improved -Will give another liter bolus of LR and increase IVF to 150 since pt is going to surgery Bradycardia -Dr. Leos/Carolyne following -Plan for possible pacemaker todya -Telemetry Anxiety/Depression -Xanax 0.5mg PO TID PRN -Lexapro UTI -Continue Abx Abdominal pain - generalized with elevated bili -improved Diarrhea - CDiff toxin pending - Malnutrition -Ensure TID with meals -Consult dietary Hx of gastric sleeve by Dr. Agarwal -Dr. Agarwal Hx of SVT -Follows with TEODORA Mason DO Dec 08, 2017 06:11
[2017-12-08] MEDS ORDERED: LACTATED RINGERS 1,000 ML IV ONE (06:30)
[2017-12-08] MEDS: CHOLESTYRAMINE 4 GM (QUESTRAN LITE, PREVALITE) PKT PO SCH ×4 (06:42→21:00)
[2017-12-08] MEDS: PANTOPRAZOLE 40 MG (PROTONIX) TAB PO SCH (06:42)
[2017-12-08] MEDS: metroNIDAZOLE 500MG/100ML IVPB 100 ML IV SCH (06:42)
[2017-12-08] MEDS: CATHETER FLUSH 10 ML SYR IV SCH ×3 (06:42→22:00)
[2017-12-08] MEDS: ENOXAPARIN 40 MG/0.4 ML (LOVENOX) SYR SC SCH (06:43)
[2017-12-08] MEDS: LACTATED RINGERS 1,000 ML IV SCH ×2 (06:45→13:00)
[2017-12-08] MEDS ORDERED: NS IV 1000 ML 1,000 ML ONE (06:51)
[2017-12-08] MEDS ORDERED: HEParin (CATH LAB) 1,000 ML IV ONE (06:51)
[2017-12-08] MEDS ORDERED: LIDOCAINE 1% INJ 20 ML 20 ML VIAL ONE (06:51)
[2017-12-08] MEDS ORDERED: ceFAZolin 1,000 MG/10 ML (ANCEF) VIAL IV ONE (07:00)
[2017-12-08] MEDS ORDERED: BACITRACIN INJECTION 50,000 UNIT, SODIUM CHLORIDE 0.9% IRRIGATIO 500 ML IR ONE ×2 (07:00)
--- NOTE | 2017-12-08 08:31 | Progress Note-Hospitalist ---
Subjective HPI/CC On Admission Date Seen by Provider: Dec 08, 2017 Time Seen by Provider: 08:29 This is a 37-year-old white female with a history of a sleeve gastrectomy approximately a year and a half ago. The patient has lost about 180 pounds since that procedure.'s been complicated by persistent nausea vomiting and inability to eat much. She started feeling worse about the last 5 days. Yesterday she was at a restaurant began to have a severe headache then chills and a fever and presented to the emergency room with similar complaints. Chest x-ray and CT abdomen pelvis were unrevealing. Blood cultures are pending. The patient has received 30 mL's per kilogram of aggressive fluid hydration. Her MA P has been low necessitating transfer to the ICU overnight with institution of Levophed. Patient notes that her normal systolic pressure is in the 100s however. Patient complains of diffuse abdominal pain right right side both in the upper and the lower quadrant. She has good bowel sounds. Subjective/Events-last exam Pt reports feeling well. No complaints. Plan for pacemaker at 1130 today. Objective Exam Vital Signs Vital Signs Date Time Temp Pulse Resp B/P (MAP) Pulse Ox O2 Delivery O2 Flow Rate FiO2 12/08/17 06:00 39 14 109/74 (86) 95 Room Air 12/08/17 04:00 97.9 12/07/17 04:00 0.00 Capillary Refill : Less Than 3 SecondsLess Than 3 Seconds General Appearance: No Apparent Distress, WD/WN Respiratory: Lungs Clear, No Respiratory Distress Cardiovascular: Regular Rate, Rhythm, No Murmur Gastrointestinal: Normal Bowel Sounds, Non Tender, Soft Neurologic/Psychiatric: Alert, Oriented x3, Normal Mood/Affect Results/Procedures Lab Laboratory Tests 12/08/17 03:55 Patient resulted labs reviewed. Imaging: Reviewed Imaging Films, Reviewed Imaging Report Assessment/Plan Assessment and Plan Assess & Plan/Chief Complaint Septic shock Critical Care Critical Care: Critically Ill Patient Diagnosis/Problems Diagnosis/Problems (1) Septic shock Status: Acute Assessment & Plan: BP stable but low/normotensive Repeat urine negative from straight cath Blood cultures are negative x2 Stool cultures negative Continue Rocephin and Flagyl (2) Bradycardia Assessment & Plan: Bracycardia in the 30s Symptomatic with activity Cardiology consulted, appreciate recs Plan for pacemaker today (3) UTI (urinary tract infection) Status: Acute Assessment & Plan: UA from straight cath show no signs of infection Original culture only growing lactobacillus Continue current antibiotics Qualifiers: Urinary tract infection type: acute cystitis Hematuria presence: with hematuria Qualified Codes: N30.01 - Acute cystitis with hematuria (4) Gastritis Assessment & Plan: Underwent EGD 12/06 with balloon dilatation Continue PPI and carafate Surgery consulted, appreciate recs Qualifiers: Gastritis type: unspecified gastritis Chronicity: chronic Gastritis bleeding: without bleeding Qualified Codes: K29.50 - Unspecified chronic gastritis without bleeding (5) Anxiety Assessment & Plan: Continue Lexapro and Xanax Clinical Quality Measures DVT/VTE Risk/Contraindication: Risk Factor Score Per Nursin RFS Level Per Nursing on Admit: 4+=Very High SUNNY GO MD Dec 08, 2017 8:31 am
[2017-12-08] MEDS: SUCRALFATE 1 GM (CARAFATE) TAB PO SCH ×2 (08:33→21:43)
[2017-12-08] MEDS: cefTRIAXone 1 GM/NS 50 ML IVPB IV SCH ×2 (08:50)
--- NOTE | 2017-12-08 11:10 | Physical Therapy Evaluation ---
PT Evaluation-General Medical Diagnosis Admission Date Dec 03, 2017 at 00:20 Medical Diagnosis: UTI/sepsis/N&V Onset Date: Dec 02, 2017 Therapy Diagnosis Therapy Diagnosis: debility/weakness Height/Weight Height (Feet): 5 Height (Inches): 10.00 Weight (Pounds): 182 Weight (Ounces): 2.0 Precautions Precautions/Isolations: Fall Prevention, Standard Precautions Weight Bear Status Right Lower Extremity: Right Weight Bearing/Tolerated Left Lower Extremity: Left Weight Bearing/Tolerated Referral Physician: Gretchen Reason for Referral: Evaluation/Treatment Medical History Additional Medical History gastric sleeve ~ 2 yrs ago with a 180# wt. loss Current History ED secondary to fever and N&V Reviewed History: Yes Social History Home: Single Level Current Living Status: Spouse Prior/Core FIM Prior Level of Function Functional [place] Measure 0=Not Assessed/NA 4=Minimal Assistance 1=Total Assistance 5=Supervision or Setup 2=Maximal Assistance 6=Modified [place] 3=Moderate Assistance 7=Complete [place] Bed Mobility: 7 Transfers (B,C,W/C) (FIM): 7 Gait: 7 PT Evaluation-Current Subjective Patient agrees to PT. She reports she is having pacemaker placement on this date. Pain Numeric Pain Scale: 0-No Pain Location: No Pain Reported Objective Patient Orientation: Normal For Age Problem Solving: Good Comprehension: 7 Expression: 7 Social Interaction: 7 Problem Solvin Memory: 7 Attachments: IV ROM/Strength ROM Lower Extremities bilateral LE WFL Strength Lower Extremities 5/5 grossly bilaterally Integumentary/Posture Integumentary refer to nursing notes Bowel Incontinence: No Bladder Incontinence: No Posture erect Neuromuscular (Tone, Coordination, Reflexes) grossly intact Sensory Vision: Functional Hearing: Functional Sensation Right Lower Extremit: Intact Sensation Left Lower Extremity: Intact Transfers Functional [place] Measure 0=Not Assessed/NA 4=Minimal Assistance 1=Total Assistance 5=Supervision or Setup 2=Maximal Assistance 6=Modified [place] 3=Moderate Assistance 7=Complete [place] Transfers (B, C, W/C) (FIM): 7 Scootin Rollin Supine to/from Sit: 7 Sit to/from Stand: 7 Gait Mode of Locomotion: Walk Anticipated Mode of Locomotion: Walk Comments/Gait Description NT secondary to attachments and patient to have procedure on this date. Balance Sitting Static: Normal Sitting Dynamic: Normal Standing Static: Normal Standing Dynamic: Normal Assessment/Needs 37 y.o. female, will be seen short term by skilled PT to ensure safe mobility to return to home. Patient to have pacemaker placement on this date. Rehab Potential: Good PT Short Term Goals Short Term Goals Time Frame: Dec 10, 2017 Transfers (B,C,W/C) (FIM): 7 Gait (FIM): 7 Distance (FIM): 3=150 ft Gait Level of Assist: 7 Gait Assistive Device: None PT Plan Treatment/Plan Treatment Plan: Continue Plan of Care Treatment Plan: Education, Functional Activity Pina, Functional Strength, Gait , Therapeutic Exercise Treatment Duration: Dec 10, 2017 Frequency: 3 times per week Estimated Hrs Per Day: .25 hour per day Patient and/or Family Agrees t: Yes Discharge Recommendations Therapy D/C Recommendations: Home Independently Time/GCodes Time In: 1035 Time Out: 1050 Total Billed Treatment Time: 15 Total Billed Treatment 1 visit EVLowC 15 min G Codes Necessary: MG Almodovar PT Dec 08, 2017 11:09
[2017-12-08] MEDS ORDERED: DEXTROSE 50% 50 ML (IMS) SYR IV ONE ×2 (11:15→13:30)
--- NOTE | 2017-12-08 13:21 | Occ Therapy Progress Note ---
Therapy Progress Note OT order received. Chart reviewed. Pt. having pacemaker placed today per documentation. PT reports pt. is independent with transfers and mobility. Will evaluate this pt. tomorrow due to having procedure this date, for any possible ADL needs. 1320 SYLVIA STUBBS OT Dec 08, 2017 13:20
[2017-12-08] MEDS ORDERED: MIDAZOLAM 5 MG/5 ML (VERSED) VIAL ONE ×2 (13:33→14:24)
[2017-12-08] MEDS ORDERED: fentaNYL INJECTION 100 MCG/2 ML AMP ONE ×2 (13:33→14:24)
[2017-12-08] MEDS ORDERED: NS (IVPB) 100 ML ONE (13:39)
[2017-12-08] MEDS ORDERED: ceFAZolin 1,000 MG/10 ML (ANCEF) VIAL ONE (13:39)
--- NOTE | 2017-12-08 14:11 | Cardiology Progress Note ---
Cardiology SOAP Progress Note Subjective: fatigue and tiredness. Objective: I&O/Vital Signs 12/08/17 12/08/17 12/08/17 12/08/17 03:00 04:00 04:00 04:00 Temp 97.9 Pulse 39 45 Resp 12 19 B/P (MAP) 90/71 (77) 103/75 (84) Pulse Ox 95 97 96 O2 Delivery Room Air Room Air Room Air 12/08/17 12/08/17 12/08/17 12/08/17 05:00 06:00 06:00 06:00 Pulse 40 39 72 39 Resp 16 16 14 B/P (MAP) 94/64 (74) 91/67 (75) 109/74 (86) Pulse Ox 95 95 95 O2 Delivery Room Air Room Air Room Air 12/08/17 12/08/17 12/08/17 12/08/17 08:00 08:00 09:00 10:00 Temp 98.2 Pulse 43 43 45 Resp 10 6 18 B/P (MAP) 111/83 (92) 116/80 (92) 113/78 (90) Pulse Ox 97 97 98 O2 Delivery Room Air Room Air Room Air Room Air 12/08/17 12/08/17 12/08/17 12/08/17 11:00 11:25 11:32 12:00 Temp 99.0 Pulse 52 50 Resp 15 12 B/P (MAP) 110/92 (98) 115/80 (92) Pulse Ox 99 98 O2 Delivery Room Air Room Air Room Air 12/08/17 13:33 Temp 98.9 12/08/17 00:00 Intake Total 1320 ml Output Total 550 ml Balance 770 ml Weight (Pounds): 182 Weight (Ounces): 2.0 Weight (Calculated Kilograms): 82.229577 Constitutional: appears stated age, well-developed, well-nourished Respiratory: chest is bilaterally symmetric, lungs clear to auscultation Cardiovascular: regular rate-rhythm, bradycardia, S1 and S2 Gastrointestional: No tender, No soft, No round, No distended, No pulsatile mass, No organomegaly, No guarding, No rebound, No tenderness, No hernia, No mass, No audible bowel sounds, No abnormal bowel sounds, No abdominal bruits, No spleenomegaly, No other Extremities: No normal range of motion, No non-tender, No normal inspection, No pedal edema, No calf tenderness, No normal capillary refill, No pelvis stable , No calf tenderness, No inflammation, No pedal edema, No slow capillary refill , No swelling, No other, No abrasion, No clubbing, No cyanosis, No ecchymosis, No laceration, No no lower extremity edema bilateral, No significant edema, No tenderness, No wound Neurologic/Psychiatric: no motor/sensory deficits, alert, normal mood/affect, oriented x 3, power is 5/5 both on sides Skin: normal color, warm/dry Results/Procedures: Labs Laboratory Tests 12/07/17 14:45: Urine Color YELLOW, Urine Clarity CLEAR, Urine pH 5, Urine Specific [place] 1.025H, Urine Protein 1+H, Urine Glucose (UA) NEGATIVE, Urine Ketones NEGATIVE, Urine Nitrite NEGATIVE, Urine Bilirubin NEGATIVE, Urine Urobilinogen NORMAL, Urine Leukocyte Esterase 2+H, Urine RBC (Auto) NEGATIVE, Urine RBC NONE, Urine WBC 2-5, Urine Squamous Epithelial Cells RARE, Urine Crystals NONE, Urine Bacteria TRACE, Urine Casts PRESENT, Urine Hyaline Casts 25-50H, Urine Mucus NEGATIVE, Urine Culture Indicated NO 12/08/17 03:55: White Blood Count 6.2, Red Blood Count 3.34L, Hemoglobin 10.5L, Hematocrit 30L, Mean Corpuscular Volume 90, Mean Corpuscular Hemoglobin 31, Mean Corpuscular Hemoglobin Concent 35, Red Cell Distribution Width 12.8, Platelet Count 180, Mean Platelet Volume 11.2H, Neutrophils (%) (Auto) 48, Lymphocytes (%) (Auto) 46H, Monocytes (%) (Auto) 5, Eosinophils (%) (Auto) 1, Basophils (%) (Auto) 0, Neutrophils # (Auto) 3.0, Lymphocytes # (Auto) 2.8, Monocytes # (Auto) 0.3, Eosinophils # (Auto) 0.1, Basophils # (Auto) 0.0, Sodium Level 139, Potassium Level 3.9, Chloride Level 112H, Carbon Dioxide Level 22, Anion Gap 5, Blood Urea Nitrogen 13, Creatinine 0.74, Estimat Glomerular Filtration Rate > 60, BUN/ Creatinine Ratio 18, Glucose Level 65L, Calcium Level 7.5L, Phosphorus Level 2.6 , Magnesium Level 1.9 12/08/17 11:00: Glucometer 65L 12/08/17 12:48: Glucometer 70 Microbiology 12/06/17 Blood Culture - Preliminary, Resulted No growth 12/05/17 Stool Culture - Final, Complete Yeast species See Report 12/06/17 Urine Culture - Final, Complete Yeast species A/P: Assessment/Dx: UTI, sepsis. Sinus bradycardia, Symptomatic severe sinus node dysfunction History of right subclavian DVT, History of pulmonary embolism, PVCs, PSVT , normal LV function. Plan: UTI, sepsis, borderline blood pressure. On IV antibiotics, Rocephin and Flagyl. Sinus bradycardia, lowest heart rate in the upper 30s. When I saw her she was sinus bradycardic at 39 BPM. Continues to have severe symptomatic sinus node dysfunction. Dual-chamber permanent pacemaker is recommended today. negative BC x 2, done 24 hours apart. On IV antibiotics. all risks and complications discussed at length with the patient. She agrees and signs an informed consent. History of orthostatic hypotension: May benefit from Florinef or midodrine. History of right subclavian DVT, completed 6 months of Eliquis. History of pulmonary embolism, PVCs, brief episode of PSVT, on beta blockers which were held. normal LV function on echocardiogram done 09/2017. Previous right subclavian DVT. she has history of obesity and underwent gastric sleeve surgery in May 2016. Postoperatively she had a complicated course with significant malnutrition and other complications in June. PICC line was placed in June. Eventually she was discharged home. Between June and December of this year she had occasional right arm discomfort but no swelling or shortness of breath. On 12/22/2016 she complained of right upper extremity tingling and numbness. However there was no swelling. On 12/23/2016 she had significantly swollen right upper extremity and occasional back pain. She had no chest pain or shortness of breath. Her right upper extremity was also discolored with purplish hue. She presented to our ER and venous ultrasound done on 12/23/2016 showed an occlusive DVT segment of about 10 cm in length around the junction of the right subclavian and axillary vein. CT angiography of the chest was also performed which showed small burden of pulmonary embolism involving the posterior segment branch of the right lower pulmonary artery and questionable filling defect in the subsegmental branch of the right upper pulmonary artery. She was started on Eliquis therapy. The patient denies any history of clotting abnormality in the family including pulmonary embolism and DVT. She also denies any other medical issues. She is a nonsmoker. She took Eliquis for 6 months and discontinued in May 2017. Repeat upper extremity ultrasound on 10/04/2017 showed no evidence of DVT in the right upper extremity. She was lost to follow-up because she lost her health insurance. She presents with complain of shortness of breath, significant fatigue, syncopal episodes and palpitations. A Holter monitor was done on 2017 in [place]. An echocardiogram was also done recently. Holter monitor done on 08/29/2017 showed normal sinus rhythm with rare isolated PACs with 2 atrial couplets and one 3 beat run of PSVT. There were rare isolated PVCs with 26 bigeminy noted. There were total of 99 PVCs. There was no sustained SVT or VT noted. The patient's symptoms correlated with sinus tachycardia with rates ranging from [id number] bpm. Highest heart rate for sinus tachycardia was 136 bpm. Echocardiogram done 09/2017 shows normal LV function and normal RV function with borderline elevated PA pressure. No significant valvular heart disease. I spoken at length to the patient and it seems that the patient's symptoms are correlated with sinus tachycardia. We need to rule out appropriate physiological causes of sinus tachycardia which includes hyperthyroidism, anemia , electrolyte imbalance. She denies any pain, anxiety or fever which are other causes of appropriate sinus tachycardia. If all of the above are ruled out then she will be labeled with inappropriate sinus tachycardia and treatment is usually with beta blockers. The other differential diagnosis could be orthostatic hypotension. I have recommended good hydration and not to be in a situation where she can hurt herself. A very brief run of PSVT was noted on Holter monitor for 3 beats. The patient has a fitness watch and according to her, her heart rate can go to 200 bpm. event monitor was done on 10/10/2017 which shows sinus rhythm with episodes of sinus tachycardia. Frequent PVCs. Occasionally in bigeminy pattern. Monomorphic PVCs. Once she had 44 PVCs in a minute. No other arrhythmias. She had episodes of dizziness and near-syncope during the event monitor. She was started on Toprol-XL 25 mg 4 PVCs and sinus tachycardia. Thank you for your consultation. Please call me if you have any questions. Suhas Leos MD, FACP, FACC, FSCAI, FHRS, CCDS Interventional Cardiology Cardiac Electrophysiology Vascular Medicine and Endovascular Interventions Martita LEOS MD Dec 08, 2017 2:11 pm
[2017-12-08] MEDS ORDERED: FLUCONAZOLE 200 MG/100 ML 50 ML, EMPTY IV BAG (PVC) 1 EA IV SCH ×2 (15:00)
[2017-12-08] MEDS ORDERED: NEO/POLY/BAC (NEOSPORIN) OINT 15 GM TUBE ONE (16:11)
--- NOTE | 2017-12-08 16:14 | Cardiac Procedure Note-CS/ASA ---
Pre-Procedure Note Pre-Op Procedure Note H&P Reviewed The H&P was reviewed, patient examined and no changes noted. Date H&P Reviewed: Dec 08, 2017 Time H&P Reviewed: 12:00 Conscious Sedation Pre-Proced Time Reviewed: 12:00 ASA Class: 3 Airway Mallampati Classification: (elim ira appropriate class) I. II. III, IV Lungs Heart ASA score ASA 1: a normal healthy patient ASA 2: a patient with a mild systemic disease (mid diabetes, controlled hypertension, obesity ASA 3: a patient with a severe systemic disease that limits activity (angina , COPD, prior Myocardial infarction) ASA 4: a patient with an incapacitating disease that is a constant threat to life (CHF, renal failure) ASA 5: a moribund patient not expected to survive 24 hrs. (ruptured aneurysm) ASA 6: a declared brain patient whose organs are being harvested. For emergent operations, add the letter E after the classification Grade 1 Sedation Plan: Analgesia, Amnesia, Plan communicated to team members, Discussed options with patient/fam, Discussed risks with patient/fam Note The patient is an appropriate candidate to undergo the planned procedure, sedation, and anesthesia. The patient immediately re-assessed prior to indication. Martita COX MD Dec 08, 2017 4:14 pm
[2017-12-08] MEDS ORDERED: NS IV 1000 ML 1,000 ML IV SCH (16:24)
--- NOTE | 2017-12-08 16:24 | Permanent Pacemaker Implant ---
Dual Chamber Pacemaker Implant PROCEDURE PHYSICIAN: Suhas Leos MD DUAL CHAMBER PACEMAKER IMPLANTATION: DATE OF PROCEDURE: 12/08/17 REFERRING PHYSICIAN: Dr. Godinez. ATTENDING PHYSICIAN: Dr. Suhas Leos INDICATION: Severe symptomatic sinus node dysfunction. PREOPERATIVE DIAGNOSIS: Severe symptomatic sinus node dysfunction. POSTOPERATIVE DIAGNOSIS: Successful dual-chamber permanent pacemaker implantation. HISTORY: This is a 37-year-old lady who presented with UTI sepsis. She was also noted to have severe symptomatic sinus bradycardia with heart rates in the 30s. She complained of significant fatigue and weakness. She was also hypertensive and required non-epinephrine infusion. Despite improvement in sepsis she continued to have borderline hypotension with severe sinus bradycardia. Detailed discussion with referring physicians and patient. Significant improvement in sepsis. No bacteremia with negative blood cultures 24 hours apart. Significant improvement in urinalysis and normalization of white count. Patient was very keen to get the pacemaker. I discussed at length about the small risk of infection. She is also on IV third generation cephalosporin and Flagyl for the last few days. Dual-chamber permanent pacemaker was recommended. PROCEDURE PERFORMED: 1. Dual-chamber permanent pacemaker implantation. 2. Fluoroscopy. 3. Central venous access. ANESTHESIA: Local anesthesia, conscious sedation. COMPLICATIONS: None. ESTIMATED BLOOD LOSS:20 mL. SPECIMENS: None. ORAL ANTICOAGULATION: None. FLUOROSCOPY TIME: 11.5 minutes. FLUOROSCOPY DOSE: 45 mgy. CONTRAST DOSE: 0 PROCEDURE DETAILS: The patient is a 37 female and after all of the patients questions were answered, the patient was brought to the EP Lab. The patient's left chest was prepped and draped in sterile fashion. A 2 inch horizontal incision was made 1 cm below the clavicle and dissection carried down to the pectoralis fascia. Using the modified Seldinger technique and under fluoroscopy guidance, the anterior aspect of the left axillary vein was accessed 2 times. The J wires were secured to the drapes with a mosquito clamp. A 7-Turkmen sheath was introduced over one of the J-wires. The RV lead was then inserted. The RV lead was directed across the tricuspid valve to the apical septal portion of the right ventricle. The position was checked in TELUGU and MCBRIDE views. The screw was deployed and the lead connected to the senior clinical sas programmer. Close sensing and pacing thresholds were obtained. Diaphragmatic pacing was ruled out. The lead was secured with 2-0 silk ties to the underlying muscle and fascia. Next, a 7-Turkmen sheath was introduced through the remaining J-wire. An atrial lead was then introduced and guided to the level of the right appendage. The screw was deployed and the lead was connected to the interrogator. Good sensing and pacing thresholds were obtained. Diaphragmatic pacing was ruled out. The leads were secured with 2-0 silk ties to the underlying muscle and fascia. The leads were connected to the device in a hermetic fashion. The device and leads were placed in the pocket. Aggressive irrigation with saline solution was done. The device was secured in a Spreecast antibiotic sleeve called Tyrx ( absorbable antimicrobial envelope). interrogation of the device revealed good integrity of all the leads and good connections. The wound was then closed using 2 layers. The first layer was interrupted 2-0 absorbable Vicryl suture. The last layer was a single subcuticular layer with 4- 0 Vicryl suture. Half inch Steri-Strips and a small dressing were then applied to the wound. The patient tolerated the procedure well and was returned to the recovery room in stable condition with stable vital signs. DEVICE INFORMATION: [employer] IPG [id number] JANA Fraser DR MRI; serial number [id number]. RA LEAD: Model [id number], length 52, serial number [id number]. RV LEAD: Model number [id number], length 58, serial number [id number] PER-OPERATIVE DEVICE INTERROGATION: Right atrium, capture threshold 0.5 V at 0.4 ms, P-wave 1.5 mV. Stable impedance. RV, capture threshold 0.5 at 0.4 ms, R wave 3.5 mV. Stable impedance. IMMEDIATE POSTOPERATIVE DEVICE INTERROGATION: Right atrium, P-wave 1.3 mV, impedance 475 ohms, capture threshold 0.75 V at 0.4 ms. RV, R wave 3.6 mV, impedance 608 ohms, capture threshold 0.5 V at 0.4 ms PLAN: The patient transferred to the ICU. We will continue with two more doses of IV antibiotics. We will check a chest x-ray now and interrogate the device in the morning. The patient will continue on oral antibiotics for 5 days. Suhas Leos MD, RS, CCDS Cardiac Electrophysiology Martita LEOS MD Dec 08, 2017 4:24 pm
[2017-12-08] MEDS ORDERED: PATIENT MAY USE OWN MEDS, ALL PO SCH (16:30)
--- NOTE | 2017-12-08 16:56 | Diagnostic Imaging Report ---
INDICATION: Pacemaker placement, arrhythmia EXAM: Portable chest at 5:37 PM FINDINGS: Right IJ central line projects over the innominate confluence. There is a left subclavian dual-chamber pacemaker with leads projecting over the right atrium and right ventricle. Heart size and pulmonary vascularity are normal. The lungs are clear. There are no effusions or pneumothoraces. IMPRESSION: No acute abnormalities are seen in the chest. Dictated by: Dictated on workstation # [id number]
[2017-12-08] MEDS: ONDANSETRON 4 MG/2 ML (SDV) Z0FRAN IV PRN (18:18)
[2017-12-08] MEDS: HYDROcodone/APAP 5 MG/325 MG (LORTAB) TAB PO PRN (19:12)
[2017-12-08] MEDS: ceFAZolin INJECTION 1,000 MG in NS (IVPB) 50 ML IV SCH (22:13)
[2017-12-09] VITALS: BP 109/80
[2017-12-09] MEDS: HYDROcodone/APAP 5 MG/325 MG (LORTAB) TAB PO PRN (03:44)
[2017-12-09 04:00] VITALS: BP 110/80
[2017-12-09 04:00] LABS: BASOPHILS % (AUTO) 0 % (0-10); EOSINOPHILS # (AUTO) 0.2 10^3/uL (0.0-0.3); EOSINOPHILS % (AUTO) 3 % (0-10); HEMATOCRIT 32 % (35-52); HEMOGLOBIN 10.6 G/DL (11.5-16.0); LYMPHOCYTES # (AUTO) 2.2 X 10^3 (1.0-4.0); LYMPHOCYTES % (AUTO) 31 % (12-44); MEAN CORPUSCULAR HEMOGLOBIN 30 PG (25-34); MEAN CORPUSCULAR HGB CONC 33 G/DL (32-36); MEAN CORPUSCULAR VOLUME 89 FL (80-99); MEAN PLATELET VOLUME 10.4 FL (7.4-10.4); MONOCYTES # (AUTO) 0.3 X 10^3 (0.0-1.0); MONOCYTES % (AUTO) 4 % (0-12); NEUTROPHILS # (AUTO) 4.3 X 10^3 (1.8-7.8); NEUTROPHILS % (AUTO) 61 % (42-75); PLATELET COUNT 183 10^3/uL (130-400); RED BLOOD COUNT 3.57 10^6/uL (4.35-5.85); RED CELL DISTRIBUTION WIDTH 12.9 % (10.0-14.5)
[2017-12-09 04:19] LABS: BUN/CREATININE RATIO 10; CALCIUM 7.5 MG/DL (8.5-10.1); CARBON DIOXIDE 24 MMOL/L (21-32); CHLORIDE 108 MMOL/L (98-107); CREATININE SERUM 0.71 MG/DL (0.60-1.30); GFR ESTIMATED > 60; GLUCOSE 74 MG/DL (70-105); MAGNESIUM 1.8 MG/DL (1.8-2.4); PHOSPHORUS 3.2 MG/DL (2.3-4.7); POTASSIUM 3.6 MMOL/L (3.6-5.0); SODIUM 138 MMOL/L (135-145)
[2017-12-09] MEDS: ceFAZolin INJECTION 1,000 MG in NS (IVPB) 50 ML IV SCH (05:58)
[2017-12-09] MEDS: ENOXAPARIN 40 MG/0.4 ML (LOVENOX) SYR SC SCH (05:59)
[2017-12-09] MEDS: CATHETER FLUSH 10 ML SYR IV SCH (05:59)
[2017-12-09] MEDS: CHOLESTYRAMINE 4 GM (QUESTRAN LITE, PREVALITE) PKT PO SCH ×2 (06:00→10:53)
[2017-12-09] MEDS: PANTOPRAZOLE 40 MG (PROTONIX) TAB PO SCH (07:27)
--- NOTE | 2017-12-09 07:29 | Pulmonary Progress Note ---
Subjective Time Seen by a Provider: 07:59 Subjective/Events-last exam Pt is doing much better. Sepsis Event Evaluation Height, Weight, BMI Height: 5'10.00" Weight: 183lbs. 2.0oz. 83.692732sv; 20.8 BMI Method:Stated Exam Exam Vital Signs Date Time Temp Pulse Resp B/P (MAP) Pulse Ox O2 Delivery O2 Flow Rate FiO2 12/09/17 04:00 Room Air 12/09/17 04:00 60 9 110/80 (90) 97 Room Air 12/09/17 03:35 98.2 12/09/17 01:00 60 12/09/17 00:00 Room Air 12/09/17 00:00 60 8 109/80 (90) 95 Room Air 12/08/17 23:51 98.0 12/08/17 23:00 60 9 98/66 (77) 94 Room Air 12/08/17 22:00 82 17 98/63 (75) 94 Room Air 12/08/17 21:00 76 16 106/75 (85) 95 Room Air 12/08/17 20:00 Room Air 12/08/17 20:00 66 11 102/68 (79) 96 Room Air 12/08/17 19:50 97.9 12/08/17 19:00 86 12/08/17 19:00 87 9 99/64 (76) 97 Room Air 12/08/17 18:00 68 9 115/87 (96) 97 Room Air 12/08/17 17:30 60 14 106/74 (85) 96 Room Air 12/08/17 17:00 63 110/70 (83) 95 Room Air 12/08/17 16:51 97.8 60 12 110/70 (83) 96 Room Air 12/08/17 16:51 Room Air 12/08/17 13:33 98.9 12/08/17 13:00 49 11 115/80 (92) 98 Room Air 12/08/17 13:00 49 12/08/17 12:00 50 12 115/80 (92) 98 Room Air 12/08/17 12:00 99.3 12/08/17 11:32 Room Air 12/08/17 11:25 99.0 12/08/17 11:00 52 15 110/92 (98) 99 Room Air 12/08/17 10:00 45 18 113/78 (90) 98 Room Air 12/08/17 09:00 43 6 116/80 (92) 97 Room Air 12/08/17 08:00 Room Air 12/08/17 08:00 98.2 43 10 111/83 (92) 97 Room Air I & O 12/09/17 07:00 Intake Total 1520 ml Output Total 3075 ml Balance -1555 ml Height & Weight Height: 5'10.00" Weight: 183lbs. 2.0oz. 83.106719dc; 20.8 BMI Method:Stated General Appearance: No Apparent Distress, WD/WN HEENT: PERRL/EOMI Neck: Full Range of Motion Respiratory: Lungs Clear, No Respiratory Distress Cardiovascular: Regular Rate, Rhythm, No Murmur Capillary Refill: Less Than 3 Seconds Gastrointestinal: normal bowel sounds, non tender, soft Extremity: Normal Capillary Refill Neurologic/Psychiatric: Alert, Oriented x3, Normal Mood/Affect Skin: Normal Color Lymphatic: No Adenopathy Results Lab Laboratory Tests 12/08/17 03:55 12/09/17 03:24 Assessment/Plan Assessment/Plan Severe Sepsis -- now resolved -No fever or leukocytosis currently - Rocephin, add flagyl Hypotension - improved Bradycardia s/p pacemaker -Dr. Leos/[place] following -Telemetry Anxiety/Depression -Xanax 0.5mg PO TID PRN -Lexapro UTI -Continue Abx Abdominal pain - generalized with elevated bili -improved Diarrhea - CDiff toxin pending - Malnutrition -Ensure TID with meals -Consult dietary Hx of gastric sleeve by Dr. Agarwal -Dr. Agarwal Hx of SVT -Follows with Dr. Leos I am going to sign off. Please call with any questions or concerns. TEODORA GAONA DO Dec 09, 2017 7:29 am
[2017-12-09 08:00] VITALS: BP 106/71
--- NOTE | 2017-12-09 08:01 | Cardiology Progress Note ---
Cardiology SOAP Progress Note Subjective: feels better. Objective: I&O/Vital Signs 12/09/17 12/09/17 12/09/17 12/09/17 07:00 08:00 12:00 13:13 Temp 97.2 98.1 Pulse 61 62 60 Resp 10 14 B/P (MAP) 106/71 (83) 92/65 (74) Pulse Ox 96 99 O2 Delivery Room Air Room Air 12/09/17 00:00 Intake Total 1250 ml Output Total 1850 ml Balance -600 ml Weight (Pounds): 183 Weight (Ounces): 2.0 Weight (Calculated Kilograms): 83.951062 Side: left Device Insertion Site: without hematoma, no signs of inflammation Swelling: without swelling Drainage: No Bruising: mild bruising Constitutional: appears stated age, well-developed, well-nourished Respiratory: chest is bilaterally symmetric, lungs clear to auscultation Cardiovascular: regular rate-rhythm, S1 and S2 Gastrointestional: No tender, No soft, No round, No distended, No pulsatile mass, No organomegaly, No guarding, No rebound, No tenderness, No hernia, No mass, No audible bowel sounds, No abnormal bowel sounds, No abdominal bruits, No spleenomegaly, No other Extremities: No normal range of motion, No non-tender, No normal inspection, No pedal edema, No calf tenderness, No normal capillary refill, No pelvis stable , No calf tenderness, No inflammation, No pedal edema, No slow capillary refill , No swelling, No other, No abrasion, No clubbing, No cyanosis, No ecchymosis, No laceration, No no lower extremity edema bilateral, No significant edema, No tenderness, No wound Neurologic/Psychiatric: no motor/sensory deficits, alert, normal mood/affect, oriented x 3, power is 5/5 both on sides Skin: normal color, warm/dry Results/Procedures: Labs Laboratory Tests 12/08/17 21:58: Glucometer 146H 12/09/17 03:24: White Blood Count 7.0, Red Blood Count 3.57L, Hemoglobin 10.6L, Hematocrit 32L, Mean Corpuscular Volume 89, Mean Corpuscular Hemoglobin 30, Mean Corpuscular Hemoglobin Concent 33, Red Cell Distribution Width 12.9, Platelet Count 183, Mean Platelet Volume 10.4, Neutrophils (%) (Auto) 61, Lymphocytes (%) (Auto) 31 , Monocytes (%) (Auto) 4, Eosinophils (%) (Auto) 3, Basophils (%) (Auto) 0, Neutrophils # (Auto) 4.3, Lymphocytes # (Auto) 2.2, Monocytes # (Auto) 0.3, Eosinophils # (Auto) 0.2, Basophils # (Auto) 0.0, Sodium Level 138, Potassium Level 3.6, Chloride Level 108H, Carbon Dioxide Level 24, Anion Gap 6, Blood Urea Nitrogen 7, Creatinine 0.71, Estimat Glomerular Filtration Rate > 60, BUN/ Creatinine Ratio 10, Glucose Level 74, Calcium Level 7.5L, Phosphorus Level 3.2 , Magnesium Level 1.8 Microbiology 12/07/17 Blood Culture - Preliminary, Resulted No growth 12/05/17 Stool Culture - Final, Complete Yeast species See Report 12/06/17 Urine Culture - Final, Complete Yeast species A/P: Assessment/Dx: UTI, sepsis. Sinus bradycardia, Symptomatic severe sinus node dysfunction, s/p dual chamber PPM yesterday History of right subclavian DVT, History of pulmonary embolism, PVCs, PSVT , normal LV function. Plan: UTI, sepsis, borderline blood pressure. On IV antibiotics, Rocephin and Flagyl. Severe symptomatic sinus node dysfunction : s/p dual chamber PPM yesterday. Site looks good today. CXR - no PTX. Device interrogation this morning was within normal limits. PO keflex 500mg po tid x 5 days. follow up with me in two weeks. History of orthostatic hypotension: May benefit from Florinef or midodrine. History of right subclavian DVT, completed 6 months of Eliquis. History of pulmonary embolism, PVCs, brief episode of PSVT, on beta blockers which were held. normal LV function on echocardiogram done 09/2017. Previous right subclavian DVT. she has history of obesity and underwent gastric sleeve surgery in May 2016. Postoperatively she had a complicated course with significant malnutrition and other complications in June. PICC line was placed in June. Eventually she was discharged home. Between June and December of this year she had occasional right arm discomfort but no swelling or shortness of breath. On 12/22/2016 she complained of right upper extremity tingling and numbness. However there was no swelling. On 12/23/2016 she had significantly swollen right upper extremity and occasional back pain. She had no chest pain or shortness of breath. Her right upper extremity was also discolored with purplish hue. She presented to our ER and venous ultrasound done on 12/23/2016 showed an occlusive DVT segment of about 10 cm in length around the junction of the right subclavian and axillary vein. CT angiography of the chest was also performed which showed small burden of pulmonary embolism involving the posterior segment branch of the right lower pulmonary artery and questionable filling defect in the subsegmental branch of the right upper pulmonary artery. She was started on Eliquis therapy. The patient denies any history of clotting abnormality in the family including pulmonary embolism and DVT. She also denies any other medical issues. She is a nonsmoker. She took Eliquis for 6 months and discontinued in May 2017. Repeat upper extremity ultrasound on 10/04/2017 showed no evidence of DVT in the right upper extremity. She was lost to follow-up because she lost her health insurance. She presents with complain of shortness of breath, significant fatigue, syncopal episodes and palpitations. A Holter monitor was done on 2017 in [place]. An echocardiogram was also done recently. Holter monitor done on 08/29/2017 showed normal sinus rhythm with rare isolated PACs with 2 atrial couplets and one 3 beat run of PSVT. There were rare isolated PVCs with 26 bigeminy noted. There were total of 99 PVCs. There was no sustained SVT or VT noted. The patient's symptoms correlated with sinus tachycardia with rates ranging from 632849 bpm. Highest heart rate for sinus tachycardia was 136 bpm. Echocardiogram done 09/2017 shows normal LV function and normal RV function with borderline elevated PA pressure. No significant valvular heart disease. I spoken at length to the patient and it seems that the patient's symptoms are correlated with sinus tachycardia. We need to rule out appropriate physiological causes of sinus tachycardia which includes hyperthyroidism, anemia , electrolyte imbalance. She denies any pain, anxiety or fever which are other causes of appropriate sinus tachycardia. If all of the above are ruled out then she will be labeled with inappropriate sinus tachycardia and treatment is usually with beta blockers. The other differential diagnosis could be orthostatic hypotension. I have recommended good hydration and not to be in a situation where she can hurt herself. A very brief run of PSVT was noted on Holter monitor for 3 beats. The patient has a fitness watch and according to her, her heart rate can go to 200 bpm. event monitor was done on 10/10/2017 which shows sinus rhythm with episodes of sinus tachycardia. Frequent PVCs. Occasionally in bigeminy pattern. Monomorphic PVCs. Once she had 44 PVCs in a minute. No other arrhythmias. She had episodes of dizziness and near-syncope during the event monitor. She was started on Toprol-XL 25 mg 4 PVCs and sinus tachycardia. Thank you for your consultation. Please call me if you have any questions. Suhas Leos MD, FACP, FACC, FSCAI, FHRS, CCDS Interventional Cardiology Cardiac Electrophysiology Vascular Medicine and Endovascular Interventions Martita LEOS MD Dec 09, 2017 08:01
[2017-12-09] MEDS ORDERED: fluCOnazole (DIFLUCAN) 100 MG TAB PO SCH (09:00)
[2017-12-09] MEDS: SUCRALFATE 1 GM (CARAFATE) TAB PO SCH (09:04)
--- NOTE | 2017-12-09 10:21 | Physical Therapy Daily Note ---
PT Daily Note-Current Subjective Patient agrees to PT and states she hopes to go home today. Pain Numeric Pain Scale: 0-No Pain Location: No Pain Reported Mental Status Patient Orientation: Normal For Age Transfers Functional [place] Measure 0=Not Assessed/NA 4=Minimal Assistance 1=Total Assistance 5=Supervision or Setup 2=Maximal Assistance 6=Modified [place] 3=Moderate Assistance 7=Complete IndependenceIRFPAI Quality Coding Scale 6 Independent with activity with or without an assistive device 5 Patient requires set up or clean up by helper. Patient completes activity by themselves 4 Supervision or touching assist (CGA). [place] provide cues , steadying assist 3 The helper provides less than half the effort to complete the activity 2 The helper provides more than half the effort to complete the activity 1 Dependent. The helper does all the effort to complete an activity 7 Patient refused to complete or attempt activity 9 The patient did not perform the activity before the current illness or injury 88 Not attempted due to Medical conditions or safety concerns Transfers (B, C, W/C) (FIM): 7 Scootin Rollin Supine to/from Sit: 7 Sit to/from Stand: 7 Weight Bearing Right Lower Extremity: Right Weight Bearing/Tolerated Left Lower Extremity: Left Weight Bearing/Tolerated Gait Training Gait (FIM): 7 Distance (FIM): 3=150 ft Distance: 400' Gait Level of Assist: 7 Gait Assistive Device: None safe and functional/no deviation Assessment Patient is currently at independent PLOF with all gross motor skills and does not require skilled PT. PT to dismiss patient from services at this time and patient to be up ad ronny. RN notified. PT Short Term Goals Short Term Goals Time Frame: Dec 10, 2017 Transfers (B,C,W/C) (FIM): 7 Gait (FIM): 7 Distance (FIM): 3=150 ft Gait Level of Assist: 7 Gait Assistive Device: None PT Plan Treatment/Plan Treatment Plan: Discontinue PT, goals met Treatment Plan: Education, Functional Activity Pina, Functional Strength, Gait , Therapeutic Exercise Treatment Duration: Dec 10, 2017 Frequency: 3 times per week Estimated Hrs Per Day: .25 hour per day Patient and/or Family Agrees t: Yes Time/GCodes Time In: 957 Time Out: 1008 Total Billed Treatment Time: 11 Total Billed Treatment 1 visit FA 11 min MG GALVIN PT Dec 09, 2017 10:21
[2017-12-09 12:00] VITALS: BP 92/65
[2017-12-09] MEDS ORDERED: CHOL4PAC3 PO (12:00)
[2017-12-09] MEDS ORDERED: CEPH-507 PO (12:00)
[2017-12-09] MEDS ORDERED: ACHD5005 PO (12:00)
[2017-12-09] MEDS ORDERED: SUCR1TAB PO (12:00)
--- NOTE | 2017-12-09 12:04 | Discharge Inst-Simple/Standard ---
Discharge Inst-Standard Discharge Medications New, Converted or Re-Newed RX: Transmitted to Pharmacy Patient Instructions/Follow Up Plan of Care/Instructions/FU: Please continue to takeyour medications as written. Please follow up with Dr Leos in 1-2 weeks. Please follow up with you primary care provider Mandy Ford to follow up this hospital stay 12/19 at 3pm. Activity as Tolerated: Yes Discharge Diet: Low Residue Return to The Hospital For: Chest pain, lightheadedness, intractable nausea or vomiting, palpitations, or if you feel you are getting worse. SUNNY GO MD Dec 09, 2017 12:04 pm
--- NOTE | 2017-12-09 12:13 | Discharge Summary-Hospitalist ---
Diagnosis/Chief Complaint Date of Admission Dec 03, 2017 at 12:20 am Date of Discharge Discharge Date: Dec 09, 2017 Admission Diagnosis Severe sepsis with hypotension-day number 2 Rocephin and Flagyl Urinary tract infection Abdominal pain-at risk for gallbladder disease will get a abdominal sonogram History of SVT followed by Status post sleeve gastrectomy consult Dr. Agarwal Malpositioning of the IUD as evidenced on CT Metabolic acidosis History of subclavian vein thrombosis and pulmonary emboli; off Eliquis Hypomagnesemia Discharge Diagnosis (1) Septic shock Status: Acute Assessment & Plan: BP stable but low/normotensive Repeat urine negative from straight cath Blood cultures are negative x2 Stool cultures negative Continue Rocephin and Flagyl (2) Bradycardia Assessment & Plan: Bracycardia in the 30s Symptomatic with activity Cardiology consulted, appreciate recs Plan for pacemaker today (3) UTI (urinary tract infection) Status: Acute Assessment & Plan: UA from straight cath show no signs of infection Original culture only growing lactobacillus Continue current antibiotics (4) Gastritis Assessment & Plan: Underwent EGD 12/06 with balloon dilatation Continue PPI and carafate Surgery consulted, appreciate recs (5) Anxiety Assessment & Plan: Continue Lexapro and Xanax Discharge Summary Procedures/Consulations Dr Hester- Pulm Dr Leos/ - Cardiology Discharge Physical Exam Allergies: Coded Allergies: No Known Drug Allergies (Verified , 06/30/07) Vitals & I&Os Vital Signs Date Time Temp Pulse Resp B/P (MAP) Pulse Ox O2 Delivery O2 Flow Rate FiO2 12/09/17 12:00 98.1 60 14 92/65 (74) 99 Room Air 12/07/17 04:00 0.00 General Appearance: No Apparent Distress, WD/WN Respiratory: Lungs Clear, No Respiratory Distress Cardiovascular: Regular Rate, Rhythm, No Murmur Hospital Course Pt was admitted to the ICU for septic shock secondary to urinary tract infection. She responded well to IVF, IV abx, and pressors and was weaned off pressors quickly. She had persistent bradycardia though and rate was consistently in the 30s. Cardiology evaluated for possible pacemaker placement and after 3 sets of negative blood cultures it was deemed safe for her to have pacemaker placed. This was done on 12/08 and she tolerated the procedure well. She was discharged home in stable condition to complete oral antibiotics and follow up with Dr Leos and her primary care provider. I called and discussed her hospital stay with FRED Tyler. Labs (last 24 hrs) Laboratory Tests 12/08/17 12:48: Glucometer 70 12/08/17 21:58: Glucometer 146H 12/09/17 03:24: White Blood Count 7.0, Red Blood Count 3.57L, Hemoglobin 10.6L, Hematocrit 32L, Mean Corpuscular Volume 89, Mean Corpuscular Hemoglobin 30, Mean Corpuscular Hemoglobin Concent 33, Red Cell Distribution Width 12.9, Platelet Count 183, Mean Platelet Volume 10.4, Neutrophils (%) (Auto) 61, Lymphocytes (%) (Auto) 31 , Monocytes (%) (Auto) 4, Eosinophils (%) (Auto) 3, Basophils (%) (Auto) 0, Neutrophils # (Auto) 4.3, Lymphocytes # (Auto) 2.2, Monocytes # (Auto) 0.3, Eosinophils # (Auto) 0.2, Basophils # (Auto) 0.0, Sodium Level 138, Potassium Level 3.6, Chloride Level 108H, Carbon Dioxide Level 24, Anion Gap 6, Blood Urea Nitrogen 7, Creatinine 0.71, Estimat Glomerular Filtration Rate > 60, BUN/ Creatinine Ratio 10, Glucose Level 74, Calcium Level 7.5L, Phosphorus Level 3.2 , Magnesium Level 1.8 Microbiology 12/07/17 Blood Culture - Preliminary, Resulted No growth 12/05/17 Stool Culture - Final, Complete Yeast species See Report 12/06/17 Urine Culture - Final, Complete Yeast species Patient resulted labs reviewed. Imaging: Reviewed Imaging Films, Reviewed Imaging Report Discussion & Recommendations Discharge Planning: >30 minutes discharge planning Discharge Home Medications: Active Scripts Active Keflex (Cephalexin) 500 Mg Capsule 500 Mg PO TID 5 Days Hydrocodone/Acetaminophen 5/325mg Tablet (Acetaminophen/Hydrocodone Bitart) 1 Tab Tab 1 Tab PO Q8H PRN Sucralfate 1 Gm Tablet 1 Gm PO BID Prevalite Packet (Cholestyramine/Aspartame) 4 Gm Powd.pack 4 Gm PO ACHS Reported Clonazepam 1 Mg Tablet 1 Mg PO TID Prochlorperazine Maleate 10 Mg Tablet 10 Mg PO TID PRN Ambien (Zolpidem Tartrate) 10 Mg Tablet 10 Mg PO HS PRN Ondansetron Odt (Ondansetron) 4 Mg Tab.rapdis 4 Mg PO Q4H PRN Potassium Chloride 20 Meq Tablet.er 20 Meq PO BID Lexapro (Escitalopram Oxalate) 10 Mg Tablet 10 Mg PO DAILY Metoprolol Succinate 25 Mg Tab.er.24h 25 Mg PO DAILY Pantoprazole Sodium 40 Mg Tablet.dr 40 Mg PO DAILY Transderm-Scop (Scopolamine) 1 Each Patch.td72 1 Patch TD Q72H Instructions to patient/family Please see electronic discharge instructions given to patient. Clinical Quality Measures DVT/VTE Risk/Contraindication: Risk Factor Score Per Nursin RFS Level Per Nursing on Admit: 4+=Very High Copy Copies To 1: FLACO CLARK Problem Qualifiers (1) UTI (urinary tract infection): Urinary tract infection type: acute cystitis Hematuria presence: with hematuria Qualified Codes: N30.01 - Acute cystitis with hematuria (2) Gastritis: Gastritis type: unspecified gastritis Chronicity: chronic Gastritis bleeding : without bleeding Qualified Codes: K29.50 - Unspecified chronic gastritis without bleeding SUNNY GO MD Dec 09, 2017 12:13 pm
[2017-12-09] MEDS ORDERED: FLU QUADRIvalent (5+ YOA) 2018-2019 (AFLURIA) 0.5 ML IM ONE (12:45)
--- NOTE | 2017-12-09 13:31 | Occupational Therapy Eval ---
OT Evaluation-General/PLF Medical Diagnosis Admission Date Dec 03, 2017 at 00:20 Medical Diagnosis: UTI/sepsis/N&V Onset Date: Dec 02, 2017 Therapy Diagnosis Therapy Diagnosis: debility Height/Weight Height (Feet): 5 Height (Inches): 10.00 Weight (Pounds): 183 Weight (Ounces): 2.0 Precautions Precautions/Isolations: Fall Prevention, Standard Precautions Safety Interventions: None Referral Physician: Gretchen Medical History Additional Medical History gastric sleeve, irregular heartbeat, arthritis, anxiety, DVT Current History Pt had pacemaker placed on 12/08/17 Social History Home: Single Level Current Living Status: Spouse daughter will be assisting as needed while spouse is at work. ADL-Prior Level of Function ADL PLOF Comments Pt reports being independent with self care and mobility. DME/Equipment: Grab Bars, Shower OT Current Status Subjective Pt in bed, agrees to therapy. Pt has no c/o pain. States she hopes to go home today. Current Glasses/Contacts: Yes Hearing Aids: No Dentures/Partials: No Hand Dominance: Right Upper Extremity ROM Right UE WFL Left UE in sling secondary to pacemaker placement. Upper Extremity Coordination Right UE intact Upper Extremity Sensation Intact per pt report Upper Extremity Strength Right UE WFL Left UE not assessed. ADL-Treatment ADL-Current Pt supine to sit without assistance. Pt demonstrates ability to doff/don socks without assistance while seated EOB. Pt sit to stand and transfers independently. Pt states she has been getting up to commode without assistance and is able to manipulate clothing and complete hygiene. Pt states she is able to complete eating without assist. Education provided regarding UE dressing technique. Pt states understanding and has no questions. Pt states she will have assistance at home and does not feel she will have any difficulty with functional tasks. Pt denies further OT needs at this time. Pt in bed with needs met after session. Functional [place] Measure 0=Not Assessed/NA 4=Minimal Assistance 1=Total Assistance 5=Supervision or Setup 2=Maximal Assistance 6=Modified [place] 3=Moderate Assistance 7=Complete IndependenceIRFPAI Quality Coding Scale 6 Independent with activity with or without an assistive device 5 Patient requires set up or clean up by helper. Patient completes activity by themselves 4 Supervision or touching assist (CGA). [place] provide cues , steadying assist 3 The helper provides less than half the effort to complete the activity 2 The helper provides more than half the effort to complete the activity 1 Dependent. The helper does all the effort to complete an activity 7 Patient refused to complete or attempt activity 9 The patient did not perform the activity before the current illness or injury 88 Not attempted due to Medical conditions or safety concerns Education OT Patient Education: Safety issues Teaching Recipient: Patient Teaching Methods: Discussion Response to Teaching: Verbalize Understanding OT Education/Plan Problem List/Assessment Assessment: No Skilled OT Needs ID'd Pt admitted with UTI/sepsis/N&V. Had pacemaker placed yesterday. Pt demonstrates ability to perform transfers and ADLs safely. Pt is up ad ronny in room. Pt states she does not feel she will have difficulty with ADLs and will have assist at home as needed. No further skilled OT intervention indicated at this time. D/C OT at this time. Discharge Recommendations Plan/Recommendations: Continue POC Treatment Plan/Plan of Care Treatment,Training & Education: No Treatment Duration: Dec 09, 2017 Frequency: 1 time per week (one time-evaluation only) Estimated Hrs Per Day: Other (evaluation only) Rehab Potential: Good Time/GCodes Start Time: 11:08 Stop Time: 11:18 Total Time Billed (hr/min): 10 Billed Treatment Time 1 visit, EVL(10minutes) NISHA HUTTON OT Dec 09, 2017 13:31
--- NOTE | 2017-12-09 14:44 | Progress Note (SOAP) ---
Subjective Date Seen by a Provider: Dec 09, 2017 Time Seen by a Provider: 10:00 Subjective/Events-last exam doing well. HR in 60's. tolerating regular diet. significantly less episodes of loose stools. Objective Exam Vital Signs Date Time Temp Pulse Resp B/P (MAP) Pulse Ox O2 Delivery O2 Flow Rate FiO2 12/09/17 13:13 12/09/17 12:00 98.1 60 14 92/65 (74) 99 Room Air 12/09/17 08:00 97.2 62 10 106/71 (83) 96 Room Air 12/09/17 07:00 61 12/09/17 04:00 Room Air 12/09/17 04:00 60 9 110/80 (90) 97 Room Air 12/09/17 03:35 98.2 12/09/17 01:00 60 12/09/17 00:00 Room Air 12/09/17 00:00 60 8 109/80 (90) 95 Room Air 12/08/17 23:51 98.0 12/08/17 23:00 60 9 98/66 (77) 94 Room Air 12/08/17 22:00 82 17 98/63 (75) 94 Room Air 12/08/17 21:00 76 16 106/75 (85) 95 Room Air 12/08/17 20:00 Room Air 12/08/17 20:00 66 11 102/68 (79) 96 Room Air 12/08/17 19:50 97.9 12/08/17 19:00 86 12/08/17 19:00 87 9 99/64 (76) 97 Room Air 12/08/17 18:00 68 9 115/87 (96) 97 Room Air 12/08/17 17:30 60 14 106/74 (85) 96 Room Air 12/08/17 17:00 63 110/70 (83) 95 Room Air 12/08/17 16:51 97.8 60 12 110/70 (83) 96 Room Air 12/08/17 16:51 Room Air I & O 12/09/17 07:00 Intake Total 1520 ml Output Total 3075 ml Balance -1555 ml Capillary Refill : Less Than 3 SecondsLess Than 3 Seconds General Appearance: No Apparent Distress HEENT: PERRL/EOMI Neck: Full Range of Motion Respiratory: Chest Non Tender, Lungs Clear Cardiovascular: Regular Rate, Rhythm Gastrointestinal: normal bowel sounds, non tender, soft Extremity: Normal Capillary Refill Neurologic/Psychiatric: Alert, Oriented x3 Skin: Normal Color Lymphatic: No Adenopathy Results Lab Laboratory Tests 12/08/17 21:58: Glucometer 146H 12/09/17 03:24: White Blood Count 7.0, Red Blood Count 3.57L, Hemoglobin 10.6L, Hematocrit 32L, Mean Corpuscular Volume 89, Mean Corpuscular Hemoglobin 30, Mean Corpuscular Hemoglobin Concent 33, Red Cell Distribution Width 12.9, Platelet Count 183, Mean Platelet Volume 10.4, Neutrophils (%) (Auto) 61, Lymphocytes (%) (Auto) 31 , Monocytes (%) (Auto) 4, Eosinophils (%) (Auto) 3, Basophils (%) (Auto) 0, Neutrophils # (Auto) 4.3, Lymphocytes # (Auto) 2.2, Monocytes # (Auto) 0.3, Eosinophils # (Auto) 0.2, Basophils # (Auto) 0.0, Sodium Level 138, Potassium Level 3.6, Chloride Level 108H, Carbon Dioxide Level 24, Anion Gap 6, Blood Urea Nitrogen 7, Creatinine 0.71, Estimat Glomerular Filtration Rate > 60, BUN/ Creatinine Ratio 10, Glucose Level 74, Calcium Level 7.5L, Phosphorus Level 3.2 , Magnesium Level 1.8 Microbiology 12/07/17 Blood Culture - Preliminary, Resulted No growth 12/05/17 Stool Culture - Final, Complete Yeast species See Report 12/06/17 Urine Culture - Final, Complete Yeast species Assessment/Plan Assessment/Plan Assess & Plan/Chief Complaint nausea and intermittent abdominal pain with associated diarrhea. symptomatic SVT and bradycardia. pacemaker implanted yesterday per cardiology. HR in 60/s low fat diet as tolerated. abx for UTI/sepsis from lactobacillus and fungal overgrowth however improving. 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 if she continues to be symptomatic despite medical therapy with cholestyramine as an outpatient, she may benefit from a cholecystectomy. diet as tolerated after pacemaker placed. f/u next few weeks Clinical Quality Measures DVT/VTE Risk/Contraindication: Risk Factor Score Per Nursin RFS Level Per Nursing on Admit: 4+=Very High NEVILLE MONSALVE MD Dec 09, 2017 14:44
== END 2017-12-09 13:13 | disposition home or self-care (01) | DRG 871 ==
LOC: EDUNIT# 22:11 → ER 22:12 → 4TH 12-03 00:20 → UNDOADMOB 12-03 00:20 → 4TH 12-03 00:20 → OBSVTOIN 12-03 00:20 → INTOOBSV 12-03 00:20 → 4TH 12-03 02:30 → ICU 12-03 02:30 → UNDODISIN 12-09 13:13
PROVIDERS: ADMIT Internal Medicine; ATTEND Internal Medicine
PROC: 0D778ZZ Dilation of Stomach, Pylorus, Via Natural or Artificial Opening Endoscopic (ICD-10-PCS; 2017-12-05)
PROC: 0DB78ZX Excision of Stomach, Pylorus, Via Natural or Artificial Opening Endoscopic, Diagnostic (ICD-10-PCS; principal; 2017-12-05 17:45)
PROC: 0JH606Z Insertion of Pacemaker, Dual Chamber into Chest Subcutaneous Tissue and Fascia, Open Approach (ICD-10-PCS; 2017-12-08)
PROC: 02H63JZ Insertion of Pacemaker Lead into Right Atrium, Percutaneous Approach (ICD-10-PCS; 2017-12-08)
PROC: 02HK3JZ Insertion of Pacemaker Lead into Right Ventricle, Percutaneous Approach (ICD-10-PCS; 2017-12-08)
DX: A41.9 Sepsis, unspecified organism (principal); R65.21 Severe sepsis with septic shock; N30.01 Acute cystitis with hematuria; I49.5 Sick sinus syndrome; E46 Unspecified protein-calorie malnutrition; E87.2 Acidosis; R17 Unspecified jaundice; E87.1 Hypo-osmolality and hyponatremia; K21.0 Gastro-esophageal reflux disease with esophagitis; K29.70 Gastritis, unspecified, without bleeding; K31.89 Other diseases of stomach and duodenum; R19.7 Diarrhea, unspecified; G44.201 Tension-type headache, unspecified, intractable; R11.2 Nausea with vomiting, unspecified; M19.91 Primary osteoarthritis, unspecified site; F41.9 Anxiety disorder, unspecified; F32.9 Major depressive disorder, single episode, unspecified; E83.42 Hypomagnesemia; Z98.84 Bariatric surgery status; Z86.711 Personal history of pulmonary embolism; Z86.718 Personal history of other venous thrombosis and embolism
CPT/HCPCS: 33208; 36415; 70470; 71045; 74177; 76705; 78227; 80048; 80053; 81000; 82150; 82533; 82607; 82962; 83605; 83690; 83735; 84100; 84425; 84439; 84443; 84481; 84484; 84703; 85007; 85025; 85027; 85610; 85652; 85730; 86141; 87040; 87045; 87046; 87088; 90686; 93005; 93306; 96361; 96374; 96375

== ENCOUNTER → 2017-12-20 | Outpatient (CLI) | payer OTHER ==
[~2017-12-20] MED LIST changes: +ACHD5005 PO; +CHOL4PAC3 PO; +CLON1TAB13 PO; +ESCI10TA PO; +METO-387 PO; +ONDA4TAB11 PO; +POTA-51 PO; +ZOLP10TA PO
[2017-12-20 09:48] LABS: HEMOGLOBIN 9.8 G/DL (11.5-16.0); RED BLOOD COUNT 3.1 10^6/uL (4.35-5.85); RED CELL DISTRIBUTION WIDTH 13.5 % (10.0-14.5)
[2017-12-20 10:15] LABS: ALANINE AMINOTRANSFERASE 11 U/L (0-55); ALBUMIN 3.2 GM/DL (3.2-4.5); ALKALINE PHOSPHATASE 40 U/L (40-136); BILIRUBIN,TOTAL 0.5 MG/DL (0.1-1.0); BUN/CREATININE RATIO 9; CALCIUM 8.1 MG/DL (8.5-10.1); CARBON DIOXIDE 25 MMOL/L (21-32); CHLORIDE 111 MMOL/L (98-107); CREATININE SERUM 0.68 MG/DL (0.60-1.30); GFR ESTIMATED > 60; GLUCOSE 87 MG/DL (70-105); POTASSIUM 4.3 MMOL/L (3.6-5.0); SODIUM 143 MMOL/L (135-145); TOTAL PROTEIN 5.2 GM/DL (6.4-8.2)
--- NOTE | 2017-12-20 12:18 | Diagnostic Imaging Report ---
EXAMINATION: Right upper extremity venous Doppler. INDICATION: Arm pain. TECHNIQUE: Spectral and color flow imaging of the deep venous system was performed. FINDINGS: There is thrombus formation in the subclavian vein extending into the axillary vein. There is fairly good blood flow and compressibility in the brachiocephalic and radial and ulnar veins. There is no sign of thrombus formation in the internal jugular vein either. IMPRESSION: 1. There is thrombosis of the subclavian vein and to a lesser extent the axillary vein. 2. These results were called to FRED Tyler by our sonologist. CRITICAL FINDING Dictated by: Dictated on workstation # [id number]
--- NOTE | 2017-12-20 12:24 | Diagnostic Imaging Report ---
PROCEDURE: US right lower extremity venous. TECHNIQUE: Multiple real-time grayscale images were obtained over the right lower extremity in various projections. Additional duplex Doppler and color Doppler images were also obtained. INDICATION: Leg pain and swelling. There are no prior studies available for comparison. There is generally good blood flow and compressibility at all levels. There is no evidence for deep venous thrombosis. IMPRESSION: There is no evidence for deep venous thrombosis of the right lower extremity. Dictated by: Dictated on workstation # [id number]
== END ==
LOC: RAD 09:21
PROVIDERS: ATTEND Physician Assistant
DX: M79.89 Other specified soft tissue disorders (principal); I82.B11 Acute embolism and thrombosis of right subclavian vein; Z95.0 Presence of cardiac pacemaker; Z86.718 Personal history of other venous thrombosis and embolism
CPT/HCPCS: 36415; 80053; 85027

== ENCOUNTER → 2018-01-02 | Outpatient (CLI) | payer OTHER ==
[~2018-01-02] MED LIST changes: +ESCI20TA45 PO; +HYDR-3816 PO
[2018-01-02 15:07] LABS: BASOPHILS % (AUTO) 1 % (0-10); EOSINOPHILS # (AUTO) 0.1 10^3/uL (0.0-0.3); EOSINOPHILS % (AUTO) 2 % (0-10); HEMATOCRIT 36 % (35-52); HEMOGLOBIN 12.4 G/DL (11.5-16.0); LYMPHOCYTES # (AUTO) 1.5 X 10^3 (1.0-4.0); LYMPHOCYTES % (AUTO) 32 % (12-44); MEAN CORPUSCULAR HEMOGLOBIN 31 PG (25-34); MEAN CORPUSCULAR HGB CONC 35 G/DL (32-36); MEAN CORPUSCULAR VOLUME 89 FL (80-99); MEAN PLATELET VOLUME 9.6 FL (7.4-10.4); MONOCYTES # (AUTO) 0.3 X 10^3 (0.0-1.0); MONOCYTES % (AUTO) 5 % (0-12); NEUTROPHILS # (AUTO) 2.8 X 10^3 (1.8-7.8); NEUTROPHILS % (AUTO) 60 % (42-75); PLATELET COUNT 272 10^3/uL (130-400); RED BLOOD COUNT 4.02 10^6/uL (4.35-5.85); RED CELL DISTRIBUTION WIDTH 12.8 % (10.0-14.5); WHITE BLOOD COUNT 4.7 10^3/uL (4.3-11.0)
[2018-01-02 15:27] LABS: BAND NEUTROPHILS 0 %; BASOPHILS % (MANUAL) 1 %; EOSINOPHILS % (MANUAL) 1 %; LYMPHOCYTES % (MANUAL) 34 %; MONOCYTES % (MANUAL) 3 %; NEUTROPHILS % (MANUAL) 61 %; RBC MORPH NORMAL
[2018-01-02 15:33] LABS: ALANINE AMINOTRANSFERASE 18 U/L (0-55); ALBUMIN 4.5 GM/DL (3.2-4.5); ALKALINE PHOSPHATASE 62 U/L (40-136); BILIRUBIN,TOTAL 0.7 MG/DL (0.1-1.0); BUN/CREATININE RATIO 10; CALCIUM 9.3 MG/DL (8.5-10.1); CARBON DIOXIDE 23 MMOL/L (21-32); CHLORIDE 110 MMOL/L (98-107); CREATININE SERUM 0.82 MG/DL (0.60-1.30); GFR ESTIMATED > 60; GLUCOSE 81 MG/DL (70-105); MAGNESIUM 2.2 MG/DL (1.8-2.4); POTASSIUM 3.8 MMOL/L (3.6-5.0); SODIUM 142 MMOL/L (135-145); TOTAL PROTEIN 7.2 GM/DL (6.4-8.2)
== END ==
LOC: LAB 14:49
PROVIDERS: ATTEND Physician Assistant
DX: D64.9 Anemia, unspecified (principal); D72.819 Decreased white blood cell count, unspecified; R53.83 Other fatigue; K82.8 Other specified diseases of gallbladder; I82.621 Acute embolism and thrombosis of deep veins of right upper extremity; Z95.0 Presence of cardiac pacemaker
CPT/HCPCS: 36415; 80053; 82306; 82728; 82746; 83540; 83735; 85007; 85027

== ENCOUNTER 2018-01-04 11:29 | Outpatient (CLI) | payer OTHER ==
[~2018-01-04] VITALS: Ht 177.8 cm; Wt 62.7 kg
[~2018-01-04 11:29] MED LIST changes: -ESCI20TA45 PO; -HYDR-3816 PO
[2018-01-04] MEDS ORDERED: ESCI20TA45 PO (12:46)
[2018-01-04] MEDS ORDERED: HYDR-3816 PO (12:46)
[2018-01-04] MEDS ORDERED: BUSP15TA60 PO (12:46)
[2018-01-04] MEDS ORDERED: APIX5TAB PO (12:46)
[2018-01-04] MEDS ORDERED: POTA-51 PO (12:46)
[2018-01-05] MEDS ORDERED: HYDR-3816 PO (09:22)
== END 2018-01-04 12:57 | disposition home or self-care (01) ==
LOC: PREOP 11:29
PROVIDERS: ATTEND Surgery
DX: Z01.818 Encounter for other preprocedural examination (principal)

== ENCOUNTER 2018-01-05 08:26 | Day surgery (SDC) | payer OTHER ==
[~2018-01-05] VITALS: Ht 177.8 cm; Wt 62.7 kg
[~2018-01-05 08:26] MED LIST changes: +ESCI20TA45 PO; +HYDR-3816 PO
[2018-01-05] MEDS ORDERED: BUP/EPI 0.5% 1:200,000 (SENSORCAINE) 30 ML VIAL ONE (08:40)
[2018-01-05] MEDS ORDERED: ceFAZolin 1 GM/NS 50 ML IVPB IV ONE ×2 (08:45)
[2018-01-05] MEDS: LACTATED RINGERS 1,000 ML IV PRN ×2 (08:45→10:15)
[2018-01-05] MEDS ORDERED: FAMOTIDINE 20MG/2ML IV (PEPCID) IV ONE (09:15)
--- NOTE | 2018-01-05 09:18 | Progress Note-Pre Operative ---
Pre-Operative Progress Note H&P Reviewed The H&P was reviewed, patient examined and no changes noted. Date Seen by Provider: Jan 05, 2018 Time Seen by Provider: 09:00 Date H&P Reviewed: Jan 05, 2018 Time H&P Reviewed: 09:00 Pre-Operative Diagnosis: Symptomatic Biliary Dyskinesia MALIA HARVEY APRN Jan 05, 2018 9:18 am
--- NOTE | 2018-01-05 09:20 | Discharge Inst-Surgical ---
D/C Lap Instructions-KIDO New, Converted, or Re-Newed RX: RX on Chart Follow Up Appt in 2 weeks Activity as tolerated No driving for 24 hours No driving while on pain medications Incentive Spirometry use every 2 hours while awake Regular Diet Symptoms to Report: Fever over 101 degree F, Nausea/Vomiting Infection Signs and Symptoms to report: Increased redness, Foul odor of wound, Increased drainage Bathing instructions: May shower Operative Area Clean/Dry; Keep incision clean/dry If any problems/questions: Contact your physician or go to Emergency Room MALIA HARVEY APRN Jan 05, 2018 9:20 am
[2018-01-05] MEDS ORDERED: FAMOTIDINE 20MG/2ML IV (PEPCID) ONE (09:21)
[2018-01-05] MEDS ORDERED: HYDR-3816 PO ×2 (09:22)
[2018-01-05] MEDS ORDERED: DEXAMETHASONE 10 MG/ML (DECADRON) 1 ML VIAL ONE (09:27)
[2018-01-05] MEDS ORDERED: LIDOCAINE PF 2% 5 ML (XYLOCAINE) VIAL ONE (09:27)
[2018-01-05] MEDS ORDERED: ROCURONIUM 10 MG/ML 5 ML SYRINGE IV ONE (09:27)
[2018-01-05] MEDS ORDERED: SEVOFLURANE (ULTANE) 15 ML INHAL SOLN ONE ×6 (09:27→10:47)
[2018-01-05] MEDS ORDERED: proPOfol 200 MG/20 ML (DIPRIVAN) VIAL IV ONE (09:27)
[2018-01-05] MEDS ORDERED: MIDAZOLAM 2 MG/2 ML (VERSED) VIAL ONE (09:28)
[2018-01-05] MEDS ORDERED: fentaNYL INJECTION 100 MCG/2 ML AMP ONE (09:28)
[2018-01-05] MEDS ORDERED: ACETAMINOPHEN 325 MG TABLET PO PRN (09:30)
[2018-01-05] MEDS ORDERED: ONDANSETRON 4 MG/2 ML (SDV) Z0FRAN IVP PRN (09:30)
[2018-01-05] MEDS ORDERED: HYDROcodone/APAP 5 MG/325 MG (LORTAB) TAB PO ONE (09:30)
[2018-01-05] MEDS ORDERED: morphine INJ 10 MG/ML 1ML (SYR OR VIAL) IVP PRN (09:30)
[2018-01-05] MEDS ORDERED: ceFAZolin INJECTION 1,000 MG in NS (IVPB) 50 ML IV ONE (09:45)
[2018-01-05 10:34] VITALS: BP 107/81
[2018-01-05] MEDS ORDERED: GLYCOPYRROLATE 0.2 MG/ML (ROBINUL) 2 ML VIAL ONE (10:45)
[2018-01-05] MEDS ORDERED: NEOSTIGMINE 1 MG/ML 5 ML SYRINGE ONE (10:45)
--- NOTE | 2018-01-05 11:06 | Progress Note-Post Operative ---
Post-Operative Progess Note Surgeon (s)/Churn Driller (s) Surgeon NEVILLE MONSALVE MD Churn Driller: perez andrews CASING SEWER Pre-Operative Diagnosis Symptomatic Biliary Dyskinesia Post-Operative Diagnosis same Procedure & Operative Findings Date of Procedure 01/05/18 Procedure Performed/Findings laparoscopic cholecystectomy Anesthesia Type GET Estimated Blood Loss Estimated blood loss (mL): minimal Specimens/Packing Specimens Removed gallbladder NEVILLE MONSALVE MD Jan 05, 2018 11:06 am
[2018-01-05] MEDS ORDERED: morphine INJ 10 MG/ML 1ML (SYR OR VIAL) IVP ONE (11:30)
[2018-01-05] MEDS ORDERED: HYDROmorphone 2 MG/ML VIAL (DILAUDID) ONE (11:46)
[2018-01-05] MEDS ORDERED: HYDROmorphone 2 MG/ML VIAL (DILAUDID) IV ONE (12:00)
[2018-01-05 12:25] VITALS: BP 115/71
[2018-01-05] MEDS: ONDANSETRON 4 MG/2 ML (SDV) Z0FRAN IVP PRN (12:25)
[2018-01-05] MEDS ORDERED: HYDROcodone/APAP 5 MG/325 MG (LORTAB) TAB ONE (12:52)
[2018-01-05 12:55] VITALS: BP 115/70
[2018-01-05 13:25] VITALS: BP 106/67
[2018-01-05 14:25] VITALS: BP 110/61
[2018-01-05 15:00] VITALS: BP 110/61
--- NOTE | 2018-01-05 16:27 | OPERATIVE REPORT ---
DATE OF SERVICE: 01/05/2018 ATTENDING PRIMARY CARE PHYSICIAN: Dr. Severino. PREOPERATIVE DIAGNOSIS: Biliary dyskinesia. POSTOPERATIVE DIAGNOSIS: Biliary dyskinesia. PROCEDURE: Laparoscopic cholecystectomy. SURGEON: Neville Monsalve MD [employer]: Arsh Gordon APRN ANESTHESIA: General endotracheal. ESTIMATED BLOOD LOSS: Minimal. FINDINGS: Dilated gallbladder. The liver, small bowel, omentum appeared normal. DISPOSITION: The patient tolerated the procedure well. INDICATIONS: The patient is a 37-year-old female known to us. She is status post laparoscopic gastric sleeve resection in 05/2016. Her initial weight was approximately 310 pounds and she lost 180 pounds and has done well. She had a recent hospital admission for nausea, vomiting and was also found to have symptomatic bradycardia and found to have sick sinus syndrome. She also had reported that she had developed diarrhea right after eating meals. During that hospital admission, she continued to have symptomatic bradycardia and underwent a pacemaker implantation. During that admission, she had an ultrasound performed, which did not show any gallstones; however, HIDA scan did show potential hyperkinesis with an ejection fraction of 90% consistent with a biliary dyskinesia. She again also states that she has discomfort after eating a meal as well as intermittent episodes of nausea. This most likely represents a biliary dyskinesia with the possibility of microcrystalline disease within the gallbladder causing temporary stasis. This is especially true with the fact that she has lost so much weight in the past 18 months. DESCRIPTION OF PROCEDURE: The patient was brought to the operating room, laid supine on the table. After adequate IV pain and sedating medications and general endotracheal intubation, the abdomen was prepped and draped in standard surgical fashion. A 0.5% Marcaine with epinephrine was then used to anesthetize the overlying skin in the left upper abdominal quadrant and a small transverse skin incision made using a 15 blade. An 0 silk suture was applied to the medial aspect of the incision for retraction and a Veress needle inserted with a low opening pressure of 0 mmHg and the abdomen was then insufflated to 15 mmHg pressure. The Veress needle removed and a 5 mm Xcel trocar placed followed by a 5 mm 45 degree angle laparoscope visualizing the peritoneal cavity. A 4-quadrant abdominal exploration was performed. There was an enlarged dilated gallbladder; however, there was no gallbladder wall thickening. The liver, small bowel, omentum appeared normal. Under direct visualization, we then proceeded to place a supraumbilical 10 mm port after the skin and peritoneal lining were anesthetized using 0.5% Marcaine with epinephrine and a transverse skin incision made using a 15 blade. In a similar manner, a right upper abdominal quadrant 5 mm port was placed. The patient was then placed in a reverse Trendelenburg position as well as plane right side up, left side down. The gallbladder fundus was then retracted anteriorly and superiorly. The hepatoduodenal ligament was then opened using electrocautery as well as blunt dissection using the hook instrument. The entire critical view of safety was identified including the triangle of Calot as well as the cystic duct and artery as the only two structures going into the gallbladder as well as the cystic plate behind the proximal gallbladder. A timeout was then taken and the cystic duct and artery were then clipped proximally and distally and cut with EndoShears. The gallbladder was then dissected off the liver bed using electrocautery and hook instrument with visualization of good hemostasis as well as no leaking ducts of Luschka. The gallbladder was removed through the 10 mm port site using an EndoCatch bag. The 10 mm port site fascia and peritoneum were then closed under direct visualization using Emre-Cali device and 0 Vicryl suture. The abdomen was then desufflated and the remaining ports removed. All skin incisions were closed using 4-0 Monocryl running subcuticular sutures. Wounds were then cleaned and covered with Dermabond. The patient tolerated the procedure well. We will start IV and oral pain medication as well as a clear liquid diet. Once she is tolerating clears, has good pain control with oral pain medications, ambulating well, we will discharge her home. We will also have her continue with cholestyramine q.i.d. for now as well as a low fiber, low residue diet for at least the next six to eight weeks to try to decrease the gastrointestinal motility. We will have followup in the office in 2 weeks. Job ID: [id number] DocumentID: [id number] Dictated Date: 01/05/2018 11:12:54 Manager Administration Date: 01/05/2018 16:26:16 Dictated By: NEVILLE MONSALVE MD
--- NOTE | 2018-01-05 18:32 | Anesthesia-General Post-Op ---
General Patient Condition Mental Status/LOC: Same as Preop Cardiovascular: Satisfactory Nausea/Vomiting: Absent Respiratory: Satisfactory Pain: Controlled Complications: Absent Post Op Complications Complications None Follow Up Care/Instructions Patient Instructions None needed. Anesthesia/Patient Condition Patient Condition Patient was seen after the procedure and she was doing well, no complaints, stable vital signs, no apparent adverse anesthesia problems. AMAYA IGNACIO DO Jan 05, 2018 18:32
== END 2018-01-05 15:00 | disposition home or self-care (01) ==
LOC: SDC 08:26
PROVIDERS: ATTEND Surgery
DX: K81.1 Chronic cholecystitis (principal); K82.8 Other specified diseases of gallbladder; Z11.2 Encounter for screening for other bacterial diseases; I49.5 Sick sinus syndrome; K21.9 Gastro-esophageal reflux disease without esophagitis; Z98.84 Bariatric surgery status; Z95.0 Presence of cardiac pacemaker; Z79.899 Other long term (current) drug therapy; Z79.01 Long term (current) use of anticoagulants
CPT/HCPCS: 84703; 87081; 88304

== ENCOUNTER 2018-02-01 15:32 | Observation (INO) | payer OTHER ==
[~2018-02-01] VITALS: Ht 177.8 cm; Wt 63.0 kg
[2018-02-01 16:11] LABS: BASOPHILS % (AUTO) 0 % (0-10); EOSINOPHILS % (AUTO) 1 % (0-10); HEMATOCRIT 35 % (35-52); HEMOGLOBIN 11.7 G/DL (11.5-16.0); LYMPHOCYTES # (AUTO) 1.4 X 10^3 (1.0-4.0); LYMPHOCYTES % (AUTO) 28 % (12-44); MEAN CORPUSCULAR HEMOGLOBIN 30 PG (25-34); MEAN CORPUSCULAR HGB CONC 34 G/DL (32-36); MEAN CORPUSCULAR VOLUME 89 FL (80-99); MEAN PLATELET VOLUME 9.6 FL (7.4-10.4); MONOCYTES # (AUTO) 0.2 X 10^3 (0.0-1.0); MONOCYTES % (AUTO) 4 % (0-12); NEUTROPHILS # (AUTO) 3.4 X 10^3 (1.8-7.8); NEUTROPHILS % (AUTO) 67 % (42-75); PLATELET COUNT 247 10^3/uL (130-400); RED BLOOD COUNT 3.92 10^6/uL (4.35-5.85); RED CELL DISTRIBUTION WIDTH 12.3 % (10.0-14.5)
--- NOTE | 2018-02-01 16:24 | ED Cardiac General ---
History of Present Illness General Chief Complaint: Cardiac/General Problems Stated Complaint: PACEMAKER SHOCKING PATIENT Source: patient Exam Limitations: no limitations History of Present Illness Date Seen by Provider: Feb 01, 2018 Time Seen by Provider: 15:50 Initial Comments The patient is a 37 year old female who presents to the emergency room with complains of her pacemaker "shocking her" for the past 2 weeks. She called to make an appointment with her vascular specialists today and his office instructed her to come to the emergency room. Her pacemaker was placed 1 month ago at this hospital and she see Dr. Leos. Artur dizziness, shortness of breath, or chest pain. Timing/Duration: constant Associated Systoms: Denies Symptoms Allergies and Home Medications Allergies Coded Allergies: No Known Drug Allergies (Unverified , 01/04/18) Home Medications Apixaban 5 Mg Tablet, 5 MG PO BID, (Reported) Buspirone HCl 15 Mg Tablet, 7.5 MG PO BID, (Reported) TAKES 1/2 (15MG) TABLET Clonazepam 1 Mg Tablet, 1 MG PO TID, (Reported) Escitalopram Oxalate 20 Mg Tablet, 20 MG PO DAILY, (Reported) TAKES ALONG WITH 10MG TABLET FOR A TOTAL DAILY DOSE OF 30MG Escitalopram Oxalate 10 Mg Tablet, 10 MG PO DAILY, (Reported) TAKES ALONG WITH 20MG TABLET FOR A TOTAL DAILY DOSE OF 30MG Hydrocodone/Acetaminophen 1 Each Tablet, 1-2 TAB PO Q4H PRN for PAIN-MODERATE, ( Reported) Ondansetron 4 Mg Tab.rapdis, 4-8 MG PO Q6H PRN for NAUSEA/VOMITING-1ST LINE, ( Reported) Pantoprazole Sodium 40 Mg Tablet.dr, 40 MG PO DAILY, (Reported) Potassium Chloride 20 Meq Tablet.er, 20 MEQ PO BID, (Reported) Promethazine HCl 25 Mg Tablet, 25 MG PO QID PRN for NAUSEA/VOMITING-2ND LINE, ( Reported) Zolpidem Tartrate 6.25 Mg Tab.mphase, 6.25 MG PO UD, (Reported) TAKE 1 AT BEDTIME, MAY REPEAT IN ONE HOUR IF NO RELIEF Patient Home Medication List Home Medication List Reviewed: Yes Review of Systems Review of Systems Constitutional: no symptoms reported, see HPI Cardiovascular: See HPI, Other (pacemaker shocking her) All Other Systems Reviewed Negative Unless Noted: Yes Past Hikoxwr-Axiqba-Djpfhk Hx Past Med/Social Hx: Reviewed Nursing Past Med/Soc Hx Patient Social History Alcohol Use: Denies Use Recreational Drug Use: No Smoking Status: Never a Smoker Recent Foreign Travel: No Contact w/Someone Who Travel: No Recent Hopitalizations: Yes (PACEMAKER ) Immunizations Up To Date Tetanus Booster (TDap): Unknown PED Vaccines UTD: Yes Date of Influenza Vaccine: Nov 28, 2017 Seasonal Allergies Seasonal Allergies: No Past Medical History Surgeries: Yes (GASTRIC SLEEVE, CYST REMOVED FROM FOOT) Abdominal, Gallbladder, Pacemaker Respiratory: No Currently Using CPAP: No Currently Using BIPAP: No Cardiac: Yes (SVT, PVC'S, PACEMAKER, SICK SINUS SYNDROME) Irregular Heartbeat Neurological: No Reproductive Disorders: No Female Reproductive Disorders: Denies 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 Sexually Transmitted Disease: No HIV/AIDS: No Genitourinary: No Gastrointestinal: Yes Gastroesophageal Reflux, Chronic Diarrhea, Gall Bladder Disease Musculoskeletal: Yes Arthritis Endocrine: No HEENT: No (PT WEARS GLASSES) Loss of Vision: Bilateral Hearing Impairment: Denies Cancer: No Psychosocial: Yes Anxiety, Depression Integumentary: No Blood Disorders: Yes (ANEMIA, BLOOD CLOTS) Adverse Reaction/Blood Tranf: No (N/A) Family Medical History Reviewed Nursing Family Hx Cardiovascular disease 19 MOTHER G8 SISTER Completed stroke 19 FATHER Diabetes mellitus 19 MOTHER Hypertension 19 MOTHER No Pertinent Family Hx Physical Exam Vital Signs Vital Signs - First Documented 02/01/18 15:50 Temp 98.6 Pulse 76 Resp 18 B/P (MAP) 122/70 (87) Pulse Ox 100 Capillary Refill : Less Than 3 Seconds Height, Weight, BMI Height: 5'10.00" Weight: 138lbs. 2.0oz. [id number]; 19.8 BMI Method:Stated General Appearance: No Apparent Distress, WD/WN Respiratory: Chest Non Tender, Lungs Clear, Normal Breath Sounds, No Accessory Muscle Use, No Respiratory Distress Cardiovascular: Regular Rate, Rhythm, No Edema, No Gallop, No JVD, No Murmur, Normal Peripheral Pulses Gastrointestinal: Normal Bowel Sounds, No Organomegaly, No Pulsatile Mass, Non Tender Neurologic/Psychiatric: Alert, Oriented x3, Normal Mood/Affect Skin: Normal Color, Warm/Dry Progress/Results/Core Measures Results/Orders Lab Results Laboratory Tests Test 02/01/18 15:58 Range/Units White Blood Count 5.0 4.3-11.0 10^3/uL Red Blood Count 3.92 L 4.35-5.85 10^6/uL Hemoglobin 11.7 11.5-16.0 G/DL Hematocrit 35 35-52 % Mean Corpuscular Volume 89 80-99 FL Mean Corpuscular Hemoglobin 30 25-34 PG Mean Corpuscular Hemoglobin Concent 34 32-36 G/DL Red Cell Distribution Width 12.3 10.0-14.5 % Platelet Count 247 130-400 10^3/uL Mean Platelet Volume 9.6 7.4-10.4 FL Neutrophils (%) (Auto) 67 42-75 % Lymphocytes (%) (Auto) 28 12-44 % Monocytes (%) (Auto) 4 0-12 % Eosinophils (%) (Auto) 1 0-10 % Basophils (%) (Auto) 0 0-10 % Neutrophils # (Auto) 3.4 1.8-7.8 X 10^3 Lymphocytes # (Auto) 1.4 1.0-4.0 X 10^3 Monocytes # (Auto) 0.2 0.0-1.0 X 10^3 Eosinophils # (Auto) 0.0 0.0-0.3 10^3/uL Basophils # (Auto) 0.0 0.0-0.1 10^3/uL Sodium Level 138 135-145 MMOL/L Potassium Level 3.8 3.6-5.0 MMOL/L Chloride Level 104 98-107 MMOL/L Carbon Dioxide Level 25 21-32 MMOL/L Anion Gap 9 5-14 MMOL/L Blood Urea Nitrogen 10 7-18 MG/DL Creatinine 0.80 0.60-1.30 MG/DL Estimat Glomerular Filtration Rate > 60 BUN/Creatinine Ratio 13 Glucose Level 88 70-105 MG/DL Calcium Level 9.1 8.5-10.1 MG/DL Corrected Calcium 9.1 8.5-10.1 MG/DL Total Bilirubin 0.5 0.1-1.0 MG/DL Aspartate Amino Transf (AST/SGOT) 25 5-34 U/L Alanine Aminotransferase (ALT/SGPT) 31 0-55 U/L Alkaline Phosphatase 59 40-136 U/L Troponin I < 0.30 <0.30 NG/ML B-Type Natriuretic Peptide < 10.0 <100.0 PG/ML Total Protein 6.6 6.4-8.2 GM/DL Albumin 4.0 3.2-4.5 GM/DL My Orders Orders - SILVINO SABA Troponin I (02/01/18 16:03) Ekg Tracing (02/01/18 16:03) Saline Lock/Iv-Start (02/01/18 16:03) Monitor-Rhythm Ecg Trace Only (02/01/18 16:03) BNP (02/01/18 16:03) Cbc With Automated Diff (02/01/18 16:03) Comprehensive Metabolic Panel (02/01/18 16:03) Ct Chest Wo (02/01/18 16:56) Vital Signs/I&O 02/01/18 15:50 Temp 98.6 Pulse 76 Resp 18 B/P (MAP) 122/70 (87) Pulse Ox 100 Progress Progress Note : Time: 16:52 Progress Note I have seen and evaluated the patient. Her pacemaker was evaluated by [employer] and I discussed the results with Dr. Leos at this time. He would like a CT of the patients chest to check lead placement and the patient admitted for observation and a [employer] consultations for in the morning. The patient agrees with plan of care. Diagnostic Imaging Diagonstic Imaging: CT Plain Films/CT/US/NM/MRI: chest Comments NAME: MAI PAREDES [facility] REC#: [id number] PHYSICIAN: SILVINO SABA CC: SILVINO SABA; MONIKA RUSH MD Page 2 of 2 RADIOLOGY REPORT [place]IA [place], [place] CC: MARIE SABA EDDY D MD Page 1 of 1 RADIOLOGY REPORT NAME: MAI PAREDES [facility] REC#: [id number] PT STATUS: ADM Michelle : 1980 PHYSICIAN: SILVINO SABA ADMIT DATE: 02/01/18 Signed Date of Exam: 02/01/18 CT CHEST WO PROCEDURE: CT chest without contrast. TECHNIQUE: Multiple contiguous axial images were obtained through the chest without the use of intravenous contrast. INDICATION: Patient complains of pacemaker shocking intermittently for two weeks. Evaluate lead placement. COMPARISON STUDIES: Plain films of the chest from December 08 and CTA of the chest from 12/23/2016. FINDINGS: Examination demonstrates a left subclavian cardiac pacemaker. One lead is along the surface of the ventricular apex and appears to be adherent to the muscle. The second lead has its tip along the surface of the right atrium. Some motion artifact is present. The lungs are clear. No pleural or pericardial effusions are present. There is no abnormal adenopathy. Visualized portions of the abdomen appear unremarkable. Postoperative changes are present to the stomach. IMPRESSION: The subclavian cardiac pacer is in place. There is some motion artifact of the leads. One lead appears to be along the surface of the right ventricular apex. The secondly appears to be along the surface of the right atrium. Remainder of the chest is normal. Dictated by: Dictated on workstation # [id number] Dict: 02/01/181757 Trans: 02/01/181837 Interpreted by: MONIKA RUSH MD Electronically signed by: MONIKA RUSH MD 02/01/181837 Reviewed: Reviewed by Me Departure Communication (Admissions) Time/Spoke to Admitting Phy: 16:52 Dr. Leos Impression Primary Impression: Presence of normal functioning cardiac pacemaker Disposition: ADMITTED INPATIENT Condition: Stable Admissions Decision to Admit Reason: Admit from ER (General) Decision to Admit/Date: Feb 01, 2018 Time/Decision to Admit Time: 16:53 Departure-Patient Inst. Referrals: KEIKO HOLLIS MD (PCP) Primary Care Physician Martita LEOS MD, TRAVIS Feb 01, 2018 16:24
[2018-02-01 16:27] LABS: ALANINE AMINOTRANSFERASE 31 U/L (0-55); ALKALINE PHOSPHATASE 59 U/L (40-136); BILIRUBIN,TOTAL 0.5 MG/DL (0.1-1.0); BUN/CREATININE RATIO 13; CALCIUM 9.1 MG/DL (8.5-10.1); CARBON DIOXIDE 25 MMOL/L (21-32); CHLORIDE 104 MMOL/L (98-107); GFR ESTIMATED > 60; GLUCOSE 88 MG/DL (70-105); POTASSIUM 3.8 MMOL/L (3.6-5.0); SODIUM 138 MMOL/L (135-145); TOTAL PROTEIN 6.6 GM/DL (6.4-8.2)
--- NOTE | 2018-02-01 18:09 | Diagnostic Imaging Report ---
PROCEDURE: CT chest without contrast. TECHNIQUE: Multiple contiguous axial images were obtained through the chest without the use of intravenous contrast. INDICATION: Patient complains of pacemaker shocking intermittently for two weeks. Evaluate lead placement. COMPARISON STUDIES: Plain films of the chest from December 08 and CTA of the chest from 12/23/2016. FINDINGS: Examination demonstrates a left subclavian cardiac pacemaker. One lead is along the surface of the ventricular apex and appears to be adherent to the muscle. The second lead has its tip along the surface of the right atrium. Some motion artifact is present. The lungs are clear. No pleural or pericardial effusions are present. There is no abnormal adenopathy. Visualized portions of the abdomen appear unremarkable. Postoperative changes are present to the stomach. IMPRESSION: The subclavian cardiac pacer is in place. There is some motion artifact of the leads. One lead appears to be along the surface of the right ventricular apex. The secondly appears to be along the surface of the right atrium. Remainder of the chest is normal. Dictated by: Dictated on workstation # [id number]
[2018-02-01] MEDS ORDERED: ACETAMINOPHEN 500 MG TAB (TYLENOL) PO ONE (18:45)
[2018-02-01] MEDS ORDERED: CATHETER FLUSH 10 ML SYR IV PRN (19:15)
[2018-02-01] MEDS: CATHETER FLUSH 10 ML SYR IV SCH (22:00)
[2018-02-02] VITALS: BP 98/61
[2018-02-02 04:35] VITALS: BP 92/55
[2018-02-02] MEDS: CATHETER FLUSH 10 ML SYR IV SCH (06:14)
[2018-02-02] MEDS ORDERED: NON-FORMULARY MEDICATION 1 EA EA (Zolpidem Tartrate (Ambien) 10 MG) PO PRN (07:45)
[2018-02-02] MEDS ORDERED: NON-FORMULARY MEDICATION 1 EA EA (Hydrocodone/Acetaminophen (Hydrocodone-Acetamin 7.5-325) PO PRN (07:45)
[2018-02-02] MEDS ORDERED: ONDANSETRON 4 MG (ZOFRAN) ORAL DISSOLVE TAB PO PRN ×2 (07:45→10:00)
[2018-02-02] MEDS ORDERED: PROCHLORPERAZINE 10 MG TAB (COMPAZINE) PO PRN (07:45)
[2018-02-02] MEDS ORDERED: SCOPOLAMINE TD SCH (07:45)
[2018-02-02 08:00] VITALS: BP 93/54
[2018-02-02] MEDS ORDERED: NON-FORMULARY MEDICATION 1 EA EA (Potassium Chloride 20 MEQ) PO SCH (09:00)
[2018-02-02] MEDS ORDERED: busPIRone 15 MG (BUSPAR) TABLET PO SCH ×2 (09:00→10:00)
[2018-02-02] MEDS ORDERED: APIXABAN 5 MG (ELIQUIS) TABLET PO SCH (09:00)
[2018-02-02] MEDS ORDERED: NON-FORMULARY MEDICATION 1 EA EA (Escitalopram Oxalate 20 MG) PO SCH (09:00)
[2018-02-02] MEDS ORDERED: ZOLP6.2525 PO (09:42)
[2018-02-02] MEDS ORDERED: HYDR-3816 PO (09:42)
[2018-02-02] MEDS ORDERED: ESCI10TA55 PO (09:50)
[2018-02-02] MEDS ORDERED: PROM25TA14 PO (09:51)
[2018-02-02] MEDS ORDERED: PANTOPRAZOLE 40 MG (PROTONIX) TAB PO SCH (10:07)
[2018-02-02] MEDS ORDERED: HYDROcodone/APAP 7.5 MG/325 MG (LORTAB, LORCET PLUS) TABLET PO PRN (10:09)
[2018-02-02] MEDS ORDERED: PROMETHAZINE 25 MG (PHENERGAN) TAB PO PRN (10:15)
[2018-02-02] MEDS ORDERED: NON-FORMULARY MEDICATION 1 EA EA (Cholestyramine/Aspartame (Prevalite Packet) 4 GM) PO SCH (11:00)
[2018-02-02] MEDS: clonazePAM 1 MG (KlonoPIN) TAB PO SCH ×2 (11:46→12:08)
--- NOTE | 2018-02-02 13:01 | History & Physicial-Cardiolgy ---
HPI-Cardiology Cardiology Consultation: Date of Consultation 02/02/18 Date of Admission Attending Physician Martita Leos MD Admitting Physician Allan Severino MD Consulting Physician Martita LEOS MD HPI: Time Seen by a Provider: 09:00 Chief Complaint: Chest pain This is a 37-year-old lady with history of dual-chamber permanent pacemaker implantation 2 months ago for severe symptomatic sinus node dysfunction. The patient felt significantly better after the pacemaker was done. However in the last few days she started to feel chest and abdominal discomfort associated with "jerks". Almost daily episodes. Denies any shortness of breath, syncope, near-syncope. Review of Systems-Cardiology Review of Systems Constitutional: As described under HPI; No As described under HPI, No no symptoms reported, No chills, No fever, No lightheadedness Eyes: No As described under HPI, No no symptoms reported, No blindness, No blurred vision, No contact lenses, No drainage, No decreased acuity, No foreign body sensation, No pain, No vision change Ears/Nose/Throat: No As described under HPI, No no symptoms reported, No chronic hearing loss, No ear discharge, No ear pain, No nasal drainage, No ulcerations Respiratory: No no symptoms reported; As described under HPI; No As described under HPI, No cough, No orthopnea, No shortness of breath, No SOB with excertion Cardiovascular: No no symptoms reported; As described under HPI; No As described under HPI; chest pain; No edema, No irregular heart rate, No lightheadedness, No palpitations Gastrointestinal: No no symptoms reported, No As described under HPI, No abdomen distended, No abdominal pain, No blood streaked bowels, No constipation , No diarrhea, No nausea, No vomiting, No stool coloration changes Genitourinary: No As described under HPI, No burning, No dysuria, No discharge , No frequency, No flank pain, No hematuria, No urgency : Yes : No Musculoskeletal: No no symptoms reported, No As describe under HPI, No back pain, No gout, No joint pain, No joint swelling, No muscle pain, No muscle stiffness, No neck pain, No other Skin: No no symptoms reported, No As described under HPI, No change in color, No change in hair/nails, No dryness, No lesions, No lumps, No rash, No other, No skin related problems, No ulcerations, No rash on exposed areas, No ulcerations on exposed areas Psychiatric/Neurological: No anxiety, No depression, No seizure, No focal weakness, No syncope Hematologic: No bleeding abnormalities All Other Systems Reviewed Negative Unless Noted: Yes [id number] Hx Patient Social History Alcohol Use: Denies Use Recreational Drug Use: No Smoking Status: Never a Smoker Recent Foreign Travel: No Recent Infectious Disease Expo: No Physical Abuse Screen: No Sexual Abuse: No Immunizations Up To Date Tetanus Booster (TDap): Unknown Date of Influenza Vaccine: Jan 07, 2018 Past Medical History PMH As described under Assessment. Family Medical History Family History: Cardiovascular disease 19 MOTHER G8 SISTER Completed stroke 19 FATHER Diabetes mellitus 19 MOTHER Hypertension 19 MOTHER Allergies and Home Medications Allergies Coded Allergies: No Known Drug Allergies (Unverified , 01/04/18) Home Medications Apixaban 5 Mg Tablet, 5 MG PO BID, (Reported) Buspirone HCl 15 Mg Tablet, 7.5 MG PO BID, (Reported) TAKES 1/2 (15MG) TABLET Clonazepam 1 Mg Tablet, 1 MG PO TID, (Reported) Escitalopram Oxalate 20 Mg Tablet, 20 MG PO DAILY, (Reported) TAKES ALONG WITH 10MG TABLET FOR A TOTAL DAILY DOSE OF 30MG Escitalopram Oxalate 10 Mg Tablet, 10 MG PO DAILY, (Reported) TAKES ALONG WITH 20MG TABLET FOR A TOTAL DAILY DOSE OF 30MG Hydrocodone/Acetaminophen 1 Each Tablet, 1-2 TAB PO Q4H PRN for PAIN-MODERATE, ( Reported) Ondansetron 4 Mg Tab.rapdis, 4-8 MG PO Q6H PRN for NAUSEA/VOMITING-1ST LINE, ( Reported) Pantoprazole Sodium 40 Mg Tablet.dr, 40 MG PO DAILY, (Reported) Potassium Chloride 20 Meq Tablet.er, 20 MEQ PO BID, (Reported) Promethazine HCl 25 Mg Tablet, 25 MG PO QID PRN for NAUSEA/VOMITING-2ND LINE, ( Reported) Zolpidem Tartrate 6.25 Mg Tab.mphase, 6.25 MG PO UD, (Reported) TAKE 1 AT BEDTIME, MAY REPEAT IN ONE HOUR IF NO RELIEF Patient Home Medication List Home Medication List Reviewed: Yes Physical Exam-Cardiology Physical Exam Vital Signs/I&O 02/02/18 02/02/18 02/02/18 07:00 08:00 08:00 Temp 97.6 Pulse 67 75 Resp 18 B/P (MAP) 93/54 (67) Pulse Ox 97 97 O2 Delivery Room Air Room Air 02/02/18 00:00 Intake Total 50 ml Balance 50 ml Capillary Refill : Less Than 3 SecondsLess Than 3 Seconds Constitutional: appears stated age; No apparent distress; well-developed, well- nourished HEENT: PERRL; No normal ENT inspection, No TMs normal, No pharynx normal, No scleral icterus (R), No scleral icterus (L), No pale conjunctivae (R), No pale conjunctivae (L), No photophobia, No TM abnormal (R), No TM abnormal (L), No pharyngeal erythema, No tonsillar exudate, No other, No discharge, No EOMI; hearing is well preserved; No hard of hearing; oral hygience is good; No ulceration, No xanthelasmas are seen Neck: No non-tender, No full range of motion, No supple, No normal inspection, No carotid bruit, No limited range of motion, No lymphadenopathy (R), No lymphadenopathy (L), No tender lateral, No tender midline, No thyromegaly, No other; carotid pulses are 2 + bilaterally; No with good upstrokes Respiratory: No accessory muscle use, No respiratory distress, No chest tender , No chest expansion is symmetric; chest is bilaterally symmetric; No lungs clear to percussion; lungs clear to auscultation; No crackles, No rhonchi, No rales, No stridor, No wheezing, No pleural rub, No other Cardiovascular: regular rate-rhythm; No irregularly irregular, No extra beats, No parasternal heave is noted, No JVD, No edema, No bradycardia, No tachycardia , No point of maximal impulse, No cardiac thrills are palpable; S1 and S2; No gallop/S3, No gallop/S4, No diastolic murmur, No systolic murmur, No friction rub, No click, No other Gastrointestinal: No tender, No soft, No round, No distended, No pulsatile mass , No organomegaly, No guarding, No rebound, No tenderness, No hernia, No mass, No audible bowel sounds, No abnormal bowel sounds, No abdominal bruits, No spleenomegaly, No other Rectal: deferred Extremities: No clubbing, No cyanosis, No significant edema Neurologic/Psychiatric: No supervisor baking II-XII nml as tested; no motor/sensory deficits , alert, normal mood/affect, oriented x 3; No abnormal cerebellar tests, No abnormal supervisor baking II-XII, No abnormal gait, No aphasia, No EOM palsy, No facial droop , No motor weakness, No sensory deficit, No depressed affect, No disoriented x 3 , No other, No grossly intact; power is 5/5 both on sides Skin: No normal color, No warm/dry, No cyanosis, No cool, No diaphoresis, No damp, No ecchymosis, No jaundice, No mottled, No pallor, No rash, No tattoos/ piercings, No ulcerations, No rash on exposed areas, No ulcerations on exposed areas, No other Data Review Labs ECG Impression ECG Initial ECG Rhythm: Normal Sinus A/P-Cardiology Assessment/Admission Diagnosis Chest pain, Dual-chamber permanent pacemaker, Severe sinus node dysfunction, Possible pacemaker dysfunction. Admission Status: Observation Plan Likely differential diagnosis for chest pain associated with a permanent pacemaker is diaphragmatic stimulation or microperforation. Resource Development Manager images of the CT revealed similar lead position as post operatively. I reviewed the CT chest images with our radiologist and the final read was that there is no evidence of perforation of either pacemaker lead, with no pericardial effusion. We interrogated the device and interrogations suggests stable sensitivities and captures threshold, with no change since discharge. However, we did notice phrenic nerve capture via the right atrial lead at 2.25mV (minimum). We therefore reprogramed the device to capture of 1.5mV. Capture threshold for the A lead was 0.75mV (two fold safety margin). SSS: no further symptoms. PPM: Normal device sensitivities and capture threshold. Patient will be discharged to be followed as an outpatient. Over 60 minutes were spent taking care of this patient including self device interrogation. Clinical Quality Measures DVT/VTE Risk/Contraindication: Risk Factor Score Per Nursin RFS Level Per Nursing on Admit: 3=High Martita LEOS MD Feb 02, 2018 13:01
--- NOTE | 2018-02-02 13:23 | Cardiology Discharge Summary ---
Diagnosis/Chief Complaint Date of Admission Feb 01, 2018 at 18:33 Date of Discharge 02/02/2018 Admission Diagnosis Possible pacemaker dysfunction Final/Discharge Diagnosis Diaphragmatic stimulation with PPM, Device reprogramming. Chief Complaint/HPI Chief Complaint/HPI This is a 37-year-old lady with history of dual-chamber permanent pacemaker implantation 2 months ago for severe symptomatic sinus node dysfunction. The patient felt significantly better after the pacemaker was done. However in the last few days she started to feel chest and abdominal discomfort associated with "jerks". Almost daily episodes. Denies any shortness of breath, syncope, near-syncope. Discharge Summary Procedures none Discharge Physical Examination stable Hospital Course Device interrogation and reprograming done which successfully got rid of diaphragmatic stimulation. Radiology Reviewed CT chest reviewed with Dr Fuentes (Radiology). Discussion & Recommendations Discussion discussed with patient. Follow up appt.: With Dr Leos Dicharge Diet: Regular Diet Activity as Tolerated: Yes Home Medications Reviewed patient Home Medication Reconciliation performed by pharmacy medication reconciliations dental lab technician and/or nursing. Patients Allergies have been reviewed. Discharge Home Medications: Reviewed and agree with Discharge Medication list on patient's Discharge Instruction sheet Condition at discharge stable Instructions to patient/family if further diaphragmatic stimulation despite reprograming, may require atrial lead repositioning. Clinical Quality Measures DVT/VTE Risk/Contraindication: Risk Factor Score Per Nursin RFS Level Per Nursing on Admit: 3=High Martita LEOS MD Feb 02, 2018 13:23
--- NOTE | 2018-02-02 13:23 | Discharge Inst-Simple/Standard ---
Discharge Inst-Standard Patient Instructions/Follow Up Plan of Care/Instructions/FU: Follow up with Dr Leos at previously scheduled time. Activity as Tolerated: Yes Discharge Diet: No Restrictions Martita LEOS MD Feb 02, 2018 1:23 pm
[2018-02-02] MEDS ORDERED: ZOLPIDEM 5 MG (AMBIEN) TAB PO SCH (21:00)
[2018-02-03] MEDS ORDERED: KCL 20 MEQ TAB (K-DUR) PO SCH (12:00)
== END 2018-02-02 13:30 | disposition home or self-care (01) ==
LOC: EDUNIT# 15:32 → ER 15:33 → 4TH 18:33
PROVIDERS: ADMIT Internal Medicine Interventional Cardiology; ATTEND Internal Medicine Interventional Cardiology
DX: Z45.018 Encounter for adjustment and management of other part of cardiac pacemaker (principal); I49.5 Sick sinus syndrome
CPT/HCPCS: 36415; 71250; 80053; 83880; 84484; 85025; 93005; 93041; G0378

== ENCOUNTER 2018-02-22 09:01 | Outpatient (RCR) | payer OTHER ==
[~2018-02-22 09:01] MED LIST changes: +ESCI10TA55 PO; -HYDR-3454 PO; +HYDR-3455 PO; +ZOLP6.2525 PO
[2018-02-23] MEDS ORDERED: FLUO40CA12 PO (13:23)
[2018-02-23] MEDS ORDERED: ZOLP10TA5 PO (13:23)
[2018-02-23] MEDS ORDERED: TRAZ-189 PO (13:23)
[2018-02-24] MEDS ORDERED: CEPH-507 PO (09:06)
[2018-02-24] MEDS ORDERED: FLDR.1T PO (09:20)
[2018-04-20] MEDS ORDERED: FLUO10CA29 PO (09:53)
[2018-04-20] MEDS ORDERED: DEXL60CA PO (09:53)
[2018-04-20] MEDS ORDERED: FLUO20CA42 PO (09:53)
== END 2018-05-23 | disposition home or self-care (01) ==
LOC: ONC 09:01
PROVIDERS: ATTEND Internal Medicine Hematology & Oncology
DX: Z86.718 Personal history of other venous thrombosis and embolism (principal); Z79.899 Other long term (current) drug therapy
CPT/HCPCS: 36415; 81240; 81241; 85652; 99214

== ENCOUNTER 2018-02-23 12:27 | Day surgery (SDC) | payer OTHER ==
[~2018-02-23] VITALS: Ht 177.8 cm; Wt 71.2 kg
[2018-02-23] VITALS (9 sets, daily range): BP systolic 74–94; BP diastolic 34–60
[~2018-02-23 12:27] MED LIST changes: +HYDR-3454 PO; -HYDR-3455 PO
[2018-02-23 12:43] LABS: BASOPHILS % (AUTO) 1 % (0-10); EOSINOPHILS % (AUTO) 1 % (0-10); HEMATOCRIT 36 % (35-52); HEMOGLOBIN 11.8 G/DL (11.5-16.0); LYMPHOCYTES # (AUTO) 1.2 X 10^3 (1.0-4.0); LYMPHOCYTES % (AUTO) 31 % (12-44); MEAN CORPUSCULAR HEMOGLOBIN 29 PG (25-34); MEAN CORPUSCULAR HGB CONC 33 G/DL (32-36); MEAN CORPUSCULAR VOLUME 88 FL (80-99); MEAN PLATELET VOLUME 9.4 FL (7.4-10.4); MONOCYTES # (AUTO) 0.2 X 10^3 (0.0-1.0); MONOCYTES % (AUTO) 5 % (0-12); NEUTROPHILS # (AUTO) 2.4 X 10^3 (1.8-7.8); NEUTROPHILS % (AUTO) 62 % (42-75); PLATELET COUNT 229 10^3/uL (130-400); RED BLOOD COUNT 4.03 10^6/uL (4.35-5.85); RED CELL DISTRIBUTION WIDTH 12.3 % (10.0-14.5); WHITE BLOOD COUNT 3.9 10^3/uL (4.3-11.0)
[2018-02-23] MEDS ORDERED: NS IV 1000 ML 1,000 ML IV ONE (12:44)
[2018-02-23] MEDS ORDERED: ceFAZolin 1,000 MG/10 ML (ANCEF) VIAL IV ONE (12:45)
[2018-02-23] MEDS ORDERED: BACITRACIN INJECTION 50,000 UNIT, SODIUM CHLORIDE 0.9% IRRIGATIO 500 ML IR ONE ×4 (12:45→15:15)
[2018-02-23] MEDS ORDERED: ceFAZolin 1,000 MG/10 ML (ANCEF) VIAL ONE (12:49)
[2018-02-23] MEDS ORDERED: HEParin (CATH LAB) 1,000 ML IV ONE (12:49)
[2018-02-23] MEDS ORDERED: NORMAL SALINE 250 ML ONE (12:49)
[2018-02-23] MEDS ORDERED: NS IV 1000 ML 1,000 ML ONE (12:49)
[2018-02-23] MEDS ORDERED: LIDOCAINE 1% INJ 20 ML 20 ML VIAL ONE ×2 (12:49→15:11)
[2018-02-23 13:07] LABS: ALANINE AMINOTRANSFERASE 14 U/L (0-55); ALBUMIN 4.1 GM/DL (3.2-4.5); ALKALINE PHOSPHATASE 62 U/L (40-136); BILIRUBIN,TOTAL 0.8 MG/DL (0.1-1.0); BUN/CREATININE RATIO 16; CARBON DIOXIDE 24 MMOL/L (21-32); CHLORIDE 105 MMOL/L (98-107); CREATININE SERUM 0.83 MG/DL (0.60-1.30); GFR ESTIMATED > 60; GLUCOSE 83 MG/DL (70-105); SODIUM 138 MMOL/L (135-145); TOTAL PROTEIN 6.8 GM/DL (6.4-8.2)
[2018-02-23] MEDS ORDERED: FLUO40CA12 PO (13:23)
[2018-02-23] MEDS ORDERED: TRAZ-189 PO (13:23)
[2018-02-23] MEDS ORDERED: ZOLP10TA5 PO (13:23)
[2018-02-23] MEDS ORDERED: MIDAZOLAM 5 MG/5 ML (VERSED) VIAL ONE (13:46)
[2018-02-23] MEDS ORDERED: fentaNYL INJECTION 100 MCG/2 ML AMP ONE (13:46)
[2018-02-23 13:58] LABS: INR 1.1 (0.8-1.4); PROTHROMBIN TIME PATIENT 13.7 SEC (12.2-14.7)
--- NOTE | 2018-02-23 15:16 | Cardiac Procedure Note-CS/ASA ---
Pre-Procedure Note Pre-Op Procedure Note H&P Reviewed The H&P was reviewed, patient examined and no changes noted. Date H&P Reviewed: Feb 23, 2018 Time H&P Reviewed: 15:16 Conscious Sedation Pre-Proced Time 15:16 ASA Score 3 For ASA 3 and 4: Consider anesthesia and medical clearance. Also, for patients with a history of failed moderate sedation consider anesthesia. Airway Lungs Heart ASA score ASA 1: a normal healthy patient ASA 2: a patient with a mild systemic disease (mid diabetes, controlled hypertension, obesity ASA 3: a patient with a severe systemic disease that limits activity (angina , COPD, prior Myocardial infarction) ASA 4: a patient with an incapacitating disease that is a constant threat to life (CHF, renal failure) ASA 5: a moribund patient not expected to survive 24 hrs. (ruptured aneurysm) ASA 6: a declared brain patient whose organs are being harvested. For emergent operations, add the letter E after the classification Mallampati Classification Grade 1 Sedation Plan Analgesia, Amnesia, Plan communicated to team members, Discussed options with patient/fam, Discussed risks with patient/fam The patient is an appropriate candidate to undergo the planned procedure, sedation, and anesthesia. The patient immediately re-assessed prior to indication. Martita COX MD Feb 23, 2018 15:16
[2018-02-23] MEDS ORDERED: BACITRACIN 50000 UNITS/500 ML NS IR ONE ×2 (15:30)
[2018-02-23] MEDS ORDERED: HYDROmorphone 2 MG/ML VIAL (DILAUDID) ONE (16:29)
[2018-02-23] MEDS ORDERED: NS IV 1000 ML 1,000 ML IV SCH (16:44)
[2018-02-23] MEDS ORDERED: PATIENT MAY USE OWN MEDS, ALL PO SCH (16:45)
[2018-02-23] MEDS ORDERED: NEO/POLY/BAC (NEOSPORIN) OINT 15 GM TUBE ONE (16:48)
--- NOTE | 2018-02-23 16:51 | Cardiology Post Procedure Note ---
Post-Procedure Note Physician (s)/Supervisor Mails (s) Physician Martita COX MD Pre-Procedure Diagnosis Pre-Procedure Diagnosis: Diaphragmatic stimulation with atrial lead Post-Procedure Note Procedure Start Date: Feb 23, 2018 Procedure Start Time: 15:00 Name of Procedure: Atrial lead revision Findings/Procedure Note Atrial lead revision. Pocket revision. Anesthesia Type: Conscious Sedation Estimated blood loss (mL): 10 Contrast Amount: 0 Post-Procedure Diagnosis Post-operative diagnosis: Successful Atrial Lead Revision Martita COX MD Feb 23, 2018 16:51
[2018-02-23] MEDS ORDERED: ZOLPIDEM 5 MG (AMBIEN) TAB PO ONE (22:00)
[2018-02-23] MEDS ORDERED: traZODone 50 MG (DESYREL) TAB PO ONE (22:00)
[2018-02-23] MEDS: ceFAZolin INJECTION 1,000 MG in NS (IVPB) 50 ML IV SCH (22:37)
--- NOTE | 2018-02-23 22:52 | OPERATIVE REPORT ---
DATE OF SERVICE: 02/23/2018 ATRIAL PACEMAKER LEAD REVISION AND POCKET REVISION REPORT CARDIAC WATCH REPAIR PERSON: Suhas Leos MD, [facility], CCDS. INDICATION: Diaphragmatic stimulation from atrial lead despite reprogramming. PREOPERATIVE DIAGNOSIS: Diaphragmatic stimulation from atrial lead despite reprogramming. POSTOPERATIVE DIAGNOSIS: Pacemaker atrial lead and pocket revision. HISTORY: This is a 37-year-old lady with significant sinus node dysfunction requiring a dual chamber permanent pacemaker 2 months ago. However, the patient has started to demonstrate diaphragmatic stimulation. Pacing device interrogation revealed that this was secondary to atrial lead pacing. Reprogramming was done with significant reduction in diaphragmatic stimulation; however, it still continued. Therefore, pocket revision and right atrial lead revision was recommended. PROCEDURES PERFORMED: 1. Pocket revision. 2. Right atrial lead revision. 3. Fluoroscopy. COMPLICATIONS: None. ESTIMATED BLOOD LOSS: 10 mL. CONTRAST USED: None. FLUOROSCOPY TIME: 3.16 minutes. FLUOROSCOPY DOSE: 6mgy. SPECIMENS: None ANESTHESIA: Conscious sedation. ANTICOAGULATION: None. DESCRIPTION OF PROCEDURE: After informed consent was obtained from the patient, the patient was brought to the EP lab in a fasting state. The procedure was done in conscious sedation. The patient was prepped and draped in the usual sterile fashion. IV antibiotics were administered prior to the first incision. Local anesthesia was applied to the surgical site. An incision was made. Blunt and Bovie dissection was carried out to the level of the pocket. The generator was removed. The atrial lead was disconnected from the generator. A stylet was inserted into the atrial lead and the atrial lead was unscrewed. We then took a different stylet and the atrial lead was placed in a more medial position. Great sensing and capture threshold was confirmed. We checked for diaphragmatic stimulation at maximum output, but no diaphragmatic stimulation was observed. We checked diaphragmatic stimulation under flouroscopic guidance too. The lead was therefore attached back to the generator. The connections were checked. The lead was secured with a 2-0 silk suture. The pocket revision was done. The pocket was flushed with normal saline. The generator was placed in an antibiotic patch Tyrx by [employer] and placed back into the new pocket. The pocket was closed with 6 interrupted 2-0 sutures and subcutaneous closure was done with a 4-0 suture. The patient tolerated the procedure well, did not have any complications. DEVICE MEASUREMENTS: Atrial P wave was 1.5 millivolts. Impedance 622 ohms. Threshold 1.2 volts at 0.5 milliseconds. Postoperative P wave was 1.4 millivolts. Impedance 608 ohms. Capture threshold was 0.5 volts at 0.4 milliseconds. PLAN: The patient will be observed overnight, will be given 3 further IV antibiotics and discharged tomorrow. Job ID: [id number] DocumentID: [id number] Dictated Date: 02/23/2018 17:07:08 Hydrogen Power Plant Manager Date: 02/23/2018 22:51:43 Dictated By: DEBBIE LEOS MD MTDD
[2018-02-23] MEDS ORDERED: traZODone 50 MG (DESYREL) TAB ONE (23:02)
[2018-02-23] MEDS ORDERED: ACETAMINOPHEN 325 MG TABLET ONE (23:02)
[2018-02-23] MEDS: ACETAMINOPHEN 325 MG TABLET PO PRN (23:08)
[2018-02-24] VITALS (11 sets, daily range): BP systolic 69–96; BP diastolic 42–54
[2018-02-24] MEDS: ceFAZolin INJECTION 1,000 MG in NS (IVPB) 50 ML IV SCH ×2 (05:18→13:00)
[2018-02-24] MEDS: ACETAMINOPHEN 325 MG TABLET PO PRN (05:18)
[2018-02-24] MEDS ORDERED: FLUDROCORTISONE 0.1 MG (FLORINEF) TAB PO SCH (09:00)
[2018-02-24] MEDS ORDERED: CEPH-507 PO (09:06)
--- NOTE | 2018-02-24 09:07 | Discharge Inst-Post Device ---
Discharge Inst-Post Device Follow up/Plan Dr Leos in 4 weeks. Heart Healthy Diet Do not lift arm on side of device placement above head for 4 weeks. Do not push and pull heavy objects for 4 weeks. Activity as tolerated. Leave dressing on until follow up at the office. Martita LEOS MD Feb 24, 2018 09:07
--- NOTE | 2018-02-24 09:12 | Cardiology Discharge Summary ---
Diagnosis/Chief Complaint Date of Admission 02/23/2018 Date of Discharge 02/24/2018 Admission Diagnosis Diaphragmatic stimulation with atrial lead Final/Discharge Diagnosis Atrial lead revision Chief Complaint/HPI Chief Complaint/HPI This is a 37-year-old lady with significant sinus node dysfunction requiring a dual chamber permanent pacemaker 2 months ago. However, the patient has started to demonstrate diaphragmatic stimulation. Pacing device interrogation revealed that this was secondary to atrial lead pacing. Reprogramming was done with significant reduction in diaphragmatic stimulation; however, it still continued. Therefore, pocket revision and right atrial lead revision was recommended. Discharge Summary Procedures Pocket revision, atrial lead revision. Discharge Physical Examination Normal cardiovascular examination. Normal respiratory examination. Normal left upper chest examination. Hospital Course Received total of 3 dosages of Ancef after lead revision. EKG this morning shows normal sinus rhythm. Patient has history of orthostatic hypotension. Blood pressure has been borderline low overnight. She complains of dizziness on standing up. We will start Florinef 0.1 mg daily. Device interrogation done on 02/24/2018 shows atrial impedance 475 ohms. Capture threshold 0.25 towards at 0.4 ms. Current output he 0.5 V at 0.4 ms. P -wave 1.6 mV. Programmed sensitivity 0.3 mV. No diaphragmatic stimulation noted. RV impedance 380 ohms. Capture threshold 0.75 V at 0.4 ms. Programmed output 1.5 V at 0.4 ms. R wave 5.5 mV. Programmed sensitivity 0.9 mV. Pending Labs Laboratory Tests 02/24/18 05:19: Glucometer 267 Discussion & Recommendations Discussion Discharge took over 30 minutes to complete. Discussed discharge instructions with the patient. The procedure done yesterday was explained again to the patient and family. Discharge was discussed with the RN. Device interrogation was reviewed. Discharge paperwork completed. Follow up appt.: Dr Leos in 4 weeks. Dicharge Diet: No Restrictions Activity as Tolerated: Yes Home Medications Reviewed patient Home Medication Reconciliation performed by pharmacy medication reconciliations fiber technician and/or nursing. Patients Allergies have been reviewed. Discharge Home Medications: Reviewed and agree with Discharge Medication list on patient's Discharge Instruction sheet Condition at discharge stable Instructions to patient/family Dr Leos in 4 weeks. Martita LEOS MD Feb 24, 2018 09:12
[2018-02-24] MEDS ORDERED: FLDR.1T PO (09:20)
== END 2018-02-24 13:45 | disposition home or self-care (01) ==
LOC: CATH 12:27 → ICU 17:34 → CATH 02-24 13:45
PROVIDERS: ATTEND Internal Medicine Interventional Cardiology
DX: Z45.018 Encounter for adjustment and management of other part of cardiac pacemaker (principal); I49.5 Sick sinus syndrome; I10 Essential (primary) hypertension; I47.1 Supraventricular tachycardia; D64.9 Anemia, unspecified; R53.83 Other fatigue; Z86.711 Personal history of pulmonary embolism; Z86.718 Personal history of other venous thrombosis and embolism; Z79.01 Long term (current) use of anticoagulants; Z79.899 Other long term (current) drug therapy
CPT/HCPCS: 33215; 33222; 36415; 80053; 82962; 84703; 85025; 85610; 85730; 87081; 93005

== ENCOUNTER 2018-03-31 05:35 | Outpatient (CLI) | payer OTHER ==
[~2018-03-31] VITALS: Ht 177.8 cm; Wt 59.0 kg
[~2018-03-31 05:35] MED LIST changes: +FLDR.1T PO; +FLUO40CA12 PO; +TRAZ-189 PO; +ZOLP10TA5 PO
== END 2018-03-31 12:42 | disposition home or self-care (01) ==
LOC: PREOP 05:35
PROVIDERS: ATTEND Surgery
DX: Z01.818 Encounter for other preprocedural examination (principal)

== ENCOUNTER 2018-04-07 10:51 | Day surgery (SDC) | payer OTHER ==
[~2018-04-07] VITALS: Ht 177.8 cm; Wt 59.0 kg
--- NOTE | 2018-04-07 11:11 | Progress Note-Pre Operative ---
Pre-Operative Progress Note H&P Reviewed The H&P was reviewed, patient examined and no changes noted. Date Seen by Provider: Apr 07, 2018 Time Seen by Provider: 11:00 Date H&P Reviewed: Apr 07, 2018 Time H&P Reviewed: 11:00 Pre-Operative Diagnosis: GERD, dysphagia NEVILLE MONSALVE MD Apr 07, 2018 11:11
--- NOTE | 2018-04-07 11:11 | Conscious Sedation/ASA ---
Conscious Sedation Pre-Proced Time 11:00 ASA Score 2 For ASA 3 and 4: Consider anesthesia and medical clearance. Also, for patients with a history of failed moderate sedation consider anesthesia. Airway Lungs Heart ASA score ASA 1: a normal healthy patient ASA 2: a patient with a mild systemic disease (mid diabetes, controlled hypertension, obesity ASA 3: a patient with a severe systemic disease that limits activity (angina , COPD, prior Myocardial infarction) ASA 4: a patient with an incapacitating disease that is a constant threat to life (CHF, renal failure) ASA 5: a moribund patient not expected to survive 24 hrs. (ruptured aneurysm) ASA 6: a declared brain patient whose organs are being harvested. For emergent operations, add the letter E after the classification Mallampati Classification Grade 2 Sedation Plan Analgesia, Amnesia, Plan communicated to team members, Discussed options with patient/fam, Discussed risks with patient/fam The patient is an appropriate candidate to undergo the planned procedure, sedation, and anesthesia. The patient immediately re-assessed prior to indication. NEVILLE MONSALVE MD Apr 07, 2018 11:11
--- NOTE | 2018-04-07 11:13 | Discharge Inst-Surgical ---
D/C Lap Instructions-GRICEL Follow Up Appt in 4 weeks Activity as tolerated High Fiber Diet 25g or more per day Avoid Alcohol, Caffeine, Spicy [place] and Acid foods. Drink 64 fluid oz or more of fluids per day. Symptoms to Report: Fever over 101 degree F, Nausea/Vomiting If any problems/questions: Contact your physician or go to Emergency Room NEVILLE MONSALVE MD Apr 07, 2018 11:13
[2018-04-07] MEDS ORDERED: morphine INJ 10 MG/ML 1ML (SYR OR VIAL) IV PRN (11:15)
[2018-04-07] MEDS ORDERED: ONDANSETRON 4 MG/2 ML (SDV) Z0FRAN IV PRN (11:15)
[2018-04-07] MEDS ORDERED: ACETAMINOPHEN 325 MG TABLET PO PRN (11:15)
[2018-04-07] MEDS ORDERED: HYDROcodone/APAP 5 MG/325 MG (LORTAB) TAB PO PRN (11:15)
[2018-04-07] MEDS ORDERED: LACTATED RINGERS 1,000 ML IV STA (11:38)
[2018-04-07] MEDS ORDERED: LACTATED RINGERS 1,000 ML IV ONE (11:43)
[2018-04-07 12:00] VITALS: BP 93/55
[2018-04-07] MEDS ORDERED: proPOfol 200 MG/20 ML (DIPRIVAN) VIAL IV ONE (12:48)
[2018-04-07] MEDS ORDERED: KETAMINE HCL 100 MG/ML 5 ML VIAL ONE (12:49)
[2018-04-07] MEDS ORDERED: MIDAZOLAM 2 MG/2 ML (VERSED) VIAL ONE ×2 (12:49→13:04)
[2018-04-07] MEDS ORDERED: HURRICAINE EXT TUBE (BENZOCAINE) XX ONE (13:00)
[2018-04-07] MEDS ORDERED: LIDOCAINE JELLY 2% 6 ML SYRINGE ONE (13:15)
[2018-04-07] MEDS ORDERED: HURRICAINE EXT TUBE (BENZOCAINE) ONE (13:15)
--- NOTE | 2018-04-07 13:44 | Progress Note-Post Operative ---
Post-Operative Progess Note Surgeon (s)/Deep Sea Diver (s) Surgeon NEVILLE MONSALVE MD Deep Sea Diver: none Pre-Operative Diagnosis GERD, dysphagia Post-Operative Diagnosis reflux esophagitis(grade 2-3), mild distal gastric stricture, moderate antral gastritis. Procedure & Operative Findings Date of Procedure 04/07/18 Procedure Performed/Findings EGD with bx an balloon dilatation. Anesthesia Type MAC Estimated Blood Loss Estimated blood loss (mL): minimal Specimens/Packing Specimens Removed GE jxn, antrum NEVILLE MONSALVE MD Apr 07, 2018 13:44
[2018-04-07] MEDS ORDERED: LIDOCAINE JELLY 2% 6 ML SYRINGE TOP ONE (13:45)
[2018-04-07 13:50] VITALS: BP 104/63
[2018-04-07 14:20] VITALS: BP 91/57
[2018-04-07 14:23] VITALS: BP 91/57
--- NOTE | 2018-04-07 23:03 | OPERATIVE REPORT ---
DATE OF SERVICE: 04/07/2018 ATTENDING PRIMARY CARE PHYSICIAN: Dr. Severino. PREOPERATIVE DIAGNOSIS: Dysphagia. 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 Moderate gastritis. No distal obstructions. PROCEDURE: EGD with biopsy and balloon dilatation. SURGEON: Neville Monsalve MD ANESTHESIA: Monitored anesthesia care. ESTIMATED BLOOD LOSS: Minimal. 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 No formal ulcerations, polyps or any neoplasms. No distal obstructions. Moderate gastritis of the stomach, antrum. DISPOSITION: The patient tolerated the procedure well. INDICATIONS: The patient is a 37-year-old female known to us. She is status post gastric sleeve resection in May 2016. Her initial weight was approximately 300 pounds and she has lost greater than 180 pounds. She was seen in the office for nausea and vomiting as well as diarrhea. She was also found to have a sick sinus syndrome. We felt that her nausea and vomiting may have been due to issues with her gallbladder and a HIDA scan was performed, which showed a normal ejection fraction; however, she did have reproduction of symptoms with administration of a Kinevac analogue consistent with a biliary dyskinesia and underwent a laparoscopic cholecystectomy. She reports that she did well after the surgery; however, the past few weeks, she has developed what she describes as a regurgitation and dysphagia. She does not feel any nausea nor vomiting; however, when she does take a food bolus, she will feel a substernal pressure sensation for a long period of time and eventually this would come up. She is currently on Protonix 40 mg daily as well as Dexilant. DESCRIPTION OF PROCEDURE: The patient was brought to the endoscopy suite, laid in the left lateral decubitus position with head slightly elevated. After adequate IV pain and sedative medications and monitored anesthesia care, the mouth piece was applied. The endoscope was placed in the mouth, visualizing the pharynx and hypopharyngeal region. Vocal cords, epiglottis and vallecula identified and appeared to be normal. The endoscope was then gently intubated at the esophageal opening and esophagus insufflated. Endoscope was then gently advanced into the esophagus through the 1st, 2nd and 3rd portion of the esophagus at the level of the GE junction, a reflux esophagitis between stage II and III identified. There were no ulcers or strictures identified in this region. A biopsy was taken with forceps with visualization of good hemostasis. There were no ulcers or strictures identified in this region. The endoscope was then easily advanced in the stomach and the mild distal gastric stricture identified close to the incisura angularis identified. We were easily able to get the scope through this region. At the level of the antrum, there was a moderate gastritis. No formal ulcerations, polyps or any neoplasms. A biopsy was taken of the antrum to rule out H. pylori with visualization of good hemostasis. The endoscope was then advanced to the pylorus and the first and second portion of the duodenum, which appeared normal and no distal obstructions. We then decided to proceed with dilatation of the mild gastric stricture. A balloon was placed into the antrum and pulled back to the area of the stricture. We first proceeded to 2 atmospheres of pressure or 18 mm in diameter with no resistance. We then proceeded to 4 atmospheres of pressure or 19 mmHg with no resistance. We then proceeded to 6 atmospheres of pressure or 20 mm in diameter with mild to moderate resistance and left this in place for approximately 60 seconds. The balloon was then desufflated and removed with visualization of good hemostasis as well as no mucosal tears. The endoscope was then slowly withdrawn while taking a second look and suctioning of residual air with no additional findings. The patient tolerated the procedure well. We recommend continued medical management with small more frequent meals, avoidance of eating at night as well as head elevation while lying supine. We will also recommend keeping a log of which foods do cause dysphagia and to hold off on those for now. If she does have worsening or recurrent symptoms, we will proceed with greater dilatation of the stricture with larger balloons. For now, we will have her continue with medical management and continuation of her acid reducers as well. Job ID: [id number] DocumentID: [id number] Dictated Date: 04/07/2018 13:40:08 Environmental Compliance Specialist Date: 04/07/2018 23:02:39 Dictated By: NEVILLE MONSALVE MD
== END 2018-04-07 14:24 | disposition home or self-care (01) ==
LOC: ENDO 10:51
PROVIDERS: ATTEND Surgery
DX: K21.0 Gastro-esophageal reflux disease with esophagitis (principal); K29.70 Gastritis, unspecified, without bleeding; K31.2 Hourglass stricture and stenosis of stomach; I49.5 Sick sinus syndrome; Z95.0 Presence of cardiac pacemaker; Z79.01 Long term (current) use of anticoagulants; Z79.899 Other long term (current) drug therapy; Z98.84 Bariatric surgery status
CPT/HCPCS: 84703

== ENCOUNTER 2018-04-20 09:45 | Outpatient (CLI) | payer OTHER ==
[~2018-04-20] VITALS: Ht 177.8 cm; Wt 59.0 kg
[2018-04-20] MEDS ORDERED: DEXL60CA PO (09:53)
[2018-04-20] MEDS ORDERED: FLUO20CA42 PO (09:53)
[2018-04-20] MEDS ORDERED: FLUO10CA29 PO (09:53)
== END 2018-04-20 10:16 | disposition home or self-care (01) ==
LOC: PREOP 09:45
PROVIDERS: ATTEND Internal Medicine Interventional Cardiology
DX: Z01.818 Encounter for other preprocedural examination (principal)

== ENCOUNTER 2018-04-24 05:55 | Day surgery (SDC) | payer OTHER ==
[~2018-04-24] VITALS: Ht 177.8 cm; Wt 59.0 kg
[~2018-04-24 05:55] MED LIST changes: +DEXL60CA PO; +FLUO10CA29 PO; +FLUO20CA42 PO
[2018-04-24] MEDS ORDERED: LIDOCAINE 1% INJ 20 ML 20 ML VIAL ONE ×2 (06:40→07:22)
[2018-04-24] MEDS ORDERED: NS IV 1000 ML 1,000 ML ONE (06:40)
[2018-04-24] MEDS ORDERED: HEParin (CATH LAB) 2,000 ML IV ONE (06:40)
[2018-04-24] MEDS ORDERED: NS IV 1000 ML 1,000 ML IV SCH (06:45)
[2018-04-24] MEDS ORDERED: ISOPROTERENOL 0.2 MG/100 ML D5W IV ONE (06:45)
[2018-04-24 06:54] VITALS: BP 121/71
[2018-04-24] MEDS ORDERED: proPOfol 200 MG/20 ML (DIPRIVAN) VIAL IV ONE (07:21)
[2018-04-24] MEDS ORDERED: fentaNYL INJECTION 100 MCG/2 ML AMP ONE (07:22)
[2018-04-24] MEDS ORDERED: MIDAZOLAM 2 MG/2 ML (VERSED) VIAL ONE (07:22)
[2018-04-24] MEDS ORDERED: SEVOFLURANE (ULTANE) 15 ML INHAL SOLN ONE ×2 (07:22→12:27)
[2018-04-24] MEDS ORDERED: ONDANSETRON 4 MG/2 ML (SDV) Z0FRAN ONE (07:22)
[2018-04-24] MEDS ORDERED: DEXAMETHASONE 10 MG/ML (DECADRON) 1 ML VIAL ONE (07:22)
[2018-04-24 07:23] LABS: HEMOGLOBIN 11.7 G/DL (11.5-16.0); RED CELL DISTRIBUTION WIDTH 12.2 % (10.0-14.5); WHITE BLOOD COUNT 3.4 10^3/uL (4.3-11.0)
[2018-04-24] MEDS ORDERED: SUCCINYLCHOLINE INJ 100 MG/5 ML SYR ONE (07:23)
[2018-04-24 07:32] LABS: INR 1.2 (0.8-1.4); PROTHROMBIN TIME PATIENT 15.4 SEC (12.2-14.7)
[2018-04-24 07:39] LABS: ALANINE AMINOTRANSFERASE 13 U/L (0-55); ALKALINE PHOSPHATASE 52 U/L (40-136); BILIRUBIN,TOTAL 0.4 MG/DL (0.1-1.0); BUN/CREATININE RATIO 14; CALCIUM 8.9 MG/DL (8.5-10.1); CARBON DIOXIDE 26 MMOL/L (21-32); CHLORIDE 107 MMOL/L (98-107); CREATININE SERUM 0.81 MG/DL (0.60-1.30); GFR ESTIMATED > 60; GLUCOSE 83 MG/DL (70-105); POTASSIUM 3.7 MMOL/L (3.6-5.0); SODIUM 142 MMOL/L (135-145); TOTAL PROTEIN 6.5 GM/DL (6.4-8.2)
[2018-04-24] MEDS ORDERED: PHENYLEPHRINE 100 MCG/ML 10 ML (ANESTHESIA) SYR ONE (08:21)
[2018-04-24] MEDS ORDERED: LACTATED RINGERS 1,000 ML IV ONE ×2 (09:31→12:30)
--- NOTE | 2018-04-24 11:51 | Cardiac Procedure Note-CS/ASA ---
Pre-Procedure Note Pre-Op Procedure Note H&P Reviewed The H&P was reviewed, patient examined and no changes noted. Date H&P Reviewed: Apr 24, 2018 Time H&P Reviewed: 08:00 Conscious Sedation Pre-Proced Time 08:00 ASA Score 3 For ASA 3 and 4: Consider anesthesia and medical clearance. Also, for patients with a history of failed moderate sedation consider anesthesia. Airway Lungs Heart ASA score ASA 1: a normal healthy patient ASA 2: a patient with a mild systemic disease (mid diabetes, controlled hypertension, obesity ASA 3: a patient with a severe systemic disease that limits activity (angina , COPD, prior Myocardial infarction) ASA 4: a patient with an incapacitating disease that is a constant threat to life (CHF, renal failure) ASA 5: a moribund patient not expected to survive 24 hrs. (ruptured aneurysm) ASA 6: a declared brain- patient whose organs are being harvested. For emergent operations, add the letter E after the classification Mallampati Classification Grade 1 Sedation Plan Analgesia, Amnesia, Plan communicated to team members, Discussed options with patient/fam, Discussed risks with patient/fam The patient is an appropriate candidate to undergo the planned procedure, sedation, and anesthesia. The patient immediately re-assessed prior to indication. Martita COX MD Apr 24, 2018 11:51
--- NOTE | 2018-04-24 11:58 | Electrophysiology Procedure ---
EP Procedure DATE OF SERVICE:04/24/18 CARDIAC RETAIL OPERATIONS SPECIALIST: Suhas Leos MD, [facility], [facility]. INDICATION: Narrow complex tachycardia. PREOPERATIVE DIAGNOSIS: Narrow complex tachycardia. POSTOPERATIVE DIAGNOSES: Typical atrial flutter ablation. HISTORY: 37 year old lady with severe sinus node dysfunction and dual chamber permanent pacemaker. Recurrent palpitations with narrow complex tachycardia at 400ms cycle length. The patient is planned for comprehensive EP study and ablation. PROCEDURE PERFORMED: 1. Comprehensive EP study with induction. 2. Fluoroscopy. 3. CS pacing. 4. Drug infusion. 5. Ablation of typical atrial flutter. 6. Comprehensive 3D mapping with the carto system. COMPLICATION: None. ESTIMATED BLOOD LOSS: 10 mL. CONTRAST USED: None. FLUOROSCOPY TIME: 19.5 minutes. FLUOROSCOPY DOSE: 73 mgy. SPECIMENS: None. ANESTHESIA: Done by our anesthesia colleagues. ANTICOAGULATION: None. PROCEDURE IN DETAIL: After informed consent was taken, the patient was brought to the EP lab. Anesthesia was provided by our anesthesia colleagues. The patient was draped and prepped in the usual sterile fashion. The patient presented to the EP lab in sinus rhythm. Access was gained in the right femoral vein with a 6-[place] and an 8-[place] sheath. Left access in left femoral vein was gained with 5-[place] and 6-[place] sheath respectively. High right atrial catheter was an Alexis catheter, right ventricular catheter was placed, his catheter and the CS catheter were also placed. A comprehensive EP study was done including a CS pacing. Dual AV rodney physiology was demonstrated with single AV rodney echos. However, dual AV rodney echos or sustained tachycardia was not induced with and without isuprel. Typical atrial flutter was not induced with rapid atrial pacing with and without Isuprel infusion. A 3D electroanatomic mapping was done with the carto system. Ablation was performed in the cavotricuspid isthmus.CS pacing and pacing from the ablation catheter at different positions on the lateral side of the ablation line were used to verify bidirectional block. We then waited for 30 minutes and rechecked and confirmed bidirectional block.Isuprel was given post-procedure, however, we could not induce atrial flutter.The patienttolerated the procedure well and did not have any complication. The patientleft the lab in sinus rhythm. Total ablation time was 12 minutes. MEASUREMENTS/EP STUDY: HV Interval 42ms AV [id number] ms. retrograde [id number] ms. fast pathway ERP 600/360ms, 500/390ms. slow pathway ERP 600/340ms, 500/330ms. Retrograde ZUZ334/250ms. PLAN: The patient will be observed overnight and will be discharged home tomorrow with precise followup instructions. Suhas Leos MD, RS, CCDS Cardiac Electrophysiology Martita LEOS MD Apr 24, 2018 11:58
[2018-04-24] MEDS ORDERED: PATIENT MAY USE OWN MEDS, ALL PO SCH (12:15)
[2018-04-24 13:45] VITALS: BP 101/65
[2018-04-24] MEDS: NS IV 1000 ML 1,000 ML IV SCH ×2 (15:26→21:21)
[2018-04-24] MEDS ORDERED: oxyCODONE/APAP 5/325MG (PERCOCET 5) TABLET ONE (15:27)
[2018-04-24] MEDS: oxyCODONE/APAP 5/325MG (PERCOCET 5) TABLET PO PRN ×2 (15:33→21:20)
[2018-04-24 16:00] VITALS: BP 102/67
[2018-04-24 19:20] VITALS: BP 98/62
[2018-04-24] MEDS ORDERED: traZODone 100 MG (DESYREL) TAB PO NR (19:30)
[2018-04-24] MEDS ORDERED: ZOLPIDEM 5 MG (AMBIEN) TAB PO NR (19:30)
[2018-04-24 23:50] VITALS: BP 94/58
--- NOTE | 2018-04-25 03:09 | NUR ---
Patient will transfer to room 415 for bed availability. Patient report given to Dianelys EDMONDS.
[2018-04-25 03:20] VITALS: BP 99/58
--- NOTE | 2018-04-25 03:20 | NUR ---
PT RECEIVED FROM ICU TO ROOM AT 0320. THIS RN AGREES WITH LAST ASSESSMENT DONE ON THE PT.
[2018-04-25] MEDS: oxyCODONE/APAP 5/325MG (PERCOCET 5) TABLET PO PRN ×2 (03:25→09:47)
[2018-04-25 08:00] VITALS: BP 92/50
--- NOTE | 2018-04-25 09:15 | Cardiology Discharge Summary ---
Diagnosis/Chief Complaint Date of Admission 04/24/18 Date of Discharge 04/25/18 Admission Diagnosis SVT Final/Discharge Diagnosis Typical Atrial Flutter ablation Chief Complaint/HPI Chief Complaint/HPI 37 year old lady with severe sinus node dysfunction and dual chamber permanent pacemaker. Recurrent palpitations with narrow complex tachycardia at 400ms cycle length. The patient is planned for comprehensive EP study and ablation. Discharge Summary Procedures Successful Typical Atrial Flutter ablation. Comprehensive EP study showed Dual AV rodney physiology with single AV rodney echoes but no dual echos or inducible tachycardia, with or without isuprel. Discharge Physical Examination normal cardiovascular and respiratory exam Hospital Course Was the Problem List Reviewed?: Yes Unremarkable Pending Labs Laboratory Tests 04/25/18 11:14: Glucometer 80 Discussion & Recommendations Discussion Discharge took over 30 minutes to complete. procedure explained in detail to patient and family. discharge instructions discussed at length. Follow up appt.: Dr Leos in two to three weeks Dicharge Diet: Regular Diet Activity as Tolerated: Yes Home Medications Reviewed patient Home Medication Reconciliation performed by pharmacy medication reconciliations accounts payable technician and/or nursing. Patients Allergies have been reviewed. Discharge Home Medications: Reviewed and agree with Discharge Medication list on patient's Discharge Instruction sheet Condition at discharge stable Instructions to patient/family given Martita LEOS MD Apr 25, 2018 09:15
--- NOTE | 2018-04-25 09:16 | Discharge Inst-Post CATH ---
Discharge Inst-CATH/EP Post Cardiac Cath/EP D/C Inst Follow Up/Plan Dr Leos in 2-3 weeks. CARDIAC CATH DISCHARGE INSTRUCTIONS *Hold Metformin for 48 hours post heart cath. ACTIVITY * Go Home directly and rest. * Limit activity of the leg (or wrist if it was used) for 7 days including aerobics, swimming, jogging, bicycling, etc. * Restrict stair-climbing for 7 days if possible, if not, climb up with your non -cath leg, then bring together on the same step. * Avoid lifting, pushing, pulling or excessive movement of the affected extremity for 7 days. * Customary sexual activity may be resumed after 2 days-use caution not to use a position that strains or causes pain to the affected extremity. * No driving for 24 hours. * NO SMOKING. * Avoid straining for bowel movements for 7 days. * Gentle walking on level ground is allowed. * Returning to work will depend on the type of procedure and the results. Your doctor will discuss this with you. CALL YOUR DOCTOR FOR ANY OF THE FOLLOWING: *If bleeding from the puncture site occurs- Apply gentle pressure to site with clean cloth and call your doctor or EMS. * If a knot or lump forms under the skin, increases in size, or causes pain. * If bruising appears to be worsening or moving further down your leg instead of disappearing. * Temperature above 101 F. CARE OF YOUR GROIN INCISION; * Bruising or purple discoloration of the skin near the puncture site is common. * You may shower only, no bathtub bathing for 5 days. Be careful to avoid slipping as your leg may feel stiff. * If a closure device was used on your femoral artery, please see the attached guide regarding care of the device and your leg. * Leave the dressing on, until removed by office staff. CARE OF YOUR WRIST INCISION; * Bruising or purple discoloration of the skin near the puncture site is common. * You may shower. * DO NOT submerge wrist. * Leave dressing on, until removed by office staff.. Martita LEOS MD Apr 25, 2018 9:16 am
[2018-04-25 11:15] VITALS: BP 92/50
--- NOTE | 2018-04-25 16:47 | Anesthesia-General Post-Op ---
General Patient Condition Mental Status/LOC: Same as Preop Cardiovascular: Satisfactory Nausea/Vomiting: Absent Respiratory: Satisfactory Pain: Controlled Complications: Absent Post Op Complications Complications None Follow Up Care/Instructions Patient Instructions None needed. Anesthesia/Patient Condition Patient Condition Patient was seen this morning in post-op rounds and she was doing well, no complaints, stable vital signs, no apparent adverse anesthesia problems. AMAYA IGNACIO DO Apr 25, 2018 16:46
== END 2018-04-25 11:15 | disposition home or self-care (01) ==
LOC: CATH 05:55 → ICU 13:30 → 4TH 04-25 03:16 → CATH 04-25 11:15
PROVIDERS: ATTEND Internal Medicine Interventional Cardiology
DX: I48.3 Typical atrial flutter (principal); I49.5 Sick sinus syndrome; F32.9 Major depressive disorder, single episode, unspecified; Z79.01 Long term (current) use of anticoagulants; Z79.899 Other long term (current) drug therapy; Z95.0 Presence of cardiac pacemaker
CPT/HCPCS: 36415; 80053; 82962; 85027; 85610; 85730; 87081; 93005; 93613; 93623; 93653

== ENCOUNTER → 2018-04-28 | Outpatient (CLI) | payer OTHER ==
--- NOTE | 2018-04-28 20:07 | Diagnostic Imaging Report ---
PROCEDURE: US left lower extremity venous. TECHNIQUE: Multiple real-time grayscale images were obtained over the left lower extremity in various projections. Additional duplex Doppler and color Doppler images were also obtained. INDICATION: Leg pain. FINDINGS: Unilateral left lower extremity venous Doppler and ultrasound exam is negative. No deep or superficial thrombus. No mass or fluid collection. IMPRESSION: Normal negative unilateral left lower extremity venous Doppler and ultrasound exam. Dictated by: Dictated on workstation # [id number]
== END ==
LOC: RAD 15:08
PROVIDERS: ATTEND Nurse Practitioner Family
DX: M79.662 Pain in left lower leg (principal)

== ENCOUNTER 2018-06-02 09:00 | Outpatient (CLI) | payer OTHER ==
[~2018-06-02] VITALS: Ht 177.8 cm; Wt 59.0 kg
[~2018-06-02 09:00] MED LIST changes: +GABA-486 PO; -HYDR-3454 PO; +HYDR-3455 PO
== END 2018-06-02 10:57 | disposition home or self-care (01) ==
LOC: PREOP 09:00
PROVIDERS: ATTEND Obstetrics & Gynecology
DX: Z01.818 Encounter for other preprocedural examination (principal)

== ENCOUNTER 2018-06-04 01:17 | Emergency (ER) | payer OTHER ==
[~2018-06-04] VITALS: Ht 177.8 cm; Wt 61.2 kg
[2018-06-04 02:26] LABS: BASOPHILS % (AUTO) 0 % (0-10); EOSINOPHILS # (AUTO) 0.1 10^3/uL (0.0-0.3); EOSINOPHILS % (AUTO) 2 % (0-10); HEMATOCRIT 37 % (35-52); LYMPHOCYTES # (AUTO) 1.4 X 10^3 (1.0-4.0); LYMPHOCYTES % (AUTO) 28 % (12-44); MEAN CORPUSCULAR HEMOGLOBIN 29 PG (25-34); MEAN CORPUSCULAR HGB CONC 33 G/DL (32-36); MEAN CORPUSCULAR VOLUME 89 FL (80-99); MEAN PLATELET VOLUME 10.3 FL (7.4-10.4); MONOCYTES # (AUTO) 0.3 X 10^3 (0.0-1.0); MONOCYTES % (AUTO) 6 % (0-12); NEUTROPHILS # (AUTO) 3.2 X 10^3 (1.8-7.8); NEUTROPHILS % (AUTO) 64 % (42-75); PLATELET COUNT 219 10^3/uL (130-400); RED CELL DISTRIBUTION WIDTH 12.3 % (10.0-14.5)
[2018-06-04 02:52] LABS: ALANINE AMINOTRANSFERASE 12 U/L (0-55); ALBUMIN 3.9 GM/DL (3.2-4.5); ALKALINE PHOSPHATASE 65 U/L (40-136); BILIRUBIN,TOTAL 0.3 MG/DL (0.1-1.0); BUN/CREATININE RATIO 13; CALCIUM 8.7 MG/DL (8.5-10.1); CARBON DIOXIDE 28 MMOL/L (21-32); CHLORIDE 102 MMOL/L (98-107); CREATININE SERUM 0.85 MG/DL (0.60-1.30); GFR ESTIMATED > 60; GLUCOSE 108 MG/DL (70-105); POTASSIUM 2.9 MMOL/L (3.6-5.0); SODIUM 139 MMOL/L (135-145); TOTAL PROTEIN 6.6 GM/DL (6.4-8.2)
--- NOTE | 2018-06-04 03:01 | ED Syncope ---
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 PT REPORTS SHE HAS PASSED OUT "SEVERAL TIMES" OVER THE PAST FEW DAYS. PT REPORTS SHE IS ON ELIQUIS ET HIT HER HEAD WHEN SHE FELL. PT ALSO REPORTS POSITIVE LOC. Source of Information: Patient, Family Exam Limitations: No Limitations History of Present Illness Date Seen by Provider: Jun 04, 2018 Time Seen by Provider: 02:26 Initial Comments Patient presents to ER by private conveyance with chief complaint of syncopal episode waking up in the hallway. She struck the right caodaism, right maxilla and midline chin. She is on Eliquis followed by Dr. Vidal. She has a pacemaker. She says she's been having syncopal episodes a couple the last week but she just fell to her bottom and didn't think much of it so she did not get checked out. She's not having any chest pain palpitations fevers chills cough dysuria nausea diarrhea. Allergies and Home Medications Allergies Coded Allergies: No Known Drug Allergies (Unverified , 06/01/18) Home Medications Apixaban 5 Mg Tablet, 5 MG PO BID, (Reported) Buspirone HCl 15 Mg Tablet, 7.5 MG PO BID, (Reported) TAKES 1/2 (15MG) TABLET Dexlansoprazole 60 Mg Cap.bp, 60 MG PO DAILY, (Reported) Fluoxetine HCl 20 Mg Capsule, 20 MG PO DAILY, (Reported) Fluoxetine HCl 40 Mg Capsule, 40 MG PO DAILY, (Reported) Gabapentin 100 Mg Capsule, 100 MG PO TID, (Reported) Pantoprazole Sodium 40 Mg Tablet.dr, 40 MG PO BID, (Reported) Potassium Chloride 20 Meq Tablet.er, 20 MEQ PO BID, (Reported) Sucralfate 1 Gm Tablet, 1 GM PO ACHS, (Reported) Trazodone HCl 50 Mg Tablet, 50 MG PO HS, (Reported) Zolpidem Tartrate 10 Mg Tablet, 10 MG PO HS, (Reported) Patient Home Medication List Home Medication List Reviewed: Yes Review of Systems Constitutional: No chills, No diaphoresis EENTM: No ear pain, No mouth pain Respiratory: No cough, No short of breath Cardiovascular: No chest pain, No edema Gastrointestinal: No abdominal pain, No nausea, No vomiting Genitourinary: No discharge, No dysuria Musculoskeletal: No back pain, No joint pain Past Kydtltt-Ahjnmt-Ydnzkk Hx Patient Social History Alcohol Use: Denies Use Recreational Drug Use: No Smoking Status: Never a Smoker 2nd Hand Smoke Exposure: No Recent Foreign Travel: No Contact w/Someone Who Travel: No Recent Infectious Disease Expo: No Recent Hopitalizations: No Physical Abuse: No Sexual Abuse: No Mistreated: No Fear: No Immunizations Up To Date Tetanus Booster (TDap): Unknown PED Vaccines UTD: Yes Date of Influenza Vaccine: Dec 26, 2017 Seasonal Allergies Seasonal Allergies: Yes Past Medical History Surgeries: Yes (GASTRIC SLEEVE, CYST REMOVED FROM FOOT) Abdominal, Gallbladder, Pacemaker Respiratory: No Currently Using CPAP: No Currently Using BIPAP: No Cardiac: Yes (, ABLATION) Deep Vein Thrombosis, Irregular Heartbeat Neurological: Yes Headaches /Migraines Reproductive Disorders: No Female 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 Sexually Transmitted Disease: No HIV/AIDS: No Genitourinary: No Gastrointestinal: Yes Gastroesophageal Reflux Musculoskeletal: Yes Arthritis Endocrine: No HEENT: No (PT WEARS GLASSES) Loss of Vision: Bilateral Hearing Impairment: Denies Cancer: No Psychosocial: Yes Anxiety, Depression Integumentary: No Blood Disorders: Yes (HX ANEMIA, BLOOD CLOTS) Adverse Reaction/Blood Tranf: No (N/A) Family Medical History Cardiovascular disease 19 MOTHER G8 SISTER Completed stroke 19 FATHER Diabetes mellitus 19 MOTHER Hypertension 19 MOTHER No Pertinent Family Hx Physical Exam Vital Signs Vital Signs - First Documented 06/04/18 01:56 Temp 98.3 Pulse 71 Resp 18 B/P (MAP) 95/67 (76) Pulse Ox 100 O2 Delivery Room Air Capillary Refill : Less Than 3 Seconds Height, Weight, BMI Height: 5'10.00" Weight: 135lbs. 0.0oz. 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 Norm as Tested Cranial Nerves: Normal Hearing, Normal Speech, PERRL Motor/Sensory: No Motor Deficit, No Sensory Deficit, No Pronator Drift Skin: Normal Color, Warm/Dry Progress/Results/Core Measures Results/Orders Lab Results Laboratory Tests Test 06/04/18 02:15 06/04/18 05:15 Range/Units White Blood Count 5.0 4.3-11.0 10^3/uL Red Blood Count 4.14 L 4.35-5.85 10^6/uL Hemoglobin 12.0 11.5-16.0 G/DL Hematocrit 37 35-52 % Mean Corpuscular Volume 89 80-99 FL Mean Corpuscular Hemoglobin 29 25-34 PG Mean Corpuscular Hemoglobin Concent 33 32-36 G/DL Red Cell Distribution Width 12.3 10.0-14.5 % Platelet Count 219 130-400 10^3/uL Mean Platelet Volume 10.3 7.4-10.4 FL Neutrophils (%) (Auto) 64 42-75 % Lymphocytes (%) (Auto) 28 12-44 % Monocytes (%) (Auto) 6 0-12 % Eosinophils (%) (Auto) 2 0-10 % Basophils (%) (Auto) 0 0-10 % Neutrophils # (Auto) 3.2 1.8-7.8 X 10^3 Lymphocytes # (Auto) 1.4 1.0-4.0 X 10^3 Monocytes # (Auto) 0.3 0.0-1.0 X 10^3 Eosinophils # (Auto) 0.1 0.0-0.3 10^3/uL Basophils # (Auto) 0.0 0.0-0.1 10^3/uL Sodium Level 139 135-145 MMOL/L Potassium Level 2.9 L 3.6-5.0 MMOL/L Chloride Level 102 98-107 MMOL/L Carbon Dioxide Level 28 21-32 MMOL/L Anion Gap 9 5-14 MMOL/L Blood Urea Nitrogen 11 7-18 MG/DL Creatinine 0.85 0.60-1.30 MG/DL Estimat Glomerular Filtration Rate > 60 BUN/Creatinine Ratio 13 Glucose Level 108 H 70-105 MG/DL Calcium Level 8.7 8.5-10.1 MG/DL Corrected Calcium 8.8 8.5-10.1 MG/DL Total Bilirubin 0.3 0.1-1.0 MG/DL Aspartate Amino Transf (AST/SGOT) 16 5-34 U/L Alanine Aminotransferase (ALT/SGPT) 12 0-55 U/L Alkaline Phosphatase 65 40-136 U/L C-Reactive Protein High Sensitivity 0.04 0.00-0.50 MG/DL Total Protein 6.6 6.4-8.2 GM/DL Albumin 3.9 3.2-4.5 GM/DL Serum Test, Qualitative NEGATIVE NEGATIVE Urine Color YELLOW Urine Clarity CLEAR Urine pH 5 5-9 Urine Specific Gary 1.030 H 1.016-1.022 Urine Protein 2+ H NEGATIVE Urine Glucose (UA) NEGATIVE NEGATIVE Urine Ketones NEGATIVE NEGATIVE Urine Nitrite NEGATIVE NEGATIVE Urine Bilirubin 1+ H NEGATIVE Urine Urobilinogen 1 NORMAL MG/DL Urine Leukocyte Esterase 1+ H NEGATIVE Urine RBC (Auto) NEGATIVE NEGATIVE Urine RBC NONE /HPF Urine WBC 0-2 /HPF Urine Squamous Epithelial Cells 0-2 /HPF Urine Crystals NONE /LPF Urine Bacteria TRACE /HPF Urine Casts NONE /LPF Urine Mucus SMALL H /LPF Urine Culture Indicated NO Urine Opiates Screen NEGATIVE NEGATIVE Urine Oxycodone Screen POSITIVE H NEGATIVE Urine Methadone Screen NEGATIVE NEGATIVE Urine Propoxyphene Screen NEGATIVE NEGATIVE Urine Barbiturates Screen NEGATIVE NEGATIVE Ur Tricyclic Antidepressants Screen NEGATIVE NEGATIVE Urine Phencyclidine Screen NEGATIVE NEGATIVE Urine Amphetamines Screen NEGATIVE NEGATIVE Urine Methamphetamines Screen NEGATIVE NEGATIVE Urine Benzodiazepines Screen POSITIVE H NEGATIVE Urine Cocaine Screen NEGATIVE NEGATIVE Urine Cannabinoids Screen NEGATIVE NEGATIVE My Orders Orders - SHAYNE,AMRIK J Orthostatic Vital Signs (Adult (06/04/18 02:12) Ct Head/Face/Cervical Wo (06/04/18 02:12) Cbc With Automated Diff (06/04/18 02:12) Comprehensive Metabolic Panel (06/04/18 02:12) Hs C Reactive Protein (06/04/18 02:12) Drug Screen Stat (Urine) (06/04/18 02:12) Hcg,Qualitative Serum (06/04/18 02:12) Ua Culture If Indicated (06/04/18 02:12) Saline Lock/Iv-Start (06/04/18 02:12) Ekg Tracing (06/04/18 02:12) Continuous Ekg Monitoring (06/04/18 02:12) Potassium Chloride (Tablet) (K Dur Table (06/04/18 03:15) Oxycodone/Apap 5/325mg Tablet (Percocet (06/04/18 03:30) Medications Given in ED Current Medications Medications Dose Ordered Sig/Elvin Route Start Time Stop Time Status Last Admin Dose Admin Oxycodone/ Acetaminophen 1 tab ONCE ONCE PO 06/04/18 03:30 06/04/18 03:34 DC 06/04/18 03:37 1 TAB Potassium Chloride 20 meq ONCE ONCE PO 06/04/18 03:15 06/04/18 03:16 DC 06/04/18 03:37 20 MEQ Vital Signs/I&O 06/04/18 06/04/18 01:56 04:31 Temp 98.3 Pulse 71 65 66 78 Resp 18 B/P (MAP) 95/67 (76) 99/65 (76) 97/63 (74) 93/62 (72) Pulse Ox 100 O2 Delivery Room Air Blood Pressure Mean: 76 Progress Progress Note : Time: 05:49 Progress Note The, and vomited her workup would be the Ambien, trazodone, gabapentin and oxycodone's. We've recommended that all these medications can have interactions and cause her to have syncopal falls. We have recommended she reduce medications for the care of her primary care doctor and the neurologist who is prescribing them for her. Her orthostatic vital signs are normal. Rest of her workup was unremarkable. Seems to be iatrogenic secondary to medications. Initial ECG Impression Date: Jun 04, 2018 Initial ECG Impression Time: 02:35 Initial ECG Rate: 64 Initial ECG Rhythm: Normal Sinus Initial ECG Intervals: Normal Initial ECG Impression: Normal Initial ECG Comparisson: Unchanged Comment No dysrhythmias, ST elevation or depression. Diagnostic Imaging Diagonstic Imaging: CT Plain Films/CT/US/NM/MRI: c-spine, head Comments No acute findings. Reviewed: Reviewed by Me Departure Impression Primary Impression: Syncope and collapse Additional Impressions: Hematoma Abrasion Adverse drug interaction Qualified Codes: T50.905A - Adverse effect of unspecified drugs, medicaments and biological substances, initial encounter Disposition: 01 HOME, SELF-CARE Condition: Stable Departure-Patient Inst. Decision time for Depature: 05:50 Referrals: LEESA GARIBAY MD (PCP) Primary Care Physician HELEN CARRENO APRN (Family) Primary Care Physician Patient Instructions: Syncope (Fainting) (DC) Add. Discharge Instructions: Anything he can do to reduce her dependency on the oxycodone such as using Tylenol or other medications would be advisable. Talk to your primary care doctor about using either Ambien or trazodone but not both. headache doctor who is prescribing the gabapentin about whether you could reduce the dosage or look for another medication that might do the same without causing these syncopal episodes. All discharge instructions reviewed with patient and/or family. Voiced understanding. AMRIK BELLA Jun 04, 2018 03:01
--- NOTE | 2018-06-04 03:10 | NUR ---
PT IN CT AT THIS TIME.
[2018-06-04] MEDS ORDERED: KCL 20 MEQ TAB (K-DUR) PO ONE (03:15)
[2018-06-04] MEDS ORDERED: oxyCODONE/APAP 5/325MG (PERCOCET 5) TABLET PO ONE (03:30)
--- NOTE | 2018-06-04 03:41 | NUR ---
LIGHTS DOWN IN ROOM, SIDERAIL UP X1, CALL LIGHT IN REACH. PT RESTING AFTER MEDICATION ADMINISTRATION.
[2018-06-04 04:31] VITALS: BP_SYST 93; BP_SYST 97; BP_SYST 99; BP_DIAS 62; BP_DIAS 63; BP_DIAS 65
--- NOTE | 2018-06-04 04:58 | NUR ---
THIS RN IN TO REASSESS PT. PT SLEEPING, AROUSES EASILY. PT UP TO BR AT THIS TIME. PT DOES REPORT PAIN NOW A "5" ON 0-10 SCALE.
--- NOTE | 2018-06-04 05:07 | NUR ---
PT UNABLE TO URINATE AT THIS TIME.
--- NOTE | 2018-06-04 05:18 | NUR ---
STRAIGHT CATH UA OBTAINED AT THIS TIME.
[2018-06-04 05:22] LABS: BILIRUBIN,URINE 1+ (NEGATIVE); CLARITY,URINE CLEAR; COLOR,URINE YELLOW; GLUCOSE, URINE (UA) NEGATIVE (NEGATIVE); KETONES,URINE NEGATIVE (NEGATIVE); LEUKOCYTE ESTERASE ,URINE 1+ (NEGATIVE); NITRITE,URINE NEGATIVE (NEGATIVE); PH,URINE 5 (5-9); PROTEIN,URINE 2+ (NEGATIVE); UROBILINOGEN,URINE 1 MG/DL (NORMAL)
[2018-06-04 05:34] LABS: AMPHETAMINE SCREEN, URINE NEGATIVE (NEGATIVE); BARBITURATE SCREEN URINE NEGATIVE (NEGATIVE); BENZODIAZEPINES SCREEN URINE POSITIVE (NEGATIVE); CANNABINOID SCREEN, URINE NEGATIVE (NEGATIVE); COCAINE SCREEN URINE NEGATIVE (NEGATIVE); METHADONE STAT NEGATIVE (NEGATIVE); METHAMPHETAMINE SCREEN URINE S NEGATIVE (NEGATIVE); OPIATE SCREEN URINE NEGATIVE (NEGATIVE); OXYCODONE STAT POSITIVE (NEGATIVE); PROPOXYPHENE STAT NEGATIVE (NEGATIVE); TRICYCLIC ANTIDEPRESSANTS SCRE NEGATIVE (NEGATIVE)
[2018-06-04 05:38] LABS: BACTERIA,URINE TRACE /HPF; SQUAMOUS EPITHELIAL CELL,UR 0-2 /HPF; WBC,URINE 0-2 /HPF
--- NOTE | 2018-06-04 06:27 | NUR ---
PLANS TO DISCHARGE PT TO HOME. WAITING FOR PTS TRANSPORTATION
--- NOTE | 2018-06-04 06:33 | Diagnostic Imaging Report ---
PROCEDURE: CT head, face, and cervical spine without contrast. TECHNIQUE: Multiple contiguous axial images were obtained through the head, neck, and facial bones without the use of intravenous contrast. Sagittal and coronal reformations through the cervical spine and facial bones were also performed. INDICATION: Passed out earlier. Headache. COMPARISON: CT head 12/04/2017 CT HEAD FINDINGS: The ventricles and sulci are within normal limits. There is no midline shift or mass effect. No evidence for acute intracranial hemorrhage or extra-axial fluid collections. The bony calvarium is intact and the paranasal sinuses are clear. CT MAXILLOFACIAL FINDINGS: There is no acute displaced maxillofacial fracture deformity. Orbital younger and floor intact. There is presence of mucosal thickening particularly along the left maxillary sinus. No significant air-fluid level. The mandible intact. Globes and retro-orbital structures appearing symmetric. CT CERVICAL SPINE FINDINGS: There is normal alignment and curvature of the cervical spine. There is no evidence for acute bony abnormality. The odontoid is intact. The prevertebral soft tissues are normal. IMPRESSION: 1. No acute intracranial abnormality. 2. Negative for acute displaced maxillofacial fracture. 3. No evidence for acute cervical spine fracture or subluxation. A preliminary report was provided by [facility]. Dictated by: Dictated on workstation # [id number]
--- NOTE | 2018-06-04 06:51 | NUR ---
REPORT TO DORINDA EDMONDS
[2018-06-04 07:38] VITALS: BP 91/63
== END 2018-06-04 07:37 | disposition home or self-care (01) ==
LOC: EDUNIT# 01:17 → ER 01:18
DX: R55 Syncope and collapse (principal); S00.83XA Contusion of other part of head, initial encounter; T50.905A Adverse effect of unspecified drugs, medicaments and biological substances, initial encounter; G43.909 Migraine, unspecified, not intractable, without status migrainosus; K21.9 Gastro-esophageal reflux disease without esophagitis; F41.9 Anxiety disorder, unspecified; F32.9 Major depressive disorder, single episode, unspecified; D64.9 Anemia, unspecified; Z82.49 Family history of ischemic heart disease and other diseases of the circulatory system; Z97.5 Presence of (intrauterine) contraceptive device; Z79.01 Long term (current) use of anticoagulants; Z95.0 Presence of cardiac pacemaker; Z98.84 Bariatric surgery status; Z86.718 Personal history of other venous thrombosis and embolism; W18.39XA Other fall on same level, initial encounter
CPT/HCPCS: 36415; 70450; 70486; 72125; 80053; 80306; 81000; 84703; 85025; 86141; 93005

== ENCOUNTER 2018-07-10 11:43 | Outpatient (CLI) | payer OTHER ==
[~2018-07-10] VITALS: Ht 177.8 cm; Wt 61.4 kg
[2018-07-10 12:15] VITALS: BP 105/71
[2018-07-10 12:47] LABS: BASOPHILS % (AUTO) 0 % (0-10); EOSINOPHILS % (AUTO) 1 % (0-10); HEMATOCRIT 34 % (35-52); HEMOGLOBIN 11.2 G/DL (11.5-16.0); LYMPHOCYTES % (AUTO) 21 % (12-44); MEAN CORPUSCULAR HEMOGLOBIN 29 PG (25-34); MEAN CORPUSCULAR HGB CONC 33 G/DL (32-36); MEAN CORPUSCULAR VOLUME 90 FL (80-99); MEAN PLATELET VOLUME 10.3 FL (7.4-10.4); MONOCYTES # (AUTO) 0.2 X 10^3 (0.0-1.0); MONOCYTES % (AUTO) 5 % (0-12); NEUTROPHILS # (AUTO) 3.4 X 10^3 (1.8-7.8); NEUTROPHILS % (AUTO) 73 % (42-75); PLATELET COUNT 212 10^3/uL (130-400); RED CELL DISTRIBUTION WIDTH 12.6 % (10.0-14.5); WHITE BLOOD COUNT 4.6 10^3/uL (4.3-11.0)
[2018-07-10 12:48] LABS: CLARITY,URINE CLEAR; COLOR,URINE AMBER; GLUCOSE, URINE (UA) NEGATIVE (NEGATIVE); KETONES,URINE NEGATIVE (NEGATIVE); LEUKOCYTE ESTERASE ,URINE 3+ (NEGATIVE); NITRITE,URINE NEGATIVE (NEGATIVE); PH,URINE 6 (5-9); PROTEIN,URINE 2+ (NEGATIVE); UROBILINOGEN,URINE 1 MG/DL (NORMAL)
[2018-07-10 13:43] LABS: BACTERIA,URINE TRACE /HPF; BILIRUBIN,URINE 1+ (NEGATIVE); RBC,URINE 0-2 /HPF; SQUAMOUS EPITHELIAL CELL,UR 0-2 /HPF
[2018-07-10 13:44] LABS: CALCIUM OXALATE CRYSTALS,UR FEW /LPF; YEAST,URINE FEW /HPF
[2018-07-20] MEDS ORDERED: ACET-77 PO (12:05)
[2018-07-20] MEDS ORDERED: OXC5T PO (12:05)
[2018-07-20] MEDS ORDERED: DOCU100C37 PO (12:05)
[2018-07-20] MEDS ORDERED: ENOX40DI13 SQ (12:05)
[2018-07-20] MEDS ORDERED: LEVO500T2 PO (12:10)
== END 2018-07-10 14:03 | disposition home or self-care (01) ==
LOC: PREOP 11:43
PROVIDERS: ATTEND Obstetrics & Gynecology
DX: Z01.812 Encounter for preprocedural laboratory examination (principal); Z11.2 Encounter for screening for other bacterial diseases; N81.2 Incomplete uterovaginal prolapse; R10.2 Pelvic and perineal pain; R82.90 Unspecified abnormal findings in urine; Z79.01 Long term (current) use of anticoagulants
CPT/HCPCS: 36415; 81000; 85025; 86850; 86900; 86901; 87081; 87088

== ENCOUNTER 2018-07-18 06:11 | Inpatient (IN) | payer OTHER ==
[~2018-07-18] VITALS: Ht 177.8 cm; Wt 61.4 kg
[2018-07-18] VITALS (17 sets, daily range): BP systolic 88–110; BP diastolic 50–63
[2018-07-18] MEDS ORDERED: LACTATED RINGERS 1,000 ML IV PRN (06:21)
[2018-07-18] MEDS ORDERED: ESTRADIOL VAGINAL CREAM 42.5 GM (ESTRACE) VG ONE (06:28)
[2018-07-18] MEDS ORDERED: BUP/EPI 0.5% 1:200,000 (SENSORCAINE) 30 ML VIAL ONE (06:28)
[2018-07-18] MEDS ORDERED: metroNIDAZOLE 500MG/100ML IVPB 100 ML IV ONE (06:30)
[2018-07-18] MEDS ORDERED: ceFAZolin INJECTION 1,000 MG in WATER (STERILE) FOR INJECTION 10 ML IV ONE (06:30)
[2018-07-18] MEDS ORDERED: MIDAZOLAM 2 MG/2 ML (VERSED) VIAL IVP ONE (06:45)
[2018-07-18] MEDS ORDERED: FAMOTIDINE 20MG/2ML IV (PEPCID) IVP ONE (06:45)
[2018-07-18] MEDS ORDERED: NS (IVPB) 100 ML ONE (06:49)
[2018-07-18] MEDS ORDERED: VASOPRESSIN INJECTION 20 UNIT/ML VIAL ONE (06:49)
[2018-07-18] MEDS ORDERED: SEVOFLURANE (ULTANE) 15 ML INHAL SOLN ONE ×9 (06:57→09:54)
[2018-07-18] MEDS ORDERED: LIDOCAINE PF 2% 5 ML (XYLOCAINE) VIAL ONE (06:57)
[2018-07-18] MEDS ORDERED: NEOSTIGMINE 1 MG/ML 5 ML SYRINGE ONE (06:57)
[2018-07-18] MEDS ORDERED: DEXAMETHASONE 10 MG/ML (DECADRON) 1 ML VIAL ONE (06:57)
[2018-07-18] MEDS ORDERED: ROCURONIUM 10 MG/ML 5 ML SYRINGE IV ONE (06:57)
[2018-07-18] MEDS ORDERED: GLYCOPYRROLATE 0.2 MG/ML (ROBINUL) 2 ML VIAL ONE (06:57)
[2018-07-18] MEDS ORDERED: KETOROLAC 30 MG/ML VIAL ONE (06:57)
[2018-07-18] MEDS ORDERED: ONDANSETRON 4 MG/2 ML (SDV) Z0FRAN ONE (06:57)
[2018-07-18] MEDS ORDERED: fentaNYL INJECTION 100 MCG/2 ML AMP ONE (06:58)
[2018-07-18] MEDS: LACTATED RINGERS 1,000 ML IV PRN ×3 (07:11→09:15)
--- NOTE | 2018-07-18 07:39 | Progress Note-Pre Operative ---
Pre-Operative Progress Note H&P Reviewed The H&P was reviewed, patient examined and no changes noted. Patient has requested that at least her left ovary be removed. Will leave right unless she has pathologic reason to remove it or extensive adhesions. She has stopped her Eliquis and will start lovenox post operatively. Will start tomorrow unless risk of extensive bleeding. Date Seen by Provider: Jul 18, 2018 Time Seen by Provider: 07:30 Date H&P Reviewed: Jul 18, 2018 Time H&P Reviewed: 07:00 Pre-Operative Diagnosis: chronic pelvic pain/endometriosis, stress incontinence , incomplete prolapse HENRI CHO DO Jul 18, 2018 07:39
[2018-07-18] MEDS: KETOROLAC 30 MG/ML VIAL IV PRN ×3 (09:20→21:21)
[2018-07-18] MEDS ORDERED: PHENYLEPHRINE 100 MCG/ML 10 ML (ANESTHESIA) SYR ONE (09:25)
[2018-07-18] MEDS ORDERED: morphine INJ 10 MG/ML 1ML (SYR OR VIAL) IVP ONE (09:45)
[2018-07-18] MEDS ORDERED: HYDROmorphone 2 MG/ML VIAL (DILAUDID) IV ONE (09:45)
[2018-07-18] MEDS ORDERED: ONDANSETRON 4 MG/2 ML (SDV) Z0FRAN IVP PRN (09:45)
[2018-07-18] MEDS ORDERED: PROMETHAZINE INJ 25 MG/ML (PHENERGAN) AMP IVP ONE (09:45)
[2018-07-18] MEDS ORDERED: proPOfol 200 MG/20 ML (DIPRIVAN) VIAL IV ONE (09:54)
[2018-07-18] MEDS ORDERED: MEPERIDINE (DEMEROL) INJ 50 MG/ML ONE (10:12)
[2018-07-18] MEDS ORDERED: MEPERIDINE (DEMEROL) INJ 50 MG/ML IVP ONE (10:15)
[2018-07-18] MEDS ORDERED: DOCUSATE SODIUM 100 MG (COLACE) CAP PO PRN (10:30)
[2018-07-18] MEDS ORDERED: ANTACID SUSP 30 ML UDC (MYLANTA) PO PRN (10:30)
[2018-07-18] MEDS ORDERED: CHLORASEPTIC LOZENGE MM PRN (10:30)
[2018-07-18] MEDS ORDERED: ONDANSETRON 4 MG/2 ML (SDV) Z0FRAN IV PRN (10:30)
[2018-07-18] MEDS ORDERED: morphine INJ 4 MG/ML 1 ML (VIAL/SYRINGE) IV PRN (10:30)
--- NOTE | 2018-07-18 11:15 | NUR ---
MAI PAREDES admitted to room 3305-1 VIA BED FROM PACU ACC BY JENIFER DODD, AFTER A ROBOTIC ASSISTED LAPAROSCOPIC HYSTERECTOMY, BILATERAL SALINGECTOMY, LEFT OOPHORECTOMY AND ATTEMPTED SLING TODAY BY DR. CHO. MAI PAREDES introduced to surroundings, call light, bed controls, phone, TV, temperature control, lights, meal times, smoking policy, visitor policy, side rail policy, bathrooms and showers. Patient Rights given to patient in the handbook. FRIEND AT BEDSIDE. PT VERY DROWSY. CONTINUOUS PULSE OX.
--- NOTE | 2018-07-18 11:45 | NUR ---
O2 STARTED AT 2L/M/NC R/T SPO2 DECREASING WHEN PT DOZES OFF. CONTINUOUS SPO2 MONITORING AND FREQUENT VS.
[2018-07-18] MEDS ORDERED: IBUPROFEN 600 MG (MOTRIN) TAB PO SCH (12:00)
--- NOTE | 2018-07-18 12:45 | NUR ---
VSS. CONTINUES TO HAVE BLOOD IN URINE WITH DECREASED URINE OUTPUT. DOZING AT INTERVALS. CONTINUOUS SPO2 MONITORING.
--- NOTE | 2018-07-18 13:39 | NUR ---
DR. CHO NOTIFIED OF PT C/O LEFT LAP SITE HURTING AND APPEARANCE OF A HEMATOMA. ICE ALREADY ON PT. DR. CHO WILL BE UP SOON.
--- NOTE | 2018-07-18 14:30 | NUR ---
BACK TO ROOM AIR. MUCH MORE ALERT. DR. CHO IN TO SEE PT AND EVALUATE ABDOMEN AND BLOODY URINE.
[2018-07-18] MEDS: SUCRALFATE 1 GM (CARAFATE) TAB PO SCH ×2 (14:46→21:19)
[2018-07-18] MEDS: GABAPENTIN 100 MG (NEURONTIN) CAP PO SCH ×2 (14:49→21:26)
[2018-07-18] MEDS: ACETAMINOPHEN 500 MG TAB (TYLENOL) PO SCH (14:50)
--- NOTE | 2018-07-18 15:00 | NUR ---
ABD. BINDER PLACED ON PT.
[2018-07-18] MEDS: LACTATED RINGERS 1,000 ML IV SCH (15:35)
--- NOTE | 2018-07-18 16:47 | NUR ---
DR. CHO NOTIFIED OF CONTINUED THICK BLOOD URINE. ORDER TO FLUSH ASHTON.
--- NOTE | 2018-07-18 16:55 | NUR ---
DAISHA FLUSHED WITH 20CC NS. PATENT TO DD. WILL CONTINUE TO MONITOR CLOSELY. VISITING WITH FRIEND. STATES FEELING MUCH BETTER.
--- NOTE | 2018-07-18 17:41 | Operative Report ---
Operative Report Date of Procedure/Surgery Jul 18, 2018 Surgeon (s) HENRI CHO DO Devops (s): Carmela Butts, MS III Post-Operative Diagnosis menorrhagia, chronic pelvic pain, incomplete pelvic prolapse Stress incontinence bladder puncture, anticoagulated Procedure Performed RatH, bilateral salpingectomy, left oophorectomy, Solyx pubovaginal sling/failed Description of Procedure Anesthesia Type: General Estimated blood loss (mL): 100 ml Specimen(s) collected/removed uterus, tubes, left ovary, epiploic, IUD Description of the Procedure After informed consent was obtained, patient was taken into the operating room where general anesthetic was found to be adequate. She was prepped and draped in the usual sterile fashion in the dorsal lithotomy position. A Cm catheter was placed. A speculum was placed in the vagina. The cervix was visualized and there is a large rectocele (not noticed in the office). The anterior lip of the cervix was grasped with a sharp toothed tenaculum. The uterus was sounded and depth was approximately 12 centimeters. I placed the Bryanna device purposely perforating the uterus to improve the manipulation of the uterus.. And then set the Byranna to 12 cm and a 4.0 cm collar was advanced over the cervix. I inserted the Bryanna without difficulty, inflating the balloon and securing it around the fornix of the cervix. The collar was then secured with sutures at 12 o'clock. Attention was then turned to the patient's abdomen. A supraumbilical incision was made about 8 mm. A Veress needle was inserted and I had difficulty confirming intraabdominal placement, but was eventually able to confirm with a drop in pressure and the saline drop test. I then insufflated the abdomen to a maximum of 15 mmHg with warmed CO2 gas. I then placed an 8 mm trocar and then the Da Jaspreet camera and intraperitoneal placement was confirmed. I then determined the procedure could be continued robotically. The first robotic port was placed about 15 cm lateral to the right and left of the umbilical placement and slightly inferior. These are both 8 mm trocars. These were placed under direct visualization of the laparoscope. 0.25% Marcaine was injected prior to placement of all trocars. When all placements were confirmed, the patient was placed in steep Trendelenburg allowing adequate visualization and the robot was brought in for docking. The docking was accomplished without difficulty. A survey of the pelvis confirmed the above mentioned findings. I was able to visualize the round ligaments bilaterally and grasped them and cauterized with bipolar cautery and then cut with my remi. At this point, I then did bilateral salpingectomy. I cut along the mesosalpinx with the monopolar remi and then dissected up to the cornu bilaterally. I then dissected the adhesions of the bowel and omentum overlying the left infundibulopelvic ligament with the remi. I then grasped the left infundibulopelvic ligament with the bipolar graspers and then coagulated and then incised with the remi. I then moved to the uteroovarian ligaments. I sealed the vessel and transected bilaterally using the bipolar cautery and then cut with the monopolar remi. I then moved my dissection to the posterior leaves of the broad ligament. I dissected the posterior leaves of the broad ligament off the uterine arteries skeletonizing them bilaterally. I then took a second clamp with the bipolar cautery and with the remi, transected the vessels away from the lateral aspect to the cervical stroma. I dissected the anterior peritoneum off the lower uterine segment. I continually pushed the bladder back and I took excessively great care and I was eventually able to dissect the vesicouterine peritoneum off the lower uterine segment. I then dissected in a V fashion towards the midline between the uterosacral ligaments. This allowed me to skeletonize the uterine vessels bilaterally. The balloon on the BRYANNA was insufflated. This allowed me to see the BRYANNA circumferentially. I then performed a colpotomy anteriorly and then amputate with cervix away from the vaginal fornix. I then continued the colpotomy circumferentially. Once this was performed, the yard assistant removed the uterus through the vagina. A sponge was left in the vagina to maintain pneumoperitoneum. There was a round, firm epiploic mass noted in the pelvis and this was removed and sent for pathology. It was free in the posterior culdesac. I then began closure of the vaginal cuff. The uterus was left in the vagina to maintain pneumoperitoneum. I closed the apices of the vaginal cuff with 2-0 Vicryl V lock sutures with a colposuspension through the uterosacral ligaments. This suspended the apices of the vaginal cuff. I extended this to the midline from both sides and overlapped the V lock sutures in the midline. Excellent closure is noted and hemostasis is achieved. The pelvis was irrigated. There are some adhesions noted with the appendix but it otherwise appeared normal. Not inflamed. All the needles were removed from the patient's abdomen. The robot was undocked. Due to the history of anticoagulation, though there was minimal bleeding, I placed Surgiflow along the cut edge at the cuff and the IP ligaments bilaterally. The instruments were now removed. The large trocar facial incision was repaired with 0 Vicryl and the skin incisions with 4-0 Monocryl and then bandages were placed. Patient was now repositioned for the vaginal portion of the procedure. The anterior vaginal epithelium was grasped in the midline with an Allis clamp. The anterior vaginal epithelium was injected with dilute vasopressin. A 1 cm incision was made in the suburethral space with a scalpel about 1.5 cm from the urethral meatus. I dissected bilaterally to the obturator membranes and then inserted the Solyx bilaterally and then tightened under the midurethra. After placement of the left arm of the solyx, I noted a gush of urine and was concerned with bladder puncture. I pulled the trocar back and I did a cystoscopy revealed an area of puncture. The mesh was in the bladder. I determined that this should not be continued at this time. I removed the sling. The incision was closed with 4-0 Monocryl in a running fashion. Cm was reinserted. The urine was noted to be blood tinged. The catheter will be retained for several days. Following the case, instrument counts were correct. The patient was repositioned in the supine position and awakened from general anesthesia without difficulty. She was taken to recovery in stable condition. She will be observed overnight. Findings of the Procedure boggy, enlarged uterus. normal ovaries, no active endometriosis, but she has been on IUD and OCPs. IUD in the cervix and removed. No bladder pathology. 2 + cystocele, 3 + rectocele Allergies and Home Medications Allergies Coded Allergies: No Known Drug Allergies (Unverified , 07/10/18) Home Medications Apixaban 5 Mg Tablet, 5 MG PO BID, (Reported) Buspirone HCl 15 Mg Tablet, 7.5 MG PO BID, (Reported) TAKES 1/2 (15MG) TABLET Dexlansoprazole 60 Mg Cap.dr.bp, 60 MG PO DAILY, (Reported) Fluoxetine HCl 20 Mg Capsule, 20 MG PO DAILY, (Reported) Fluoxetine HCl 40 Mg Capsule, 40 MG PO DAILY, (Reported) Gabapentin 100 Mg Capsule, 100 MG PO TID, (Reported) Pantoprazole Sodium 40 Mg Tablet.dr, 40 MG PO BID, (Reported) Potassium Chloride 20 Meq Tablet.er, 20 MEQ PO BID, (Reported) Sucralfate 1 Gm Tablet, 1 GM PO ACHS, (Reported) Trazodone HCl 50 Mg Tablet, 50 MG PO HS, (Reported) Zolpidem Tartrate 10 Mg Tablet, 10 MG PO HS, (Reported) Patient Home Medication List Home Medication List Reviewed: Yes HENRI CHO DO Jul 18, 2018 17:41
--- NOTE | 2018-07-18 18:00 | NUR ---
OXYIR 5 MG P.O. FOR C/O PELVIC AND ABDOMINAL PAIN. OFFERED MORPHINE IF NEEDED. STATES SHE MAY TAKE IT LATER.
--- NOTE | 2018-07-18 18:20 | NUR ---
PT TO HALLWAY VIA BED R/T TAMMI WARNING. FRIEND AT HER SIDE.
--- NOTE | 2018-07-18 18:45 | NUR ---
RETURNED PT TO ROOM 305 VIA BED.
--- NOTE | 2018-07-18 18:54 | NUR ---
DR. CHO NOTIFIED OF TOTAL URINE OUTPUT AND THICK RED BLOOD IN URINE.
--- NOTE | 2018-07-18 19:55 | NUR ---
contacted unit, update given to rn that concern with prominent hematuria and oliguria is r/t pt "Not making enough to clear it out yet. Keep the iv fluids at 250ml/hr, and I'll be up there at some point. Leave the catheter, there is no order to take it out, she will go home with it." RN voiced understanding.
[2018-07-18] MEDS: traZODone 50 MG (DESYREL) TAB PO SCH (21:18)
[2018-07-18] MEDS: PANTOPRAZOLE 40 MG (PROTONIX) TAB PO SCH (21:19)
[2018-07-18] MEDS: busPIRone 15 MG (BUSPAR) TABLET PO SCH (21:19)
[2018-07-18] MEDS: ZOLPIDEM 5 MG (AMBIEN) TAB PO SCH (21:19)
[2018-07-18] MEDS: KCL 20 MEQ TAB (K-DUR) PO SCH (21:19)
[2018-07-19] VITALS (7 sets, daily range): BP systolic 87–98; BP diastolic 53–61
[2018-07-19] MEDS: LACTATED RINGERS 1,000 ML IV SCH ×3 (01:32→15:20)
[2018-07-19] MEDS ORDERED: IBUPROFEN 600 MG (MOTRIN) TAB PO PRN (03:00)
[2018-07-19] MEDS: ACETAMINOPHEN 500 MG TAB (TYLENOL) PO SCH ×2 (06:28→15:45)
[2018-07-19] MEDS: SUCRALFATE 1 GM (CARAFATE) TAB PO SCH ×4 (06:28→21:30)
--- NOTE | 2018-07-19 06:28 | NUR ---
Pt has c/o chest pain, upon questioning pt reports stabbing bilat shoulder pain, and feelings of external brusing of chest wall down to abd, when asked pt denies squeezing or internal chest pain. vss, see int.
--- NOTE | 2018-07-19 06:47 | NUR ---
called unit, update that cbc and cmp was ordered for this am, and to hold lovenox inj and motrin administration r/t bleeding. Understanding voiced by rn, updated physician that pt denied po motrin admin r/t hx gastric sleeve. Physician voiced understanding.
[2018-07-19 07:03] LABS: BASOPHILS % (AUTO) 0 % (0-10); EOSINOPHILS % (AUTO) 0 % (0-10); HEMATOCRIT 27 % (35-52); HEMOGLOBIN 8.7 G/DL (11.5-16.0); LYMPHOCYTES # (AUTO) 1.1 X 10^3 (1.0-4.0); LYMPHOCYTES % (AUTO) 17 % (12-44); MEAN CORPUSCULAR HEMOGLOBIN 30 PG (25-34); MEAN CORPUSCULAR HGB CONC 32 G/DL (32-36); MEAN CORPUSCULAR VOLUME 92 FL (80-99); MEAN PLATELET VOLUME 9.6 FL (7.4-10.4); MONOCYTES # (AUTO) 0.4 X 10^3 (0.0-1.0); MONOCYTES % (AUTO) 5 % (0-12); NEUTROPHILS # (AUTO) 5.2 X 10^3 (1.8-7.8); NEUTROPHILS % (AUTO) 78 % (42-75); PLATELET COUNT 198 10^3/uL (130-400); WHITE BLOOD COUNT 6.7 10^3/uL (4.3-11.0)
[2018-07-19 07:32] LABS: BUN/CREATININE RATIO 7; CALCIUM 8.2 MG/DL (8.5-10.1); CARBON DIOXIDE 24 MMOL/L (21-32); CHLORIDE 107 MMOL/L (98-107); CREATININE SERUM 0.71 MG/DL (0.60-1.30); GFR ESTIMATED > 60; GLUCOSE 99 MG/DL (70-105); POTASSIUM 4.2 MMOL/L (3.6-5.0); SODIUM 139 MMOL/L (135-145)
--- NOTE | 2018-07-19 07:52 | Anesthesia-General Post-Op ---
General Patient Condition Mental Status/LOC: Same as Preop Cardiovascular: Satisfactory Nausea/Vomiting: Absent Respiratory: Satisfactory Pain: Controlled Complications: Absent Post Op Complications Complications None Follow Up Care/Instructions Patient Instructions None needed. Anesthesia/Patient Condition Patient Condition Patient is doing well, no complaints, stable vital signs, no apparent adverse anesthesia problems. No complications reported per nursing. ALANNA CHEATHAM CRNA July 19, 2018 07:52
--- NOTE | 2018-07-19 08:00 | NUR ---
VSS. UP TO AMBULATE IN THE HALLWAY WITH ASSIST X1. MOVING WELL. BACK TO SIT IN CHAIR. CALL LIGHT AND PERSONAL ITEMS PLACED WITHIN REACH.
[2018-07-19] MEDS: busPIRone 15 MG (BUSPAR) TABLET PO SCH ×2 (08:09→21:32)
[2018-07-19] MEDS: PANTOPRAZOLE 40 MG (PROTONIX) TAB PO SCH ×2 (08:10→21:35)
[2018-07-19] MEDS: GABAPENTIN 100 MG (NEURONTIN) CAP PO SCH ×3 (08:11→21:30)
[2018-07-19] MEDS: KCL 20 MEQ TAB (K-DUR) PO SCH ×2 (08:11→21:30)
[2018-07-19] MEDS: SIMETHICONE 80 MG (MYLICON) CHEW PO PRN ×2 (08:12→17:56)
--- NOTE | 2018-07-19 08:39 | NUR ---
DR. CHO CALLED TO CHECK ON PT. PLAN TO DO CT TODAY. PT INFORMED.
[2018-07-19] MEDS ORDERED: PANTOPRAZOLE 40 MG (PROTONIX) TAB PO SCH (09:00)
[2018-07-19] MEDS ORDERED: NON-FORMULARY MEDICATION 1 EA EA (Fluoxetine HCl (Prozac) 20 MG) PO SCH (09:00)
[2018-07-19] MEDS ORDERED: NON-FORMULARY MEDICATION 1 EA EA (Fluoxetine HCl (Prozac) 40 MG) PO SCH (09:00)
[2018-07-19] MEDS ORDERED: FLUoxetine HCL 20 MG (PROzac) CAP PO SCH (09:00)
--- NOTE | 2018-07-19 10:00 | NUR ---
REMAINS UP IN CHAIR. DOING WELL.
--- NOTE | 2018-07-19 10:30 | NUR ---
TO CT VIA W/C ACC BY CT STAFF.
--- NOTE | 2018-07-19 10:52 | NUR ---
RETURNED TO ROOM VIA W/C. DR. CHO HERE TO SEE PT. ASSISTED BACK TO BED.
--- NOTE | 2018-07-19 12:00 | NUR ---
EATING LUNCH. URINE MUCH LESS BLOODY AND IMPROVED OUTPUT.
--- NOTE | 2018-07-19 12:02 | NUR ---
PAIN MEDS GIVEN PER REQUEST. RATES PAIN 11/28. VSS.
--- NOTE | 2018-07-19 13:30 | NUR ---
SLEEPING IN BED. NO APPARENT DISTRESS. URINE CLEAR YELLOW IN TUBING.
--- NOTE | 2018-07-19 15:50 | NUR ---
UP TO THE BATHROOM. C/O URGE TO HAVE A BM. BACK TO SIT IN THE CHAIR.
--- NOTE | 2018-07-19 16:30 | NUR ---
AMBULATED IN THE [facility]. DOING WELL.
--- NOTE | 2018-07-19 17:17 | Physician Progress Note ---
Progress Note Assessment/Plan Date Seen by Provider: July 20, 2018 Time Seen by Provider: 08:45 Events since last exam Urine output was decreased overnight and very bloody. This has increased with increased fluids. Spoke with Dr. Waggoner. There is a known bladder puncture. However, the urine has been bloodier than would be expected. She is anticoagulated and this may be the reason why. However, I have requested a CT cystogram and CT abdomen/pelvis to evaluate to see if there is an unexpected injury or extravasation out of the bladder. There is no suspected ureteral injury, but due to the decreased output, will check this as well. She has felt ok, expect upper abdominal pain consistent with gas pain. She is taking minimal pain medication. Did receive a few doses of toradol post operatively but not oral NSAID due to history of bariatric surgery. RN was concerned that there was possibly a hematoma developing under the left lower quadrant bandage, but this appears wnl and there is no discoloration noted. Bandages are clear without drainage. Will plan to continue IVF for now and ambulate. Await results of the CT cystogram and abdomen and pelvis. Hgb is 8.7 which is not consistent with blood loss at time of surgery. This may be partly dilutional but also due to hematuria. Currently urine is red tinged but no clots. Patient states it had started to clear but she noted a small clot passed when she began moving more this morning, Will hold discharge today. Will hold her Lovenox as well. 1724 CT results are still pending. However, upon my inspection of the scans, there does not appear to extravasation of urine out of the bladder, nor any obvious defect. Will keep lowery in for at least a week to ensure healing. Will hold lovenox today and recheck hemoglobin. Urine output has increased dramatically. She states she feels "tight". Will dc fluids and will give lasix x 1 Lungs are clear, but RN heard some crackles. Abdomen is soft and minimally tender. Inc c/d/i Assessment/Plan A. POD 1 s/p RatH, bilateral salpingectomy, left oophorectomy due to chronic pain/endometriosis/menorrhagia(not controlled with IUD nor OCPs), incomplete prolapse and attempted sling 2. inadvertent bladder injury. Doing well. Urine clearing. Official CT result pending but appears to be no extravasation 3. 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 Due to risk of bleeding and hematuria, lovenox has been held. 5. Acute blood loss anemia due to hematuria. Clearing. Recheck HGB tomorrow. Vitals Last set of Vitals Signs Vital Signs Date Time Temp Pulse Resp B/P (MAP) Pulse Ox O2 Delivery O2 Flow Rate FiO2 07/19/18 15:50 99.2 74 18 87/57 (67) 100 Room Air 07/18/18 13:30 2.00 I&O I&O Intake and Output 07/19/18 00:00 Intake Total 4610 ml Output Total 925 ml Balance 3685 ml Intake Oral 1500 ml IV Total 3110 ml Output Urine Total 925 ml Labs Laboratory Tests 07/19/18 06:55: White Blood Count 6.7, Red Blood Count 2.92L, Hemoglobin 8.7L, Hematocrit 27L, Mean Corpuscular Volume 92, Mean Corpuscular Hemoglobin 30, Mean Corpuscular Hemoglobin Concent 32, Red Cell Distribution Width 12.0, Platelet Count 198, Mean Platelet Volume 9.6, Neutrophils (%) (Auto) 78H, Lymphocytes (%) (Auto) 17 , Monocytes (%) (Auto) 5, Eosinophils (%) (Auto) 0, Basophils (%) (Auto) 0, Neutrophils # (Auto) 5.2, Lymphocytes # (Auto) 1.1, Monocytes # (Auto) 0.4, Eosinophils # (Auto) 0.0, Basophils # (Auto) 0.0, Sodium Level 139, Potassium Level 4.2, Chloride Level 107, Carbon Dioxide Level 24, Anion Gap 8, Blood Urea Nitrogen 5L, Creatinine 0.71, Estimat Glomerular Filtration Rate > 60, BUN/ Creatinine Ratio 7, Glucose Level 99, Calcium Level 8.2L Focused Exam Respiratory: Chest Non Tender, Lungs Clear, Normal Breath Sounds Cardiovascular: Regular Rate, Rhythm, No Edema Clinical Quality Measures DVT/VTE Risk/Contraindication: VTE Addressed: Yes VTE Present on Admission: No Risk Factor Score Per Nursin RFS Level Per Nursing on Admit: 2=Moderate Contraindications-Pharm: Other *list below* DVT/VTE Prophylaxis Comfirm.Dx Pharmacological not ordered: Active bleeding, Risk of Bleeding Urinary Catheter-Non SCIP Pts: Reason for Catheter Continuanc: Bladder Perineal Surgery HENRI CHO DO July 19, 2018 17:17
--- NOTE | 2018-07-19 17:30 | NUR ---
DR. CHO IN TO SEE PT.
[2018-07-19] MEDS ORDERED: FUROSEMIDE 40 MG/4 ML INJ (LASIX) ONE (17:44)
[2018-07-19] MEDS ORDERED: FUROSEMIDE 40 MG/4 ML INJ (LASIX) IVP ONE (17:45)
--- NOTE | 2018-07-19 18:00 | NUR ---
IV TO A SALINE LOCK AFTER LASIX GIVEN PER ORDER.
--- NOTE | 2018-07-19 18:05 | Diagnostic Imaging Report ---
INDICATION: Hysterectomy, possible bladder injury. FINDINGS: A Cm balloon is within the lumen of the urinary bladder with contrast injection distending that structure. There is no intraperitoneal or extraperitoneal extravasation of contrast. There were no findings of bladder rupture or leak. There is a small amount of free fluid along the visualized right greater than left colic gutters as well as dependently within the pelvis. No walled off or loculated collection is found. There is no fracture demonstrated. There is some soft tissue gas on a presumed postoperative basis in the left lower quadrant ventral to the muscular and fascial abdominal wall. No fascial defect or hernia. No rectus sheath hematoma. IMPRESSION: No evidence for bladder perforation or leak. Abdominopelvic free fluid without loculated collection, presumed postoperative extraluminal soft tissue gas in the anterior abdominal wall and within the anti-dependent pelvis. Dictated by: Dictated on workstation # [id number]
--- NOTE | 2018-07-19 18:50 | NUR ---
URINE DILUTE PALE YELLOW AT THIS TIME. PT PLEASED.
[2018-07-19] MEDS ORDERED: ENOXAPARIN 40 MG/0.4 ML (LOVENOX) SYR SC SCH (21:00)
--- NOTE | 2018-07-19 21:47 | NUR ---
Evening meds given at this time. Pt. requests to take Ambien and Trazadone closer to when she is ready to go to sleep.
[2018-07-19] MEDS: traZODone 50 MG (DESYREL) TAB PO SCH (22:09)
[2018-07-19] MEDS: ZOLPIDEM 5 MG (AMBIEN) TAB PO SCH (22:10)
[2018-07-20] MEDS: ACETAMINOPHEN 500 MG TAB (TYLENOL) PO SCH
[2018-07-20 04:45] VITALS: BP 93/61
[2018-07-20] MEDS: SUCRALFATE 1 GM (CARAFATE) TAB PO SCH ×2 (06:26→11:20)
[2018-07-20 08:25] VITALS: BP 92/53
[2018-07-20] MEDS: GABAPENTIN 100 MG (NEURONTIN) CAP PO SCH (08:31)
[2018-07-20] MEDS: KCL 20 MEQ TAB (K-DUR) PO SCH (08:32)
[2018-07-20] MEDS: PANTOPRAZOLE 40 MG (PROTONIX) TAB PO SCH (08:33)
[2018-07-20] MEDS: busPIRone 15 MG (BUSPAR) TABLET PO SCH (08:34)
--- NOTE | 2018-07-20 08:49 | Physician Progress Note ---
Progress Note Assessment/Plan Date Seen by Provider: July 20, 2018 Time Seen by Provider: 09:00 Events since last exam Hematuria has cleared. CT abdomen and pelvis was cancelled by radiology despite my order (I wanted to evaluate the ureters as well as the pelvis). Explicit orders were given and still the exam was not done. The cystogram was not read until late yesterday and no report was available. I was unable to pull up the studies as I was concerned there was a problem with the program but instead the study had not been completed. Labs this morning were not done. Patient is doing well otherwise. Will get CT abdomen and pelvis today. Await lab results. And will DC home unless transfusion is indicated. She will dc home with a catheter. Will start lovenox today before dc if hgb is stable. And continue for 7 days and then she can restart her eliquis. Due to risk of vaginal cuff bleeding. 1130 Received call from the radiologist. There is no evidence of ureteral injury nor extravasation of urine anywhere. there is a small amount of post operative fluid in the left hemipelvis and this in unchanged. there is evidence of pneumoperitoneum consistent with surgery. Official report is pending. Assessment/Plan A. POD 2 s/p RatH, bilateral salpingectomy, left oophorectomy due to chronic pain/endometriosis/menorrhagia(not controlled with IUD nor OCPs), incomplete prolapse and attempted sling 2. inadvertent bladder injury. Will dc home with lowery for at least 1 week. Then remove. 3. 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 4. Due to risk of bleeding and hematuria, lovenox has been held. see above 5. Acute blood loss anemia due to hematuria. hematuria has cleared. Await hgb report. 1215 - Addendum; Hgb is 8.7 (stable). Will give lovenox and then dc home. Lowery teaching has been done. She is ready to go. Would like to proceed with a /p repair as soon as possible, but will await recovery and hemoglobin improvement. Vitals Last set of Vitals Signs Vital Signs Date Time Temp Pulse Resp B/P (MAP) Pulse Ox O2 Delivery O2 Flow Rate FiO2 07/20/18 04:47 98.5 07/20/18 04:45 64 16 93/61 (72) 98 Room Air 07/18/18 13:30 2.00 I&O I&O 07/19/18 07/20/18 07/20/18 07/20/18 23:56 04:45 04:47 08:25 Temp 99.1 98.5 98.5 99.4 Pulse 75 64 79 Resp 18 16 18 B/P (MAP) 89/58 (68) 93/61 (72) 92/53 (66) Pulse Ox 96 98 96 O2 Delivery Room Air Room Air Room Air 07/20/18 00:00 Intake Total 1350 ml Balance 1350 ml Intake and Output 07/20/18 00:00 Intake Total 2350 ml Balance 2350 ml IV Total 2350 ml Labs Laboratory Tests Test 07/20/18 11:25 Range/Units White Blood Count 4.5 4.3-11.0 10^3/uL Red Blood Count 2.96 L 4.35-5.85 10^6/uL Hemoglobin 8.7 L 11.5-16.0 G/DL Hematocrit 28 L 35-52 % Mean Corpuscular Volume 94 80-99 FL Mean Corpuscular Hemoglobin 29 25-34 PG Mean Corpuscular Hemoglobin Concent 31 L 32-36 G/DL Red Cell Distribution Width 12.4 10.0-14.5 % Platelet Count 174 130-400 10^3/uL Mean Platelet Volume 9.7 7.4-10.4 FL Neutrophils (%) (Auto) 59 42-75 % Lymphocytes (%) (Auto) 35 12-44 % Monocytes (%) (Auto) 5 0-12 % Eosinophils (%) (Auto) 2 0-10 % Basophils (%) (Auto) 0 0-10 % Neutrophils # (Auto) 2.7 1.8-7.8 X 10^3 Lymphocytes # (Auto) 1.6 1.0-4.0 X 10^3 Monocytes # (Auto) 0.2 0.0-1.0 X 10^3 Eosinophils # (Auto) 0.1 0.0-0.3 10^3/uL Basophils # (Auto) 0.0 0.0-0.1 10^3/uL Sodium Level 141 135-145 MMOL/L Potassium Level 4.3 3.6-5.0 MMOL/L Chloride Level 105 98-107 MMOL/L Carbon Dioxide Level 27 21-32 MMOL/L Anion Gap 9 5-14 MMOL/L Blood Urea Nitrogen 5 L 7-18 MG/DL Creatinine 0.73 0.60-1.30 MG/DL Estimat Glomerular Filtration Rate > 60 BUN/Creatinine Ratio 7 Glucose Level 84 70-105 MG/DL Calcium Level 8.2 L 8.5-10.1 MG/DL Clinical Quality Measures DVT/VTE Risk/Contraindication: Risk Factor Score Per Nursin RFS Level Per Nursing on Admit: 2=Moderate HENRI CHO DO July 20, 2018 08:49
--- NOTE | 2018-07-20 09:00 | NUR ---
Informed pt to be NPO for CT scan. [address]
[2018-07-20] MEDS ORDERED: HOLD METFORMIN - RECEIVED CONTRAST 20 ML VIAL IV SCH (11:00)
[2018-07-20] MEDS ORDERED: CATHETER FLUSH 10 ML SYR IV PRN (11:00)
[2018-07-20] MEDS ORDERED: IOHEXOL 350 MG/ML 100 ML (OMNIPAQUE 350) VIAL IV ONE (11:00)
[2018-07-20] MEDS: SIMETHICONE 80 MG (MYLICON) CHEW PO PRN (11:18)
[2018-07-20 11:30] LABS: BASOPHILS % (AUTO) 0 % (0-10); EOSINOPHILS # (AUTO) 0.1 10^3/uL (0.0-0.3); EOSINOPHILS % (AUTO) 2 % (0-10); HEMATOCRIT 28 % (35-52); HEMOGLOBIN 8.7 G/DL (11.5-16.0); LYMPHOCYTES # (AUTO) 1.6 X 10^3 (1.0-4.0); LYMPHOCYTES % (AUTO) 35 % (12-44); MEAN CORPUSCULAR HEMOGLOBIN 29 PG (25-34); MEAN CORPUSCULAR HGB CONC 31 G/DL (32-36); MEAN CORPUSCULAR VOLUME 94 FL (80-99); MEAN PLATELET VOLUME 9.7 FL (7.4-10.4); MONOCYTES # (AUTO) 0.2 X 10^3 (0.0-1.0); MONOCYTES % (AUTO) 5 % (0-12); NEUTROPHILS # (AUTO) 2.7 X 10^3 (1.8-7.8); NEUTROPHILS % (AUTO) 59 % (42-75); PLATELET COUNT 174 10^3/uL (130-400); RED CELL DISTRIBUTION WIDTH 12.4 % (10.0-14.5); WHITE BLOOD COUNT 4.5 10^3/uL (4.3-11.0)
[2018-07-20 11:47] LABS: BUN/CREATININE RATIO 7; CALCIUM 8.2 MG/DL (8.5-10.1); CARBON DIOXIDE 27 MMOL/L (21-32); CHLORIDE 105 MMOL/L (98-107); CREATININE SERUM 0.73 MG/DL (0.60-1.30); GFR ESTIMATED > 60; GLUCOSE 84 MG/DL (70-105); POTASSIUM 4.3 MMOL/L (3.6-5.0); SODIUM 141 MMOL/L (135-145)
--- NOTE | 2018-07-20 11:48 | NUR ---
Visited with pt about catheter care and changing to leg bag for daily use. Gave handout with an explantation of the procedure step by step. Handout also included information on how to clean bags when not in use. Discussed s/sx of UTI, ways to prevent it and when to call Dr. Gave supplies needed for home use and pt verbalized understanding with no questions.
--- NOTE | 2018-07-20 11:58 | Diagnostic Imaging Report ---
PROCEDURE: CT abdomen and pelvis with contrast. TECHNIQUE: Multiple contiguous axial images were obtained through the abdomen and pelvis after administration of intravenous contrast. Two series of delayed images were also obtained. Sagittal coronal reconstructed images were performed as well. Auto Exposure Controls were utilized during the CT exam to meet ALARA standards for radiation dose reduction. INDICATION: Bladder injury, ureter injury The CT cystogram performed on 07/19/2018 failed to show any sign of an injury to the bladder. On this exam, there is no evidence for obstruction of either collecting system. The ureters do not seem to be abnormally dilated. The ureters were not visualized in entirety throughout the length, particularly the distal left ureter. However there is no staining of the periureteral soft tissues to suggest extravasation from the ureters. As noted on the prior study, there is still fluid low in the pelvis. The Cm catheter remains in place and there is contrast urine and gas still present within the bladder. There are a few droplets of gas about the bladder as well. These are most likely a sequela of the patient's prior surgery. There is some radiopaque material still present about in the left midabdomen. The pneumoperitoneum noted previously is again evident as is the gas in the subcutaneous fat of the left abdomen. The images through the lung bases show mild atelectasis/infiltrate and a small amount of fluid. IMPRESSION: 1. There is no evidence for obstruction of either collecting system. While the ureters were not visualized in their entirety there is no indirect evidence of a ureteral injury. 2. There is still no sign of a bladder leak. 3. The postoperative changes seen on the prior study are again evident. 4. These results were discussed with Dr. Lexus Telles. Dictated by: Dictated on workstation # [id number]
[2018-07-20] MEDS ORDERED: DOCU100C37 PO (12:05)
[2018-07-20] MEDS ORDERED: OXC5T PO (12:05)
[2018-07-20] MEDS ORDERED: ACET-77 PO (12:05)
[2018-07-20] MEDS ORDERED: ENOX40DI13 SQ (12:05)
[2018-07-20] MEDS ORDERED: LEVO500T2 PO (12:10)
[2018-07-20] MEDS ORDERED: ENOXAPARIN 40 MG/0.4 ML (LOVENOX) SYR SC NR (12:15)
[2018-07-20] MEDS ORDERED: LEVOFLOXACIN 500 MG TAB (LEVAQUIN) PO NR (12:15)
[2018-07-20 13:24] VITALS: BP 93/60
--- NOTE | 2018-07-20 13:30 | NUR ---
Pt took shower and noticed that she has a firm area over the rt lap site. Only visible and can palpate when standing. Unable to palpate when lying flat. No redness. Informed Dr Telles. Reassured pt that all appears well.
--- NOTE | 2018-07-20 13:51 | Discharge Inst-Women's Service ---
Discharge Inst-Women's Serv Depart Medication/Instructions New, Converted or Re-Newed RX: Other (transmitted or on chart) Instructions Lowery care Call if blood in urine or vaginal bleeding more than spotting Nothing in the vagina No bathing no lifting over 25 lbs no driving for 1 week Start Eliquis after lovenox is completed (7 days Final Diagnosis menorrhagia pelvic prolapse stress incontinence chronic pelvic pain incidental bladder puncture hematuria acute blood loss anemia Consults/Follow Up Additional Follow Up: Yes (7-10 daysfor incision check, to remove lowery ) Activity Activity: Activity as Tolerated Driving Instructions: No Driving for 1 Week NO SMOKING: NO SMOKING Nothing Inside Vagina: No Douching, No Annetta, No Tampons Diet Discharge Diet: No Restrictions Symptoms to Report to : Swelling Increased, Bleeding Excessive, Pain Increased, Urine Color Change, Fever Over 101 Degrees F, Vaginal Bleeding Increase, Cramps in Feet or Legs, Vaginal Discharge Foul For Any Problems or Questions: Contact Your Physician Skin/Wound Care Infection Signs and Symptoms: Increased Redness, Foul Odor of Wound, Increased Drainage, Skin Itchy or Has a Rash, Increased Swelling, Temperature Above 101 F Operative Area Clean and Dry: Keep Incision Clean/Dry, You May Remove Bandage ( remove in 3 days) Stitches/[place]/Dermabond: Dermabond Bathing Instructions: HENRI Cunha DO July 20, 2018 13:51
--- NOTE | 2018-07-20 14:30 | NUR ---
Lovenox injection given with written and oral teaching. 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 Handouts on hysterectomy, lowery cath care, and how to give a blood thinner shot. Instructed for no heavy lifting, exercising, or sex until physician releases her. Encouraged to take IS and perform it at home due to history of PE x 2. Verbalizes understanding of instructions. To exit via w/c. Accompanied by this nurse.
== END 2018-07-20 14:45 | disposition home or self-care (01) | DRG 982 ==
LOC: SDC 06:11 → WS 11:33 → SDC 07-19 16:15 → WS 07-19 16:16
PROVIDERS: ADMIT Obstetrics & Gynecology; ATTEND Obstetrics & Gynecology
PROC: 0UT74ZZ Resection of Bilateral Fallopian Tubes, Percutaneous Endoscopic Approach (ICD-10-PCS; 2018-07-18)
PROC: 0UT14ZZ Resection of Left Ovary, Percutaneous Endoscopic Approach (ICD-10-PCS; 2018-07-18)
PROC: 0TUC0JZ Supplement Bladder Neck with Synthetic Substitute, Open Approach (ICD-10-PCS; 2018-07-18)
PROC: 0TJB8ZZ Inspection of Bladder, Via Natural or Artificial Opening Endoscopic (ICD-10-PCS; 2018-07-18)
PROC: 0DBW4ZX Excision of Peritoneum, Percutaneous Endoscopic Approach, Diagnostic (ICD-10-PCS; 2018-07-18)
PROC: 8E0W4CZ Robotic Assisted Procedure of Trunk Region, Percutaneous Endoscopic Approach (ICD-10-PCS; 2018-07-18)
PROC: 0UT94ZZ Resection of Uterus, Percutaneous Endoscopic Approach (ICD-10-PCS; principal; 2018-07-18 07:41)
DX: N99.71 Accidental puncture and laceration of a genitourinary system organ or structure during a genitourinary system procedure (principal); N92.0 Excessive and frequent menstruation with regular cycle; D62 Acute posthemorrhagic anemia; I47.1 Supraventricular tachycardia; N81.2 Incomplete uterovaginal prolapse; N81.6 Rectocele; N39.3 Stress incontinence (female) (male); R31.9 Hematuria, unspecified; I10 Essential (primary) hypertension; Z86.711 Personal history of pulmonary embolism; Z79.01 Long term (current) use of anticoagulants; Z95.0 Presence of cardiac pacemaker; Z86.718 Personal history of other venous thrombosis and embolism; Z98.84 Bariatric surgery status; Z97.5 Presence of (intrauterine) contraceptive device
CPT/HCPCS: 36415; 72192; 74177; 80048; 84703; 85025; 86850; 86900; 86901; 88300; 88305; 88307; 88311; 94664

== ENCOUNTER 2018-07-24 23:05 | Emergency (ER) | payer OTHER ==
[~2018-07-24] VITALS: Ht 177.8 cm; Wt 61.4 kg
[~2018-07-24 23:05] MED LIST changes: +ACET-77 PO; +DOCU100C37 PO; +ENOX40DI13 SQ; +LEVO500T2 PO; +OXC5T PO
[2018-07-24] MEDS ORDERED: ENOX40DI8 (23:27)
[2018-07-24] MEDS ORDERED: CLON1TAB13 (23:27)
[2018-07-24] MEDS ORDERED: LEVO500T80 (23:27)
[2018-07-24] MEDS ORDERED: ACET1TAB43 (23:27)
[2018-07-24] MEDS ORDERED: LACTATED RINGERS 1,000 ML IV ONE (23:34)
[2018-07-24 23:44] LABS: BASOPHILS % (AUTO) 0 % (0-10); EOSINOPHILS # (AUTO) 0.1 10^3/uL (0.0-0.3); EOSINOPHILS % (AUTO) 2 % (0-10); HEMATOCRIT 28 % (35-52); HEMOGLOBIN 8.9 G/DL (11.5-16.0); LYMPHOCYTES # (AUTO) 0.9 X 10^3 (1.0-4.0); LYMPHOCYTES % (AUTO) 20 % (12-44); MEAN CORPUSCULAR HEMOGLOBIN 29 PG (25-34); MEAN CORPUSCULAR HGB CONC 32 G/DL (32-36); MEAN CORPUSCULAR VOLUME 91 FL (80-99); MEAN PLATELET VOLUME 10.2 FL (7.4-10.4); MONOCYTES # (AUTO) 0.3 X 10^3 (0.0-1.0); MONOCYTES % (AUTO) 6 % (0-12); NEUTROPHILS # (AUTO) 3.1 X 10^3 (1.8-7.8); NEUTROPHILS % (AUTO) 72 % (42-75); PLATELET COUNT 206 10^3/uL (130-400); RED CELL DISTRIBUTION WIDTH 11.8 % (10.0-14.5); WHITE BLOOD COUNT 4.4 10^3/uL (4.3-11.0)
[2018-07-24 23:58] LABS: ALANINE AMINOTRANSFERASE 12 U/L (0-55); ALBUMIN 3.4 GM/DL (3.2-4.5); ALKALINE PHOSPHATASE 68 U/L (40-136); BILIRUBIN,TOTAL 0.6 MG/DL (0.1-1.0); BUN/CREATININE RATIO 8; CALCIUM 8.5 MG/DL (8.5-10.1); CARBON DIOXIDE 24 MMOL/L (21-32); CHLORIDE 103 MMOL/L (98-107); CREATININE SERUM 0.76 MG/DL (0.60-1.30); GFR ESTIMATED > 60; GLUCOSE 87 MG/DL (70-105); POTASSIUM 3.7 MMOL/L (3.6-5.0); SODIUM 138 MMOL/L (135-145); TOTAL PROTEIN 5.9 GM/DL (6.4-8.2)
--- NOTE | 2018-07-25 | NUR ---
lowery cath removed by erp. pt up to restroom to void.
[2018-07-25 00:19] LABS: BILIRUBIN,URINE NEGATIVE (NEGATIVE); CLARITY,URINE SLIGHTLY CLOUDY; COLOR,URINE YELLOW; GLUCOSE, URINE (UA) NEGATIVE (NEGATIVE); KETONES,URINE NEGATIVE (NEGATIVE); LEUKOCYTE ESTERASE ,URINE 2+ (NEGATIVE); NITRITE,URINE NEGATIVE (NEGATIVE); PH,URINE 8 (5-9); PROTEIN,URINE 2+ (NEGATIVE); UROBILINOGEN,URINE 4 MG/DL (NORMAL)
[2018-07-25 00:32] LABS: BACTERIA,URINE FEW /HPF; RBC,URINE 0-2 /HPF; WBC,URINE 0-2 /HPF
[2018-07-25] MEDS ORDERED: cefTRIAXone 1,000 MG IV (ROCEPHIN) VIAL ONE (00:42)
[2018-07-25] MEDS ORDERED: HYOSCYAMINE 0.125 MG (LEVSIN) TAB ONE (00:43)
[2018-07-25] MEDS ORDERED: PHENAZOPYRIDINE 100 MG (PYRIDIUM) TABLET ONE (00:43)
[2018-07-25] MEDS ORDERED: WATER (STERILE) FOR INJECTION 10 ML ONE (00:43)
[2018-07-25] MEDS ORDERED: cefTRIAXone FOR IV USE 1,000 MG in WATER (STERILE) FOR INJECTION 10 ML IV ONE (00:45)
[2018-07-25] MEDS ORDERED: PHENAZOPYRIDINE 100 MG (PYRIDIUM) TABLET PO ONE (00:45)
[2018-07-25] MEDS ORDERED: HYOSCYAMINE 0.125 MG (LEVSIN) TAB PO ONE (00:45)
--- NOTE | 2018-07-25 00:47 | ED GU-Female ---
General Chief Complaint: - Urinary Stated Complaint: LOWER ABD PAIN Nursing Triage Note: urine leaking around bladder. fever, g.u. pain Nursing Sepsis Screen: No Definite Risk Source: patient History of Present Illness Date Seen by Provider: July 24, 2018 Time Seen by Provider: 23:30 Initial Comments PT ARRIVES VIA POV FROM HOME STATES SHE HAD SURGERY BY DR. CHO ON 07/19/18--HAD RA MARTI/BSO WITH FAILED BLADDER SLING PLACEMENT AND HAD PUNCTURE OF BLADDER WITH REPAIR. HAS HAD INDWELLING ASHTON CATHETER IN PLACE SINCE SURGERY STATES SHE IS SUPPOSED TO HAVE CATHETER REMOVED TOMORROW, BUT DOES NOT HAVE AN APPOINTMENT WITH DR. CHO FOR ANOTHER WEEK PT STATS SHE HAS BEEN LEAKING URINE AROUND THE CATHETER SINCE YESTERDAY. STATES SHE HAS THE URGE TO URINATE, AND SHE WILL SIT ON TOILET AND PUSH/STRAIN TO VOID AND IT FEELS LIKE HER BLADDER IS TRYING TO PUSH THE CATHETER OUT AND SHE WILL URINATE IN THE ASHTON BAG, BUT ALSO WILL LEAK AROUND IT. PT STATES SHE IS NOT LEAKING URINE AT ANY OTHER TIME STATES SHE HAS ONLY HAD AROUND 500 ML OF URINE ACTUALLY IN THE BAG TODAY PT ALSO STATES SHE IS STARTING TO HAVE A LOT OF BURNING WHEN SHE URINATES WELL--STARTED THIS AM PT HAD A TEMP OF 100.1 AT HOME TONIGHT--WENT DOWN WITH TYLENOL C/O LOWER ABDOMINAL DISCOMFORT NO NAUSEA/VOMITING PT IS CURRENTLY ON LEVAQUIN SINCE SURGERY--10 DAY SUPPLY, HAS 2-3 DAYS LEFT OF MEDICATION. 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 CHO Allergies and Home Medications Allergies Coded Allergies: No Known Drug Allergies (Unverified , 07/10/18) Home Medications Acetaminophen 500 Mg Tablet, 1,000 MG PO Q8HR Prescribed by: HENRI CHO on 07/20/18 1205 Apixaban 5 Mg Tablet, 5 MG PO BID, (Reported) Buspirone HCl 15 Mg Tablet, 7.5 MG PO BID, (Reported) TAKES 1/2 (15MG) TABLET Dexlansoprazole 60 Mg Cap., 60 MG PO DAILY, (Reported) Docusate Sodium 100 Mg Capsule, 100 MG PO BID PRN for CONSTIPATION-1ST LINE Prescribed by: HENRI CHO on 07/20/18 1205 Enoxaparin Sodium 40 Mg/0.4 Ml Syringe, 40 MG SQ BID for 7 days and then restart the Eliquis Prescribed by: HENRI CHO on 07/20/181204 Fluoxetine HCl 20 Mg Capsule, 20 MG PO DAILY, (Reported) Fluoxetine HCl 40 Mg Capsule, 40 MG PO DAILY, (Reported) Gabapentin 100 Mg Capsule, 100 MG PO TID, (Reported) Hyoscyamine Sulfate 0.125 Mg Tab.subl, 1-2 TAB SL Q4H Prescribed by: ANGELA HELLER on 07/25/1857 Levofloxacin 500 Mg Tablet, 500 MG PO DAILY Prescribed by: HENRI CHO on 07/20/181209 Nitrofurantoin Monohyd/M-Cryst 100 Mg Capsule, 100 MG PO BID Prescribed by: ANGELA HELLER on 07/25/1857 Oxycodone Hcl 5 Mg Tab, 5 MG PO Q4HR PRN for To achieve TAG Prescribed by: HENRI CHO on 07/20/181204 Pantoprazole Sodium 40 Mg Tablet.dr, 40 MG PO BID, (Reported) Phenazopyridine HCl 200 Mg Tablet, 1 TAB PO TID Prescribed by: ANGELA HELLER on 07/25/1857 Potassium Chloride 20 Meq Tablet.er, 20 MEQ PO BID, (Reported) Sucralfate 1 Gm Tablet, 1 GM PO ACHS, (Reported) Trazodone HCl 50 Mg Tablet, 50 MG PO HS, (Reported) Zolpidem Tartrate 10 Mg Tablet, 10 MG PO HS, (Reported) Patient Home Medication List Home Medication List Reviewed: Yes Review of Systems Review of Systems Constitutional: see HPI, fever Respiratory: no symptoms reported Cardiovascular: no symptoms reported Gastrointestinal: see HPI, abdominal pain; No nausea, No vomiting Genitourinary: see HPI, burning Musculoskeletal: no symptoms reported Skin: no symptoms reported Psychiatric/Neurological: No Symptoms Reported Endocrine: No Symptoms Reported Hematologic/Lymphatic: No Symptoms Reported Past Qbzpcwj-[id number]-Dpjlft Hx Patient Social History Alcohol Use: Denies Use Recreational Drug Use: No Smoking Status: Never a Smoker 2nd Hand Smoke Exposure: No Recent Foreign Travel: No Contact w/Someone Who Travel: No Recent Infectious Disease Expo: No Recent Hopitalizations: Yes Immunizations Up To Date Tetanus Booster (TDap): Unknown PED Vaccines UTD: No Date of Influenza Vaccine: Dec 26, 2017 Seasonal Allergies Seasonal Allergies: Yes Past Medical History Surgeries: Yes (GASTRIC SLEEVE 03/2016; GASTRIC SLEEVE RESECTION 06/2016; CYST REMOVED FROM FOOT; RA-MARTI/BSO WITH BLADDER REPAIR FROM FAILED BLADDER SLING 04/08) Abdominal, Bladder Surgery, Gallbladder, Hysterectomy, Oophorectomy, Pacemaker Respiratory: Yes (P.E. 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: Hysterectomy, IUD Sexually Transmitted Disease: No HIV/AIDS: No Genitourinary: Yes (CYSTOCOELE; URINARY INCONTINENCE) Gastrointestinal: Yes (GASTRIC SLEEVE 2016 WITH MANY COMPLICATIONS) Gastroesophageal Reflux Musculoskeletal: Yes Arthritis Endocrine: No HEENT: No (PT WEARS GLASSES) Loss of Vision: Bilateral Hearing Impairment: Denies Cancer: No Psychosocial: Yes Anxiety, Depression Integumentary: No Blood Disorders: Yes (HX ANEMIA, BLOOD CLOTS) Adverse Reaction/Blood Tranf: No (N/A) Family Medical History Cardiovascular disease 19 MOTHER G8 SISTER Completed stroke 19 FATHER Diabetes mellitus 19 MOTHER Hypertension 19 MOTHER No Pertinent Family Hx Physical Exam Vital Signs Vital Signs - First Documented 07/24/18 23:07 Temp 98.5 Pulse 73 Resp 18 B/P (MAP) 116/70 (85) Pulse Ox 99 O2 Delivery Room Air Capillary Refill : Less Than 3 Seconds Height, Weight, BMI Height: 5'10.00" Weight: 135lbs. 6.0oz. [id number]; 19.4 BMI Method:Stated General Appearance: WD/WN, no apparent distress Cardiovascular: regular rate, rhythm, no murmur Respiratory: normal breath sounds Gastrointestinal: normal bowel sounds, soft, tenderness (SUPRAPUBIC TENDERNESS) Pelvic: normal external exam Back: no CVA tenderness Extremities: no pedal edema Neurologic/Psychiatric: funding coordinator II-XII nml as tested, no motor/sensory deficits, alert, normal mood/affect, oriented x 3 Skin: normal color, warm/dry Focused Exam Lactate Level 07/24/18 23:15: Lactic Acid Level 0.73 Lactic Acid Level Progress/Results/Core Measures Suspected Sepsis Recent Fever Within 48 Hours: Yes Infection Criteria Present: Suspected New Infection New/Unexplained Altered Menta: No Sepsis Screen: No Definite Risk SIRS Temperature:98.5 Pulse: 73 Respiratory Rate: 18 Laboratory Tests 07/24/18 23:15: White Blood Count 4.4 Blood Pressure 116 /70 Mean: 85 07/24/18 23:15: Lactic Acid Level 0.73 Laboratory Tests 07/24/18 23:15: Creatinine 0.76, Platelet Count 206, Total Bilirubin 0.6 Results/Orders Lab Results Laboratory Tests Test 07/24/18 23:15 07/25/18 00:00 Range/Units White Blood Count 4.4 4.3-11.0 10^3/uL Red Blood Count 3.10 L 4.35-5.85 10^6/uL Hemoglobin 8.9 L 11.5-16.0 G/DL Hematocrit 28 L 35-52 % Mean Corpuscular Volume 91 80-99 FL Mean Corpuscular Hemoglobin 29 25-34 PG Mean Corpuscular Hemoglobin Concent 32 32-36 G/DL Red Cell Distribution Width 11.8 10.0-14.5 % Platelet Count 206 130-400 10^3/uL Mean Platelet Volume 10.2 7.4-10.4 FL Neutrophils (%) (Auto) 72 42-75 % Lymphocytes (%) (Auto) 20 12-44 % Monocytes (%) (Auto) 6 0-12 % Eosinophils (%) (Auto) 2 0-10 % Basophils (%) (Auto) 0 0-10 % Neutrophils # (Auto) 3.1 1.8-7.8 X 10^3 Lymphocytes # (Auto) 0.9 L 1.0-4.0 X 10^3 Monocytes # (Auto) 0.3 0.0-1.0 X 10^3 Eosinophils # (Auto) 0.1 0.0-0.3 10^3/uL Basophils # (Auto) 0.0 0.0-0.1 10^3/uL Sodium Level 138 135-145 MMOL/L Potassium Level 3.7 3.6-5.0 MMOL/L Chloride Level 103 98-107 MMOL/L Carbon Dioxide Level 24 21-32 MMOL/L Anion Gap 11 5-14 MMOL/L Blood Urea Nitrogen 6 L 7-18 MG/DL Creatinine 0.76 0.60-1.30 MG/DL Estimat Glomerular Filtration Rate > 60 BUN/Creatinine Ratio 8 Glucose Level 87 70-105 MG/DL Lactic Acid Level 0.73 0.50-2.00 MMOL/L Calcium Level 8.5 8.5-10.1 MG/DL Corrected Calcium 9.0 8.5-10.1 MG/DL Total Bilirubin 0.6 0.1-1.0 MG/DL Aspartate Amino Transf (AST/SGOT) 14 5-34 U/L Alanine Aminotransferase (ALT/SGPT) 12 0-55 U/L Alkaline Phosphatase 68 40-136 U/L Total Protein 5.9 L 6.4-8.2 GM/DL Albumin 3.4 3.2-4.5 GM/DL Urine Color YELLOW Urine Clarity SLIGHTLY CLOUDY Urine pH 8 5-9 Urine Specific [place] 1.010 L 1.016-1.022 Urine Protein 2+ H NEGATIVE Urine Glucose (UA) NEGATIVE NEGATIVE Urine Ketones NEGATIVE NEGATIVE Urine Nitrite NEGATIVE NEGATIVE Urine Bilirubin NEGATIVE NEGATIVE Urine Urobilinogen 4 H NORMAL MG/DL Urine Leukocyte Esterase 2+ H NEGATIVE Urine RBC (Auto) 3+ H NEGATIVE Urine RBC 0-2 /HPF Urine WBC 0-2 /HPF Urine Squamous Epithelial Cells 2-5 /HPF Urine Crystals NONE /LPF Urine Bacteria FEW H /HPF Urine Casts NONE /LPF Urine Mucus SMALL H /LPF Urine Culture Indicated NO My Orders Orders - ANGELA HELLER DO Ed Iv/Invasive Line Start (07/24/18 23:34) Monitor-Rhythm Ecg Trace Only (07/24/18 23:34) Cbc With Automated Diff (07/24/18 23:34) Comprehensive Metabolic Panel (07/24/18 23:34) Lactic Acid Analyzer (07/24/18 23:34) Ua Culture If Indicated (07/24/18 23:34) Blood Culture (07/24/18 23:34) Ed Iv/Invasive Line Start (07/24/18 23:34) Lactated Ringers (Lr 1000 Ml Iv Solution (07/24/18 23:34) Ceftriaxone For Iv Use (Rocephin For I (07/25/18 00:45) Phenazopyridine Tablet (Pyridium Tablet) (07/25/18 00:45) Hyoscyamine Sl Tablet (Levsin Sl Tablet) (07/25/18 00:45) Ceftriaxone For Iv Use (Rocephin For I (07/25/18 00:42) Water (Sterile) For Injection (Sterile W (07/25/18 00:43) Phenazopyridine Tablet (Pyridium Tablet) (07/25/18 00:43) Hyoscyamine Sl Tablet (Levsin Sl Tablet) (07/25/18 00:43) Medications Given in ED Current Medications Medications Dose Ordered Sig/Elvin Route Start Time Stop Time Status Last Admin Dose Admin Ceftriaxone Sodium 1000 mg/ Sterile Water 10 ml @ 200 mls/hr ONCE ONCE IV 07/25/18 00:45 07/25/18 01:05 DC 07/25/18 00:48 200 MLS/HR Hyoscyamine Sulfate 0.25 mg ONCE ONCE PO 07/25/18 00:45 07/25/18 01:05 DC 07/25/18 00:48 0.25 MG Lactated Ringer's 1,000 ml @ 0 mls/hr Q0M ONCE IV 07/24/18 23:34 07/24/18 23:36 DC 07/24/18 23:47 0 MLS/HR Phenazopyridine HCl 200 mg ONCE ONCE PO 07/25/18 00:45 07/25/18 01:05 DC 07/25/18 00:48 200 MG Vital Signs/I&O 07/24/18 07/25/18 23:07 01:05 Temp 98.5 98.3 Pulse 73 68 Resp 18 16 B/P (MAP) 116/70 (85) 103/67 (79) Pulse Ox 99 99 O2 Delivery Room Air Room Air Capillary Refill : Less Than 3 Seconds Blood Pressure Mean: 85 Progress Note : Progress Note CATHETER REMOVED AT PT'S REQUEST PT UNABLE TO VOID AFTER REMOVAL, SO WAS REPLACED WITH GOOD RETURN OF URINE. UNEVENTFUL ER STAY Departure Impression Primary Impression: Urinary tract infection Additional Impressions: Indwelling catheter replaced Bladder spasms S/P hysterectomy with oophorectomy S/P bladder repair Disposition: 01 HOME, SELF-CARE Condition: Stable Departure-Patient Inst. Referrals: LEESA GARIBAY MD (PCP) Primary Care Physician HELEN CARRENO APRN (Family) Primary Care Physician Patient Instructions: Urinary Tract Infection, Adult (DC), Bladder Spasms (DC) Add. Discharge Instructions: LOTS OF FLUIDS CONTINUE ALL POST OP INSTRUCTIONS FOLLOW UP WITH DR. CHO SOON POSSIBLE All discharge instructions reviewed with patient and/or family. Voiced understanding. Scripts Hyoscyamine Sulfate (Levsin-Sl) 0.125 Mg Tab.subl 1-2 TAB SL Q4H for Abdominal Pain, #15 TAB Prov: ANGELA HELLER DO 07/25/18 Phenazopyridine HCl (Pyridium) 200 Mg Tablet 1 TAB PO TID for BLADDER DISCOMFORT, #15 TAB Prov: ANGELA HELLRE DO 07/25/18 Nitrofurantoin Monohyd/M-Cryst (Macrobid 100 mg Capsule) 100 Mg Capsule 100 MG PO BID, #20 CAP Prov: ANGELA HELLER DO 07/25/18 ANGELA HELLER DO July 25, 2018 00:47
[2018-07-25] MEDS ORDERED: NITR-65 PO (00:58)
[2018-07-25] MEDS ORDERED: HYOS0.1283 SL (00:58)
[2018-07-25] MEDS ORDERED: PHEN-640 PO (00:58)
[2018-07-25 01:05] VITALS: BP 103/67
== END 2018-07-25 01:02 | disposition home or self-care (01) ==
LOC: EDUNIT# 23:05 → ER 23:07
DX: N39.0 Urinary tract infection, site not specified (principal); N32.89 Other specified disorders of bladder; I10 Essential (primary) hypertension; G43.909 Migraine, unspecified, not intractable, without status migrainosus; K21.9 Gastro-esophageal reflux disease without esophagitis; F41.9 Anxiety disorder, unspecified; F32.9 Major depressive disorder, single episode, unspecified; D64.9 Anemia, unspecified; Z97.5 Presence of (intrauterine) contraceptive device; Z82.49 Family history of ischemic heart disease and other diseases of the circulatory system; Z87.448 Personal history of other diseases of urinary system; Z96.0 Presence of urogenital implants; Z98.890 Other specified postprocedural states; Z79.01 Long term (current) use of anticoagulants; Z98.84 Bariatric surgery status; Z90.710 Acquired absence of both cervix and uterus; Z95.0 Presence of cardiac pacemaker; Z86.711 Personal history of pulmonary embolism; Z86.718 Personal history of other venous thrombosis and embolism
CPT/HCPCS: 36415; 80053; 81000; 83605; 85025; 87040; 93041

== ENCOUNTER 2018-09-15 08:36 | Outpatient (CLI) | payer OTHER ==
[~2018-09-15] VITALS: Ht 177.8 cm; Wt 63.6 kg
[~2018-09-15 08:36] MED LIST changes: +ACET1TAB43; +ENOX40DI8; +HYOS0.1283 SL; +LEVO500T80; +NITR-65 PO; +PHEN-640 PO; -TRAZ-189 PO; +TRAZ-222 PO
[2018-09-15] MEDS ORDERED: TRAM50TA2 PO (08:49)
[2018-09-15 08:51] VITALS: BP 107/66
[2018-09-15 09:55] LABS: BILIRUBIN,URINE NEGATIVE (NEGATIVE); CLARITY,URINE CLEAR; COLOR,URINE YELLOW; GLUCOSE, URINE (UA) NEGATIVE (NEGATIVE); KETONES,URINE NEGATIVE (NEGATIVE); LEUKOCYTE ESTERASE ,URINE 1+ (NEGATIVE); NITRITE,URINE NEGATIVE (NEGATIVE); PH,URINE 5 (5-9); PROTEIN,URINE NEGATIVE (NEGATIVE); UROBILINOGEN,URINE NORMAL (NORMAL)
[2018-09-15 10:17] LABS: BACTERIA,URINE TRACE /HPF; SQUAMOUS EPITHELIAL CELL,UR RARE /HPF
== END 2018-09-15 11:58 | disposition home or self-care (01) ==
LOC: PREOP 08:36
PROVIDERS: ATTEND Obstetrics & Gynecology
DX: Z01.812 Encounter for preprocedural laboratory examination (principal); Z11.2 Encounter for screening for other bacterial diseases; N81.10 Cystocele, unspecified; N81.6 Rectocele; N39.3 Stress incontinence (female) (male)
CPT/HCPCS: 81000; 87081

== ENCOUNTER 2018-09-19 07:00 | Inpatient (IN) | payer OTHER ==
[~2018-09-19] VITALS: Ht 177.8 cm; Wt 63.6 kg
[2018-09-19] VITALS (29 sets, daily range): BP systolic 68–115; BP diastolic 42–85
[~2018-09-19 07:00] MED LIST changes: +TRAM50TA2 PO
[2018-09-19] MEDS ORDERED: ceFAZolin INJECTION 1,000 MG ONE (07:16)
[2018-09-19] MEDS ORDERED: metroNIDAZOLE 500MG/100ML IVPB 100 ML ONE (07:16)
[2018-09-19] MEDS ORDERED: fentaNYL INJECTION 100 MCG/2 ML AMP ONE (07:19)
[2018-09-19] MEDS ORDERED: proPOfol 200 MG/20 ML (DIPRIVAN) VIAL IV ONE (07:19)
[2018-09-19] MEDS ORDERED: LIDOCAINE PF 2% 5 ML (XYLOCAINE) VIAL ONE (07:19)
[2018-09-19] MEDS ORDERED: MIDAZOLAM 2 MG/2 ML (VERSED) VIAL ONE (07:19)
[2018-09-19] MEDS ORDERED: SEVOFLURANE (ULTANE) 15 ML INHAL SOLN ONE ×2 (07:24→10:22)
[2018-09-19] MEDS ORDERED: ceFAZolin INJECTION 1,000 MG in WATER (STERILE) FOR INJECTION 10 ML IV ONE (07:30)
[2018-09-19] MEDS ORDERED: metroNIDAZOLE 500MG/100ML IVPB 100 ML IV ONE (07:30)
[2018-09-19] MEDS: LACTATED RINGERS 1,000 ML IV PRN ×2 (07:46→09:20)
[2018-09-19] MEDS ORDERED: NS (IVPB) 100 ML ONE (07:59)
[2018-09-19] MEDS ORDERED: VASOPRESSIN INJECTION 20 UNIT/ML VIAL ONE (07:59)
[2018-09-19] MEDS ORDERED: ESTRADIOL VAGINAL CREAM 42.5 GM (ESTRACE) VG ONE (07:59)
--- NOTE | 2018-09-19 08:14 | Progress Note-Pre Operative ---
Pre-Operative Progress Note H&P Reviewed The H&P was reviewed, patient examined and no changes noted. Date Seen by Provider: Sep 19, 2018 Time Seen by Provider: 08:15 Date H&P Reviewed: Sep 19, 2018 Time H&P Reviewed: 08:00 Pre-Operative Diagnosis: stress incontinence, genital prolapse HENRI CHO DO Sep 19, 2018 08:14
[2018-09-19] MEDS ORDERED: FAMOTIDINE 20MG/2ML IV (PEPCID) ONE (08:18)
[2018-09-19] MEDS ORDERED: ROCURONIUM 10 MG/ML 5 ML SYRINGE IV ONE (08:42)
[2018-09-19] MEDS ORDERED: DEXAMETHASONE 10 MG/ML (DECADRON) 1 ML VIAL ONE (09:25)
[2018-09-19] MEDS ORDERED: ONDANSETRON 4 MG/2 ML (SDV) Z0FRAN ONE (09:25)
[2018-09-19] MEDS ORDERED: FAMOTIDINE 20MG/2ML IV (PEPCID) IVP ONE (09:30)
--- NOTE | 2018-09-19 10:07 | Progress Note-Post Operative ---
Post-Operative Progess Note Surgeon (s)/It Help Desk Technician (s) Surgeon HENRI CHO DO It Help Desk Technician: Horace De La O, MS III Pre-Operative Diagnosis stress incontinence, genital prolapse Post-Operative Diagnosis SAME, bladder injury with hematuria rectocele Procedure & Operative Findings Date of Procedure 09/19/18 Procedure Performed/Findings 2 + rectocele, 1+ cystocele gapy introitus with scarred perineum Bladder injury with trocar to left side of bladder, suspect anomaly due to weight loss surgery. Cm left in with CBI due to bleeding. She is at risk for fistula so catheter will be left in Anesthesia Type General Estimated Blood Loss Estimated blood loss (mL): 500 ml (from rectocele and bladder, this is estimated due to CBI and irriga Specimens/Packing Specimens Removed NA Packing: Vaginal HENRI CHO DO Sep 19, 2018 10:07
--- NOTE | 2018-09-19 10:08 | Operative Report ---
Operative Report Date of Procedure/Surgery Sep 19, 2018 Surgeon (s) HENRI CHO DO Ballet Dancer (s): Horace De La O, MS III Post-Operative Diagnosis SAME, bladder injury with hematuria rectocele Procedure Performed posterior colporrharphy, Solyx pubovaginal sling, with incidental bladder puncture and removal of mesh Niharika plication Description of Procedure Anesthesia Type: General Estimated blood loss (mL): 500 ml (from rectocele and bladder, this is estimated due to CBI and irriga Specimen(s) collected/removed NA Packing: Vaginal Description of the Procedure The patient presents for rectocele repair/posterior colporrhaphy, Solyx pubovaginal sling. she had hysterectomy and bilateral salpingectomy, Solyx sling and during that surgery, an incidental bladder injury occurred. The complete surgical procedure (rectocele) was not completed due to this and also due to bleeding (patient is anticoagulated). This has healed but she would like to complete the surgical procedures for prolapse and incontinence. She has been off of her Eliquis for 5 days and has been on Lovenox coverage. With informed consent the patient was taken to the operating addis where general anesthesia was found to adequate. she was prepped and draped in the usual sterile fashion in the dorsolithotomy position. A Cm catheter was placed in the bladder. Lonnie clamps were placed on either side of the perineum and the perineum was grasped with an Allis clamped. I then injected the posterior epithelium with diluted Vasopressin. I then incised the midline of the perineum and then undermined the posterior epithelium with Khan scissors. I then incised the posterior epithelium with a scalpel and then dissected the posterior epithelium off of the pubovaginal fascia. I then reduced the 3+ rectocele with interrupted 2-0 sutures with mattress style interrupted sutures in two layers. I then made a pyramidal incision in the perineum was made removing the scarred area of the the perineum. I then trimmed the excess epithelium and closed the posterior vaginal epithelium with 2-0 Vicryl in a running fashion and repaired the perineum in standard fashion. Patient was now repositioned for the anterior vaginal portion of the procedure. The anterior vaginal epithelium was grasped in the midline with an Allis clamp. The anterior vaginal epithelium was injected with dilute vasopressin. A 1 cm incision was made in the suburethral space with a scalpel about 1.5 cm from the urethral meatus. I dissected bilaterally to the obturator membranes and then inserted the Solyx bilaterally and then tightened under the midurethra. I placed the right arm first and this was placed easily. Due to previous bladder injury, I then placed the left arm. After placement of the left arm of the solyx, I noted a gush of urine and was concerned with bladder puncture. I pulled the trocar back and I did a cystoscopy revealed an area of puncture. The mesh was in the bladder. I determined that this should not be continued at this time. I removed the sling. I am concerned that there may be a bladder abnormality as the sling was placed in the standard fashion both times with no difficulty. The incision was closed with 4-0 Monocryl in a running fashion. Cm was reinserted. The urine was noted to be bloody. The catheter will be retained for several days. the vagina was packed with vaginal pack moistened in Estrace cream. The patient was awakened and taken to recovery in stable fashion. Bladder irrigation was begun in the recovery room. When the patient was transferred to the room after recovery, it was noted that she had excess fluid on the bed. IT was noted that the Cm was out of the bladder (bulb was punctured) a new Cm catheter was replaced in the bladder. Findings of the Procedure 2+ scarred rectocele, > 45 degree rotation of the urethra, puncture wound in the left bladder wall, suspect enlarged bladder vs anomaly. Allergies and Home Medications Allergies Coded Allergies: No Known Drug Allergies (Unverified , 09/15/18) Home Medications Acetaminophen 500 Mg Tablet, 1,000 MG PO Q8HR Prescribed by: HENRI CHO on 07/20/18 1205 Apixaban 5 Mg Tablet, 5 MG PO BID, (Reported) Belladonna Alkaloids/Opium 30 Mg Supp, 30-60 MG MN Q4H PRN for Bladder Spasms Prescribed by: HENRI CHO on 09/20/18 1722 Buspirone HCl 15 Mg Tablet, 15 MG PO TID, (Reported) TAKES 1/2 (15MG) TABLET Clonazepam 1 Mg Tablet, 1 MG PO BID PRN for ANXIETY, (Reported) Dexlansoprazole 60 Mg , 60 MG PO DAILY, (Reported) Docusate Sodium 100 Mg Capsule, 100 MG PO BID PRN for CONSTIPATION-1ST LINE Prescribed by: HENRI CHO on 07/20/18 1205 Mupirocin 22 Gm Oint...g., 0 GM NSEACH BID Prescribed by: HENRI CHO on 09/20/18 172 Oxycodone Hcl 5 Mg Tab, 10 MG PO Q6H PRN for PAIN-MODERATE Prescribed by: HENRI CHO on 09/20/18 172 Pantoprazole Sodium 40 Mg Tablet.dr, 40 MG PO BID, (Reported) Potassium Chloride 20 Meq Tablet.er, 20 MEQ PO BID, (Reported) Sucralfate 1 Gm Tablet, 1 GM PO ACHS, (Reported) Tramadol HCl 50 Mg Tablet, 50 MG PO Q6H PRN for SPASMS, (Reported) Zolpidem Tartrate 10 Mg Tablet, 10 MG PO HS, (Reported) Patient Home Medication List Home Medication List Reviewed: HENRI Stone DO Sep 19, 2018 10:08
[2018-09-19] MEDS ORDERED: BELLADONNA ALK/OPIUM (B & O) 30 MG SUPP PR PRN (10:15)
[2018-09-19] MEDS ORDERED: ONDANSETRON 4 MG/2 ML (SDV) Z0FRAN IVP PRN ×2 (10:15→10:30)
--- OUTSIDE RECORDS SUMMARY | 2018-09-19 10:24 | XMS REPORT ---
Author Author Migration, Doctor Organization [facility] [place] [facility] Address Unknown Phone Unavailable Care Team Providers Care Flow Trader Name Role Phone Migration, Doctor Unavailable Unavailable PROBLEMS Type Condition ICD9-CM Code ZTJ48-LY Code Onset Dates Condition Status SNOMED Code Problem Screening examination for venereal disease V74.5 Active 674292731 Problem Other general counseling and advice for contraceptive management V25.09 Active 452279649 Problem Unspecified contraceptive management V25.9 Active 594045904 Problem Routine follow-up V24.2 Active 438662713 Problem General counseling for initiation of other contraceptive measures V25.02 Active [id number] Problem DTAP TEST V06.1 Active Problem examination or test, positive result V72.42 Active 692341495 Problem Tension headache 307.81 Active 079027541 Problem Unspecified infective otitis externa 380.10 Active 13162262 Problem Screening for malignant neoplasm of the cervix V76.2 Active 771254055 Problem Encounter for insertion of intrauterine contraceptive device V25.11 Active 76326875 Problem Nausea alone 787.02 Active 833050913 Problem Lumbar sprain and strain 847.2 Active 039174997 Problem First-degree perineal laceration, unspecified as to episode of care in 664.00 Active 31612548 Problem Unspecified alopecia 704.00 Active 28365718 Problem Urinary tract infection, site not specified 599.0 Active 98755730 Problem Infections of genitourinary tract in , unspecified as to episode of care 646.60 Active 462566677 Problem Threatened premature labor, unspecified as to episode of care 644.00 Active 439722201 Problem Acute upper respiratory infections of unspecified site 465.9 Active 68125560 Problem Persistent disorder of initiating 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.42 Active 56342410 Problem Dysthymic disorder 300.4 Active 45486991 Problem Other specified viral warts 078.19 Active 97918969 Problem Anxiety disorder, unspecified F41.9 Active 108195881 Problem Supervision of with history of pre-term labor V23.41 Active 039427108 Problem Dysthymic disorder F34.1 Active 32005882 Problem Need for prophylactic vaccination and inoculation, Influenza V04.81 Active 080562851 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 Problem Anxiety F41.9 Active 02252890 Problem Neurosis, 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 Active 35982250 Problem 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 Active 133628086 Problem Depression, unspecified depression type F32.9 Active 78404972 ALLERGIES No Information ENCOUNTERS Encounter Location Date Diagnosis [facility] [place] [facility] [id number] [place] [address] [id number] Jun, [facility] [place] [facility] [address] [place] [address] [id number] Jun, Dental examination Z01.20 and Caries K02.9 [facility] [place] [facility] [id number] [place] [address] [id number] May, Caries K02.9 and Dental examination Z01.20 [facility] [address] [id number] [place] [address] [id number] Dec, Dysthymic disorder F34.1 [facility] [address] [id number] [place] [address] [id number] Dec, Depression, unspecified depression type F32.9 and Anxiety disorder, unspecified F41.9 [facility] [id number] [place] [address] [id number] Dec, Depression, unspecified depression type F32.9 [facility] [address] [id number] [place] [address] [id number] Dec, [facility] [address] [id number] [place] [address] [id number] Dec, [facility] [address] [id number] [place] [address] [id number] Dec, [facility] [address] [place] [address] [id number] Dec, 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 [facility] [address] [id number] [place] [address] [id number] Dec, Neurosis, 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 [facility] [address] [id number] [place] [id number] Dec, [facility] [address] [facility] [id number] [place] [id number] Dec, Anxiety F41.9 [facility] [place] [facility] [address] [facility] [id number] [place] [address] Jun, [facility] [place] [facility] [address] [facility] [id number] [place] [address] Jun, [facility] [address] [facility] [id number] [place] [id number] Mar, [facility] [place] [facility] [address] [facility] [id number] [place] [address] Mar, [facility] [address] [facility] [id number] [place] [id number] Jan, [facility] [place] [facility] [address] [address] Jan, [facility] [address] [id number] [place] [id number] Dec, [facility] [place] [facility] [address] [address] Dec, [facility] [address] [id number] [place] [id number] Nov, [facility] [place] [facility] [address] [id number] [address] Nov, [facility] [address] [facility] [id number] [place] [id number] Oct, [facility] [place] [facility] [address] [facility] [id number] [place] [address] Oct, [facility] [place] [facility] [address] [facility] [id number] [place] [address] Oct, [facility] [address] [facility] [id number] [place] [id number] Sep, [facility] [place] [facility] [address] [id number] [address] Sep, [facility] [place] [facility] [address] [id number] [place] [address] Sep, [facility] [place] [facility] [address] [id number] [place] [address] Sep, [facility] [address] [id number] [place] [id number] Aug, [facility] [place] [facility] [address] [facility] [id number] [place] [address] Aug, [facility] [address] [id number] [place] [id number] July, [facility] [place] [facility] [address] [facility] [id number] [place] [address] July, [facility] [address] [id number] [place] [id number] July, [facility] [place] [facility] [address] [facility] [id number] [place] [address] July, [facility] [address] [id number] [place] [id number] July, [facility] [address] [id number] [place] [id number] July, [facility] [place] [facility] [address] [facility] [id number] [place] [address] July, [facility] [place] [facility] [address] [facility] [id number] [place] [address] July, [facility] [address] [id number] [place] [id number] July, [facility] [place] [facility] [address] [facility] [id number] [place] [address] July, [facility] [address] [id number] [place] [id number] Jun, [facility] [place] [facility] [address] [facility] [id number] [place] [address] Jun, [facility] [address] [id number] [place] [id number] Jun, [facility] [place] [facility] [address] [facility] [id number] [place] [address] Jun, [facility] [place] [facility] [address] [facility] [id number] [place] [address] May, [facility] [place] [facility] [id number] [place] [address] May, [facility] [address] [facility] [id number] [place] [id number] Apr, [facility] [place] [facility] [address] [facility] [id number] [place] [address] Apr, [facility] [address] [id number] [place] [id number] Apr, [facility] [place] [facility] [address] [address] Apr, [facility] [place] [facility] [address] [address] Apr, [facility] [address] [facility] [id number] [place] [address] Apr, [facility] [address] [facility] [id number] [place] [id number] Apr, [facility] [place] [facility] [address]005[address] [address] Apr, [facility] [place] [facility] [address] [address] Apr, [facility] [address] [facility] [id number] [place] [address] Apr, [facility] [place] [facility] [address] [facility] [id number] [place] [address] Apr, [facility] [place] [facility] [address] [facility] [id number] [place] [address] Apr, [facility] [id number] [place] [id number] Mar, [facility] [address] [id number] [place] [address] Mar, [facility] [address] [id number] [place] [address] Mar, [facility] [address] [id number] [place] [id number] Mar, [facility] [address] [id number] [place] [address] Mar, [facility] [address] [id number] [place] [address] Mar, [facility] [address] [id number] [place] [address] Mar, [facility] [address] [facility] [id number] [place] [id number] Mar, [facility] [address] [id number] [place] [address] Mar, [facility] [address] [id number] [place] [address] Mar, [facility] [address] [id number] [place] [address] Mar, [facility] [address] [facility] [id number] [place] [id number] Feb, [facility] [address] [id number] [place] [address] Feb, [facility] [place] [facility] [address] [id number] [place] [address] Feb, [facility] [address] [id number] [place] [id number] Feb, [facility] [place] [facility] [address] [id number] [place] [address] Feb, [facility] [place] [facility] [address] [facility] [id number] [place] [address] Feb, [facility] [place] [facility] [address] [facility] [id number] [place] [address] Feb, [facility] [place] [facility] [address] [id number] [place] [address] Feb, [facility] [address] [id number] [place] [id number] Feb, [facility] [place] [facility] [address] [facility] [id number] [place] [address] Feb, [facility] [address] [facility] [id number] [place] [address] Jan, [facility] [place] [facility] [address] [facility] [id number] [place] [address] Jan, [facility] [address] [id number] [place] [address] Dec, [facility] [place] [facility] [address]00565100[place] [address] Dec, [facility] [id number] [place] [address] Dec, [facility] [place] [facility] [address] [id number] [address] Dec, [facility] [id number] [place] [id number] Dec, [facility] [place] [facility] [address]00565100[place] [address] Dec, [facility] [place] [facility] [address]00565100[place] [address] 18 Nov, 2012 [facility] [place] [facility] [address] [facility] [id number] [place] [address] 17 Nov, 2012 [facility] [place] [facility] [address] [facility] [id number] [place] [address] 15 Nov, 2012 [facility] [place] [facility] [address] [facility] [id number] [place] [address] 13 Nov, 2012 [facility] [address] [id number] [place] [id number] Nov, [facility] [address] [id number] [place] [address] Oct, [facility] [place] [facility] [address] [id number] [place] [address] Oct, [facility] [address] [id number] [place] [address] Oct, [facility] [place] [facility] [address] [id number] [place] [address] Oct, [facility] [address] [id number] [place] [address] Oct, [facility] [address] [id number] [place] [id number] Oct, [facility] [address] [id number] [place] [address] Oct, [facility] [address] [id number] [place] [address] Sep, [facility] [address] [id number] [place] [address] Sep, [facility] [address] [id number] [place] [address] Sep, [facility] [place] [facility] [address] [id number] [place] [address] Aug, [facility] [place] [facility] [address] [id number] [place] [address] Aug, [facility] [place] [facility] [address] [id number] [place] [address] Aug, [facility] [address] [id number] [place] [id number] Aug, [facility] [address] [id number] [place] [id number] July, [facility] [place] [facility] [address] [id number] [place] [address] Jun, [facility] [place] [facility] [address] [id number] [place] [address] Jun, [facility] [address] [id number] [place] [id number] Jun, [facility] [address] [id number] [place] [id number] Jun, [facility] [address] [id number] [place] [id number] Jun, [facility] [address] [id number] [place] [id number] May, [facility] [place] [facility] [address] [facility] [id number] [place] [address] Feb, [facility] [place] [facility] [address] [facility] [id number] [place] [address] Feb, [facility] [address] [id number] [place] [id number] Feb, [facility] [place] [facility] [address]00565100[place] [address] Feb, [facility] [place] [facility] [address]65100[place] [address] Jan, [facility] [address] [id number] [place] [id number] July, [facility] [place] [facility] [address]00565100[place] [address] Jan, [facility] [place] [facility] [address]00565100[place] [address] Feb, [facility] [place] [facility] [address] [facility] [id number] [place] [address] Jan, [facility] [place] [facility] [address] [facility] [id number] [place] [address] Dec, [facility] [place] [facility] [address] [id number] [address] Dec, [facility] [place] [facility] [address]00565100[place] [address] Dec, [facility] [address] [facility] [id number] [place] [address] Dec, [facility] [address] [facility] [id number] [place] [address] Dec, [facility] [address] [facility] [id number] [place] [address] Dec, IMMUNIZATIONS No Known Immunizations SOCIAL HISTORY Never Assessed REASON FOR VISIT [facility] PLAN OF CARE VITAL SIGNS MEDICATIONS Unknown Medications RESULTS No Results PROCEDURES No Known procedures INSTRUCTIONS MEDICATIONS ADMINISTERED No Known Medications MEDICAL (GENERAL) HISTORY Type Description Date Medical History anxiety/depression Surgical History cysts removed from right foot as a child Surgical History Pace Maker Placed 2018 Surgical History Gallbladder Removal 2018 Surgical History ablation 2019 Surgical History Gastric Sleeve 2017 Hospitalization History childbirth
--- OUTSIDE RECORDS SUMMARY | 2018-09-19 10:24 | XMS REPORT ---
Author Author Migration, Doctor Organization [facility] Address Unknown Phone Unavailable Care Team Providers Care News Production Assistant Name Role Phone Migration, Doctor Unavailable Unavailable PROBLEMS Type Condition ICD9-CM Code FYE47-BS Code Onset Dates Condition Status SNOMED Code Problem Screening examination for venereal disease V74.5 Active 145143886 Problem Other general counseling and advice for contraceptive management V25.09 Active 435432651 Problem Unspecified contraceptive management V25.9 Active 585149952 Problem Routine follow-up V24.2 Active 365530523 Problem General counseling for initiation of other contraceptive measures V25.02 Active [id number] Problem DTAP TEST V06.1 Active Problem examination or test, positive result V72.42 Active 659165269 Problem Tension headache 307.81 Active 749753074 Problem Unspecified infective otitis externa 380.10 Active 26502470 Problem Screening for malignant neoplasm of the cervix V76.2 Active 503730749 Problem Encounter for insertion of intrauterine contraceptive device V25.11 Active 35023538 Problem Nausea alone 787.02 Active 782269312 Problem Lumbar sprain and strain 847.2 Active 998784443 Problem First-degree perineal laceration, unspecified as to episode of care in 664.00 Active 66506155 Problem Unspecified alopecia 704.00 Active 32962930 Problem Urinary tract infection, site not specified 599.0 Active 33500906 Problem Infections of genitourinary tract in , unspecified as to episode of care 646.60 Active 022560688 Problem Threatened premature labor, unspecified as to episode of care 644.00 Active 384210474 Problem Acute upper respiratory infections of unspecified site 465.9 Active 75107616 Problem Persistent disorder of initiating 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.42 Active 64355766 Problem Dysthymic disorder 300.4 Active 60636842 Problem Other specified viral warts 078.19 Active 63586513 Problem Anxiety disorder, unspecified F41.9 Active 701392118 Problem Supervision of with history of pre-term labor V23.41 Active 657192642 Problem Dysthymic disorder F34.1 Active 85962543 Problem Need for prophylactic vaccination and inoculation, Influenza V04.81 Active 648406489 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 Problem Anxiety F41.9 Active 30689645 Problem Neurosis, 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 Active 80756973 Problem 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 Active 409788759 Problem Depression, unspecified depression type F32.9 Active 53541151 ALLERGIES No Information ENCOUNTERS Encounter Location Date Diagnosis [facility] [id number] [place] [address] [id number] Jun, [facility] [address] [place] [address] [id number] Jun, Dental examination Z01.20 and Caries K02.9 [facility] [address] [id number] [place] [address] [id number] May, Caries K02.9 and Dental examination Z01.20 [facility] [id number] [place] [address] [id number] Dec, Dysthymic disorder F34.1 [facility] [id number] [place] [address] [id number] Dec, Depression, unspecified depression type F32.9 and Anxiety disorder, unspecified F41.9 [facility] [address] [id number] [place] [address] [id number] Dec, Depression, unspecified depression type F32.9 [facility] [address] [id number] [place] [address] [id number] Dec, [facility] [address] [id number] [place] [address] [id number] Dec, [facility] [address] [id number] [place] [address] [id number] Dec, [facility] [address] [place] [address] [id number] Dec, 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 [facility] [address] [id number] [place] [address] [id number] Dec, Neurosis, 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 [facility] [address] [id number][place] [id number] Dec, [facility] [address] [facility] [id number], [place] [id number] Dec, Anxiety F41.9 [facility] [place] [facility] [address] [facility] [id number] [address] Jun, [facility] [place] [facility] [address] [facility] [id number] [place] [address] Jun, [facility] [address] [facility] [id number][place] [id number] Mar, [facility] [place] [facility] [address] [facility] [id number] [place] [address] Mar, [facility] [address] [facility] [id number], [place] [id number] Jan, [facility] [place] [facility] [address]00565100[place] [address] Jan, [facility] [address] [id number], [place] [id number] Dec, [facility] [place] [facility] [address]00565100[place] [address] Dec, [facility] [address] [id number], [place] [id number] Nov, [facility] [place] [facility] [address] [id number] [address] Nov, [facility] [address] [facility] [id number], [place] [id number] Oct, [facility] [place] [facility] [address] [facility] [id number] [place] [address] Oct, [facility] [place] [facility] [address] [facility] [id number] [place] [address] Oct, [facility] [address] [facility] [id number], [place] [id number] Sep, [facility] [place] [facility] [address] [id number] [address] Sep, [facility] [place] [facility] [address] [id number] [place] [address] Sep, [facility] [place] [facility] [address] [id number] [place] [address] Sep, [facility] [address] [id number] [place] [id number] Aug, [facility] [place] [facility] [address] [facility] [id number] [place] [address] Aug, [facility] [address] [id number] [place] [id number] July, [facility] [place] [facility] [address] [facility] [id number] [place] [address] July, [facility] [address] [id number] [place] [id number] July, [facility] [place] [facility] [address] [facility] [id number] [place] [address] July, [facility] [address] [id number] [place] [id number] July, [facility] [address] [id number] [place] [id number] July, [facility] [place] [facility] [address] [facility] [id number] [place] [address] July, [facility] [place] [facility] [address] [facility] [id number] [place] [address] July, [facility] [address] [id number], [place] [id number] July, [facility] [place] [facility] [address] [facility] [id number] [place] [address] July, [facility] [address] [id number] [place] [address] Jun, [facility] [place] [facility] [address] [facility] [id number] [place] [address] Jun, [facility] [address] [id number], [place] [id number] Jun, [facility] [place] [facility] [address] [facility] [id number] [place] [address] Jun, [facility] [place] [facility] [address] [facility] [id number] [place] [address] May, [facility] [place] [facility] [address] [id number] [place] [address] May, [facility] [address] [facility] [id number], [place] [id number] Apr, [facility] [place] [facility] [address] [facility] [id number] [place] [address] Apr, [facility] [address] [id number], [place] [id number] Apr, [facility] [place] [facility] [address]00565100[place] [address] Apr, [facility] [place] [facility] [address]00565100[place] [address] Apr, [facility] [address] [facility] [id number], [place] 214801719 Apr, [facility] [address] [facility] [id number], [place] 616003837 Apr, [facility] [place] [facility] [address]00565100[place] [address] Apr, [facility] [place] [facility] [address]00565100[place] [address] Apr, [facility] [address] [facility] [id number], [place] [id number] Apr, [facility] [place] [facility] [address] [facility] [id number] [place] [address] Apr, [facility] [place] [facility] [address] [facility] [id number] [place] [address] Apr, [facility] [id number], [place] [id number] Mar, [facility] [address] [id number] [place] [address] Mar, [facility] [address] [id number] [place] [address] Mar, [facility] [address] [id number], [place] 634[address]1189 Mar, [facility] [address] [id number] [place] [address] Mar, [facility] [address] [id number] [place] [address] Mar, [facility] [address] [id number] [place] [address] Mar, [facility] [address] [facility] [id number], [place] 46[address]30583 Mar, [facility] [address] [id number] [place] [address] Mar, [facility] [address] [id number], [place] [id number] Mar, [facility] [address] [id number] [place] [address] Mar, [facility] [address] [facility] [id number], [place] 816840024 Feb, [facility] [address] [id number] [place] [address] Feb, [facility] [place] [facility] [address] [id number] [place] [address] Feb, [facility] [address] [id number], [place] 925176412 Feb, [facility] [place] [facility] [address] [id number] [place] [address] Feb, [facility] [place] [facility] [address] [facility] [id number] [place] [address] Feb, [facility] [place] [facility] [address] [facility] [id number] [place] [address] Feb, [facility] [place] [facility] [address] [id number] [place] [address] Feb, [facility] [address] [id number], [place] [id number] Feb, [facility] [place] [facility] [address] [facility] [id number] [place] [address] Feb, [facility] [address] [facility] [id number], [place] 105884413 Jan, [facility] [place] [facility] [address] [facility] [id number] [place] [address] Jan, [facility] [address] [id number], [place] 786498386 Dec, [facility] [place] [facility] [address]00565100[place] [address] Dec, [facility] [id number], [place] 066128639 Dec, [facility] [place] [facility] [address] [id number] [address] Dec, [facility] [id number], [place] [id number] Dec, [facility] [place] [facility] [address]00565100[place] [address] Dec, [facility] [place] [facility] [address]00565100[place] [address] 18 Nov, 2012 [facility] [place] [facility] [address] [facility] [id number] [place] [address] 17 Nov, 2012 [facility] [place] [facility] [address] [facility] [id number] [place] [address] 15 Nov, 2012 [facility] [place] [facility] [address] [facility] [id number] [place] [address] 13 Nov, 2012 [facility] [address] [id number], [place] [id number] Nov, [facility] [address] [id number] [place] [address] Oct, [facility] [place] [facility] [address] [id number] [place] [address] Oct, [facility] [address] [id number] [place] [address] Oct, [facility] [place] [facility] [address] [id number] [place] [address] Oct, [facility] [address] [id number] [place] [address] Oct, [facility] [address] [id number] [place] [id number] Oct, [facility] [address] [id number] [place] [address] Oct, [facility] [address] [id number] [place] [address] Sep, [facility] [address] [id number] [place] [address] Sep, [facility] [address] [id number] [place] [address] Sep, [facility] [place] [facility] [address] [id number] [place] [address] Aug, [facility] [place] [facility] [address] [id number] [place] [address] Aug, [facility] [place] [facility] [address] [id number] [place] [address] Aug, [facility] [address] [id number] [place] [id number] Aug, [facility] [address] [id number] [place] [id number] July, [facility] [place] [facility] [address] [id number] [place] [address] Jun, [facility] [place] [facility] [address] [id number] [place] [address] Jun, [facility] [address] [id number] [place] 8896[address] Jun, [facility] [address] [id number] [place] 658608837 Jun, [facility] [address] [id number] [place] [address] Jun, [facility] [address] [id number] [place] [id number] May, [facility] [place] [facility] [address] [facility] [id number] [place] [address] Feb, [facility] [place] [facility] [address] [facility] [id number] [place] [address] Feb, [facility] [address] [id number], [place] 987943033 Feb, [facility] [place] [facility] [address]00565100[place] [address] Feb, [facility] [place] [facility] [address]00565100[place] [address] Jan, [facility] [address] [id number], [place] 642379601 July, [facility] [place] [facility] [address]00565100[place] [address] Jan, [facility] [place] [facility] [address]00565100[place] [address] Feb, [facility] [place] [facility] [address] [facility] [id number] [place] [address] Jan, [facility] [place] [facility] [address] [facility] [id number] [place] [address] Dec, [facility] [place] [facility] [address] [id number] [address] Dec, [facility] [place] [facility] [address]00565100[place] [address] Dec, [facility] [address] [facility] [id number] [place] [address] Dec, [facility] [address] [facility] [id number] [place] [address] Dec, [facility] [address] [facility] [id number] [place] [address] Dec, IMMUNIZATIONS No Known Immunizations SOCIAL HISTORY Never Assessed REASON FOR VISIT [facility] [place] PLAN OF CARE VITAL SIGNS MEDICATIONS Unknown [...]
--- OUTSIDE RECORDS SUMMARY | 2018-09-19 10:25 | XMS REPORT ---
Author Author Migration, Doctor Organization [facility] Address Unknown Phone Unavailable Care Team Providers Care Electrical Linesworker Name Role Phone Migration, Doctor Unavailable Unavailable PROBLEMS Type Condition ICD9-CM Code JJH04-SJ Code Onset Dates Condition Status SNOMED Code Problem Screening examination for venereal disease V74.5 Active 093624961 Problem Other general counseling and advice for contraceptive management V25.09 Active 502614474 Problem Unspecified contraceptive management V25.9 Active 356152922 Problem Routine follow-up V24.2 Active 824006523 Problem General counseling for initiation of other contraceptive measures V25.02 Active [id number] Problem DTAP TEST V06.1 Active Problem examination or test, positive result V72.42 Active 959114096 Problem Tension headache 307.81 Active 256923741 Problem Unspecified infective otitis externa 380.10 Active 21651608 Problem Screening for malignant neoplasm of the cervix V76.2 Active 799977686 Problem Encounter for insertion of intrauterine contraceptive device V25.11 Active 73315356 Problem Nausea alone 787.02 Active 005295148 Problem Lumbar sprain and strain 847.2 Active 426912076 Problem First-degree perineal laceration, unspecified as to episode of care in 664.00 Active 86256318 Problem Unspecified alopecia 704.00 Active 65951126 Problem Urinary tract infection, site not specified 599.0 Active 22650710 Problem Infections of genitourinary tract in , unspecified as to episode of care 646.60 Active 368041535 Problem Threatened premature labor, unspecified as to episode of care 644.00 Active 563359855 Problem Acute upper respiratory infections of unspecified site 465.9 Active 73770715 Problem Persistent disorder of initiating 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.42 Active 69700533 Problem Dysthymic disorder 300.4 Active 69893865 Problem Other specified viral warts 078.19 Active 27316605 Problem Anxiety disorder, unspecified F41.9 Active 465762417 Problem Supervision of with history of pre-term labor V23.41 Active 185508738 Problem Dysthymic disorder F34.1 Active 63580582 Problem Need for prophylactic vaccination and inoculation, Influenza V04.81 Active 954624624 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20 and Caries K02.9 [facility] [id number] [place] [address] [id number] May, Caries K02.9 and Dental examination Z01.20 [facility] [id number] [place] [address] [id number] Dec, Dysthymic disorder F34.1 [facility] [address] [id number] [place] [address] [id number] Dec, Depression, unspecified depression type F32.9 and Anxiety disorder, unspecified F41.9 [facility] [address] [id number] [place] [address] [id number] Dec, Depression, unspecified depression type F32.9 [facility] [address] [id number] [place] [address] [id number] Dec, [facility] [address] [id number] [place] [address] [id number] Dec, [facility] [id number] [place] [address] [id number] Dec, [facility] [address] [place] [address] [phone] Dec, 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 [facility] [address] [id number] [place] [address] [id number] Dec, Neurosis, 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 [facility] [address] [id number] [id number] Dec, [facility] [address] [facility] [id number][place] [id number] Dec, Anxiety F41.9 [facility] [place] [facility] [address] [facility] [id number], [place] [address] Jun, [facility] [place] [facility] [address] [facility] [id number], [place] [address] Jun, [facility] [address] [facility] [id number][place] [id number] Mar, [facility] [place] [facility] [address] [facility] [id number], [place] [address] Mar, [facility] [address] [facility] [id number][place] [id number] Jan, [facility] [place] [facility] [id number], [place] [address] Jan, [facility] [address] [id number][place] [id number] Dec, [facility] [place] [facility] [id number], [place] [address] Dec, [facility] [address] [id number][place] [id number] Nov, [facility] [place] [facility] [address] [id number] [address] Nov, [facility] [address] [facility] [id number], [place] [id number] Oct, [facility] [place] [facility] [address] [facility] [id number], [place] [address] Oct, [facility] [place] [facility] [address] [facility] [id number], [place] [address] Oct, [facility] [address] [facility] [id number], [place] [id number] Sep, [facility] [place] [facility] [address] [id number] [address] Sep, [facility] [place] [facility] [address] [id number] [place] [address] Sep, [facility] [place] [facility] [address] [id number] [place] [address] Sep, [facility] [address] [id number] [place] [id number] Aug, [facility] [place] [facility] [address] [facility] [id number] [place] [address] Aug, [facility] [address] [id number] [place] [id number] July, [facility] [place] [facility] [address] [facility] [id number] [place] [address] July, [facility] [address] [id number] [place] [id number] July, [facility] [place] [facility] [address] [facility] [id number] [place] [address] July, [facility] [address] [id number] [place] [id number] July, [facility] [address] [id number] [place] [id number] July, [facility] [place] [facility] [address] [facility] [id number] [place] [address] July, [facility] [place] [facility] [address] [facility] [id number] [place] [address] July, [facility] [address] [id number][place] [id number] July, [facility] [place] [facility] [address] [facility] [id number] [place] [address] July, [facility] [address] [id number] [place] [id number] Jun, [facility] [place] [facility] [address] [facility] [id number] [place] [address] Jun, [facility] [address] [id number], [place] [id number] Jun, [facility] [place] [facility] [address] [facility] [id number] [place] [address] Jun, [facility] [place] [facility] [address] [facility] [id number], [place] [address] May, [facility] [place] [facility] [address] [id number] [place] [address] May, [facility] [address] [facility] [id number][place] [id number] Apr, [facility] [place] [facility] [address] [facility] [id number] [place] [address] Apr, [facility] [address] [id number] [id number] Apr, [facility] [place] [facility] [id number] [address] Apr, [facility] [place] [facility] [id number], [place] [address] Apr, [facility] [address] [facility] [id number], [place] [id number] Apr, [facility] [address] [facility] [id number], [place] [id number] Apr, [facility] [place] [facility] [id number], [place] [address] Apr, [facility] [place] [facility] [id number], [place] [address] Apr, [facility] [address] [facility] [id number], [place] [id number] Apr, [facility] [place] [facility] [address] [facility] [id number], [place] [address] Apr, [facility] [place] [facility] [address] [facility] [id number], [place] [address] Apr, [facility] [id number], [place] [id number] Mar, [facility] [address] [id number], [place] [address] Mar, [facility] [address] [id number] [place] [address] Mar, [facility] [address] [id number], [place] [id number] Mar, [facility] [address] [id number], [place] [address] Mar, [facility] [address] [id number] [place] [address] Mar, [facility] [address] [id number] [place] [address] Mar, [facility] [address] [facility] [id number], [place] [id number] Mar, [facility] [address] [id number], [place] [address] Mar, [facility] [address] [id number][place] [id number] Mar, [facility] [address] [id number], [place] [address] Mar, [facility] [address] [facility] [id number], [place] [id number] Feb, [facility] [address] [id number], [place] [address] Feb, [facility] [place] [facility] [address] [id number], [place] [address] Feb, [facility] [address] [id number], [place] [id number] Feb, [facility] [place] [facility] [address] [id number], [place] [address] Feb, [facility] [place] [facility] [address] [facility] [id number], [place] [address] Feb, [facility] [place] [facility] [address] [facility] [id number], [place] [address] Feb, [facility] [place] [facility] [address] [id number], [place] [address] Feb, [facility] [address] [id number], [place] [address]012343 Feb, [facility] [place] [facility] [address] [facility] [id number], [place] [address] Feb, [facility] [address] [facility] [id number], [place] 586[address]88[address] Jan, [facility] [place] [facility] [address] [facility] [id number], [place] [address] Jan, [facility] [address] [id number], [place] [address] Dec, [facility] [place] [facility] [id number], [place] [address] Dec, [facility] [id number], [place] [address]8764 Dec, [facility] [place] [facility] [address] [id number], [place] [address] Dec, [facility] [id number], [place] 6[address]85664 Dec, [facility] [place] [facility] [id number], [place] [address] Dec, [facility] [place] [facility] [id number], [place] [address] 18 Nov, 2012 [facility] [place] [facility] [address] [facility] [id number], [place] [address] 17 Nov, 2012 [facility] [place] [facility] [address] [facility] [id number], [place] [address] 15 Nov, 2012 [facility] [place] [facility] [address] [facility] [id number], [place] [address] 13 Nov, 2012 [facility] [address] [id number][place] [address] Nov, [facility] [address] [id number] [place] [address] Oct, [facility] [place] [facility] [address] [id number] [place] [address] Oct, [facility] [address] [id number] [place] [address] Oct, [facility] [place] [facility] [address] [id number] [place] [address] Oct, [facility] [address] [id number] [place] [address] Oct, [facility] [address] [id number] [place] [id number] Oct, [facility] [address] [id number] [place] [address] Oct, [facility] [address] [id number] [place] [address] Sep, [facility] [address] [id number] [place] [address] Sep, [facility] [address] [id number] [place] [address] Sep, [facility] [place] [facility] [address] [id number] [place] [address] Aug, [facility] [place] [facility] [address] [id number] [place] [address] Aug, [facility] [place] [facility] [address] [id number] [place] [address] Aug, [facility] [address] [id number] [place] [id number] Aug, [facility] [address] [id number] [place] [id number] July, [facility] [place] [facility] [address] [id number] [place] [address] Jun, [facility] [place] [facility] [address] [id number], [place] [address] Jun, [facility] [address] [id number] [place] [id number] Jun, [facility] [address] [id number] [place] [id number] Jun, [facility] [address] [id number] [place] 5477[address] Jun, [facility] [address] [id number] [place] [id number] May, [facility] [place] [facility] [address] [facility] [id number], [place] [address] Feb, [facility] [place] [facility] [address] [facility] [id number], [place] [address] Feb, [facility] [address] [id number], [place] [address]264 Feb, [facility] [place] [facility] [id number], [place] [address] Feb, [facility] [place] [facility] [id number], [place] [address] Jan, [facility] [address] [id number], [place] [address] July, [facility] [place] [facility] [id number], [place] [address] Jan, [facility] [place] [facility] [id number], [place] [address] Feb, [facility] [place] [facility] [address] [facility] [id number], [place] [address] Jan, [facility] [place] [facility] [address] [facility] [id number], [place] [address] Dec, [facility] [place] [facility] [address] [id number], [place] [address] Dec, [facility] [place] [facility] [id number], [place] [address] Dec, [facility] [address] [facility] [id number], [place] [address] Dec, [facility] [address] [facility] [id number], [place] [address] Dec, [facility] [address] [facility] [id number] [place] [address] Dec, IMMUNIZATIONS No Known Immunizations SOCIAL HISTORY Never Assessed REASON FOR VISIT [facility] [place] PLAN OF CARE VITAL SIGNS MEDICATIONS Unknown [...]
--- OUTSIDE RECORDS SUMMARY | 2018-09-19 10:25 | XMS REPORT ---
Author Author Migration, Doctor Organization [facility] Address Unknown Phone Unavailable Care Team Providers Care Political Science Chair Name Role Phone Migration, Doctor Unavailable Unavailable PROBLEMS Type Condition ICD9-CM Code RNQ39-HA Code Onset Dates Condition Status SNOMED Code Problem Screening examination for venereal disease V74.5 Active 618224652 Problem Other general counseling and advice for contraceptive management V25.09 Active 096973852 Problem Unspecified contraceptive management V25.9 Active 115847172 Problem Routine follow-up V24.2 Active 349806830 Problem General counseling for initiation of other contraceptive measures V25.02 Active [id number] Problem DTAP TEST V06.1 Active Problem examination or test, positive result V72.42 Active 824773524 Problem Tension headache 307.81 Active 296646664 Problem Unspecified infective otitis externa 380.10 Active 74909769 Problem Screening for malignant neoplasm of the cervix V76.2 Active 673038717 Problem Encounter for insertion of intrauterine contraceptive device V25.11 Active 07335809 Problem Nausea alone 787.02 Active 682711197 Problem Lumbar sprain and strain 847.2 Active 016840844 Problem First-degree perineal laceration, unspecified as to episode of care in 664.00 Active 64053630 Problem Unspecified alopecia 704.00 Active 18466163 Problem Urinary tract infection, site not specified 599.0 Active 27998635 Problem Infections of genitourinary tract in , unspecified as to episode of care 646.60 Active 027344554 Problem Threatened premature labor, unspecified as to episode of care 644.00 Active 237810812 Problem Acute upper respiratory infections of unspecified site 465.9 Active 99247515 Problem Persistent disorder of initiating 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.42 Active 30815052 Problem Dysthymic disorder 300.4 Active 94341805 Problem Other specified viral warts 078.19 Active 47277994 Problem Anxiety disorder, unspecified F41.9 Active 787398567 Problem Supervision of with history of pre-term labor V23.41 Active 174629514 Problem Dysthymic disorder F34.1 Active 72191388 Problem Need for prophylactic vaccination and inoculation, Influenza V04.81 Active 058000022 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 Problem Anxiety F41.9 Active 95210225 Problem Neurosis, 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 Active 02930935 Problem 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 Active 005755424 Problem Depression, unspecified depression type F32.9 Active 07491312 ALLERGIES No Information ENCOUNTERS Encounter Location Date Diagnosis [facility] [address] [id number] [place] [address] [id number] Jun, [facility] [address] [place] [address] [id number] Jun, Dental examination Z01.20 and Caries K02.9 [facility] [id number] [place] [address] [id number] May, Caries K02.9 and Dental examination Z01.20 [facility] [address] [id number] [place] [address] [id number] Dec, Dysthymic disorder F34.1 [facility] [address] [id number] [place] [address] [id number] Dec, Depression, unspecified depression type F32.9 and Anxiety disorder, unspecified F41.9 [facility] [id number] [place] [address] [id number] Dec, Depression, unspecified depression type F32.9 [facility] [address] [id number] [place] [address] [id number] Dec, [facility] [id number] [place] [address] [id number] Dec, [facility] [address] [id number] [place] [address] [id number] Dec, [facility] [address] [place] [address] [phone] Dec, 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 [facility] [address] [id number] [place] [address] [phone] Dec, Neurosis, 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 [facility] [address] [id number][place] [id number] Dec, [facility] [address] [facility] [id number][place] [id number] Dec, Anxiety F41.9 [facility] [place] [facility] [address] [facility] [id number], [place] [address] Jun, [facility] [place] [facility] [address] [facility] [id number], [place] [address] Jun, [facility] [address] [facility] [id number], [place] [id number] Mar, [facility] [place] [facility] [address] [facility] [id number], [place] [address] Mar, [facility] [address] [facility] [id number], [place] [id number] Jan, [facility] [place] [facility] [address]00565[address], [place] [address] Jan, [facility] [address] [id number][place] [id number] Dec, [facility] [place] [facility] [address]00565[address], [place] [address] Dec, [facility] [address] [id number], [place] [id number] Nov, [facility] [place] [facility] [address] [id number], [place] [address] Nov, [facility] [address] [facility] [id number], [place] [id number] Oct, [facility] [place] [facility] [address] [facility] [id number], [place] [address] Oct, [facility] [place] [facility] [address] [facility] [id number], [place] [address] Oct, [facility] [address] [facility] [id number], [place] 7559[address]853 Sep, [facility] [place] [facility] [address] [id number], [place] [address] Sep, [facility] [place] [facility] [address] [id number] [place] [address] Sep, [facility] [place] [facility] [address] [id number] [place] [address] Sep, [facility] [address] [id number] [place] [address] Aug, [facility] [place] [facility] [address] [facility] [id number] [place] [address] Aug, [facility] [address] [id number] [place] [address] July, [facility] [place] [facility] [address] [facility] [id number] [place] [address] July, [facility] [address] [id number] [place] [id number] July, [facility] [place] [facility] [address] [facility] [id number] [place] [address] July, [facility] [address] [id number] [place] [id number] July, [facility] [address] [id number] [place] [id number] July, [facility] [place] [facility] [address] [facility] [id number] [place] [address] July, [facility] [place] [facility] [address] [facility] [id number] [place] [address] July, [facility] [address] [id number], [place] [id number] July, [facility] [place] [facility] [address] [facility] [id number] [place] [address] July, [facility] [address] [id number] [place] [address] Jun, [facility] [place] [facility] [address] [facility] [id number] [place] [address] Jun, [facility] [address] [id number], [place] [id number] Jun, [facility] [place] [facility] [address] [facility] [id number] [place] [address] Jun, [facility] [place] [facility] [address] [facility] [id number], [place] [address] May, [facility] [place] [facility] [address] [id number] [address] May, [facility] [address] [facility] [id number], [place] [id number] Apr, [facility] [place] [facility] [address] [facility] [id number] [place] [address] Apr, [facility] [address] [id number], [place] [address]29 Apr, [facility] [place] [facility] [address]00565[address], [place] [address] Apr, [facility] [place] [facility] [address]00565100[place], [place] [address] Apr, [facility] [address] [facility] [id number], [place] [id number] Apr, [facility] [address] [facility] [id number], [place] [address]846[address] Apr, [facility] [place] [facility] [address]00565100[place], [place] [address] Apr, [facility] [place] [facility] [address]00565100[place], [place] [address] Apr, [facility] [address] [facility] [id number], [place] 8497[address]200 Apr, [facility] [place] [facility] [address] [facility] [id number], [place] [address] Apr, [facility] [place] [facility] [address] [facility] [id number], [place] [address] Apr, [facility] [id number], [place] [id number] Mar, [facility] [address] [id number], [place] [address] Mar, [facility] [address] [id number] [place] [address] Mar, [facility] [address] [id number], [place] [id number] Mar, [facility] [address] [id number], [place] [address] Mar, [facility] [address] [id number] [place] [address] Mar, [facility] [address] [id number] [place] [address] Mar, [facility] [address] [facility] [id number], [place] [id number] Mar, [facility] [address] [id number], [place] [address] Mar, [facility] [address] [id number], [place] [id number] Mar, [facility] [address] [id number], [place] [address] Mar, [facility] [address] [facility] [id number], [place] [address] Feb, [facility] [address] [id number], [place] [address] Feb, [facility] [place] [facility] [address] [id number], [place] [address] Feb, [facility] [address] [id number], [place] 0950[address]231 Feb, [facility] [place] [facility] [address] [id number], [place] [address] Feb, [facility] [place] [facility] [address] [facility] [id number], [place] [address] Feb, [facility] [place] [facility] [address] [facility] [id number], [place] [address] Feb, [facility] [place] [facility] [address] [id number], [place] [address] Feb, [facility] [address] [id number], [place] [address]2837 Feb, [facility] [place] [facility] [address] [facility] [id number], [place] [address] Feb, [facility] [address] [facility] [id number], [place] [address]75[address] Jan, [facility] [place] [facility] [address] [facility] [id number], [place] [address] Jan, [facility] [address] [id number], [place] 07[address]4668 Dec, [facility] [place] [facility] [address]00565100[place], [place] [address] Dec, [facility] [id number], [place] 775[address]606 Dec, [facility] [place] [facility] [address] [id number], [place] [address] Dec, [facility] [id number], [place] 542[address]1226 Dec, [facility] [place] [facility] [address]00565100[place], [place] [address] Dec, [facility] [place] [facility] [address]00565100[place], [place] [address] 18 Nov, 2012 [facility] [place] [facility] [address] [facility] [id number], [place] [address] 17 Nov, 2012 [facility] [place] [facility] [address] [facility] [id number], [place] [address] 15 Nov, 2012 [facility] [place] [facility] [address] [facility] [id number], [place] [address] 13 Nov, 2012 [facility] [address] [id number], [place] [address]236 Nov, [facility] [address] [id number] [place] [address] Oct, [facility] [place] [facility] [address] [id number] [place] [address] Oct, [facility] [address] [id number] [place] [address] Oct, [facility] [place] [facility] [address] [id number] [place] [address] Oct, [facility] [address] [id number] [place] [address] Oct, [facility] [address] [id number] [place] [id number] Oct, [facility] [address] [id number] [place] [address] Oct, [facility] [address] [id number] [place] [address] Sep, [facility] [address] [id number] [place] [address] Sep, [facility] [address] [id number] [place] [address] Sep, [facility] [place] [facility] [address] [id number] [place] [address] Aug, [facility] [place] [facility] [address] [id number] [place] [address] Aug, [facility] [place] [facility] [address] [id number] [place] [address] Aug, [facility] [address] [id number] [place] [address] Aug, [facility] [address] [id number] [place] [address] July, [facility] [place] [facility] [address] [id number] [place] [address] Jun, [facility] [place] [facility] [address] [id number], [place] [address] Jun, [facility] [address] [id number] [place] [address] Jun, [facility] [address] [id number] [place] [address] Jun, [facility] [address] [id number] [place] [address] Jun, [facility] [address] [id number] [place] [address] May, [facility] [place] [facility] [address] [facility] [id number], [place] [address] Feb, [facility] [place] [facility] [address] [facility] [id number], [place] [address] Feb, [facility] [address] [id number], [place] 360[address] Feb, [facility] [place] [facility] [address]00565[address], [place] [address] Feb, [facility] [place] [facility] [address]00565100[place], [place] [address] Jan, [facility] [address] [id number], [place] [address] July, [facility] [place] [facility] [address]00565[address], [place] [address] Jan, [facility] [place] [facility] [address]00565100[place], [place] [address] Feb, [facility] [place] [facility] [address] [facility] [id number], [place] [address] Jan, [facility] [place] [facility] [address] [facility] [id number], [place] [address] Dec, [facility] [place] [facility] [address] [id number], [place] [address] Dec, [facility] [place] [facility] [address]00565100[place], [place] [address] Dec, [facility] [place] [address] [facility] [id number], [place] [address] Dec, [facility] [place] [address] [facility] [id number], [place] [address] Dec, [facility] [place] [address] [facility] [id number] [place] [address] Dec, IMMUNIZATIONS No Known Immunizations SOCIAL HISTORY Never Assessed REASON FOR VISIT [facility] [place]AN OF CARE VITAL SIGNS MEDICATIONS Unknown [...]
--- OUTSIDE RECORDS SUMMARY | 2018-09-19 10:25 | XMS REPORT ---
Author Author Migration, Doctor Organization [facility] Address Unknown Phone Unavailable Care Team Providers Care Inventory Administrator Name Role Phone Migration, Doctor Unavailable Unavailable PROBLEMS Type Condition ICD9-CM Code [id number] Code Onset Dates Condition Status SNOMED Code Problem Screening examination for venereal disease V74.5 Active 422152027 Problem Other general counseling and advice for contraceptive management V25.09 Active 515801028 Problem Unspecified contraceptive management V25.9 Active 806535187 Problem Routine follow-up V24.2 Active 121405901 Problem General counseling for initiation of other contraceptive measures V25.02 Active [id number] Problem DTAP TEST V06.1 Active Problem examination or test, positive result V72.42 Active 209763511 Problem Tension headache 307.81 Active 341915427 Problem Unspecified infective otitis externa 380.10 Active 28628075 Problem Screening for malignant neoplasm of the cervix V76.2 Active 755758664 Problem Encounter for insertion of intrauterine contraceptive device V25.11 Active 79096689 Problem Nausea alone 787.02 Active 565906918 Problem Lumbar sprain and strain 847.2 Active 491812824 Problem First-degree perineal laceration, unspecified as to episode of care in 664.00 Active 77544379 Problem Unspecified alopecia 704.00 Active 29862901 Problem Urinary tract infection, site not specified 599.0 Active 94107155 Problem Infections of genitourinary tract in , unspecified as to episode of care 646.60 Active 057375988 Problem Threatened premature labor, unspecified as to episode of care 644.00 Active 044279736 Problem Acute upper respiratory infections of unspecified site 465.9 Active 62146692 Problem Persistent disorder of initiating 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.42 Active 63507225 Problem Dysthymic disorder 300.4 Active 36094068 Problem Other specified viral warts 078.19 Active 75355705 Problem Anxiety disorder, unspecified F41.9 Active 321696436 Problem Supervision of with history of pre-term labor V23.41 Active 155844142 Problem Dysthymic disorder F34.1 Active 82553656 Problem Need for prophylactic vaccination and inoculation, Influenza V04.81 Active 773010042 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 Problem Anxiety F41.9 Active 67204850 Problem Neurosis, 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 Active 77288797 Problem 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 Active 555326362 Problem Depression, unspecified depression type F32.9 Active 88396032 ALLERGIES No Information ENCOUNTERS Encounter Location Date Diagnosis [facility] [id number] [place] [address] [id number] Jun, [facility] [address] [place] [address] [id number] Jun, Dental examination Z01.20 and Caries K02.9 [facility] [id number] [place] [address] [id number] May, Caries K02.9 and Dental examination Z01.20 [facility] [address] [id number] [place] [address] [id number] Dec, Dysthymic disorder F34.1 [facility] [address] [id number] [place] [address] [id number] Dec, Depression, unspecified depression type F32.9 and Anxiety disorder, unspecified F41.9 [facility] [address] [id number] [place] [address] [id number] Dec, Depression, unspecified depression type F32.9 [facility] [address] [id number] [place] [address] [id number] Dec, [facility] [address] [id number] [place] [address] [id number] Dec, [facility] [address] [id number] [place] [address] [id number] Dec, [facility] [address] [place] [address] [id number] Dec, 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 [facility] [address] [id number] [place] [address] [id number] Dec, Neurosis, 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 [facility] [address] [id number][place] [id number] Dec, [facility] [address] [facility] [id number][place] [id number] Dec, Anxiety F41.9 [facility] [place] [facility] [address] [facility] [id number], [place] [address] Jun, [facility] [place] [facility] [address] [facility] [id number], [place] [address] Jun, [facility] [address] [facility] [id number], [place] [id number] Mar, [facility] [place] [facility] [address] [facility] [id number], [place] [address] Mar, [facility] [address] [facility] [id number], [place] [id number] Jan, [facility] [place] [facility] [address], [place] [address] Jan, [facility] [address] [id number], [place] [id number] Dec, [facility] [place] [facility] [address], [place] [address] Dec, [facility] [address] [id number], [place] [id number] Nov, [facility] [place] [facility] [address] [id number], [place] [address] Nov, [facility] [address] [facility] [id number], [place] [id number] Oct, [facility] [place] [facility] [address] [facility] [id number], [place] [address] Oct, [facility] [place] [facility] [address] [facility] [id number], [place] [address] Oct, [facility] [address] [facility] [id number], [place] [id number] Sep, [facility] [place] [facility] [address] [id number], [place] [address] Sep, [facility] [place] [facility] [address] [id number] [place] [address] Sep, [facility] [place] [facility] [address] [id number] [place] [address] Sep, [facility] [address] [id number] [place] [id number] Aug, [facility] [place] [facility] [address] [facility] [id number] [place] [address] Aug, [facility] [address] [id number] [place] [id number] July, [facility] [place] [facility] [address] [facility] [id number] [place] [address] July, [facility] [address] [id number] [place] [id number] July, [facility] [place] [facility] [address] [facility] [id number] [place] [address] July, [facility] [address] [id number] [place] [id number] July, [facility] [address] [id number] [place] [id number] July, [facility] [place] [facility] [address] [facility] [id number] [place] [address] July, [facility] [place] [facility] [address] [facility] [id number] [place] [address] July, [facility] [address] [id number], [place] [id number] July, [facility] [place] [facility] [address] [facility] [id number] [place] [address] July, [facility] [address] [id number] [place] [id number] Jun, [facility] [place] [facility] [address] [facility] [id number] [place] [address] Jun, [facility] [address] [id number][place] [id number] Jun, [facility] [place] [facility] [address] [facility] [id number] [place] [address] Jun, [facility] [place] [facility] [address] [facility] [id number], [place] [address] May, [facility] [place] [facility] [address] [id number] [place] [address] May, [facility] [address] [facility] [id number], [place] [address] Apr, [facility] [place] [facility] [address] [facility] [id number] [place] [address] Apr, [facility] [address] [id number], [place] [id number] Apr, [facility] [place] [facility] [address]65[address], [place] [address] Apr, [facility] [place] [facility] [address]65100[place], [place] [address] Apr, [facility] [address] [facility] [id number], [place] [id number] Apr, [facility] [address] [facility] [id number], [place] [id number] Apr, [facility] [place] [facility] [address]65100[place], [place] [address] Apr, [facility] [place] [facility] [address]65100[place], [place] [address] Apr, [facility] [address] [facility] [id number], [place] [id number] Apr, [facility] [place] [facility] [address] [facility] [id number], [place] [address] Apr, [facility] [place] [facility] [address] [facility] [id number], [place] [address] Apr, [facility] [id number], [place] [id number] Mar, [facility] [address] [id number], [place] [address] Mar, [facility] [address] [id number] [place] [address] Mar, [facility] [address] [id number], [place] [id number] Mar, [facility] [address] [id number], [place] [address] Mar, [facility] [address] [id number] [place] [address] Mar, [facility] [address] [id number] [place] [address] Mar, [facility] [address] [facility] [id number], [place] [id number] Mar, [facility] [address] [id number], [place] [address] Mar, [facility] [address] [id number], [place] [address]13 Mar, [facility] [address] [id number], [place] [address] Mar, [facility] [address] [facility] [id number], [place] [address] Feb, [facility] [address] [id number], [place] [address] Feb, [facility] [place] [facility] [address] [id number], [place] [address] Feb, [facility] [address] [id number], [place] [id number] Feb, [facility] [place] [facility] [address] [id number], [place] [address] Feb, [facility] [place] [facility] [address] [facility] [id number], [place] [address] Feb, [facility] [place] [facility] [address] [facility] [id number], [place] [address] Feb, [facility] [place] [facility] [address] [id number], [place] [address] Feb, [facility] [address] [id number], [place] [id number] Feb, [facility] [place] [facility] [address] [facility] [id number], [place] [address] Feb, [facility] [address] [facility] [id number], [place] [address]18[address] Jan, [facility] [place] [facility] [address] [facility] [id number], [place] [address] Jan, [facility] [address] [id number], [place] [address] Dec, [facility] [place] [facility] [id number], [place] [address] Dec, [facility] [id number], [place] 180[address]43 Dec, [facility] [place] [facility] [address] [id number], [place] [address] Dec, [facility] [id number], [place] [id number] Dec, [facility] [place] [facility] [id number], [place] [address] Dec, [facility] [place] [facility] [id number], [place] [address] 18 Nov, 2012 [facility] [place] [facility] [address] [facility] [id number], [place] [address] 17 Nov, 2012 [facility] [place] [facility] [address] [facility] [id number], [place] [address] 15 Nov, 2012 [facility] [place] [facility] [address] [facility] [id number], [place] [address] 13 Nov, 2012 [facility] [address] [id number], [place] 836298293 Nov, [facility] [address] [id number] [place] [address] Oct, [facility] [place] [facility] [address] [id number] [place] [address] Oct, [facility] [address] [id number] [place] [address] Oct, [facility] [place] [facility] [address] [id number] [place] [address] Oct, [facility] [address] [id number] [place] [address] Oct, [facility] [address] [id number] [place] [id number] Oct, [facility] [address] [id number] [place] [address] Oct, [facility] [address] [id number] [place] [address] Sep, [facility] [address] [id number] [place] [address] Sep, [facility] [address] [id number] [place] [address] Sep, [facility] [place] [facility] [address] [id number] [place] [address] Aug, [facility] [place] [facility] [address] [id number] [place] [address] Aug, [facility] [place] [facility] [address] [id number] [place] [address] Aug, [facility] [address] [id number] [place] [id number] Aug, [facility] [address] [id number] [place] [id number] July, [facility] [place] [facility] [address] [id number] [place] [address] Jun, [facility] [place] [facility] [address] [id number], [place] [address] Jun, [facility] [address] [id number] [place] [id number] Jun, [facility] [address] [id number] [place] [address]26[address] Jun, [facility] [address] [id number] [place] [id number] Jun, [facility] [address] [id number] [place] [id number] May, [facility] [place] [facility] [address] [facility] [id number], [place] [address] Feb, [facility] [place] [facility] [address] [facility] [id number], [place] [address] Feb, [facility] [address] [id number], [place] [id number] Feb, [facility] [place] [facility] [address]00565100[place], [place] [address] Feb, [facility] [place] [facility] [id number], [place] [address] Jan, [facility] [address] [id number], [place] [id number] July, [facility] [place] [facility] [address]00565100[place], [place] [address] Jan, [facility] [place] [facility] [address]65100[place], [place] [address] Feb, [facility] [place] [facility] [address] [facility] [id number], [place] [address] Jan, [facility] [place] [facility] [address] [facility] [id number], [place] [address] Dec, [facility] [place] [facility] [address] [id number], [place] [address] Dec, [facility] [place] [facility] [address]00565100[place], [place] [address] Dec, [facility] [address] [facility] [id number], [place] [address] Dec, [facility] [address] [facility] [id number], [place] [address] Dec, [facility] [address] [facility] [id number] [place] [address] Dec, IMMUNIZATIONS No Known Immunizations SOCIAL HISTORY Never Assessed REASON FOR VISIT [facility] [place] PLAN OF CARE VITAL SIGNS MEDICATIONS Unknown [...]
--- OUTSIDE RECORDS SUMMARY | 2018-09-19 10:26 | XMS REPORT ---
Author Author Migration, Doctor Organization [facility] Address Unknown Phone Unavailable Care Team Providers Care Prover Name Role Phone Migration, Doctor Unavailable Unavailable PROBLEMS Type Condition ICD9-CM Code ADJ67-CU Code Onset Dates Condition Status SNOMED Code Problem Screening examination for venereal disease V74.5 Active 278936780 Problem Other general counseling and advice for contraceptive management V25.09 Active 549270592 Problem Unspecified contraceptive management V25.9 Active 160709456 Problem Routine follow-up V24.2 Active 105643325 Problem General counseling for initiation of other contraceptive measures V25.02 Active [id number] Problem DTAP TEST V06.1 Active Problem examination or test, positive result V72.42 Active 782659203 Problem Tension headache 307.81 Active 017727228 Problem Unspecified infective otitis externa 380.10 Active 85329933 Problem Screening for malignant neoplasm of the cervix V76.2 Active 306548039 Problem Encounter for insertion of intrauterine contraceptive device V25.11 Active 53317369 Problem Nausea alone 787.02 Active 549965713 Problem Lumbar sprain and strain 847.2 Active 063153158 Problem First-degree perineal laceration, unspecified as to episode of care in 664.00 Active 09493970 Problem Unspecified alopecia 704.00 Active 55692267 Problem Urinary tract infection, site not specified 599.0 Active 78439580 Problem Infections of genitourinary tract in , unspecified as to episode of care 646.60 Active 496892351 Problem Threatened premature labor, unspecified as to episode of care 644.00 Active 945675782 Problem Acute upper respiratory infections of unspecified site 465.9 Active 78619360 Problem Persistent disorder of initiating 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.42 Active 47814023 Problem Dysthymic disorder 300.4 Active 13640061 Problem Other specified viral warts 078.19 Active 73659655 Problem Anxiety disorder, unspecified F41.9 Active 671706897 Problem Supervision of with history of pre-term labor V23.41 Active 138372058 Problem Dysthymic disorder F34.1 Active 13777826 Problem Need for prophylactic vaccination and inoculation, Influenza V04.81 Active 035650575 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 Problem Anxiety F41.9 Active 65089922 Problem Neurosis, 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 Active 96962615 Problem 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 Active 241534168 Problem Depression, unspecified depression type F32.9 Active 19173612 ALLERGIES No Information ENCOUNTERS Encounter Location Date Diagnosis [facility] [id number] [place] [address] [id number] Jun, [facility] [address] [place] [address] [id number] Jun, Dental examination Z01.20 and Caries K02.9 [facility] [address] [id number] [place] [address] [id number] May, Caries K02.9 and Dental examination Z01.20 [facility] [address] [id number] [place] [address] [id number] Dec, Dysthymic disorder F34.1 [facility] [address] [id number] [place] [address] [id number] Dec, Depression, unspecified depression type F32.9 and Anxiety disorder, unspecified F41.9 [facility] [id number] [place] [address] [id number] Dec, Depression, unspecified depression type F32.9 [facility] [address] [id number] [place] [address] [id number] Dec, [facility] [address] [id number] [place] [address] [id number] Dec, [facility] [address] [id number] [place] [address] [id number] Dec, [facility] [address] [place] [address] [id number] Dec, 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 [facility] [address] [id number] [place] [address] [id number] Dec, Neurosis, 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 [facility] [address] [id number] [place] [id number] Dec, [facility] [address] [facility] [id number] [place] [id number] Dec, Anxiety F41.9 [facility] [place] [facility] [address] [facility] [id number] [place] [address] Jun, [facility] [place] [facility] [address] [facility] [id number] [place] [address] Jun, [facility] [address] [facility] [id number] [place] [id number] Mar, [facility] [place] [facility] [address] [facility] [id number] [place] [address] Mar, [facility] [address] [facility] [id number] [place] [id number] Jan, [facility] [place] [facility] [id number] [place] [address] Jan, [facility] [address] [id number] [place] [id number] Dec, [facility] [place] [facility] [id number] [place] [address] Dec, [facility] [address] [id number] [place] [id number] Nov, [facility] [place] [facility] [address] [id number] [place] [address] Nov, [facility] [address] [facility] [id number] [place] [id number] Oct, [facility] [place] [facility] [address] [facility] [id number] [place] [address] Oct, [facility] [place] [facility] [address] [facility] [id number] [place] [address] Oct, [facility] [address] [facility] [id number] [place] [id number] Sep, [facility] [place] [facility] [address] [id number] [place] [address] Sep, [facility] [place] [facility] [address] [id number] [place] [address] Sep, [facility] [place] [facility] [address] [id number] [place] [address] Sep, [facility] [address] [id number] [place] [id number] Aug, [facility] [place] [facility] [address] [facility] [id number] [place] [address] Aug, [facility] [address] [id number] [place] [id number] July, [facility] [place] [facility] [address] [facility] [id number] [place] [address] July, [facility] [address] [id number] [place] [id number] July, [facility] [place] [facility] [address] [facility] [id number] [place] [address] July, [facility] [address] [id number] [place] [id number] July, [facility] [address] [id number] [place] [id number] July, [facility] [place] [facility] [address] [facility] [id number] [place] [address] July, [facility] [place] [facility] [address] [facility] [id number] [place] [address] July, [facility] [address] [id number] [place] [id number] July, [facility] [place] [facility] [address] [facility] [id number] [place] [address] July, [facility] [address] [id number] [place] [id number] Jun, [facility] [place] [facility] [address] [facility] [id number] [place] [address] Jun, [facility] [address] [id number] [place] [id number] Jun, [facility] [place] [facility] [address] [facility] [id number] [place] [address] Jun, [facility] [place] [facility] [address] [facility] [id number] [place] [address] May, [facility] [place] [facility] [address] [id number] [place] [address] May, [facility] [address] [facility] [id number] [place] [id number] Apr, [facility] [place] [facility] [address] [facility] [id number] [place] [address] Apr, [facility] [address] [id number] [place] [id number] Apr, [facility] [place] [facility] [id number] [place] [address] Apr, [facility] [place] [facility] [id number] [place] [address] Apr, [facility] [address] [facility] [id number] [place] [id number] Apr, [facility] [address] [facility] [id number] [place] [id number] Apr, [facility] [place] [facility] [id number] [place] [address] Apr, [facility] [place] [facility] [id number] [place] [address] Apr, [facility] [address] [facility] [id number] [place] [id number] Apr, [facility] [place] [facility] [address] [facility] [id number] [place] [address] Apr, [facility] [place] [facility] [address] [facility] [id number] [place] [address] Apr, [facility] [id number] [place] [id number] Mar, [facility] [address] [id number] [place] [address] Mar, [facility] [address] [id number] [place] [address] Mar, [facility] [address] [id number] [place] [id number] Mar, [facility] [address] [id number] [place] [address] Mar, [facility] [address] [id number] [place] [address] Mar, [facility] [address] [id number] [place] [address] Mar, [facility] [address] [facility] [id number] [place] [id number] Mar, [facility] [address] [id number] [place] [address] Mar, [facility] [address] [id number] [place] [id number] Mar, [facility] [address] [id number] [place] [address] Mar, [facility] [address] [facility] [id number] [place] [id number] Feb, [facility] [address] [id number] [place] [address] Feb, [facility] [place] [facility] [address] [id number] [place] [address] Feb, [facility] [address] [id number] [place] [address] Feb, [facility] [place] [facility] [address] [id number] [place] [address] Feb, [facility] [place] [facility] [address] [facility] [id number] [place] [address] Feb, [facility] [place] [facility] [address] [facility] [id number] [place] [address] Feb, [facility] [place] [facility] [address] [id number] [place] [address] Feb, [facility] [address] [id number] [place] [address] Feb, [facility] [place] [facility] [address] [facility] [id number] [place] [address] Feb, [facility] [address] [facility] [id number] [place] [address] Jan, [facility] [place] [facility] [address] [facility] [id number] [place] [address] Jan, [facility] [address] [id number] [place] [address] Dec, [facility] [place] [facility] [id number] [place] [address] Dec, [facility] [id number] [place] [address] Dec, [facility] [place] [facility] [address] [id number] [place] [address] Dec, [facility] [id number] [place] [id number] Dec, [facility] [place] [facility] [id number] [place] [address] Dec, [facility] [place] [facility] [id number] [place] [address] 18 Nov, 2012 [facility] [place] [facility] [address] [facility] [id number] [place] [address] 17 Nov, 2012 [facility] [place] [facility] [address] [facility] [id number] [place] [address] 15 Nov, 2012 [facility] [place] [facility] [address] [facility] [id number] [place] [address] 13 Nov, 2012 [facility] [address] [id number] [place] [address] Nov, [facility] [address] [id number] [place] [address] Oct, [facility] [place] [facility] [address] [id number] [place] [address] Oct, [facility] [address] [id number] [place] [address] Oct, [facility] [place] [facility] [address] [id number] [place] [address] Oct, [facility] [address] [id number] [place] [address] Oct, [facility] [address] [id number] [place] [id number] Oct, [facility] [address] [id number] [place] [address] Oct, [facility] [address] [id number] [place] [address] Sep, [facility] [address] [id number] [place] [address] Sep, [facility] [address] [id number] [place] [address] Sep, [facility] [place] [facility] [address] [id number] [place] [address] Aug, [facility] [place] [facility] [address] [id number] [place] [address] Aug, [facility] [place] [facility] [address] [id number] [place] [address] Aug, [facility] [address] [id number] [place] [id number] Aug, [facility] [address] [id number] [place] [id number] July, [facility] [place] [facility] [address] [id number] [place] [address] Jun, [facility] [place] [facility] [address] [id number] [place] [address] Jun, [facility] [address] [id number] [place] [id number] Jun, [facility] [address] [id number] [place] [id number] Jun, [facility] [address] [id number] [place] [address] Jun, [facility] [address] [id number] [place] [id number] May, [facility] [place] [facility] [address] [facility] [id number] [place] [address] Feb, [facility] [place] [facility] [address] [facility] [id number] [place] [address] Feb, [facility] [address] [id number] [place] [address] Feb, [facility] [place] [facility] [id number] [place] [address] Feb, [facility] [place] [facility] [id number] [place] [address] Jan, [facility] [address] [id number] [place] [id number] July, [facility] [place] [facility] [id number] [place] [address] Jan, [facility] [place] [facility] [id number] [place] [address] Feb, [facility] [place] [facility] [address] [facility] [id number] [place] [address] Jan, [facility] [place] [facility] [address] [facility] [id number] [place] [address] Dec, [facility] [place] [facility] [address] [id number] [place] [address] Dec, [facility] [place] [facility] [id number] [place] [address] Dec, [facility] [address] [facility] [id number] [place] [address] Dec, [facility] [address] [facility] [id number] [place] [address] Dec, [facility] [address] [facility] [id number] [place] [address] Dec, IMMUNIZATIONS No Known Immunizations SOCIAL HISTORY Never Assessed REASON FOR VISIT [facility] [place] C[place] VITAL SIGNS MEDICATIONS Unknown [...]
--- OUTSIDE RECORDS SUMMARY | 2018-09-19 10:26 | XMS REPORT ---
Author Author Migration, Doctor Organization [facility] Address Unknown Phone Unavailable Care Team Providers Care Clinical Laboratory Medical Director Name Role Phone Migration, Doctor Unavailable Unavailable PROBLEMS Type Condition ICD9-CM Code YTA28-SJ Code Onset Dates Condition Status SNOMED Code Problem Screening examination for venereal disease V74.5 Active 651990228 Problem Other general counseling and advice for contraceptive management V25.09 Active 350656734 Problem Unspecified contraceptive management V25.9 Active 738985988 Problem Routine follow-up V24.2 Active 281605040 Problem General counseling for initiation of other contraceptive measures V25.02 Active 260720029700911 Problem DTAP TEST V06.1 Active Problem examination or test, positive result V72.42 Active 808721206 Problem Tension headache 307.81 Active 437643647 Problem Unspecified infective otitis externa 380.10 Active 26926010 Problem Screening for malignant neoplasm of the cervix V76.2 Active 660374177 Problem Encounter for insertion of intrauterine contraceptive device V25.11 Active 80722572 Problem Nausea alone 787.02 Active 116906401 Problem Lumbar sprain and strain 847.2 Active 600123028 Problem First-degree perineal laceration, unspecified as to episode of care in 664.00 Active 99543548 Problem Unspecified alopecia 704.00 Active 58140237 Problem Urinary tract infection, site not specified 599.0 Active 41236728 Problem Infections of genitourinary tract in , unspecified as to episode of care 646.60 Active 645632031 Problem Threatened premature labor, unspecified as to episode of care 644.00 Active 767718889 Problem Acute upper respiratory infections of unspecified site 465.9 Active 53591319 Problem Persistent disorder of initiating 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.42 Active 80201663 Problem Dysthymic disorder 300.4 Active 22777943 Problem Other specified viral warts 078.19 Active 93076560 Problem Anxiety disorder, unspecified F41.9 Active 465372919 Problem Supervision of with history of pre-term labor V23.41 Active 095939342 Problem Dysthymic disorder F34.1 Active 86551713 Problem Need for prophylactic vaccination and inoculation, Influenza V04.81 Active 244045183 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 Problem Anxiety F41.9 Active 22736792 Problem Neurosis, 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 Active 45784816 Problem 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 Active 813296512 Problem Depression, unspecified depression type F32.9 Active 05043615 ALLERGIES No Information ENCOUNTERS Encounter Location Date Diagnosis [facility] [id number] [place] [address] [id number] Jun, [facility] [address] [place] [address] [id number] Jun, Dental examination Z01.20 and Caries K02.9 [facility] [id number] [place] [address] [id number] May, Caries K02.9 and Dental examination Z01.20 [facility] [address] [id number] [place] [address] [id number] Dec, Dysthymic disorder F34.1 [facility] [address] [id number] [place] [address] [id number] Dec, Depression, unspecified depression type F32.9 and Anxiety disorder, unspecified F41.9 [facility] [address] [id number] [place] [address] [id number] Dec, Depression, unspecified depression type F32.9 [facility] [address] [id number] [place] [address] [id number] Dec, [facility] [address] [id number] [place] [address] [id number] Dec, [facility] [address] [id number] [place] [address] [id number] Dec, [facility] [address] [place] [address] [phone] Dec, 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 [facility] [address] [id number] [place] [address] [id number] Dec, Neurosis, 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 [facility] [address] [id number][place] [id number] Dec, [facility] [address] [facility] [id number][place] [id number] Dec, Anxiety F41.9 [facility] [place] [facility] [address] [facility] [id number], [place] [address] Jun, [facility] [place] [facility] [address] [facility] [id number], [place] [address] Jun, [facility] [address] [facility] [id number][place] [id number] Mar, [facility] [place] [facility] [address] [facility] [id number], [place] [address] Mar, [facility] [address] [facility] [id number][place] [id number] Jan, [facility] [place] [facility] [address] [address] Jan, [facility] [address] [id number], [place] [id number] Dec, [facility] [place] [facility] [id number] [address] Dec, [facility] [address] [id number][place] [id number] Nov, [facility] [place] [facility] [address] [id number] [address] Nov, [facility] [address] [facility] [id number], [place] [id number] Oct, [facility] [place] [facility] [address] [facility] [id number], [place] [address] Oct, [facility] [place] [facility] [address] [facility] [id number], [place] [address] Oct, [facility] [address] [facility] [id number][place] [id number] Sep, [facility] [place] [facility] [address] [id number], [place] [address] Sep, [facility] [place] [facility] [address] [id number] [place] [address] Sep, [facility] [place] [facility] [address] [id number] [place] [address] Sep, [facility] [address] [id number] [place] [id number] Aug, [facility] [place] [facility] [address] [facility] [id number] [place] [address] Aug, [facility] [address] [id number] [place] [id number] July, [facility] [place] [facility] [address] [facility] [id number] [place] [address] July, [facility] [address] [id number] [place] [id number] July, [facility] [place] [facility] [address] [facility] [id number] [place] [address] July, [facility] [address] [id number] [place] [id number] July, [facility] [address] [id number] [place] [id number] July, [facility] [place] [facility] [address] [facility] [id number] [place] [address] July, [facility] [place] [facility] [address] [facility] [id number] [place] [address] July, [facility] [address] [id number][place] [id number] July, [facility] [place] [facility] [address] [facility] [id number] [place] [address] July, [facility] [address] [id number] [place] [id number] Jun, [facility] [place] [facility] [address] [facility] [id number] [place] [address] Jun, [facility] [address] [id number][place] [id number] Jun, [facility] [place] [facility] [address] [facility] [id number] [place] [address] Jun, [facility] [place] [facility] [address] [facility] [id number], [place] [address] May, [facility] [place] [facility] [address] [id number] [address] May, [facility] [address] [facility] [id number][place] [id number] Apr, [facility] [place] [facility] [address] [facility] [id number] [place] [address] Apr, [facility] [address] [id number], [place] [id number] Apr, [facility] [place] [facility] [address]65100[place] [address] Apr, [facility] [place] [facility] [address]65100[place], [place] [address] Apr, [facility] [address] [facility] [id number], [place] [id number] Apr, [facility] [address] [facility] [id number], [place] [id number] Apr, [facility] [place] [facility] [id number], [place] [address] Apr, [facility] [place] [facility] [id number], [place] [address] Apr, [facility] [address] [facility] [id number][place] [id number] Apr, [facility] [place] [facility] [address] [facility] [id number], [place] [address] Apr, [facility] [place] [facility] [address] [facility] [id number], [place] [address] Apr, [facility] [id number], [place] [id number] Mar, [facility] [address] [id number][place] [address] Mar, [facility] [address] [id number] [place] [address] Mar, [facility] [address] [id number][place] [id number] Mar, [facility] [address] [id number], [place] [address] Mar, [facility] [address] [id number] [place] [address] Mar, [facility] [address] [id number] [place] [address] Mar, [facility] [address] [facility] [id number], [place] [id number] Mar, [facility] [address] [id number], [place] [address] Mar, [facility] [address] [id number], [place] [id number] Mar, [facility] [address] [id number], [place] [address] Mar, [facility] [address] [facility] [id number], [place] [id number] Feb, [facility] [address] [id number], [place] [address] Feb, [facility] [place] [facility] [address] [id number], [place] [address] Feb, [facility] [address] [id number], [place] [id number] Feb, [facility] [place] [facility] [address] [id number], [place] [address] Feb, [facility] [place] [facility] [address] [facility] [id number], [place] [address] Feb, [facility] [place] [facility] [address] [facility] [id number][place] [address] Feb, [facility] [place] [facility] [address] [id number], [place] [address] Feb, [facility] [address] [id number], [place] [id number] Feb, [facility] [place] [facility] [address] [facility] [id number], [place] [address] Feb, [facility] [address] [facility] [id number], [place] 7[address] Jan, [facility] [place] [facility] [address] [facility] [id number], [place] [address] Jan, [facility] [address] [id number], [place] [id number] Dec, [facility] [place] [facility] [id number], [place] [address] Dec, [facility] [id number], [place] [id number] Dec, [facility] [place] [facility] [address] [id number], [place] [address] Dec, [facility] [id number], [place] [id number] Dec, [facility] [place] [facility] [id number], [place] [address] Dec, [facility] [place] [facility] [id number], [place] [address] 18 Nov, 2012 [facility] [place] [facility] [address] [facility] [id number], [place] [address] 17 Nov, 2012 [facility] [place] [facility] [address] [facility] [id number][place] [address] 15 Nov, 2012 [facility] [place] [facility] [address] [facility] [id number], [place] [address] 13 Nov, 2012 [facility] [address] [id number][place] [id number] Nov, [facility] [address] [id number] [place] [address] Oct, [facility] [place] [facility] [address] [id number] [place] [address] Oct, [facility] [address] [id number] [place] [address] Oct, [facility] [place] [facility] [address] [id number] [place] [address] Oct, [facility] [address] [id number] [place] [address] Oct, [facility] [address] [id number] [place] [id number] Oct, [facility] [address] [id number] [place] [address] Oct, [facility] [address] [id number] [place] [address] Sep, [facility] [address] [id number] [place] [address] Sep, [facility] [address] [id number] [place] [address] Sep, [facility] [place] [facility] [address] [id number] [place] [address] Aug, [facility] [place] [facility] [address] [id number] [place] [address] Aug, [facility] [place] [facility] [address] [id number] [place] [address] Aug, [facility] [address] [id number] [place] [id number] Aug, [facility] [address] [id number] [place] [id number] July, [facility] [place] [facility] [address] [id number] [place] [address] Jun, [facility] [place] [facility] [address] [id number], [place] [address] Jun, [facility] [address] [id number] [place] [id number] Jun, [facility] [address] [id number] [place] [id number] Jun, [facility] [address] [id number] [place] 6846[address] Jun, [facility] [address] [id number] [place] [id number] May, [facility] [place] [facility] [address] [facility] [id number], [place] [address] Feb, [facility] [place] [facility] [address] [facility] [id number], [place] [address] Feb, [facility] [address] [id number][place] [id number] Feb, [facility] [place] [facility] [id number], [place] [address] Feb, [facility] [place] [facility] [id number], [place] [address] Jan, [facility] [address] [id number], [place] [id number] July, [facility] [place] [facility] [id number], [place] [address] Jan, [facility] [place] [facility] [id number], [place] [address] Feb, [facility] [place] [facility] [address] [facility] [id number], [place] [address] Jan, [facility] [place] [facility] [address] [facility] [id number], [place] [address] Dec, [facility] [place] [facility] [address] [id number], [place] [address] Dec, [facility] [place] [facility] [id number], [place] [address] Dec, [facility] [address] [facility] [id number], [place] [address] Dec, [facility] [address] [facility] [id number][place] [address] Dec, [facility] [address] [facility] [id number] [place] [address] Dec, IMMUNIZATIONS No Known Immunizations SOCIAL HISTORY Never Assessed REASON FOR VISIT [facility] PLAN OF CARE VITAL SIGNS MEDICATIONS Unknown [...]
--- OUTSIDE RECORDS SUMMARY | 2018-09-19 10:27 | XMS REPORT ---
Author Author Migration, Doctor Organization [facility] Address Unknown Phone Unavailable Care Team Providers Care Stenciler Name Role Phone Migration, Doctor Unavailable Unavailable PROBLEMS Type Condition ICD9-CM Code ADS47-YW Code Onset Dates Condition Status SNOMED Code Problem Screening examination for venereal disease V74.5 Active 485623240 Problem Other general counseling and advice for contraceptive management V25.09 Active 396701474 Problem Unspecified contraceptive management V25.9 Active 619742106 Problem Routine follow-up V24.2 Active 104511821 Problem General counseling for initiation of other contraceptive measures V25.02 Active [id number] Problem DTAP TEST V06.1 Active Problem examination or test, positive result V72.42 Active 485497154 Problem Tension headache 307.81 Active 479744294 Problem Unspecified infective otitis externa 380.10 Active 28787832 Problem Screening for malignant neoplasm of the cervix V76.2 Active 139833154 Problem Encounter for insertion of intrauterine contraceptive device V25.11 Active 79359783 Problem Nausea alone 787.02 Active 804433754 Problem Lumbar sprain and strain 847.2 Active 430637032 Problem First-degree perineal laceration, unspecified as to episode of care in 664.00 Active 00410382 Problem Unspecified alopecia 704.00 Active 62083182 Problem Urinary tract infection, site not specified 599.0 Active 14517028 Problem Infections of genitourinary tract in , unspecified as to episode of care 646.60 Active 145176355 Problem Threatened premature labor, unspecified as to episode of care 644.00 Active 311362522 Problem Acute upper respiratory infections of unspecified site 465.9 Active 96527878 Problem Persistent disorder of initiating 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.42 Active 13066843 Problem Dysthymic disorder 300.4 Active 11523343 Problem Other specified viral warts 078.19 Active 27444021 Problem Anxiety disorder, unspecified F41.9 Active 781412879 Problem Supervision of with history of pre-term labor V23.41 Active 371558876 Problem Dysthymic disorder F34.1 Active 25493703 Problem Need for prophylactic vaccination and inoculation, Influenza V04.81 Active 397995106 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 Problem Anxiety F41.9 Active 47275823 Problem Neurosis, 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 Active 08381424 Problem 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 Active 504471343 Problem Depression, unspecified depression type F32.9 Active 99310278 ALLERGIES No Information ENCOUNTERS Encounter Location Date Diagnosis [facility] [id number] [place] [address] [id number] Jun, [facility] [address] [place] [address] [phone] Jun, Dental examination Z01.20 and Caries K02.9 [facility] [address] [id number] [place] [address] [phone] May, Caries K02.9 and Dental examination Z01.20 [facility] [id number] [place] [address] [id number] Dec, Dysthymic disorder F34.1 [facility] [id number] [place] [address] [id number] Dec, Depression, unspecified depression type F32.9 and Anxiety disorder, unspecified F41.9 [facility] [address] [id number] [place] [address] [id number] Dec, Depression, unspecified depression type F32.9 [facility] [address] [id number] [place] [address] [phone] Dec, [facility] [address] [id number] [place] [address] [id number] Dec, [facility] [address] [id number] [place] [address] [phone] Dec, [facility] [address] [place] [address] [phone] Dec, 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 [facility] [address] [id number] [place] [address] [phone] Dec, Neurosis, 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 [facility] [address] [id number][place] [id number] Dec, [facility] [address] [facility] [id number][place] [id number] Dec, Anxiety F41.9 [facility] [place] [facility] [address] [facility] [id number], [place] [address] Jun, [facility] [place] [facility] [address] [facility] [id number], [place] [address] Jun, [facility] [address] [facility] [id number][place] [id number] Mar, [facility] [place] [facility] [address] [facility] [id number], [place] [address] Mar, [facility] [address] [facility] [id number][place] [id number] Jan, [facility] [place] [facility] [address], [place] [address] Jan, [facility] [address] [id number][place] [id number] Dec, [facility] [place] [facility] [address], [place] [address] Dec, [facility] [address] [id number], [place] [id number] Nov, [facility] [place] [facility] [address] [id number], [place] [address] Nov, [facility] [address] [facility] [id number], [place] [id number] Oct, [facility] [place] [facility] [address] [facility] [id number], [place] [address] Oct, [facility] [place] [facility] [address] [facility] [id number], [place] [address] Oct, [facility] [address] [facility] [id number], [place] [id number] Sep, [facility] [place] [facility] [address] [id number], [place] [address] Sep, [facility] [place] [facility] [address] [id number] [place] [address] Sep, [facility] [place] [facility] [address] [id number] [place] [address] Sep, [facility] [address] [id number] [place] [id number] Aug, [facility] [place] [facility] [address] [facility] [id number] [place] [address] Aug, [facility] [address] [id number] [place] [id number] July, [facility] [place] [facility] [address] [facility] [id number] [place] [address] July, [facility] [address] [id number] [place] [id number] July, [facility] [place] [facility] [address] [facility] [id number] [place] [address] July, [facility] [address] [id number] [place] [id number] July, [facility] [address] [id number] [place] [address] July, [facility] [place] [facility] [address] [facility] [id number] [place] [address] July, [facility] [place] [facility] [address] [facility] [id number] [place] [address] July, [facility] [address] [id number], [place] [id number] July, [facility] [place] [facility] [address] [facility] [id number] [place] [address] July, [facility] [address] [id number] [place] [id number] Jun, [facility] [place] [facility] [address] [facility] [id number] [place] [address] Jun, [facility] [address] [id number], [place] [id number] Jun, [facility] [place] [facility] [address] [facility] [id number] [place] [address] Jun, [facility] [place] [facility] [address] [facility] [id number], [place] [address] May, [facility] [place] [facility] [address] [id number] [address] May, [facility] [address] [facility] [id number][place] [id number] Apr, [facility] [place] [facility] [address] [facility] [id number] [place] [address] Apr, [facility] [address] [id number], [place] [id number] Apr, [facility] [place] [facility] [address]65[address], [place] [address] Apr, [facility] [place] [facility] [address]65[address], [place] [address] Apr, [facility] [address] [facility] [id number], [place] [id number] Apr, [facility] [address] [facility] [id number], [place] [address]894[address] Apr, [facility] [place] [facility] [address], [place] [address] Apr, [facility] [place] [facility] [address]65[address], [place] [address] Apr, [facility] [address] [facility] [id number], [place] [id number] Apr, [facility] [place] [facility] [address] [facility] [id number], [place] [address] Apr, [facility] [place] [facility] [address] [facility] [id number], [place] [address] Apr, [facility] [id number], [place] [address] Mar, [facility] [address] [id number], [place] [address] Mar, [facility] [address] [id number] [place] [address] Mar, [facility] [address] [id number], [place] [id number] Mar, [facility] [address] [id number], [place] [address] Mar, [facility] [address] [id number] [place] [address] Mar, [facility] [address] [id number] [place] [address] Mar, [facility] [address] [facility] [id number], [place] [id number] Mar, [facility] [address] [id number], [place] [address] Mar, [facility] [address] [id number], [place] [id number] Mar, [facility] [address] [id number], [place] [address] Mar, [facility] [address] [facility] [id number], [place] [id number] Feb, [facility] [address] [id number], [place] [address] Feb, [facility] [place] [facility] [address] [id number], [place] [address] Feb, [facility] [address] [id number], [place] [id number] Feb, [facility] [place] [facility] [address] [id number], [place] [address] Feb, [facility] [place] [facility] [address] [facility] [id number], [place] [address] Feb, [facility] [place] [facility] [address] [facility] [id number], [place] [address] Feb, [facility] [place] [facility] [address] [id number], [place] [address] Feb, [facility] [address] [id number], [place] [id number] Feb, [facility] [place] [facility] [address] [facility] [id number], [place] [address] Feb, [facility] [address] [facility] [id number], [place] 7[address] Jan, [facility] [place] [facility] [address] [facility] [id number], [place] [address] Jan, [facility] [address] [id number], [place] [id number] Dec, [facility] [place] [facility] [address]65[address], [place] [address] Dec, [facility] [id number], [place] [id number] Dec, [facility] [place] [facility] [address] [id number], [place] [address] Dec, [facility] [id number], [place] 750[address]64 Dec, [facility] [place] [facility] [address]65[address], [place] [address] Dec, [facility] [place] [facility] [address]65[address], [place] [address] 18 Nov, 2012 [facility] [place] [facility] [address] [facility] [id number], [place] [address] 17 Nov, 2012 [facility] [place] [facility] [address] [facility] [id number], [place] [address] 15 Nov, 2012 [facility] [place] [facility] [address] [facility] [id number], [place] [address] 13 Nov, 2012 [facility] [address] [id number][place] [id number] Nov, [facility] [address] [id number] [place] [address] Oct, [facility] [place] [facility] [address] [id number] [place] [address] Oct, [facility] [address] [id number] [place] [address] Oct, [facility] [place] [facility] [address] [id number] [place] [address] Oct, [facility] [address] [id number] [place] [address] Oct, [facility] [address] [id number] [place] [id number] Oct, [facility] [address] [id number] [place] [address] Oct, [facility] [address] [id number] [place] [address] Sep, [facility] [address] [id number] [place] [address] Sep, [facility] [address] [id number] [place] [address] Sep, [facility] [place] [facility] [address] [id number] [place] [address] Aug, [facility] [place] [facility] [address] [id number] [place] [address] Aug, [facility] [place] [facility] [address] [id number] [place] [address] Aug, [facility] [address] [id number] [place] [id number] Aug, [facility] [address] [id number] [place] [id number] July, [facility] [place] [facility] [address] [id number] [place] [address] Jun, [facility] [place] [facility] [address] [id number], [place] [address] Jun, [facility] [address] [id number] [place] [address] Jun, [facility] [address] [id number] [place] [address] Jun, [facility] [address] [id number] [place] [id number] Jun, [facility] [address] [id number] [place] [address] May, [facility] [place] [facility] [address] [facility] [id number], [place] [address] Feb, [facility] [place] [facility] [address] [facility] [id number], [place] [address] Feb, [facility] [address] [id number], [place] [id number] Feb, [facility] [place] [facility] [address]65[address], [place] [address] Feb, [facility] [place] [facility] [address]65[address], [place] [address] Jan, [facility] [address] [id number], [place] [id number] July, [facility] [place] [facility] [address]65[address], [place] [address] Jan, [facility] [place] [facility] [address]65[address], [place] [address] Feb, [facility] [place] [facility] [address] [facility] [id number], [place] [address] Jan, [facility] [place] [facility] [address] [facility] [id number], [place] [address] Dec, [facility] [place] [facility] [address] [id number], [place] [address] Dec, [facility] [place] [facility] [address]65[address], [place] [address] Dec, [facility] [place] [address] [facility] [id number], [place] [address] Dec, [facility] [address] [facility] [id number], [place] [address] Dec, [facility] [address] [facility] [id number] [place] [address] Dec, IMMUNIZATIONS No Known Immunizations SOCIAL HISTORY Never Assessed REASON FOR VISIT [facility] [place] VITAL [...]
--- OUTSIDE RECORDS SUMMARY | 2018-09-19 10:27 | XMS REPORT ---
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 Name Role Phone Migration, Doctor Unavailable Unavailable PROBLEMS Type Condition ICD9-CM Code JCO27-ET Code Onset Dates Condition Status SNOMED Code Problem Screening examination for venereal disease V74.5 Active 810762532 Problem Other general counseling and advice for contraceptive management V25.09 Active 240976188 Problem Unspecified contraceptive management V25.9 Active 516068894 Problem Routine follow-up V24.2 Active 920646949 Problem General counseling for initiation of other contraceptive measures V25.02 Active [id number] Problem DTAP TEST V06.1 Active Problem examination or test, positive result V72.42 Active 791174945 Problem Tension headache 307.81 Active 386302739 Problem Unspecified infective otitis externa 380.10 Active 71527744 Problem Screening for malignant neoplasm of the cervix V76.2 Active 123029589 Problem Encounter for insertion of intrauterine contraceptive device V25.11 Active 95260244 Problem Nausea alone 787.02 Active 034289840 Problem Lumbar sprain and strain 847.2 Active 514701568 Problem First-degree perineal laceration, unspecified as to episode of care in 664.00 Active 20767799 Problem Unspecified alopecia 704.00 Active 34587089 Problem Urinary tract infection, site not specified 599.0 Active 30663994 Problem Infections of genitourinary tract in , unspecified as to episode of care 646.60 Active 586376612 Problem Threatened premature labor, unspecified as to episode of care 644.00 Active 882563616 Problem Acute upper respiratory infections of unspecified site 465.9 Active 73344889 Problem Persistent disorder of initiating 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.42 Active 06794884 Problem Dysthymic disorder 300.4 Active 73086357 Problem Other specified viral warts 078.19 Active 33384539 Problem Anxiety disorder, unspecified F41.9 Active 531123529 Problem Supervision of with history of pre-term labor V23.41 Active 364342773 Problem Dysthymic disorder F34.1 Active 06696038 Problem Need for prophylactic vaccination and inoculation, Influenza V04.81 Active 297558444 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 Problem Anxiety F41.9 Active 53246746 Problem Neurosis, 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 Active 84690133 Problem 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 Active 071868160 Problem Depression, unspecified depression type F32.9 Active 51421125 ALLERGIES No Information ENCOUNTERS Encounter Location Date Diagnosis [facility] [id number] [place] [address] [id number] Jun, [facility] [address] [place] [address] [id number] Jun, Dental examination Z01.20 and Caries K02.9 [facility] [address] [id number] [place] [address] [id number] May, Caries K02.9 and Dental examination Z01.20 [facility] [id number] [place] [address] [id number] Dec, Dysthymic disorder F34.1 [facility] [address] [id number] [place] [address] [id number] Dec, Depression, unspecified depression type F32.9 and Anxiety disorder, unspecified F41.9 [facility] [address] [id number] [place] [address] [id number] Dec, Depression, unspecified depression type F32.9 [facility] [address] [id number] [place] [address] [id number] Dec, [facility] [address] [id number] [place] [address] [id number] Dec, [facility] [address] [id number] [place] [address] [id number] Dec, [facility] [address] [place] [address] [id number] Dec, 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 [facility] [address] [id number] [place] [address] [id number] Dec, Neurosis, 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 [facility] [address] [id number][place] [id number] Dec, [facility] [address] [facility] [id number][place] [id number] Dec, Anxiety F41.9 [facility] [place] [facility] [address] [facility] [id number], [place] [address] Jun, [facility] [place] [facility] [address] [facility] [id number], [place] [address] Jun, [facility] [address] [facility] [id number], [place] [id number] Mar, [facility] [place] [facility] [address] [facility] [id number], [place] [address] Mar, [facility] [address] [facility] [id number][place] [id number] Jan, [facility] [place] [facility] [address] [address] Jan, [facility] [address] [id number][place] [id number] Dec, [facility] [place] [facility] [address]65100[place] [address] Dec, [facility] [address] [id number], [place] [id number] Nov, [facility] [place] [facility] [address] [id number] [address] Nov, [facility] [address] [facility] [id number][place] [id number] Oct, [facility] [place] [facility] [address] [facility] [id number], [place] [address] Oct, [facility] [place] [facility] [address] [facility] [id number][place] [address] Oct, [facility] [address] [facility] [id number], [place] [id number] Sep, [facility] [place] [facility] [address] [id number] [address] Sep, [facility] [place] [facility] [address] [id number] [place] [address] Sep, [facility] [place] [facility] [address] [id number] [place] [address] Sep, [facility] [address] [id number] [place] [id number] Aug, [facility] [place] [facility] [address] [facility] [id number] [place] [address] Aug, [facility] [address] [id number] [place] [id number] July, [facility] [place] [facility] [address] [facility] [id number] [place] [address] July, [facility] [address] [id number] [place] [id number] July, [facility] [place] [facility] [address] [facility] [id number] [place] [address] July, [facility] [address] [id number] [place] [id number] July, [facility] [address] [id number] [place] [id number] July, [facility] [place] [facility] [address] [facility] [id number] [place] [address] July, [facility] [place] [facility] [address] [facility] [id number] [place] [address] July, [facility] [address] [id number], [place] [id number] July, [facility] [place] [facility] [address] [facility] [id number] [place] [address] July, [facility] [address] [id number] [place] [id number] Jun, [facility] [place] [facility] [address] [facility] [id number] [place] [address] Jun, [facility] [address] [id number], [place] [id number] Jun, [facility] [place] [facility] [address] [facility] [id number] [place] [address] Jun, [facility] [place] [facility] [address] [facility] [id number][place] [address] May, [facility] [place] [facility] [address] [id number] [address] May, [facility] [address] [facility] [id number], [place] [id number] Apr, [facility] [place] [facility] [address] [facility] [id number] [place] [address] Apr, [facility] [address] [id number], [place] [id number] Apr, [facility] [place] [facility] [address]65100[place] [address] Apr, [facility] [place] [facility] [address]65100[place], [place] [address] Apr, [facility] [address] [facility] [id number], [place] [address]3 Apr, [facility] [address] [facility] [id number], [place] [id number] Apr, [facility] [place] [facility] [address]65100[place], [place] [address] Apr, [facility] [place] [facility] [address]00565100[place] [address] Apr, [facility] [address] [facility] [id number], [place] [id number] Apr, [facility] [place] [facility] [address] [facility] [id number], [place] [address] Apr, [facility] [place] [facility] [address] [facility] [id number][place] [address] Apr, [facility] [id number], [place] [id number] Mar, [facility] [address] [id number], [place] [address] Mar, [facility] [address] [id number] [place] [address] Mar, [facility] [address] [id number], [place] [id number] Mar, [facility] [address] [id number][place] [address] Mar, [facility] [address] [id number] [place] [address] Mar, [facility] [address] [id number] [place] [address] Mar, [facility] [address] [facility] [id number], [place] 2083[address]776 Mar, [facility] [address] [id number][place] [address] Mar, [facility] [address] [id number], [place] [id number] Mar, [facility] [address] [id number], [place] [address] Mar, [facility] [address] [facility] [id number], [place] [id number] Feb, [facility] [address] [id number], [place] [address] Feb, [facility] [place] [facility] [address] [id number][place] [address] Feb, [facility] [address] [id number], [place] [id number] Feb, [facility] [place] [facility] [address] [id number], [place] [address] Feb, [facility] [place] [facility] [address] [facility] [id number], [place] [address] Feb, [facility] [place] [facility] [address] [facility] [id number], [place] [address] Feb, [facility] [place] [facility] [address] [id number], [place] [address] Feb, [facility] [address] [id number], [place] [id number] Feb, [facility] [place] [facility] [address] [facility] [id number], [place] [address] Feb, [facility] [address] [facility] [id number], [place] [id number] Jan, [facility] [place] [facility] [address] [facility] [id number], [place] [address] Jan, [facility] [address] [id number], [place] 559436[address] Dec, [facility] [place] [facility] [address]00565100[place], [place] [address] Dec, [facility] [id number], [place] [id number] Dec, [facility] [place] [facility] [address] [id number], [place] [address] Dec, [facility] [id number], [place] [address] Dec, [facility] [place] [facility] [address]65100[place], [place] [address] Dec, [facility] [place] [facility] [address]00565100[place], [place] [address] 18 Nov, 2012 [facility] [place] [facility] [address] [facility] [id number], [place] [address] 17 Nov, 2012 [facility] [place] [facility] [address] [facility] [id number], [place] [address] 15 Nov, 2012 [facility] [place] [facility] [address] [facility] [id number], [place] [address] 13 Nov, 2012 [facility] [address] [id number], [place] [id number] Nov, [facility] [address] [id number] [place] [address] Oct, [facility] [place] [facility] [address] [id number] [place] [address] Oct, [facility] [address] [id number] [place] [address] Oct, [facility] [place] [facility] [address] [id number] [place] [address] Oct, [facility] [address] [id number] [place] [address] Oct, [facility] [address] [id number] [place] [id number] Oct, [facility] [address] [id number] [place] [address] Oct, [facility] [address] [id number] [place] [address] Sep, [facility] [address] [id number] [place] [address] Sep, [facility] [address] [id number] [place] [address] Sep, [facility] [place] [facility] [address] [id number] [place] [address] Aug, [facility] [place] [facility] [address] [id number] [place] [address] Aug, [facility] [place] [facility] [address] [id number] [place] [address] Aug, [facility] [address] [id number] [place] [id number] Aug, [facility] [address] [id number] [place] [id number] July, [facility] [place] [facility] [address] [id number] [place] [address] Jun, [facility] [place] [facility] [address] [id number], [place] [address] Jun, [facility] [address] [id number] [place] [id number] Jun, [facility] [address] [id number] [place] 5996[address] Jun, [facility] [address] [id number] [place] [id number] Jun, [facility] [address] [id number] [place] [id number] May, [facility] [place] [facility] [address] [facility] [id number], [place] [address] Feb, [facility] [place] [facility] [address] [facility] [id number], [place] [address] Feb, [facility] [address] [id number], [place] [address]6860 Feb, [facility] [place] [facility] [address]00565100[place], [place] [address] Feb, [facility] [place] [facility] [address]00565100[place], [place] [address] Jan, [facility] [address] [id number], [place] [address]384 July, [facility] [place] [facility] [address]00565100[place], [place] [address] Jan, [facility] [place] [facility] [address]00565100[place], [place] [address] Feb, [facility] [place] [facility] [address] [facility] [id number], [place] [address] Jan, [facility] [place] [facility] [address] [facility] [id number], [place] [address] Dec, [facility] [place] [facility] [address] [id number] [address] Dec, [facility] [place] [facility] [address]00565100[place], [place] [address] Dec, [facility] [address] [facility] [id number], [place] [address] Dec, [facility] [address] [facility] [id number], [place] [address] Dec, [facility] [address] [facility] [id number] [place] [address] Dec, IMMUNIZATIONS No Known Immunizations SOCIAL HISTORY Never Assessed REASON FOR VISIT [facility] PLAN OF CARE VITAL SIGNS MEDICATIONS Unknown [...]
--- OUTSIDE RECORDS SUMMARY | 2018-09-19 10:27 | XMS REPORT ---
Author Author Migration, Doctor Organization [facility] Address Unknown Phone Unavailable Care Team Providers Care Assembler Handbags Name Role Phone Migration, Doctor Unavailable Unavailable PROBLEMS Type Condition ICD9-CM Code ASB43-UH Code Onset Dates Condition Status SNOMED Code Problem Screening examination for venereal disease V74.5 Active 914659327 Problem Other general counseling and advice for contraceptive management V25.09 Active 502442889 Problem Unspecified contraceptive management V25.9 Active 333193557 Problem Routine follow-up V24.2 Active 048409379 Problem General counseling for initiation of other contraceptive measures V25.02 Active [id number] Problem DTAP TEST V06.1 Active Problem examination or test, positive result V72.42 Active 251050440 Problem Tension headache 307.81 Active 269357494 Problem Unspecified infective otitis externa 380.10 Active 25598049 Problem Screening for malignant neoplasm of the cervix V76.2 Active 304630393 Problem Encounter for insertion of intrauterine contraceptive device V25.11 Active 90430285 Problem Nausea alone 787.02 Active 446587966 Problem Lumbar sprain and strain 847.2 Active 013300782 Problem First-degree perineal laceration, unspecified as to episode of care in 664.00 Active 54778650 Problem Unspecified alopecia 704.00 Active 21154905 Problem Urinary tract infection, site not specified 599.0 Active 65378747 Problem Infections of genitourinary tract in , unspecified as to episode of care 646.60 Active 045213017 Problem Threatened premature labor, unspecified as to episode of care 644.00 Active 194931734 Problem Acute upper respiratory infections of unspecified site 465.9 Active 05393970 Problem Persistent disorder of initiating 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.42 Active 93645672 Problem Dysthymic disorder 300.4 Active 48307457 Problem Other specified viral warts 078.19 Active 59313939 Problem Anxiety disorder, unspecified F41.9 Active 297320204 Problem Supervision of with history of pre-term labor V23.41 Active 550766690 Problem Dysthymic disorder F34.1 Active 31518838 Problem Need for prophylactic vaccination and inoculation, Influenza V04.81 Active 985824592 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 Problem Anxiety F41.9 Active 40919988 Problem Neurosis, 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 Active 76212716 Problem 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 Active 737370790 Problem Depression, unspecified depression type F32.9 Active 47873894 ALLERGIES No Information ENCOUNTERS Encounter Location Date Diagnosis [facility] [id number] [place] [address] [id number] Jun, [facility] [address] [place] [address] [id number] Jun, Dental examination Z01.20 and Caries K02.9 [facility] [id number] [place] [address] [id number] May, Caries K02.9 and Dental examination Z01.20 [facility] [id number] [place] [address] [id number] Dec, Dysthymic disorder F34.1 [facility] [address] [id number] [place] [address] [id number] Dec, Depression, unspecified depression type F32.9 and Anxiety disorder, unspecified F41.9 [facility] [address] [id number] [place] [address] [id number] Dec, Depression, unspecified depression type F32.9 [facility] [address] [id number] [place] [address] [id number] Dec, [facility] [address] [id number] [place] [address] [id number] Dec, [facility] [address] [id number] [place] [address] [phone] Dec, [facility] [address] [place] [address] [id number] Dec, 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 [facility] [address] [id number] [place] [address] [id number] Dec, Neurosis, 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 [facility] [address] [id number][place] [id number] Dec, [facility] [address] [facility] [id number][place] [id number] Dec, Anxiety F41.9 [facility] [place] [facility] [address] [facility] [id number], [place] [address] Jun, [facility] [place] [facility] [address] [facility] [id number], [place] [address] Jun, [facility] [address] [facility] [id number][place] [id number] Mar, [facility] [place] [facility] [address] [facility] [id number], [place] [address] Mar, [facility] [address] [facility] [id number], [place] [id number] Jan, [facility] [place] [facility] [address]005[address], [place] [address] Jan, [facility] [address] [id number][place] [id number] Dec, [facility] [place] [facility] [address]00565100[place], [place] [address] Dec, [facility] [address] [id number][place] [id number] Nov, [facility] [place] [facility] [address] [id number], [place] [address] Nov, [facility] [address] [facility] [id number], [place] [id number] Oct, [facility] [place] [facility] [address] [facility] [id number], [place] [address] Oct, [facility] [place] [facility] [address] [facility] [id number], [place] [address] Oct, [facility] [address] [facility] [id number], [place] [id number] Sep, [facility] [place] [facility] [address] [id number], [place] [address] Sep, [facility] [place] [facility] [address] [id number] [place] [address] Sep, [facility] [place] [facility] [address] [id number] [place] [address] Sep, [facility] [address] [id number] [place] [id number] Aug, [facility] [place] [facility] [address] [facility] [id number] [place] [address] Aug, [facility] [address] [id number] [place] [id number] July, [facility] [place] [facility] [address] [facility] [id number] [place] [address] July, [facility] [address] [id number] [place] [id number] July, [facility] [place] [facility] [address] [facility] [id number] [place] [address] July, [facility] [address] [id number] [place] [id number] July, [facility] [address] [id number] [place] [id number] July, [facility] [place] [facility] [address] [facility] [id number] [place] [address] July, [facility] [place] [facility] [address] [facility] [id number] [place] [address] July, [facility] [address] [id number], [place] [id number] July, [facility] [place] [facility] [address] [facility] [id number] [place] [address] July, [facility] [address] [id number] [place] [id number] Jun, [facility] [place] [facility] [address] [facility] [id number] [place] [address] Jun, [facility] [address] [id number], [place] [id number] Jun, [facility] [place] [facility] [address] [facility] [id number] [place] [address] Jun, [facility] [place] [facility] [address] [facility] [id number], [place] [address] May, [facility] [place] [facility] [address] [id number] [place] [place] [address] May, [facility] [address] [facility] [id number][place] [id number] Apr, [facility] [place] [facility] [address] [facility] [id number] [place] [address] Apr, [facility] [address] [id number], [place] [id number] Apr, [facility] [place] [facility] [address]65100[place], [place] [address] Apr, [facility] [place] [facility] [address]65100[place], [place] [address] Apr, [facility] [address] [facility] [id number], [place] [id number] Apr, [facility] [address] [facility] [id number], [place] [id number] Apr, [facility] [place] [facility] [id number], [place] [address] Apr, [facility] [place] [facility] [address]65100[place], [place] [address] Apr, [facility] [address] [facility] [id number], [place] [id number] Apr, [facility] [place] [facility] [address] [facility] [id number], [place] [address] Apr, [facility] [place] [facility] [address] [facility] [id number], [place] [address] Apr, [facility] [id number], [place] [id number] Mar, [facility] [address] [id number], [place] [address] Mar, [facility] [address] [id number] [place] [address] Mar, [facility] [address] [id number], [place] [id number] Mar, [facility] [address] [id number], [place] [address] Mar, [facility] [address] [id number] [place] [address] Mar, [facility] [address] [id number] [place] [address] Mar, [facility] [address] [facility] [id number][place] [id number] Mar, [facility] [address] [id number], [place] [address] Mar, [facility] [address] [id number], [place] 732343501 Mar, [facility] [address] [id number], [place] [address] Mar, [facility] [address] [facility] [id number], [place] [id number] Feb, [facility] [address] [id number], [place] [address] Feb, [facility] [place] [facility] [address] [id number], [place] [address] Feb, [facility] [address] [id number], [place] [id number] Feb, [facility] [place] [facility] [address] [id number], [place] [address] Feb, [facility] [place] [facility] [address] [facility] [id number], [place] [address] Feb, [facility] [place] [facility] [address] [facility] [id number], [place] [address] Feb, [facility] [place] [facility] [address] [id number], [place] [address] Feb, [facility] [address] [id number], [place] [id number] Feb, [facility] [place] [facility] [address] [facility] [id number], [place] [address] Feb, [facility] [address] [facility] [id number], [place] [id number] Jan, [facility] [place] [facility] [address] [facility] [id number], [place] [address] Jan, [facility] [address] [id number], [place] 105082441 Dec, [facility] [place] [facility] [id number], [place] [address] Dec, [facility] [id number], [place] [id number] Dec, [facility] [place] [facility] [address] [id number], [place] [address] Dec, [facility] [id number], [place] [id number] Dec, [facility] [place] [facility] [id number], [place] [address] Dec, [facility] [place] [facility] [id number], [place] [address] 18 Nov, 2012 [facility] [place] [facility] [address] [facility] [id number], [place] [address] 17 Nov, 2012 [facility] [place] [facility] [address] [facility] [id number], [place] [address] 15 Nov, 2012 [facility] [place] [facility] [address] [facility] [id number], [place] [address] 13 Nov, 2012 [facility] [address] [id number][place] [id number] Nov, [facility] [address] [id number] [place] [address] Oct, [facility] [place] [facility] [address] [id number] [place] [address] Oct, [facility] [address] [id number] [place] [address] Oct, [facility] [place] [facility] [address] [id number] [place] [address] Oct, [facility] [address] [id number] [place] [address] Oct, [facility] [address] [id number] [place] [id number] Oct, [facility] [address] [id number] [place] [address] Oct, [facility] [address] [id number] [place] [address] Sep, [facility] [address] [id number] [place] [address] Sep, [facility] [address] [id number] [place] [address] Sep, [facility] [place] [facility] [address] [id number] [place] [address] Aug, [facility] [place] [facility] [address] [id number] [place] [address] Aug, [facility] [place] [facility] [address] [id number] [place] [address] Aug, [facility] [address] [id number] [place] [id number] Aug, [facility] [address] [id number] [place] [id number] July, [facility] [place] [facility] [address] [id number] [place] [address] Jun, [facility] [place] [facility] [address] [id number], [place] [address] Jun, [facility] [address] [id number] [place] [id number] Jun, [facility] [address] [id number] [place] [id number] Jun, [facility] [address] [id number] [place] 9003[address] Jun, [facility] [address] [id number] [place] [id number] May, [facility] [place] [facility] [address] [facility] [id number], [place] [address] Feb, [facility] [place] [facility] [address] [facility] [id number], [place] [address] Feb, [facility] [address] [id number], [place] [id number] Feb, [facility] [place] [facility] [address]00565100[place], [place] [address] Feb, [facility] [place] [facility] [address]00565100[place], [place] [address] Jan, [facility] [address] [id number], [place] [id number] July, [facility] [place] [facility] [id number], [place] [address] Jan, [facility] [place] [facility] [address]100[place], [place] [address] Feb, [facility] [place] [facility] [address] [facility] [id number], [place] [address] Jan, [facility] [place] [facility] [address] [facility] [id number], [place] [address] Dec, [facility] [place] [facility] [address] [id number], [place] [address] Dec, [facility] [place] [facility] [address]65100[place], [place] [address] Dec, [facility] [address] [facility] [id number], [place] [address] Dec, [facility] [address] [facility] [id number], [place] [address] Dec, [facility] [address] [facility] [id number] [place] [address] Dec, IMMUNIZATIONS No Known Immunizations SOCIAL HISTORY Never Assessed REASON FOR VISIT [facility] PLAN OF CARE VITAL SIGNS MEDICATIONS Unknown [...]
--- OUTSIDE RECORDS SUMMARY | 2018-09-19 10:28 | XMS REPORT ---
Author Author Migration, Doctor Organization [facility] Address Unknown Phone Unavailable Care Team Providers Care Quality Manager Name Role Phone Migration, Doctor Unavailable Unavailable PROBLEMS Type Condition ICD9-CM Code UOH92-ET Code Onset Dates Condition Status SNOMED Code Problem Screening examination for venereal disease V74.5 Active 077829670 Problem Other general counseling and advice for contraceptive management V25.09 Active 984804049 Problem Unspecified contraceptive management V25.9 Active 126705264 Problem Routine follow-up V24.2 Active 511111074 Problem General counseling for initiation of other contraceptive measures V25.02 Active [id number] Problem DTAP TEST V06.1 Active Problem examination or test, positive result V72.42 Active 382052448 Problem Tension headache 307.81 Active 294782290 Problem Unspecified infective otitis externa 380.10 Active 57228561 Problem Screening for malignant neoplasm of the cervix V76.2 Active 142048062 Problem Encounter for insertion of intrauterine contraceptive device V25.11 Active 45396768 Problem Nausea alone 787.02 Active 110401057 Problem Lumbar sprain and strain 847.2 Active 518525863 Problem First-degree perineal laceration, unspecified as to episode of care in 664.00 Active 04185834 Problem Unspecified alopecia 704.00 Active 51254541 Problem Urinary tract infection, site not specified 599.0 Active 87804368 Problem Infections of genitourinary tract in , unspecified as to episode of care 646.60 Active 556684186 Problem Threatened premature labor, unspecified as to episode of care 644.00 Active 420164012 Problem Acute upper respiratory infections of unspecified site 465.9 Active 23668053 Problem Persistent disorder of initiating 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.42 Active 55116290 Problem Dysthymic disorder 300.4 Active 49686153 Problem Other specified viral warts 078.19 Active 45112418 Problem Anxiety disorder, unspecified F41.9 Active 287376402 Problem Supervision of with history of pre-term labor V23.41 Active 745283140 Problem Dysthymic disorder F34.1 Active 11878909 Problem Need for prophylactic vaccination and inoculation, Influenza V04.81 Active 438209162 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 Problem Anxiety F41.9 Active 80025144 Problem Neurosis, 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 Active 22913729 Problem 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 Active 196618783 Problem Depression, unspecified depression type F32.9 Active 70702649 ALLERGIES No Information ENCOUNTERS Encounter Location Date Diagnosis [facility] [id number] [place] [address] [id number] Jun, [facility] [address] [place] [address] [id number] May, Caries K02.9 and Dental examination Z01.20 [facility] [address] [place] [address] [id number] Dec, Dysthymic disorder F34.1 [place] [address] [place] [address] [id number] Dec, Depression, unspecified depression type F32.9 and Anxiety disorder, unspecified F41.9 [facility] [address] [place] [address] [phone] Dec, Depression, unspecified depression type F32.9 [facility] [address] [id number] [place] [address] [id number] Dec, [facility] [address] [id number] [place] [address] [id number] Dec, [facility] [address] [place] [address] [id number] Dec, [facility] [address] [id number] [place] [address] [id number] Dec, 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 [place] [address] [id number] Dec, Neurosis, 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 [facility] [address] [id number] [place] [address] [id number] Dec, [place] [address] [id number] Dec, Anxiety F41.9 [facility] [place] [facility] [address] [facility] [id number] [place] [address] Jun, [facility] [place] [facility] [address] [facility] [id number] [place] [address] Jun, [facility] [address] [facility] [id number] [place] [id number] Mar, [facility] [place] [facility] [address] [facility] [id number] [place] [address] Mar, [facility] [address] [facility] [id number] [place] [id number] Jan, [facility] [place] [facility] [address] [facility] [id number] [place] [address] Jan, [facility] [address] [facility] [id number] [place] [phone] Dec, [facility] [place] [facility] [address] [place] [address] Dec, [facility] [address] [facility] [id number] [place] [id number] Nov, [facility] [place] [facility] [address] [facility] [id number] [place] [address] Nov, [facility] [address] [facility] [id number] [place] [id number] Oct, [facility] [place] [facility] [address] [place] [address] Oct, [facility] [place] [facility] [address] [facility] [id number] [place] [address] Oct, [facility] [address] [facility] [id number] [place] [id number] Sep, [facility] [place] [facility] [address] [facility] [id number] [place] [address] Sep, [facility] [place] [facility] [address] [facility] [id number] [place] [address] Sep, [facility] [place] [facility] [address] [id number] [place] [address] Sep, [facility] [address] [id number] [place] [id number] Aug, [facility] [place] [facility] [address] [facility] [id number] [place] [address] Aug, [facility] [address] [facility] [id number] [place] [phone] July, [facility] [place] [facility] [address] [facility] [id number] [place] [address] July, [facility] [address] [id number] [place] [id number] July, [facility] [place] [facility] [address] [facility] [id number] [place] [address] July, [facility] [address] [facility] [id number] [place] [phone] July, [facility] [address] [facility] [id number] [place] [id number] July, [facility] [place] [facility] [address] [facility] [id number] [place] [address] July, [facility] [place] [facility] [address] [facility] [id number] [place] [address] July, [facility] [address] [facility] [id number] [place] [id number] July, [facility] [place] [facility] [address] [facility] [id number] [place] [address] July, [facility] [address] [facility] [id number] [place] [id number] Jun, [facility] [place] [facility] [address] [facility] [id number] [place] [address] Jun, [facility] [address] [facility] [id number] [place] [phone] Jun, [facility] [place] [facility] [address] [facility] [id number] [place] [address] Jun, [facility] [place] [facility] [address] [facility] [id number] [place] [address] May, [facility] [place] [facility] [address] [place] [id number] [address] May, [facility] [address] [facility] [id number] [place] [id number] Apr, [facility] [place] [facility] [address] [place] [id number] [address] Apr, [facility] [address] [facility] [id number] [place] [id number] Apr, [facility] [place] [facility] [address] [place] [id number] [address] Apr, [facility] [place] [facility] [address] [place] [id number] [address] Apr, [facility] [id number] [place] [id number] Apr, [facility] [address] [place] [id number] [place] [id number] Apr, [facility] [place] [facility] [address]65100[facility] [address] Apr, [facility] [place] [facility] [address] [place] [id number] [address] Apr, [facility] [id number] [place] [id number] Apr, [facility] [place] [facility] [address] [place] [id number] [address] Apr, [facility] [place] [facility] [address] [place] [id number] [address] Apr, [facility] [address] [place] [id number] [place] [id number] Mar, [facility] [place] [facility] [address]65[address] [address] Mar, [facility] [place] [facility] [address] [place] [id number] [address] Mar, [facility] [address] [facility] [id number] [place] [id number] Mar, [facility] [place] [facility] [address] [facility] [id number] [place] [address] Mar, [facility] [place] [facility] [address] [facility] [id number] [place] [address] Mar, [facility] [place] [facility] [address] [facility] [id number] [place] [address] Mar, [facility] [place] [address] [facility] [id number] [place] [id number] Mar, [facility] [place] [facility] [address] [place] [id number] [address] Mar, [facility] [place] [place] [address] [facility] [id number] [place] [id number] Mar, [facility] [address] [facility] [id number] [place] [address] Mar, [facility] [place] [address] [facility] [id number] [place] [id number] Feb, [facility] [place] [facility] [address] [place] [id number] [address] Feb, [facility] [place] [facility] [address] [facility] [id number] [place] [address] Feb, [facility] [address] [facility] [id number] [place] [id number] Feb, [facility] [place] [facility] [address] [facility] [id number] [place] [address] Feb, [facility] [place] [facility] [address] [facility] [id number] [place] [address] Feb, [facility] [place] [facility] [address] [facility] [id number] [place] [address] Feb, [facility] [place] [facility] [address] [facility] [id number] [place] [address] Feb, [facility] [address] [id number] [place] [id number] Feb, [facility] [address] [id number] [place] [address] Feb, [facility] [address] [id number] [place] [id number] Jan, [facility] [place] [facility] [address] [facility] [id number] [place] [address] Jan, [facility] [address] [id number] [place] [id number] Dec, [facility] [place] [facility] [address] [facility] [id number] [place] [address] Dec, [facility] [address] [facility] [id number] [place] [id number] Dec, [facility] [address]00565[address] [address] Dec, [facility] [address] [facility] [id number] [place] [id number] Dec, [facility] [place] [facility] [address]00565[address] [address] Dec, [facility] [place] [facility] [address] [place] [id number] [address] 18 Nov, 2012 [facility] [place] [facility] [address] [address] 17 Nov, 2012 [facility] [place] [facility] [address] [facility] [id number] [place] [address] 15 Nov, 2012 [facility] [place] [facility] [address] [facility] [id number] [place] [address] 13 Nov, 2012 [facility] [address] [facility] [id number] [place] [id number] 11 Nov, 2012 [facility] [place] [facility] [address] [facility] [id number] [place] [address] Oct, [facility] [place] [facility] [address] [id number] [place] [address] Oct, [facility] [address] [id number] [place] [address] Oct, [facility] [place] [facility] [address] [id number] [place] [address] Oct, [facility] [place] [facility] [address] [id number] [place] [address] Oct, [facility] [address] [id number] [place] [id number] Oct, [facility] [place] [facility] [address] [id number] [place] [address] Oct, [facility] [place] [facility] [address] [id number] [place] [address] Sep, [facility] [place] [facility] [address] [id number] [place] [address] Sep, [facility] [place] [facility] [address] [id number] [place] [address] Sep, [facility] [place] [facility] [address] [id number] [place] [address] Aug, [facility] [place] [facility] [address] [id number] [place] [address] Aug, [facility] [place] [facility] [address] [id number] [place] [address] Aug, [facility] [address] [id number] [place] [address] Aug, [facility] [address] [id number] [place] [id number] July, [facility] [place] [facility] [address] [id number] [place] [address] Jun, [facility] [place] [facility] [address] [id number] [place] [address] Jun, [facility] [address] [id number] [place] [id number] Jun, [facility] [address] [id number] [place] [id number] Jun, [facility] [address] [id number] [place] [address] Jun, [facility] [address] [id number] [place] [address] May, [facility] [place] [facility] [address] [id number] [place] [address] Feb, [facility] [place] [facility] [address] [id number] [place] [address] Feb, [facility] [address] [id number] [place] [id number] Feb, [facility] [place] [facility] [address]00565100[facility] [place] [address] Feb, [facility] [place] [facility] [address]00565100[facility] [place] [address] Jan, [facility] [address] [facility] [id number] [place] [id number] July, [facility] [place] [facility] [address] [address] Jan, [facility] [place] [facility] [address] [place] [id number] [address] Feb, [facility] [place] [facility] [address] [address] Jan, [facility] [place] [facility] [address] [facility] [id number] [place] [address] Dec, [facility] [place] [facility] [address] [place] [id number] [address] Dec, [facility] [place] [facility] [address] [facility] [id number] [place] [address] Dec, [facility] [place] [facility] [address] [address] Dec, [facility] [address] [facility] [id number] [place] [address] Dec, [facility] [address] [facility] [id number] [place] [address] Dec, IMMUNIZATIONS No Known Immunizations SOCIAL HISTORY Never Assessed REASON FOR VISIT EMR-[facility] PLAN OF CARE VITAL SIGNS MEDICATIONS Medication Instructions Dosage Frequency Start Date End Date Duration Status buspirone 15 mg take 0.5 tablet by Oral route 2 times per day Dec, Active Penicillin V Potassium 250 mg take 1 tablet by Oral route every 6 hours for 7 days Mar, Active Effexor XR 75 mg 1 capsule by Oral route 1 time per day Mar, Active Tlxubtwu-Oyhyooutn-FP 3.5-10,000-1 mg-unit/mL-% 2 drop by Otic route 4 times per day for 7 day(s) Oct, Active Cipro 250 mg take 1 tablet by Oral route every 12 hours for 3 days Apr, Active Keflex 500 mg take 1 capsule by Oral route 2 times per day for 7 days Feb, Active Atarax 25 mg 1 tablet by Oral route every 6 hours PRN Oct, Active Restoril 15 mg 1 capsule by Oral route 1 time per day PRN Jan, Active RESULTS No Results PROCEDURES No Known procedures INSTRUCTIONS MEDICATIONS ADMINISTERED No Known Medications MEDICAL (GENERAL) HISTORY Type Description Date Medical History anxiety/depression Surgical History cysts removed from right foot as a child Surgical History Pace Maker Placed 2017 Surgical History Gallbladder Removal 2018 Surgical History ablation 2019 Surgical History Gastric Sleeve 2017 Hospitalization History childbirth
--- OUTSIDE RECORDS SUMMARY | 2018-09-19 10:28 | XMS REPORT ---
Author Author Migration, Doctor Organization [facility] Address Unknown Phone Unavailable Care Team Providers Care Signal Intelligence Analyst Name Role Phone Migration, Doctor Unavailable Unavailable PROBLEMS Type Condition ICD9-CM Code PKQ48-VA Code Onset Dates Condition Status SNOMED Code Problem Screening examination for venereal disease V74.5 Active 589979137 Problem Other general counseling and advice for contraceptive management V25.09 Active 467482036 Problem Unspecified contraceptive management V25.9 Active 878321126 Problem Routine follow-up V24.2 Active 789744549 Problem General counseling for initiation of other contraceptive measures V25.02 Active [id number] Problem DTAP TEST V06.1 Active Problem examination or test, positive result V72.42 Active 954659276 Problem Tension headache 307.81 Active 751655585 Problem Unspecified infective otitis externa 380.10 Active 52800053 Problem Screening for malignant neoplasm of the cervix V76.2 Active 270965361 Problem Encounter for insertion of intrauterine contraceptive device V25.11 Active 03630701 Problem Nausea alone 787.02 Active 693206574 Problem Lumbar sprain and strain 847.2 Active 199212231 Problem First-degree perineal laceration, unspecified as to episode of care in 664.00 Active 44662391 Problem Unspecified alopecia 704.00 Active 66162113 Problem Urinary tract infection, site not specified 599.0 Active 94872734 Problem Infections of genitourinary tract in , unspecified as to episode of care 646.60 Active 565262648 Problem Threatened premature labor, unspecified as to episode of care 644.00 Active 588356786 Problem Acute upper respiratory infections of unspecified site 465.9 Active 31501631 Problem Persistent disorder of initiating 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.42 Active 60777014 Problem Dysthymic disorder 300.4 Active 83782344 Problem Other specified viral warts 078.19 Active 17654848 Problem Anxiety disorder, unspecified F41.9 Active 935553771 Problem Supervision of with history of pre-term labor V23.41 Active 865707883 Problem Dysthymic disorder F34.1 Active 86793104 Problem Need for prophylactic vaccination and inoculation, Influenza V04.81 Active 683395206 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 [address] [id number] [place] [id number] Jun, [facility] [address] [place] [address] [id number] Jun, Dental examination Z01.[address] [facility] [id number] [place] [address] [id number] May, Caries K02.9 and Dental examination Z01.20 [facility] [id number] [place] [address] [id number] Dec, Dysthymic disorder F34.1 [facility] [address] [id number] [place] [address] [id number] Dec, Depression, unspecified depression type F32.9 and Anxiety disorder, unspecified F41.9 [facility] [address] [id number] [place] [address] [id number] Dec, Depression, unspecified depression type F32.9 [facility] [address] [id number] [place] [address] [phone] Dec, [facility] [address] [id number] [place] [address] [id number] Dec, [facility] [address] [id number] [place] [address] [id number] Dec, [facility] [address] [place] [address] [phone] Dec, 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 [facility] [address] [id number] [place] [address] [phone] Dec, Neurosis, 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 [facility] [address] [id number] [place] [phone] Dec, [facility] [address] [facility] [id number] [place] [phone] Dec, Anxiety F41.9 [facility] [place] [facility] [address] [facility] [id number], [place] [address] Jun, [facility] [place] [facility] [address] [facility] [id number], [place] [address] Jun, [facility] [address] [facility] [id number] [place] [id number] Mar, [facility] [place] [facility] [address] [facility] [id number], [place] [address] Mar, [facility] [address] [facility] [id number] [place] [id number] Jan, [facility] [place] [facility] [address] [address] Jan, [facility] [address] [id number] [place] [id number] Dec, [facility] [place] [facility] [address] [address] Dec, [facility] [address] [id number] [place] [id number] Nov, [facility] [place] [facility] [address] [id number] [address] Nov, [facility] [address] [facility] [id number] [place] [phone] Oct, [facility] [place] [facility] [address] [facility] [id number], [place] [address] Oct, [facility] [place] [facility] [address] [facility] [id number], [place] [address] Oct, [facility] [address] [facility] [id number] [place] [id number] Sep, [facility] [place] [facility] [address] [id number], [place] [address] Sep, [facility] [place] [facility] [address] [id number] [place] [address] Sep, [facility] [place] [facility] [address] [id number] [place] [address] Sep, [facility] [address] [id number] [place] [id number] Aug, [facility] [place] [facility] [address] [facility] [id number] [place] [address] Aug, [facility] [address] [id number] [place] [id number] July, [facility] [place] [facility] [address] [facility] [id number] [place] [address] July, [facility] [address] [id number] [place] [id number] July, [facility] [place] [facility] [address] [facility] [id number] [place] [address] July, [facility] [address] [id number] [place] [id number] July, [facility] [address] [id number] [place] [id number] July, [facility] [place] [facility] [address] [facility] [id number] [place] [address] July, [facility] [place] [facility] [address] [facility] [id number] [place] [address] July, [facility] [address] [id number] [place] [id number] July, [facility] [place] [facility] [address] [facility] [id number] [place] [address] July, [facility] [address] [id number] [place] [id number] Jun, [facility] [place] [facility] [address] [facility] [id number] [place] [address] Jun, [facility] [address] [id number] [place] [id number] Jun, [facility] [place] [facility] [address] [facility] [id number] [place] [address] Jun, [facility] [place] [facility] [address] [facility] [id number], [place] [address] May, [facility] [place] [facility] [address] [id number] [place] [address] May, [facility] [address] [facility] [id number] [place] [address] Apr, [facility] [place] [facility] [address] [facility] [id number] [place] [address] Apr, [facility] [address] [id number] [place] [id number] Apr, [facility] [place] [facility] [address], [place] [address] Apr, [facility] [place] [facility] [address]100[place], [place] [address] Apr, [facility] [address] [facility] [id number] [place] [id number] Apr, [facility] [address] [facility] [id number] [place] [id number] Apr, [facility] [place] [facility] [address], [place] [address] Apr, [facility] [place] [facility] [address], [place] [address] Apr, [facility] [address] [facility] [id number] [place] [id number] Apr, [facility] [place] [facility] [address] [facility] [id number], [place] [address] Apr, [facility] [place] [facility] [address] [facility] [id number], [place] [address] Apr, [facility] [id number] [place] [id number] Mar, [facility] [address] [id number], [place] [address] Mar, [facility] [address] [id number] [place] [address] Mar, [facility] [address] [id number] [place] [id number] Mar, [facility] [address] [id number], [place] [address] Mar, [facility] [address] [id number] [place] [address] Mar, [facility] [address] [id number] [place] [address] Mar, [facility] [address] [facility] [id number] [place] [address] Mar, [facility] [address] [id number], [place] [address] Mar, [facility] [address] [id number] [place] [id number] Mar, [facility] [address] [id number], [place] [address] Mar, [facility] [address] [facility] [id number] [place] [address] Feb, [facility] [address] [id number], [place] [address] Feb, [facility] [place] [facility] [address] [id number], [place] [address] Feb, [facility] [address] [id number] [place] [address] Feb, [facility] [place] [facility] [address] [id number], [place] [address] Feb, [facility] [place] [facility] [address] [facility] [id number], [place] [address] Feb, [facility] [place] [facility] [address] [facility] [id number], [place] [address] Feb, [facility] [place] [facility] [address] [id number], [place] [address] Feb, [facility] [address] [id number] [place] [id number] Feb, [facility] [place] [facility] [address] [facility] [id number], [place] [address] Feb, [facility] [address] [facility] [id number] [place] [id number] Jan, [facility] [place] [facility] [address] [facility] [id number], [place] [address] Jan, [facility] [address] [id number] [place] [id number] Dec, [facility] [place] [facility] [address]65100[place], [place] [address] Dec, [facility] [id number] [place] [id number] Dec, [facility] [place] [facility] [address] [id number], [place] [address] Dec, [facility] [id number] [place] [address] Dec, [facility] [place] [facility] [address]100[place], [place] [address] Dec, [facility] [place] [facility] [address]100[place], [place] [address] 18 Nov, 2012 [facility] [place] [facility] [address] [facility] [id number], [place] [address] 17 Nov, 2012 [facility] [place] [facility] [address] [facility] [id number], [place] [address] 15 Nov, 2012 [facility] [place] [facility] [address] [facility] [id number], [place] [address] 13 Nov, 2012 [facility] [address] [id number] [place] [address] Nov, [facility] [address] [id number] [place] [address] Oct, [facility] [place] [facility] [address] [id number] [place] [address] Oct, [facility] [address] [id number] [place] [address] Oct, [facility] [place] [facility] [address] [id number] [place] [address] Oct, [facility] [address] [id number] [place] [address] Oct, [facility] [address] [id number] [place] [id number] Oct, [facility] [address] [id number] [place] [address] Oct, [facility] [address] [id number] [place] [address] Sep, [facility] [address] [id number] [place] [address] Sep, [facility] [address] [id number] [place] [address] Sep, [facility] [place] [facility] [address] [id number] [place] [address] Aug, [facility] [place] [facility] [address] [id number] [place] [address] Aug, [facility] [place] [facility] [address] [id number] [place] [address] Aug, [facility] [address] [id number] [place] [id number] Aug, [facility] [address] [id number] [place] [id number] July, [facility] [place] [facility] [address] [id number] [place] [address] Jun, [facility] [place] [facility] [address] [id number], [place] [address] Jun, [facility] [address] [id number] [place] [address]79[address] Jun, [facility] [address] [id number] [place] [address] Jun, [facility] [address] [id number] [place] [address]82[address]87[address] Jun, [facility] [address] [id number] [place] 115[address] May, [facility] [place] [facility] [address] [facility] [id number], [place] [address] Feb, [facility] [place] [facility] [address] [facility] [id number], [place] [address] Feb, [facility] [address] [id number] [place] [id number] Feb, [facility] [place] [facility] [address], [place] [address] Feb, [facility] [place] [facility] [address]65100[place], [place] [address] Jan, [facility] [address] [id number] [place] [address] July, [facility] [place] [facility] [address], [place] [address] Jan, [facility] [place] [facility] [address]65100[place], [place] [address] Feb, [facility] [place] [facility] [address] [facility] [id number], [place] [address] Jan, [facility] [place] [facility] [address] [facility] [id number], [place] [address] Dec, [facility] [place] [facility] [address] [id number] [address] Dec, [facility] [place] [facility] [address]65100[place], [place] [address] Dec, [facility] [address] [facility] [id number], [place] [address] Dec, [facility] [address] [facility] [id number], [place] [address] Dec, [facility] [address] [facility] [id number] [place] [address] Dec, IMMUNIZATIONS No Known Immunizations SOCIAL HISTORY Never Assessed REASON FOR VISIT [facility] [place] PLAN OF CARE VITAL SIGNS MEDICATIONS [...]
--- OUTSIDE RECORDS SUMMARY | 2018-09-19 10:29 | XMS REPORT ---
Author Author Migration, Doctor Organization [facility] Address Unknown Phone Unavailable Care Team Providers Care Safety Assistant Name Role Phone Migration, Doctor Unavailable Unavailable PROBLEMS Type Condition ICD9-CM Code YRF24-FI Code Onset Dates Condition Status SNOMED Code Problem Screening examination for venereal disease V74.5 Active 048111033 Problem Other general counseling and advice for contraceptive management V25.09 Active 389499242 Problem Unspecified contraceptive management V25.9 Active 041264098 Problem Routine follow-up V24.2 Active 420018575 Problem General counseling for initiation of other contraceptive measures V25.02 Active [id number] Problem DTAP TEST V06.1 Active Problem examination or test, positive result V72.42 Active 971263838 Problem Tension headache 307.81 Active 930981070 Problem Unspecified infective otitis externa 380.10 Active 08823030 Problem Screening for malignant neoplasm of the cervix V76.2 Active 402878873 Problem Encounter for insertion of intrauterine contraceptive device V25.11 Active 79333353 Problem Nausea alone 787.02 Active 180056463 Problem Lumbar sprain and strain 847.2 Active 477877657 Problem First-degree perineal laceration, unspecified as to episode of care in 664.00 Active 75780096 Problem Unspecified alopecia 704.00 Active 72879587 Problem Urinary tract infection, site not specified 599.0 Active 10466208 Problem Infections of genitourinary tract in , unspecified as to episode of care 646.60 Active 697186452 Problem Threatened premature labor, unspecified as to episode of care 644.00 Active 346827281 Problem Acute upper respiratory infections of unspecified site 465.9 Active 30913315 Problem Persistent disorder of initiating 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.42 Active 74026832 Problem Dysthymic disorder 300.4 Active 97031508 Problem Other specified viral warts 078.19 Active 40283235 Problem Anxiety disorder, unspecified F41.9 Active 067051006 Problem Supervision of with history of pre-term labor V23.41 Active 227053580 Problem Dysthymic disorder F34.1 Active 54267093 Problem Need for prophylactic vaccination and inoculation, Influenza V04.81 Active 261654758 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 Problem Anxiety F41.9 Active 17437187 Problem Neurosis, 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 Active 21577253 Problem 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 Active 260151097 Problem Depression, unspecified depression type F32.9 Active 05336111 ALLERGIES No Information ENCOUNTERS Encounter Location Date Diagnosis [facility] [address] [id number] Dec, Dysthymic disorder F34.1 [place] [address] [id number] Dec, Depression, unspecified depression type F32.9 and Anxiety disorder, unspecified F41.9 [facility] [address] [id number] Dec, Depression, unspecified depression type F32.9 [facility] [address] [id number] Dec, [facility] [address] [id number] Dec, [facility] [address] [id number] Dec, [facility] [address] [id number] Dec, 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 [facility] [address] [id number] Dec, Neurosis, 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 [facility] [address] [place] [id number] [place] [id number] Dec, [address] [id number] Dec, Anxiety F41.9 [facility] [address] [place] [place] [id number] [place] [address] Jun, [facility] [address] [address] Jun, [facility] [address] [id number] [place] [id number] Mar, [facility] [place] [facility] [address] [facility] [id number][place] [address] Mar, [facility] [address] [id number] [id number] Jan, [facility] [place] [facility] [address] [facility] [id number], [place] [address] Jan, [facility] [address] [facility] [id number][place] [id number] Dec, [facility] [place] [facility] [address] [facility] [id number][place] [address] Dec, [facility] [address] [facility] [id number][place] [id number] Nov, [facility] [place] [facility] [address] [facility] [id number], [place] [address] Nov, [facility] [address] [facility] [id number], [place] [id number] Oct, [facility] [place] [facility] [address] [facility] [id number][place] [address] Oct, [facility] [place] [facility] [address] [facility] [id number][place] [address] Oct, [facility] [address] [facility] [id number], [place] [id number] Sep, [facility] [place] [facility] [address] [facility] [id number][place] [address] Sep, [facility] [place] [facility] [address] [facility] [id number], [place] [address] Sep, [facility] [place] [facility] [address] [facility] [id number][place] [address] Sep, [facility] [address] [facility] [id number], [place] [id number] Aug, [facility] [place] [facility] [address] [facility] [id number][place] [address] Aug, [facility] [address] [id number] [place] [id number] July, [facility] [place] [facility] [address] [id number] [place] [address] July, [facility] [address] [id number] [place] [id number] July, [facility] [place] [facility] [address] [id number] [place] [address] July, [facility] [address] [id number] [place] [id number] July, [facility] [address] [id number] [place] [id number] July, [facility] [place] [facility] [address] [id number] [place] [address] July, [facility] [place] [facility] [address] [facility] [id number] [place] [address] July, [facility] [address] [id number] [place] [id number] July, [facility] [place] [facility] [address] [id number] [place] [address] July, [facility] [address] [id number] [place] [id number] Jun, [facility] [place] [facility] [address] [id number] [place] [address] Jun, [facility] [address] [id number] [place] [id number] Jun, [facility] [place] [facility] [address] [id number] [place] [address] Jun, [facility] [place] [facility] [address] [facility] [id number] [place] [address] May, [facility] [place] [facility] [address] [facility] [id number] [place] [address] May, [facility] [address] [facility] [id number], [place] [address] Apr, [facility] [place] [facility] [address] [facility] [id number], [place] [address] Apr, [facility] [address] [facility] [id number], [place] [id number] Apr, [facility] [place] [facility] [address]00565100[place], [place] [address] Apr, [facility] [place] [facility] [address]00565100[place], [place] [address] Apr, [facility] [address] [facility] [id number], [place] [id number] Apr, [facility] [address] [place] [id number] [address] Apr, [facility] [place] [facility] [address]00565100[place], [place] [address] Apr, [facility] [place] [facility] [address]00565100[place], [place] [address] Apr, [facility] [address] [place] [id number], [place] [address] Apr, [facility] [place] [facility] [address]00565100[place], [place] [address] Apr, [facility] [place] [facility] [address]00565100[place], [place] [address] Apr, [facility] [id number], [place] [id number] Mar, [facility] [place] [facility] [address]00565100[place], [place] [address] Mar, [facility] [place] [facility] [address]00565100[place], [place] [address] Mar, [facility] [address] [place] [id number], [place] [id number] Mar, [facility] [place] [facility] [address]00565100[place], [place] [address] Mar, [facility] [address] [id number] [place] [address] Mar, [facility] [place] [facility] [address] [id number] [place] [address] Mar, [facility] [address] [facility] [id number] [place] [id number] Mar, [facility] [place] [facility] [address] [id number], [place] [address] Mar, [facility] [address] [facility] [id number] [place] [id number] Mar, [facility] [address] [id number] [place] [address] Mar, [facility] [address] [facility] [id number], [place] [id number] Feb, [facility] [address] [facility] [id number][place] [address] Feb, [facility] [place] [facility] [address] [id number] [place] [address] Feb, [facility] [address] [facility] [id number], [place] [address] Feb, [facility] [place] [facility] [address] [id number], [place] [address] Feb, [facility] [place] [facility] [address] [facility] [id number][place] [address] Feb, [facility] [place] [facility] [address] [id number], [place] [address] Feb, [facility] [place] [facility] [address] [id number] [place] [address] Feb, [facility] [address] [facility] [id number] [place] [address] Feb, [facility] [place] [facility] [address] [id number], [place] [address] Feb, [facility] [address] [id number] [place] [id number] Jan, [facility] [address] [id number], [place] [address] Jan, [facility] [address] [id number] [place] [id number] Dec, [facility] [address] [id number], [place] [address] Dec, [facility] [address] [id number] [place] [id number] Dec, [facility] [address] [id number], [place] [address] Dec, [facility] [address] [facility] [id number], [place] [id number] Dec, [facility] [place] [facility] [address] [id number], [place] [address] Dec, [facility] [place] [facility] [address] [id number], [place] [address] 18 Nov, 2012 [facility] [place] [facility] [address] [id number], [place] [address] 17 Nov, 2012 [facility] [place] [facility] [address] [id number][place] [address] 15 Nov, 2012 [facility] [place] [facility] [address] [id number][place] [address] 13 Nov, 2012 [facility] [address] [facility] [id number], [place] [id number] Nov, [facility] [place] [facility] [address] [id number] [place] [address] 30 Oct, 2012 [facility] [place] [facility] [address] [id number] [place] [address] Oct, [facility] [place] [facility] [address] [id number] [place] [address] Oct, [facility] [place] [facility] [address] [facility] [id number], [place] [address] Oct, [facility] [address] [id number] [place] [address] Oct, [facility] [address] [id number], [place] [address] Oct, [facility] [place] [facility] [address] [facility] [id number] [place] [address] Oct, [facility] [place] [facility] [address] [facility] [id number], [place] [address] Sep, [facility] [place] [facility] [address] [facility] [id number] [place] [address] Sep, [facility] [place] [facility] [address] [facility] [id number] [place] [address] Sep, [facility] [place] [facility] [address] [facility] [id number][place] [address] Aug, [facility] [place] [facility] [address] [facility] [id number][place] [address] Aug, [facility] [place] [facility] [address] [facility] [id number], [place] [address] Aug, [facility] [address] [facility] [id number], [place] [id number] Aug, [facility] [address] [id number], [place] [id number] July, [facility] [place] [facility] [address] [facility] [id number], [place] [address] Jun, [facility] [place] [facility] [address] [id number], [place] [address] Jun, [facility] [address] [id number] [place] [id number] Jun, [facility] [address] [id number] [place] [id number] Jun, [facility] [address] [id number], [place] [id number] Jun, [facility] [address] [facility] [id number], [place] [address] May, [facility] [address] [id number], [place] [address] Feb, [facility] [address] [facility] [id number][place] [address] Feb, [facility] [address] [place] [id number], [place] [id number] Feb, [facility] [address] [facility] [id number][place] [address] Feb, [facility] [address] [place] [id number] [place] [address] Jan, [facility] [address] [id number], [place] [address] July, [facility] [id number] [place] [address] Jan, [facility] [address]00565100[place], [place] [address] Feb, [facility] [address]00565100[place], [place] [address] Jan, [facility] [address]00565100[place], [place] [address] Dec, [facility] [address]00565100[place], [place] [address] Dec, [facility] [address] [id number], [place] [address] Dec, [facility] [address] [id number], [place] [address] Dec, [facility] [address] [id number], [place] [address] Dec, [facility] [address]65100[place], [place] [address] Dec, IMMUNIZATIONS No Known Immunizations SOCIAL HISTORY Never Assessed REASON FOR VISIT EMR-[facility] [place] PLAN OF CARE VITAL SIGNS MEDICATIONS Unknown Medications RESULTS No Results PROCEDURES No Known procedures INSTRUCTIONS MEDICATIONS ADMINISTERED No Known Medications MEDICAL (GENERAL) HISTORY Type Description Date Medical History anxiety/depression Surgical History cysts removed from right foot as a child Hospitalization History childbirth
[2018-09-19] MEDS ORDERED: fentaNYL INJECTION 100 MCG/2 ML AMP IVP ONE (10:30)
[2018-09-19] MEDS ORDERED: HYDROmorphone 2 MG/ML VIAL (DILAUDID) IV ONE (10:30)
[2018-09-19] MEDS ORDERED: MEPERIDINE (DEMEROL) INJ 50 MG/ML IVP ONE (10:30)
--- NOTE | 2018-09-19 10:39 | Anesthesia-General Post-Op ---
General Patient Condition Mental Status/LOC: Same as Preop Cardiovascular: Satisfactory Nausea/Vomiting: Absent Respiratory: Satisfactory Pain: Controlled Complications: Absent Post Op Complications Complications None Follow Up Care/Instructions Patient Instructions None needed. Anesthesia/Patient Condition Patient Condition Patient is doing well, no complaints, stable vital signs, no apparent adverse anesthesia problems. No complications reported per nursing. PACO JOSEPH CRNA Sep 19, 2018 10:39
[2018-09-19] MEDS: LACTATED RINGERS 1,000 ML IV SCH ×2 (10:56→14:50)
--- NOTE | 2018-09-19 11:15 | NUR ---
MAI PAREDES TRANSFERRED TO ROOM 306 VIA CART FROM PACU ACC BY OLGA FOWLER RN AFTER A POSTERIOR COLPORRHAPHY,SOLYX PUBOVAGINAL SLING WITH INCIDENTAL BLADDER PUNCTURE AND REMOVAL OF MESH TODAY BY DR. CHO. TRANSFERRED TO BED WITH ASSIST X3. SPOUSE AT BEDSIDE. MAI PAREDES introduced to surroundings, call light, bed controls, phone, TV, temperature control, lights, meal times, smoking policy, visitor policy, side rail policy, bathrooms and showers. Patient Rights given to patient in the handbook.
--- NOTE | 2018-09-19 11:25 | NUR ---
NOTED LARGE AREA OF BLOODY FLUID UNDER PT WHILE STILL ON CART. VAGINAL PACKING IN PLACE WITH TAIL SATURATED. CBI IN PROCESS WITH WHITMAN COLORED URINE IN ASHTON BAG. REPORT RECEIVED FROM OLGA FOWLER RN. WHILE OLGA FOWLER FLUSHING THE CATHETER THIS RN NOTICED THAT THE FLUID WAS COMING OUT OF THE CATHETER AND THE BALLOON OF THE CATHETER WAS BROKEN AND NOT IN THE PATIENT.
--- NOTE | 2018-09-19 11:55 | NUR ---
DR. CHO IN SURGERY. NOTIFIED OF CATHETER BEING OUT. ORDERS TO REPLACE.
--- NOTE | 2018-09-19 12:05 | NUR ---
DR. CHO TO ROOM.
[2018-09-19] MEDS ORDERED: morphine INJ 10 MG/ML 1ML (SYR OR VIAL) ONE (12:09)
[2018-09-19] MEDS: morphine INJ 10 MG/ML 1ML (SYR OR VIAL) IV PRN ×4 (12:15→23:56)
--- NOTE | 2018-09-19 12:15 | NUR ---
MORPHINE 5 MG IV FOR C/O PAIN RATED 10/10 R/T PRESSURE/PAIN IN PELVIC AND ABD AREA.
--- NOTE | 2018-09-19 12:20 | NUR ---
3-WAY ASHTON CATHETER INSERTED WITH ASEPTIC TECHNIQUE. CBI RESUMED PER GRAVITY FLOW ORDERED. 450 CC CHERRRY URINE EMPTIED PRIOR TO CONNECTING ASHTON BAG. PERICARE WITH PAD CHANGE. PT RESTLESS AND C/O NEEDING TO HAVE A BM. REASSURED OF PACKING GIVING PT THAT SENSATION. AND CHILD IN HALLWAY. GOWN CHANGE AND WARM BLANKETS APPLIED.
--- NOTE | 2018-09-19 13:45 | NUR ---
EMPTIED 575 CC WHITMAN URINE. CBI CONTINUES.
--- NOTE | 2018-09-19 14:47 | NUR ---
MORPHINE 5 MG IV FOR C/O PAIN. CONTINUES TO RATE PAIN BETWEEN 8-10 WITHOUT RELIEF. CONTINUOUS SPO2 MONITORING AND FREQUENT VS.
[2018-09-19] MEDS: SIMETHICONE 80 MG (MYLICON) CHEW PO PRN (14:50)
[2018-09-19] MEDS: ACETAMINOPHEN 500 MG TAB (TYLENOL) PO SCH ×2 (14:51→23:25)
--- NOTE | 2018-09-19 14:59 | NUR ---
B AND O SUPP MN TO SEE IF PT HAVING BLADDER SPASMS. SIMETHICONE ALSO GIVEN AND ROUTINE TYLENOL 1000 MG AT 1451. PT CONTINUES TO ROLL FROM SIDE TO SIDE. HAS REMOVED SCDS AND IS VERY RESTLESS AND STATES SHE CAN'T GET ANY RELIEF.
--- NOTE | 2018-09-19 16:45 | NUR ---
DR. CHO NOTIFIED OF PT'S BP BEING LOW. REQUESTED SHE COME TO THE ROOM. (SHE IS CURRENTLY ON THE FLOOR).
--- NOTE | 2018-09-19 16:50 | NUR ---
LAB HERE TO DRAW CBC. DR. CHO TO ROOM AND ADDING MORE LABS. VAGINAL PACKING D/C'ED. PT STATES SLIGHT IMPROVEMENT IN PAIN/PRESSURE BUT WANTING TO GET UP TO BSC TO TRY TO HAVE A BM. DR. CHO REMAINS IN THE ROOM.
[2018-09-19 17:00] LABS: BASOPHILS % (AUTO) 0 % (0-10); EOSINOPHILS % (AUTO) 0 % (0-10); HEMATOCRIT 24 % (35-52); HEMOGLOBIN 7.9 G/DL (11.5-16.0); LYMPHOCYTES # (AUTO) 0.4 X 10^3 (1.0-4.0); LYMPHOCYTES % (AUTO) 3 % (12-44); MEAN CORPUSCULAR HEMOGLOBIN 29 PG (25-34); MEAN CORPUSCULAR HGB CONC 33 G/DL (32-36); MEAN CORPUSCULAR VOLUME 88 FL (80-99); MEAN PLATELET VOLUME 9.7 FL (7.4-10.4); MONOCYTES # (AUTO) 0.1 X 10^3 (0.0-1.0); MONOCYTES % (AUTO) 1 % (0-12); NEUTROPHILS # (AUTO) 12.3 X 10^3 (1.8-7.8); NEUTROPHILS % (AUTO) 96 % (42-75); PLATELET COUNT 235 10^3/uL (130-400); WHITE BLOOD COUNT 12.8 10^3/uL (4.3-11.0)
--- NOTE | 2018-09-19 17:00 | NUR ---
ASSISTED TO BSC. PT STATES SHE FEELS FAINT. CALLED FOR ASSISTANCE. PT ASSISTED BACK TO BED. GOWN CHANGE. PERICARE PERFORMED. WARM BLANKETS APPLIED.
--- NOTE | 2018-09-19 17:10 | NUR ---
LAB RETURNED TO ROOM TO DRAW ADDITIONAL BLOOD.
[2018-09-19 17:14] LABS: INR 1.2 (0.8-1.4); PROTHROMBIN TIME PATIENT 15.6 SEC (12.2-14.7)
--- NOTE | 2018-09-19 17:20 | NUR ---
CBC RESULTS CALLED TO DR. CHO.
--- NOTE | 2018-09-19 17:20 | NUR ---
DR. CHO NOTIFIED OF PT'S BLOOD SUGAR RESULTS OF 261 ON CHEM PANEL. ORDER TO ALLOW PT TO EAT AND REPEAT IN 1 HOUR AFTER FINISHES EATING. PT INFORMED OF PLAN OF CARE. Addendum: 09/19/18 at 2049 by NASIR SOLORZANO RN TIME SHOULD BE 1750.
[2018-09-19 17:23] LABS: ALANINE AMINOTRANSFERASE 10 U/L (0-55); ALBUMIN 3.2 GM/DL (3.2-4.5); ALKALINE PHOSPHATASE 48 U/L (40-136); BILIRUBIN,TOTAL 0.6 MG/DL (0.1-1.0); BUN/CREATININE RATIO 9; CARBON DIOXIDE 25 MMOL/L (21-32); CHLORIDE 106 MMOL/L (98-107); CREATININE SERUM 0.98 MG/DL (0.60-1.30); GFR ESTIMATED > 60; GLUCOSE 261 MG/DL (70-105); POTASSIUM 3.8 MMOL/L (3.6-5.0); SODIUM 140 MMOL/L (135-145); TOTAL PROTEIN 5.2 GM/DL (6.4-8.2)
--- NOTE | 2018-09-19 18:00 | NUR ---
HEATING PAD TO ABDOMEN/BACK PLACED BY PT.
--- NOTE | 2018-09-19 18:11 | NUR ---
PT EATING A SHAKE. OXYIR 5 MG P.O. FOR C/O PELVIC AND BACK PAIN.
[2018-09-19 18:30] LABS: NEUTROPHILS % (MANUAL) 79 %
[2018-09-19 18:31] LABS: ANISOCYTOSIS SLIGHT; BAND NEUTROPHILS 15 %; LYMPHOCYTES % (MANUAL) 5 %; MONOCYTES % (MANUAL) 1 %; SCHISTOCYTES SLIGHT
[2018-09-19 18:32] LABS: ELLIPT/OVALOCYTES SLIGHT
--- NOTE | 2018-09-19 19:01 | NUR ---
FSBS 294 MGS/DL.
[2018-09-19] MEDS: inSUlin ASPART (NovoLOG) 1 UNIT/0.01 ML (CHARGE PER UNIT) SC SCH (19:18)
--- NOTE | 2018-09-19 19:18 | NUR ---
NOVOLOG 8 UNITS SUBQ IN RIGHT UPPER ARM PER SLIDING SCALE B.
--- NOTE | 2018-09-19 19:45 | NUR ---
UPDATE GIVEN TO DR. CHO. ORDERS RECEIVED FOR BLOOD SUGARS.
[2018-09-19] MEDS ORDERED: MUPIROCIN 2% OINT 22 GM (BACTROBAN) TUBE NSEACH SCH (21:00)
[2018-09-19] MEDS ORDERED: LEVOFLOXACIN 500 MG/100 ML IV 100 ML IV SCH (21:00)
[2018-09-19] MEDS: DOCUSATE SODIUM 100 MG (COLACE) CAP PO SCH (23:25)
[2018-09-20] VITALS (17 sets, daily range): BP systolic 86–113; BP diastolic 34–64
[2018-09-20] MEDS ORDERED: diphenhydrAMINE 25 MG TAB (BENADRYL) PO PRN (02:15)
[2018-09-20] MEDS: morphine INJ 10 MG/ML 1ML (SYR OR VIAL) IV PRN (04:40)
[2018-09-20 05:31] LABS: BASOPHILS % (AUTO) 0 % (0-10); EOSINOPHILS % (AUTO) 0 % (0-10); LYMPHOCYTES # (AUTO) 0.9 X 10^3 (1.0-4.0); LYMPHOCYTES % (AUTO) 8 % (12-44); MEAN CORPUSCULAR HEMOGLOBIN 28 PG (25-34); MEAN CORPUSCULAR HGB CONC 33 G/DL (32-36); MEAN CORPUSCULAR VOLUME 87 FL (80-99); MEAN PLATELET VOLUME 10.2 FL (7.4-10.4); MONOCYTES # (AUTO) 0.6 X 10^3 (0.0-1.0); MONOCYTES % (AUTO) 5 % (0-12); NEUTROPHILS # (AUTO) 10.6 X 10^3 (1.8-7.8); NEUTROPHILS % (AUTO) 88 % (42-75); PLATELET COUNT 192 10^3/uL (130-400); RED CELL DISTRIBUTION WIDTH 12.2 % (10.0-14.5); WHITE BLOOD COUNT 12.1 10^3/uL (4.3-11.0)
[2018-09-20 05:33] LABS: HEMATOCRIT 19 % (35-52); HEMOGLOBIN 6.2 G/DL (11.5-16.0)
[2018-09-20] MEDS ORDERED: NS IV 1000 ML 1,000 ML ONE (05:42)
--- NOTE | 2018-09-20 05:45 | NUR ---
Tucker from lab called unit, resulted critical lab values to this rn.
[2018-09-20] MEDS: inSUlin ASPART (NovoLOG) 1 UNIT/0.01 ML (CHARGE PER UNIT) SC SCH (06:23)
--- NOTE | 2018-09-20 06:48 | NUR ---
notified of hgb and hct, orders for 2 units of blood, give tylenol when scheduled, and 50mg benadryl po at 0730, stop MS IV, and 5mg Increase Oxy IR to 10mg. Orders repeated to physician and confirmed. Orders updated.
--- NOTE | 2018-09-20 07:06 | NUR ---
Pt c/o indigestion, as proposal specialist regular issue, physician updated and pt requesting formulary of her home dosing of Dexlent. Orders for prilosec 20mg. Nonformulary when attempting to order. [place] for pharmacy contacted by this rn, informed protonix is house formulary substitute. Orders entered and updated.
[2018-09-20] MEDS ORDERED: diphenhydrAMINE 25 MG TAB (BENADRYL) PO ONE ×2 (07:30→11:30)
[2018-09-20] MEDS: ACETAMINOPHEN 500 MG TAB (TYLENOL) PO SCH ×2 (07:47→17:00)
--- NOTE | 2018-09-20 07:51 | Anesthesia-General Post-Op ---
General Patient Condition Mental Status/LOC: Same as Preop Cardiovascular: Satisfactory Nausea/Vomiting: Absent Respiratory: Satisfactory Pain: Controlled Complications: Absent Post Op Complications Complications None Follow Up Care/Instructions Patient Instructions None needed. Anesthesia/Patient Condition Patient Condition Patient is doing well, no complaints, stable vital signs, no apparent adverse anesthesia problems. No complications reported per nursing. PACO JOSEPH CRNA Sep 20, 2018 07:51
[2018-09-20] MEDS: DOCUSATE SODIUM 100 MG (COLACE) CAP PO SCH (07:57)
[2018-09-20] MEDS: SIMETHICONE 80 MG (MYLICON) CHEW PO PRN (07:58)
--- NOTE | 2018-09-20 08:00 | NUR ---
RECEIVING 1ST UNIT OF BLOOD. VSS. ASSESSMENT COMPLETED. PT GIVEN PAIN OXYIR 10MG AT 0758. CBI CONTINUES. URINE NOT BRIGHT RED YESTERDAY. DARK TEA COLORED WITH REDDISH CAST.
--- NOTE | 2018-09-20 08:27 | NUR ---
1ST UNIT PRC'S INFUSED. VSS.
--- NOTE | 2018-09-20 08:37 | Progress Note ---
Standard Progress Note Progress Notes/Assess & Plan Date Seen by a Provider: Sep 20, 2018 Time Seen by a Provider: 08:35 Progress/Assessment & Plan There has been Very bloody urine. This was improved with CBI. After the catheter was noted to be out of the bladder and then replaced the CBI was s uccessful to dilute the bleeding. It is much improved today. However, her hemoglobin has dropped. Will plan transfusion today. 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 she is otherwise doing well. Pain is controlled with pain medication and Tylenol. Laboratory Tests Test 09/19/18 16:52 09/19/18 19:01 09/20/18 05:05 09/20/18 06:18 Range/Units White Blood Count 12.8 H 12.1 H 4.3-11.0 10^3/uL Red Blood Count 2.73 L 2.18 L 4.35-5.85 10^6/uL Hemoglobin 7.9 L 6.2 #*L 11.5-16.0 G/DL Hematocrit 24 L 19 *L 35-52 % Mean Corpuscular Volume 88 87 80-99 FL Mean Corpuscular Hemoglobin 29 28 25-34 PG Mean Corpuscular Hemoglobin Concent 33 33 32-36 G/DL Red Cell Distribution Width 12.0 12.2 10.0-14.5 % Platelet Count 235 192 130-400 10^3/uL Mean Platelet Volume 9.7 10.2 7.4-10.4 FL Neutrophils (%) (Auto) 96 H 88 H 42-75 % Lymphocytes (%) (Auto) 3 L 8 L 12-44 % Monocytes (%) (Auto) 1 5 0-12 % Eosinophils (%) (Auto) 0 0 0-10 % Basophils (%) (Auto) 0 0 0-10 % Neutrophils # (Auto) 12.3 H 10.6 H 1.8-7.8 X 10^3 Lymphocytes # (Auto) 0.4 L 0.9 L 1.0-4.0 X 10^3 Monocytes # (Auto) 0.1 0.6 0.0-1.0 X 10^3 Eosinophils # (Auto) 0.0 0.0 0.0-0.3 10^3/uL Basophils # (Auto) 0.0 0.0 0.0-0.1 10^3/uL Neutrophils % (Manual) 79 % Lymphocytes % (Manual) 5 % Monocytes % (Manual) 1 % Band Neutrophils 15 % Anisocytosis SLIGHT Elliptocytes SLIGHT Rouleau Schistocytes SLIGHT Prothrombin Time 15.6 H 12.2-14.7 SEC INR Comment 1.2 0.8-1.4 Sodium Level 140 135-145 MMOL/L Potassium Level 3.8 3.6-5.0 MMOL/L Chloride Level 106 98-107 MMOL/L Carbon Dioxide Level 25 21-32 MMOL/L Anion Gap 9 5-14 MMOL/L Blood Urea Nitrogen 9 7-18 MG/DL Creatinine 0.98 0.60-1.30 MG/DL Estimat Glomerular Filtration Rate > 60 BUN/Creatinine Ratio 9 Glucose Level 261 H 70-105 MG/DL Calcium Level 8.0 L 8.5-10.1 MG/DL Corrected Calcium 8.6 8.5-10.1 MG/DL Total Bilirubin 0.6 0.1-1.0 MG/DL Aspartate Amino Transf (AST/SGOT) 10 5-34 U/L Alanine Aminotransferase (ALT/SGPT) 10 0-55 U/L Alkaline Phosphatase 48 40-136 U/L Total Protein 5.2 L 6.4-8.2 GM/DL Albumin 3.2 3.2-4.5 GM/DL Glucometer 294 H 100 70-110 MG/DL Lungs CTA Heart RRR Abdomen is soft and mildly distended Final Diagnosis Rectocele, stress incontinence bladder injury anticoagulated HENRI CHO DO Sep 20, 2018 08:36
--- NOTE | 2018-09-20 08:41 | NUR ---
2ND UNIT PRC'S STARTED. SEE TRANSFUSION RECORD. UNIT WOULD NOT SCAN. BLOOD BANK NOTIFIED. ALL CLERICAL CHECKS CORRECT WELL CHECK IN BLOOD BANK WITH THIS RN. OVERRIDE ADVISED 1ST UNIT HAD THE SAME PROBLEM. BLOOD BANK TO INVESTIGATE.
--- NOTE | 2018-09-20 08:41 | NUR ---
MANUAL CLERICAL CHECK PERFORMED AT BEDSIDE WITH THIS RN AND 2ND RN (Suhas ANDREW).
--- NOTE | 2018-09-20 08:45 | NUR ---
DR. CHO HERE TO SEE PT.
[2018-09-20] MEDS ORDERED: PANTOPRAZOLE 20 MG TABLET (PROTONIX) PO SCH (09:00)
[2018-09-20] MEDS ORDERED: DOCUSATE SODIUM 100 MG (COLACE) CAP PO SCH (09:00)
--- NOTE | 2018-09-20 09:00 | NUR ---
CBI STOPPED PER DR. MARQUIS CUBA.
--- NOTE | 2018-09-20 10:55 | NUR ---
2ND UNIT PRC'S INFUSED. VSS. SEE TRANSFUSION RECORD.
--- NOTE | 2018-09-20 11:30 | NUR ---
2H PP BS 92 MGS/DL.
--- NOTE | 2018-09-20 12:51 | NUR ---
OXYIR 10 MG P.O. FOR C/O PAIN IN BOTTOM AND LOW BACK. PT CONSISTENTLY RATES PAIN BETWEEN 8-9. PT HAS BEEN DOZING. S.O. ASLEEP AT BEDSIDE.
--- NOTE | 2018-09-20 13:25 | NUR ---
3 WAY ASHTON D/C'ED WITH 500 CC REDDISH TEA COLORED URINE IN THE BAG. PERICARE PERFORMED.
--- NOTE | 2018-09-20 13:30 | NUR ---
#16 FR ASHTON CATHETER INSERTED WITH ASEPTIC TECHNIQUE WITH URINEMETER. 150 CC URINE RETURNED. PERICARE PERFORMED WITH PAD AND UNDERWEAR APPLIED. SCANT DARK RED VAGINAL SPOTTING ON PAD.
--- NOTE | 2018-09-20 13:45 | NUR ---
AMBULATED IN THE [place] WITH STANDBY ASSISTANCE AND PUSHING W/C. MOVING WELL. PT MADE COMPLETE ALUTIIQ OF PP UNIT.
--- NOTE | 2018-09-20 14:48 | NUR ---
RESTING IN BED. TEXTING ON PHONE. SPOUSE WENT TO GET PT FOOD.
[2018-09-20 15:08] LABS: BASOPHILS % (AUTO) 0 % (0-10); EOSINOPHILS % (AUTO) 0 % (0-10); HEMATOCRIT 21 % (35-52); HEMOGLOBIN 7.1 G/DL (11.5-16.0); LYMPHOCYTES # (AUTO) 1.4 X 10^3 (1.0-4.0); LYMPHOCYTES % (AUTO) 18 % (12-44); MEAN CORPUSCULAR HEMOGLOBIN 29 PG (25-34); MEAN CORPUSCULAR HGB CONC 34 G/DL (32-36); MEAN CORPUSCULAR VOLUME 87 FL (80-99); MEAN PLATELET VOLUME 9.3 FL (7.4-10.4); MONOCYTES # (AUTO) 0.3 X 10^3 (0.0-1.0); MONOCYTES % (AUTO) 4 % (0-12); NEUTROPHILS # (AUTO) 6.2 X 10^3 (1.8-7.8); NEUTROPHILS % (AUTO) 78 % (42-75); PLATELET COUNT 130 10^3/uL (130-400); RED CELL DISTRIBUTION WIDTH 12.9 % (10.0-14.5); WHITE BLOOD COUNT 7.9 10^3/uL (4.3-11.0)
--- NOTE | 2018-09-20 15:35 | NUR ---
DR. CHO NOTIFIED OF CBC RESULTS. UPDATE GIVEN ABOUT AMBULATION AND C/O PAIN REMAINING THE SAME. PT WANTING TO GO HOME. WILL PLAN TO DISCHARGE WHEN ROUNDS AFTER CLINIC.
--- NOTE | 2018-09-20 16:30 | NUR ---
PT EATING FOOD BROUGHT IN BY SPOUSE.
--- NOTE | 2018-09-20 17:05 | NUR ---
PT REQUESTED IV TO BE TAKEN OUT. D/C'ED R/T PLAN TO GO HOME TONIGHT. UP TO THE BATHROOM TO TRY TO HAVE A BM. SPOUSE AT SIDE. AMBULATING WELL WITHOUT C/O DIZZINESS.
[2018-09-20] MEDS ORDERED: OXC5T PO (17:22)
[2018-09-20] MEDS ORDERED: MUPI22OI2 NSEACH (17:22)
[2018-09-20] MEDS ORDERED: BO30SU PR (17:22)
--- NOTE | 2018-09-20 17:25 | Discharge Inst-Women's Service ---
Discharge Inst-Women's Serv Depart Medication/Instructions New, Converted or Re-Newed RX: RX on Chart Final Diagnosis stress incontinence anticoagulated bladder injusty rectocele Consults/Follow Up Additional Follow Up: Yes Activity Activity: Activity as Tolerated Driving Instructions: No Driving for 1 Week NO SMOKING: NO SMOKING Nothing Inside Vagina: No Douching, No [place], No Tampons Diet Discharge Diet: No Restrictions Symptoms to Report to : Swelling Increased, Bleeding Excessive, Pain Increased, Fever Over 101 Degrees F, Vaginal Bleeding Increase, Cramps in Feet or Legs, Vaginal Discharge Foul For Any Problems or Questions: Contact Your Physician Skin/Wound Care Bathing Instructions: HENRI Cunha DO Sep 20, 2018 17:25
--- NOTE | 2018-09-20 17:45 | NUR ---
DR. CHO IN TO SEE PT. PLAN FOR DISCHARGE. SUPPLIES GATHERED FOR PT. (2 LEG BAGS, GRADUATE)
--- NOTE | 2018-09-20 18:15 | NUR ---
DISCHARGE INSTRUCTIONS REVIEWED WITH COPY TO PT. STATES UNDERSTANDING OF ALL INSTRUCTIONS AND NEED TO F/U DR. CHO INSTRUCTED.
--- NOTE | 2018-09-20 18:20 | NUR ---
DISMISSED AMB FROM [facility] IN STABLE CONDITION TO [facility] BY SPOUSE AND Sheridan MCKEON RN.
== END 2018-09-20 18:20 | disposition home or self-care (01) | DRG 748 ==
LOC: WS 07:00 → SDC 07:00 → EDSTATUS 09:00 → WS 10:07 → SDC 10:07 → WS 10:07 → UNDOADMIN 10:07 → WS 11:15 → SDC 11:15 → UNDODISIN 09-20 18:20 → WS 09-20 18:20 → SDC 09-20 18:20
PROVIDERS: ADMIT Obstetrics & Gynecology; ATTEND Obstetrics & Gynecology
PROC: 0TSD0ZZ Reposition Urethra, Open Approach (ICD-10-PCS; 2018-09-19)
PROC: 0TP Urinary System, Removal (ICD-10-PCS; 2018-09-19)
PROC: 0JQC0ZZ Repair Pelvic Region Subcutaneous Tissue and Fascia, Open Approach (ICD-10-PCS; principal; 2018-09-19 08:30)
DX: N81.6 Rectocele (principal); N81.10 Cystocele, unspecified; N39.3 Stress incontinence (female) (male); N99.71 Accidental puncture and laceration of a genitourinary system organ or structure during a genitourinary system procedure; R31.9 Hematuria, unspecified; I49.3 Ventricular premature depolarization; I47.1 Supraventricular tachycardia; I49.5 Sick sinus syndrome; I10 Essential (primary) hypertension; Z79.01 Long term (current) use of anticoagulants; Z86.718 Personal history of other venous thrombosis and embolism; Z86.711 Personal history of pulmonary embolism; Z95.0 Presence of cardiac pacemaker
CPT/HCPCS: 36415; 80053; 82962; 85007; 85025; 85027; 85610; 86850; 86900; 86901; 86920; 94664

== ENCOUNTER → 2018-09-28 | Outpatient (CLI) | payer OTHER ==
[~2018-09-28] MED LIST changes: +BO30SU PR; +MUPI22OI2 NSEACH
--- NOTE | 2018-09-28 10:01 | Diagnostic Imaging Report ---
INDICATION: Pre-MRI screening for pacemaker. TIME OF EXAMINATION: 8:23 AM. COMPARISON: 12/08/2017. FINDINGS: The dual lead left subclavian cardiac pacemaker has lead tips in the region of the right atrium and right ventricle. No abandoned leads are identified. The lungs are clear. There is no effusion or pneumothorax. IMPRESSION: No evidence of abandoned pacemaker leads. Dictated by: Dictated on workstation # [id number]
--- NOTE | 2018-09-28 10:10 | Diagnostic Imaging Report ---
PROCEDURE: MRI lumbar spine. TECHNIQUE: Multiplanar, multisequence MRI of the lumbar spine was performed without contrast. INDICATION: Low back pain. COMPARISON: No prior studies are available for comparison. FINDINGS: Curvature of the lumbar spine is normal. There is very minimal retrolisthesis of L2 on L3, L3 on L4 and L4 on L5. Vertebral body heights are maintained. The marrow signal intensity is normal. No geographic marrow lesion or acute compression fracture is seen. There is some mild disc desiccation and mild disc space narrowing at the L3-4 and L4-5 levels. Conus is unremarkable at the L1 level. T12-L1: Central canal is patent. The right neural foramen is patent. There is some mild left far lateral broad-based disc bulging resulting in very slight left neural foraminal narrowing. L1-2: Central canal is widely patent. Neural foramina are widely patent. L2-3: There is broad-based disc bulging as well as ligamentous thickening and facet changes. Bulging does indent the ventral thecal sac and produce mild to moderate central canal narrowing. There is some linear signal within the posterior annulus at the midline consistent with annular tear. No significant neural foraminal stenosis is seen. L3-4: Broad-based disc bulging is seen indenting the ventral thecal sac. This does produce mild narrowing of the canal. There is ligamentous thickening and facet changes. No significant neural foraminal narrowing is seen. There is lateral recess narrowing bilaterally. L4-5: Broad-based disc bulging is seen indenting the ventral thecal sac. There is very mild narrowing of the canal. There are hypertrophic facet changes present. Bilateral lateral recess stenosis is seen. There is mild bilateral neural foraminal narrowing. L5-S1: Broad-based disc/osteophyte complex is present but central canal is patent. Neural foramina and lateral recesses are patent. Paraspinous tissues are unremarkable. IMPRESSION: Multilevel lumbar spondylosis with multilevel central canal, lateral recess and neural foraminal narrowing described level by level above. Dictated by: Dictated on workstation # [id number]
== END ==
LOC: RAD 09-15 08:09
PROVIDERS: ATTEND Nurse Practitioner Family
DX: Z01.818 Encounter for other preprocedural examination (principal); M48.061 Spinal stenosis, lumbar region without neurogenic claudication; M47.816 Spondylosis without myelopathy or radiculopathy, lumbar region; M51.26 Other intervertebral disc displacement, lumbar region; M51.25 Other intervertebral disc displacement, thoracolumbar region; M51.36 Other intervertebral disc degeneration, lumbar region; Z95.0 Presence of cardiac pacemaker
CPT/HCPCS: 71045; 72148

== ENCOUNTER → 2018-10-11 | Outpatient (CLI) | payer OTHER ==
[~2018-10-11] MED LIST changes: +CATHETER FLUSH 10 ML SYR IV PRN; +IOHEXOL 300 MG/ML 50 ML (OMNIPAQUE 300) VIAL IV ONE
--- NOTE | 2018-10-11 17:32 | Diagnostic Imaging Report ---
EXAMINATION: IVP. INDICATION: Ureter injury. FINDINGS: There are no prior IVP examinations available for comparison. The CT abdomen/pelvis exam of 07/20/2018 failed to show any sign of an obstruction of either collecting system. There was no indirect evidence for a ureteral injury either. The preliminary film of this exam reveals that there is gas in both the large and small bowel in a nonspecific fashion. There is also a fair amount of fecal material within the transverse colon. Numerous phleboliths are seen in the pelvis, primarily on the left. There is also an 8 mm calcification just superior to the left iliac crest. Following injection of the contrast, there was prompt excretion by both kidneys. There is no evidence for renal mass, although renal contours are obscured by the bowel gas and fecal material. The kidneys do not appear to be obstructed. There is no sign of an injury to the ureters and there is no abnormal collection of fluid that would suggest extravasation or a fistula. The urinary bladder is only partially distended and consequent difficult to evaluate. There is no obvious bladder abnormality. Following voiding, there was near-complete clearing of the contrast from the bladder. IMPRESSION: 1. There is no evidence for obstruction of either collecting system. 2. There is no abnormal accumulation of the contrast to suggest extravasation or a fistula. 3. These results were discussed with Dr. Lexus Telles. Dictated by: Dictated on workstation # [id number]
== END ==
LOC: RAD 13:46
PROVIDERS: ATTEND Obstetrics & Gynecology
DX: S37.10XA Unspecified injury of ureter, initial encounter (principal); N99.81 Other intraoperative complications of genitourinary system
CPT/HCPCS: 74415

== ENCOUNTER → 2020-06-06 | Outpatient (CLI) | payer OTHER ==
[~2020-06-06] MED LIST changes: -ACET-77 PO; +ACET-78 PO; -CATHETER FLUSH 10 ML SYR IV PRN; +ESCI-2 PO; -ESCI10TA55 PO; +ESCI20TA39 PO; -ESCI20TA45 PO; +HYDR-34 PO; -HYDR-3816 PO; -IOHEXOL 300 MG/ML 50 ML (OMNIPAQUE 300) VIAL IV ONE; -METO-387 PO; +MTP25TSR PO; -PANT40TA3 PO; +PANT40TA52 PO; -TRAM50TA2 PO; -TRAZ-222 PO; +TRM50T PO; +TRZ50T PO; -ZOLP6.2525 PO; +ZOLP6.2538 PO
--- NOTE | 2020-06-06 12:52 | Diagnostic Imaging Report ---
Indication: Pre MRI screening. Time of exam 12:28 PM Heart size normal. There is a dual-lead left subclavian cardiac pacemaker. No abandoned leads are identified. Lungs are clear. The pulmonary vascularity is normal. No infiltrate, effusion or pneumothorax is detected. IMPRESSION: No evidence of abandoned leads or lead fracture on this pre-MRI screening study. Dictated by: Dictated on workstation # [id number]
--- NOTE | 2020-06-06 14:25 | Diagnostic Imaging Report ---
MRI LT UPPER EXT JOINT W/O TECHNIQUE: Multiplanar, multisequence MR imaging of the left shoulder was performed without contrast. COMPARISON: None available. INDICATION: Left shoulder pain. FINDINGS: Rotator cuff: The supraspinatus, infraspinatus, teres minor, and subscapularis are all intact. No rotator cuff muscle edema or atrophy. Glenoid labrum: No osseous labral separation or paralabral cyst. Long head of biceps: Long head of biceps is normally positioned within the bicipital groove. The intracapsular segment is intact. Bones and cartilage: Humeral head is normal in morphology without fracture or focal osseous lesion. No glenohumeral chondromalacia. The acromioclavicular joint is normal in alignment without significant degenerative change. Soft tissues: No glenohumeral joint effusion. No MRI findings to suggest adhesive capsulitis. No fluid or inflammatory like signal within the subacromial/subdeltoid space to indicate bursitis. IMPRESSION: 1. No rotator cuff tear. 2. Long head of biceps is intact. 3. No abnormality within the glenoid labrum by non arthrogram imaging. Please note that nondisplaced labral tears can be occult on non arthrogram imaging. Dictated by: Dictated on workstation # [id number]
== END ==
LOC: RAD 06-05 10:09
PROVIDERS: ATTEND Nurse Practitioner Family
DX: M25.512 Pain in left shoulder (principal)
CPT/HCPCS: 71045; 73221

== ENCOUNTER → 2020-06-16 | Outpatient (CLI) | payer OTHER | LOC: ORTHO 10:10 | PROVIDERS: ATTEND Orthopaedic Surgery | DX: M75.02 Adhesive capsulitis of left shoulder (principal); D64.9 Anemia, unspecified; I10 Essential (primary) hypertension | CPT/HCPCS: 20610; G0463 ==

== ENCOUNTER → 2020-07-16 | Outpatient (CLI) | payer OTHER | LOC: CARD 09:15 | PROVIDERS: ATTEND Physician Assistant | DX: I47.1 Supraventricular tachycardia (principal) | CPT/HCPCS: 93306 ==

== ENCOUNTER 2020-11-22 19:33 | Emergency (ER) | payer OTHER ==
[~2020-11-22] VITALS: Ht 177.8 cm; Wt 72.4 kg
[2020-11-22] MEDS ORDERED: LACTATED RINGERS 1,000 ML IV STA (19:59)
[2020-11-22] MEDS ORDERED: LACTATED RINGERS 1,000 ML IV ONE (20:01)
--- NOTE | 2020-11-22 20:07 | ED General ---
General Stated Complaint: HAS PACEMAKER/SOB/MUSCLE ACHES/DIZZINESS/FATIGUE Source of Information: Patient Exam Limitations: No Limitations History of Present Illness Date Seen by Provider: Nov 22, 2020 Time Seen by Provider: 19:48 Initial Comments Here with report of feeling generalized fatigue, short of breath and dizziness. Patient does have history of pacemaker. Also has history of gastric sleeve. She has sleep difficulty as well as ADD and mild bipolar. Was recently started on Topamax about 3 weeks ago. Denies swelling or pain in her legs. Does have history of blood clots. She has been vaccinated for COVID-19 in July. Denies Covid contact. Denies fever chills. Denies nausea, vomiting or diarrhea but does have some constipation. Denies dysuria. States symptoms are worse when getting up and walking. She reports eating and drinking okay although admits to lower protein due to the gastric sleeve. Timing/Duration: Changing Over Time, Other (3 weeks) Severity: Mild, Moderate Associated Systoms: No Cough, No Fever/Chills, No Nausea/Vomiting; Shortness of Air, Weakness Allergies and Home Medications Allergies Coded Allergies: No Known Drug Allergies (Unverified , 09/15/18) Patient Home Medication List Home Medication List Reviewed: Yes Acetaminophen (Acetaminophen) 500 Mg Tablet, 1,000 MG PO Q8HR Prescribed by: HENRI CHO on 07/20/18 1205 Apixaban (Eliquis) 5 Mg Tablet, 5 MG PO BID, (Reported) Entered as Reported by: FELICIA HSU on 01/04/18 1246 Belladonna Alkaloids/Opium (Belladonna-Opium 16.2-30 Supp) 30 Mg Supp, 30-60 MG SD Q4H PRN for Bladder Spasms Prescribed by: HENRI CHO on 09/20/18 1722 Buspirone HCl (Buspirone HCl) 15 Mg Tablet, 15 MG PO TID, (Reported) Entered as Reported by: FELICIA HSU on 01/04/18 1246 Clonazepam (Clonazepam) 1 Mg Tablet, 1 MG PO BID PRN for ANXIETY, (Reported) Entered as Reported by: SANDRO DEL TORO on 07/24/18 2327 Dexlansoprazole (Dexilant) 60 Mg Leonardo., 60 MG PO DAILY, (Reported) Entered as Reported by: FELICIA HSU on 04/20/18 0953 Docusate Sodium (Docusate Sodium) 100 Mg Capsule, 100 MG PO BID PRN for CONSTIPATION-1ST LINE Prescribed by: HENRI CHO on 07/20/18 1205 Mupirocin (Mupirocin) 22 Gm Oint...g., 0 GM NSEACH BID Prescribed by: HENRI CHO on 09/20/18 1722 Oxycodone Hcl (Oxycodone IR) 5 Mg Tab, 10 MG PO Q6H PRN for PAIN-MODERATE Prescribed by: HENRI CHO on 09/20/18 1722 Pantoprazole Sodium (Pantoprazole Sodium) 40 Mg Tablet.dr, 40 MG PO BID, (Reported) Entered as Reported by: SOFI VILLARREAL on 08/03/16 0938 Potassium Chloride (Potassium Chloride) 20 Meq Tablet.er, 20 MEQ PO BID, (Reported) Entered as Reported by: FELICIA HSU on 01/04/18 1246 Sucralfate (Carafate) 1 Gm Tablet, 1 GM PO ACHS, (Reported) Entered as Reported by: FELICIA HSU on 06/01/18 1532 Tramadol HCl (Tramadol HCl) 50 Mg Tablet, 50 MG PO Q6H PRN for SPASMS, (Reported) Entered as Reported by: FELICIA HSU on 09/15/18 0849 Zolpidem Tartrate (Zolpidem Tartrate) 10 Mg Tablet, 10 MG PO HS, (Reported) Entered as Reported by: SOFI VILLARREAL on 02/23/18 1323 Review of Systems Review of Systems Constitutional: see HPI, dizziness, weakness EENTM: no symptoms reported Respiratory: No cough, No short of breath Cardiovascular: No chest pain, No edema, No palpitations Gastrointestinal: constipation; No nausea, No vomiting All Other Systems Reviewed Negative Unless Noted: Yes Past Sxropuh-Yydiik-Oziovo Hx Patient Social History Tobacco Use?: No Substance use?: No Alcohol Use?: No Immunizations Up To Date Tetanus Booster (TDap): Unknown PED Vaccines UTD: No Seasonal Allergies Seasonal Allergies: Yes Past Medical History Surgeries: Yes Abdominal, Bladder Surgery, Gallbladder, Hysterectomy, Oophorectomy, Pacemaker Respiratory: Yes (P.E. 2017; DVT FROM PICC LINE/SUBCLAVIAN LINE) Pulmonary Embolism Currently Using CPAP: No Currently Using BIPAP: No Cardiac: Yes Deep Vein Thrombosis, Hypertension, Irregular Heartbeat, Syncope Neurological: Yes Headaches /Migraines Reproductive Disorders: Yes (MENORRHAGIA, CHRONIC PELVIC PAIN, PROLAPSE) Female Reproductive Disorders: Denies, Menstrual Problems [employer] WORK[employer] History: Hysterectomy, IUD Sexually Transmitted Disease: No HIV/AIDS: No Genitourinary: Yes (CYSTOCOELE; URINARY INCONTINENCE) Gastrointestinal: Yes (GASTRIC SLEEVE 2017 WITH MANY COMPLICATIONS) Gastroesophageal Reflux Musculoskeletal: Yes Arthritis, Chronic Back Pain Endocrine: No HEENT: No (PT WEARS GLASSES) Loss of Vision: Bilateral Hearing Impairment: Denies Cancer: No Psychosocial: Yes Anxiety, Depression Integumentary: No Blood Disorders: Yes (HX ANEMIA, BLOOD CLOTS) Adverse Reaction/Blood Tranf: No (N/A) Family Medical History Cardiovascular disease 19 MOTHER G8 SISTER Completed stroke 19 FATHER Diabetes mellitus 19 MOTHER Hypertension 19 MOTHER No Pertinent Family Hx Physical Exam Vital Signs Vital Signs - First Documented 11/22/20 20:19 Temp 36.8 Pulse 84 Resp 20 B/P (MAP) 130/84 (99) Pulse Ox 100 O2 Delivery Room Air Capillary Refill : Height, Weight, BMI Height: 5'10.00" Weight: 140lbs. 4.0oz. 63.639581mh; 20.1 BMI Method:Stated General Appearance: No Apparent Distress, WD/WN HEENT: PERRL/EOMI, Pharynx Normal Neck: Non Tender, Supple Respiratory: Lungs Clear, Normal Breath Sounds Cardiovascular: Regular Rate, Rhythm, No Murmur Gastrointestinal: Non Tender, Soft Back: Normal Inspection, No CVA Tenderness, No Vertebral Tenderness Extremity: Normal Inspection, Normal Range of Motion, Non Tender, No Calf Tenderness, No Pedal Edema Neurologic/Psychiatric: Alert, Oriented x3 Skin: Normal Color, Warm/Dry Progress/Results/Core Measures Suspected Sepsis SIRS Temperature: Pulse: Respiratory Rate: Laboratory Tests 11/22/20 19:56: White Blood Count 5.2 Blood Pressure / Mean: Laboratory Tests 11/22/20 19:56: Creatinine 1.05, Platelet Count 238, Total Bilirubin 0.9 Results/Orders Lab Results Laboratory Tests Test 11/22/20 19:56 11/22/20 20:49 Range/Units White Blood Count 5.2 4.3-11.0 10^3/uL Red Blood Count 4.24 3.80-5.11 10^6/uL Hemoglobin 12.9 11.5-16.0 g/dL Hematocrit 39 35-52 % Mean Corpuscular Volume 91 80-99 fL Mean Corpuscular Hemoglobin 30 25-34 pg Mean Corpuscular Hemoglobin Concent 33 32-36 g/dL Red Cell Distribution Width 12.4 10.0-14.5 % Platelet Count 238 130-400 10^3/uL Mean Platelet Volume 9.6 9.0-12.2 fL Immature Granulocyte % (Auto) 0 % Neutrophils (%) (Auto) 66 42-75 % Lymphocytes (%) (Auto) 28 12-44 % Monocytes (%) (Auto) 4 0-12 % Eosinophils (%) (Auto) 1 0-10 % Basophils (%) (Auto) 1 0-10 % Neutrophils # (Auto) 3.4 1.8-7.8 10^3/uL Lymphocytes # (Auto) 1.4 1.0-4.0 10^3/uL Monocytes # (Auto) 0.2 0.0-1.0 10^3/uL Eosinophils # (Auto) 0.0 0.0-0.3 10^3/uL Basophils # (Auto) 0.0 0.0-0.1 10^3/uL Immature Granulocyte # (Auto) 0.0 0.0-0.1 10^3/uL D-Dimer 0.87 H 0.00-0.49 UG/ML Sodium Level 139 135-145 MMOL/L Potassium Level 3.3 L 3.6-5.0 MMOL/L Chloride Level 109 H 98-107 MMOL/L Carbon Dioxide Level 19 L 21-32 MMOL/L Anion Gap 11 5-14 MMOL/L Blood Urea Nitrogen 8 7-18 MG/DL Creatinine 1.05 0.60-1.30 MG/DL Estimat Glomerular Filtration Rate 58 BUN/Creatinine Ratio 8 Glucose Level 97 70-105 MG/DL Calcium Level 8.9 8.5-10.1 MG/DL Corrected Calcium 8.7 8.5-10.1 MG/DL Total Bilirubin 0.9 0.1-1.0 MG/DL Aspartate Amino Transf (AST/SGOT) 15 5-34 U/L Alanine Aminotransferase (ALT/SGPT) 13 0-55 U/L Alkaline Phosphatase 60 40-136 U/L C-Reactive Protein High Sensitivity 0.02 0.00-0.50 MG/DL Total Protein 7.1 6.4-8.2 GM/DL Albumin 4.2 3.2-4.5 GM/DL Procalcitonin 0.02 <0.10 NG/ML TSH [place] Testing 0.79 0.35-4.94 UIU/ML Influenza Type A (RT-PCR) Not Detected Not Detecte Influenza Type B (RT-PCR) Not Detected Not Detecte SARS-CoV-2 RNA (RT-PCR) Not Detected Not Detecte Urine Color YELLOW Urine Clarity CLEAR Urine pH 7.0 5-9 Urine Specific [place] 1.010 L 1.016-1.022 Urine Protein NEGATIVE NEGATIVE Urine Glucose (UA) NEGATIVE NEGATIVE Urine Ketones NEGATIVE NEGATIVE Urine Nitrite NEGATIVE NEGATIVE Urine Bilirubin NEGATIVE NEGATIVE Urine Urobilinogen 0.2 < = 1.0 MG/DL Urine Leukocyte Esterase NEGATIVE NEGATIVE Urine RBC (Auto) NEGATIVE NEGATIVE Urine RBC NONE /HPF Urine WBC 0-2 /HPF Urine Squamous Epithelial Cells 2-5 /HPF Urine Crystals NONE /LPF Urine Bacteria FEW H /HPF Urine Casts NONE /LPF Urine Mucus NEGATIVE /LPF Urine Culture Indicated YES My Orders Orders - YVETTE FRANCIS MD Fibrin Degradation Products (11/22/20 19:59) Procalcitonin (Pct) (11/22/20 19:59) Hs C Reactive Protein (11/22/20 19:59) Covid 19 Inhouse Test (11/22/20 19:59) Influenza A And B By Pcr (11/22/20 19:59) Isolation Central Supply Req (11/22/20 19:59) Cbc With Automated Diff (11/22/20 19:59) Comprehensive Metabolic Panel (11/22/20 19:59) Thyroid Analyzer (11/22/20 19:59) Ua Culture If Indicated (11/22/20 19:59) Lactated Ringers (Lr 1000 Ml Iv Solution (11/22/20 19:59) Ed Iv/Invasive Line Start (11/22/20 19:59) Ekg Tracing (11/22/20 19:59) Lactated Ringers (Lr 1000 Ml Iv Solution (11/22/20 20:01) Ct Angio Chest W (11/22/20 20:52) Iohexol Injection (Omnipaque 350 Mg/Ml 1 (11/22/20 21:15) Received Contrast (Hold Metformin- Contr (11/22/20 21:15) Ns (Ivpb) (Sodium Chloride 0.9% Ivpb Bag (11/22/20 21:15) Urine Culture (11/22/20 20:49) Ns Iv 500 Ml (Sodium Chloride 0.9%) (11/22/20 21:45) Medications Given in ED Current Medications Medications Dose Ordered Sig/Elvin Route Start Time Stop Time Status Last Admin Dose Admin Iohexol 72 ml ONCE ONCE IV 11/22/20 21:15 11/22/20 21:18 DC 11/22/20 21:14 72 ML Sodium Chloride 80 ml ONCE ONCE IV 11/22/20 21:15 11/22/20 21:18 DC 11/22/20 21:14 80 ML Sodium Chloride 500 ml @ 0 mls/hr Q0M ONCE IV 11/22/20 21:45 11/22/20 21:46 DC 11/22/20 21:37 1,000 MLS/HR Vital Signs/I&O 11/22/20 20:19 Temp 36.8 Pulse 84 Resp 20 B/P (MAP) 130/84 (99) Pulse Ox 100 O2 Delivery Room Air Capillary Refill : Progress Note : Progress Note Seen and evaluated. IV, labs, UA, EKG, LR 1 L bolus, COVID-19 testing ordered. Monitor patient. 2154: We did a CT angiogram of the chest for elevated D-dimer and history of blood clots and this was negative. Patient received an additional bolus of normal saline 500 mL. Overall she is feeling a little bit better although still has a little bit of shortness of breath. She does admit that she does have anxiety issues as well. Overall no significant findings on this work-up. Potassium slightly low and she has potassium at home that she will initiate for a few days. No significant concerning findings currently and patient reassured. Discharged home with return precautions. Patient verbalized understanding of instructions and agreement with plan. ECG Initial ECG Impression Date: Nov 22, 2020 Initial ECG Impression Time: 19:46 Initial ECG Rate: 84 Initial ECG Rhythm: Normal Sinus Comment Sinus rhythm with normal axis. No evidence of ST elevation DC. Similar to previous of 06/04/2018. Interpreted by me. Diagnostic Imaging Diagonstic Imaging: CT Plain Films/CT/US/NM/MRI: chest Comments [facility], [place] NAME: MAI PAREDES [facility] REC#: [id number] PT STATUS: REG ER : 1980 PHYSICIAN: YVETTE FRANCIS MD ADMIT DATE: 11/22/20/ER Signed Date of Exam:11/22/20 CT ANGIO CHEST W PROCEDURE: CT angiography Chest TECHNIQUE: After intravenous administration of contrast, thin section axial CT angiography of the chest was performed. 3D MIP reconstructions were made. All CT scans use one or more of the following dose optimizing techniques: automated exposure control, MA and/or KvP adjustment based on a patient size and exam type, or iterative reconstruction. INDICATION: Shortness of air and chest pain COMPARISON: CT chest of 02/01/2018 FINDINGS: Vasculature: No pulmonary emboli. No CT evidence of pulmonary hypertension or right ventricular strain. Thoracic aorta is normal in caliber. No aortic dissection or pseudoaneurysm. Heart and mediastinum: Visualized thyroid is normal. No supraclavicular, axillary, or intra-thoracic lymphadenopathy. The heart is normal in size without pericardial effusion. Pleura: No pleural effusion or pneumothorax. Lungs and airway: No endoluminal lesion in the trachea or central bronchi. No pulmonary mass, nodule or consolidation. Upper abdomen: Allowing for the phase of contrast, no acute abnormality in the upper abdomen is seen. Postoperative changes in the stomach. Musculoskeletal: No concerning osseous lesion. IMPRESSION: 1. No acute cardiopulmonary process. Specifically, no pulmonary emboli or acute aortic syndrome. Dictated by: Dictated on workstation # [id number] Dict: 11/22/[id number] Trans: 11/22/202120 [facility] [id number] Interpreted by: CARLYLE SOSA MD Electronically signed by: CARLYLE SOSA MD 11/22/202120 Departure Impression Primary Impression: Dyspnea Qualified Codes: R06.00 - Dyspnea, unspecified Additional Impression: Elevated d-dimer Disposition: HOME, SELF-CARE Condition: Improved Departure-Patient Inst. Decision time for Depature: 21:55 Referrals: LEESA GARIBAY MD (PCP) Primary Care Physician HELEN CARRENO APRN (Family) Primary Care Physician Patient Instructions: Shortness of Breath (Dyspnea) Add. Discharge Instructions: Continue home medications as previously prescribed. Follow-up with your doctor this week for recheck and further evaluation. Drink plenty of fluids. You should initiate your potassium for a few days and follow-up with your doctor regarding this as well. Return for worse pain, fever, vomiting, weakness, breathing problems or other concerns as needed. YVETTE FRANCIS MD Nov 22, 2020 20:07
[2020-11-22 20:10] LABS: BASOPHILS % (AUTO) 1 % (0-10); EOSINOPHILS % (AUTO) 1 % (0-10); HEMATOCRIT 39 % (35-52); HEMOGLOBIN 12.9 g/dL (11.5-16.0); LYMPHOCYTES # (AUTO) 1.4 10^3/uL (1.0-4.0); LYMPHOCYTES % (AUTO) 28 % (12-44); MEAN CORPUSCULAR HEMOGLOBIN 30 pg (25-34); MEAN CORPUSCULAR HGB CONC 33 g/dL (32-36); MEAN CORPUSCULAR VOLUME 91 fL (80-99); MEAN PLATELET VOLUME 9.6 fL (9.0-12.2); MONOCYTES # (AUTO) 0.2 10^3/uL (0.0-1.0); MONOCYTES % (AUTO) 4 % (0-12); NEUTROPHILS # (AUTO) 3.4 10^3/uL (1.8-7.8); NEUTROPHILS % (AUTO) 66 % (42-75); PLATELET COUNT 238 10^3/uL (130-400); WHITE BLOOD COUNT 5.2 10^3/uL (4.3-11.0)
[2020-11-22 20:17] LABS: ALBUMIN 4.2 GM/DL (3.2-4.5); POTASSIUM 3.3 MMOL/L (3.6-5.0)
[2020-11-22 20:18] LABS: CALCIUM 8.9 MG/DL (8.5-10.1)
[2020-11-22 20:20] LABS: TOTAL PROTEIN 7.1 GM/DL (6.4-8.2)
[2020-11-22 20:21] LABS: BILIRUBIN,TOTAL 0.9 MG/DL (0.1-1.0)
[2020-11-22 20:23] LABS: CREATININE SERUM 1.05 MG/DL (0.60-1.30)
[2020-11-22 20:46] LABS: TSH (THYROID ANALYZER) 0.79 UIU/ML (0.35-4.94)
[2020-11-22 21:00] LABS: BILIRUBIN,URINE NEGATIVE (NEGATIVE); CLARITY,URINE CLEAR; COLOR,URINE YELLOW; GLUCOSE, URINE (UA) NEGATIVE (NEGATIVE); KETONES,URINE NEGATIVE (NEGATIVE); LEUKOCYTE ESTERASE ,URINE NEGATIVE (NEGATIVE); NITRITE,URINE NEGATIVE (NEGATIVE); PROTEIN,URINE NEGATIVE (NEGATIVE)
[2020-11-22 21:15] LABS: BACTERIA,URINE FEW /HPF; WBC,URINE 0-2 /HPF
[2020-11-22] MEDS ORDERED: IOHEXOL 350 MG/ML 100 ML (OMNIPAQUE 350) VIAL IV ONE (21:15)
[2020-11-22] MEDS ORDERED: NS 100 ML (IVPB) BAG IV ONE (21:15)
[2020-11-22] MEDS ORDERED: HOLD METFORMIN - RECEIVED CONTRAST 20 ML VIAL IV SCH (21:15)
--- NOTE | 2020-11-22 21:22 | Diagnostic Imaging Report ---
PROCEDURE: CT angiography Chest TECHNIQUE: After intravenous administration of contrast, thin section axial CT angiography of the chest was performed. 3D MIP reconstructions were made. All CT scans use one or more of the following dose optimizing techniques: automated exposure control, MA and/or KvP adjustment based on a patient size and exam type, or iterative reconstruction. INDICATION: Shortness of air and chest pain COMPARISON: CT chest of 02/01/2018 FINDINGS: Vasculature: No pulmonary emboli. No CT evidence of pulmonary hypertension or right ventricular strain. Thoracic aorta is normal in caliber. No aortic dissection or pseudoaneurysm. Heart and mediastinum: Visualized thyroid is normal. No supraclavicular, axillary, or intra-thoracic lymphadenopathy. The heart is normal in size without pericardial effusion. Pleura: No pleural effusion or pneumothorax. Lungs and airway: No endoluminal lesion in the trachea or central bronchi. No pulmonary mass, nodule or consolidation. Upper abdomen: Allowing for the phase of contrast, no acute abnormality in the upper abdomen is seen. Postoperative changes in the stomach. Musculoskeletal: No concerning osseous lesion. IMPRESSION: 1. No acute cardiopulmonary process. Specifically, no pulmonary emboli or acute aortic syndrome. Dictated by: Dictated on workstation # [id number]
[2020-11-22] MEDS ORDERED: NS IV 500 ML 500 ML IV ONE (21:45)
[2020-11-22 22:13] VITALS: BP 104/76
== END 2020-11-22 22:01 | disposition home or self-care (01) ==
LOC: EDUNIT# 19:33 → ER 19:36
DX: R06.00 Dyspnea, unspecified (principal); R79.1 Abnormal coagulation profile; I10 Essential (primary) hypertension; K21.9 Gastro-esophageal reflux disease without esophagitis; F41.9 Anxiety disorder, unspecified; G89.29 Other chronic pain; M54.9 Dorsalgia, unspecified; Z86.711 Personal history of pulmonary embolism; Z86.718 Personal history of other venous thrombosis and embolism; Z20.822 Contact with and (suspected) exposure to COVID-19; Z95.0 Presence of cardiac pacemaker; Z79.899 Other long term (current) drug therapy; Z79.01 Long term (current) use of anticoagulants; Z79.891 Long term (current) use of opiate analgesic
CPT/HCPCS: 36415; 71275; 80053; 81000; 84145; 84443; 85025; 85379; 86141; 87088; 87636; 93005